=== PATIENT | female | born 1950 | race Caucasian/White ===

== ENCOUNTER 2018-07-19 10:00 | Outpatient (RCR) | payer MEDICARE, OTHER, SELFPAY ==
--- NOTE | 2018-06-20 09:41 | PTTR_ITS ---
DATE: 06/20/18 SUBJECTIVE: Margarita states that she is feeling well. She continues to have hip pain, although feels as though she's getting stronger. Compliant with HEP: x Yes No OBJECTIVE: Therapeutic procedures ([id number]). * x HEP review: * x See flow sheet: * x Provided skilled instruction in proper exercise performance: Progressed therex program to include lunge to high kneel, using UE support to parallel bars and 3 Airex pads to limit excursion. She requires min A for return to standing initially, with transition to supervision only. Attempted transition to floor from high kneel, although patient is unable to safely complete. Deferred on these for today. Progressed bridging to use of green theraband, where she requires verbal and tactile cues for appropriate technique. * x Provided skilled manual cues to facilitate proper muscle recruitment and/ or movement pattern: Direct treatment time: 30 minutes Total treatment time: 35 minutes, with 5 minutes stationary biking
--- NOTE | 2018-06-24 13:54 | PTTR_ITS ---
DATE: 06/24/18 SUBJECTIVE: Pt reports feeling as though she is gaining strength, but that the process is slow. OBJECTIVE: Therapeutic procedures ([id number]). * X See flow sheet: Vitals taken at start of session. Continued pt's strengthening program as indicated on flow sheet. Modified pt's strength and conditioning program due to pt needing to leave early for another appointment. * X Provided skilled instruction in proper exercise performance. * X Provided skilled manual cues to facilitate proper muscle recruitment and/ or movement pattern. Direct treatment time: 20 minutes Total treatment time: 20 minutes
--- NOTE | 2018-06-27 08:51 | PTTR_ITS ---
DATE: 06/27/18 SUBJECTIVE: Pt states that she continues to feel tired after her tx sessions but feels like she is making progress. OBJECTIVE: Therapeutic procedures ([id number]). Pt is instructed in a progressive modified ther ex program as noted on flow sheet. Progressed her lunged to transition from stand to high kneel to floor. Pt requires min (A) for transition from q- ped to floor. * X Provided skilled instruction in proper exercise performance * X Provided skilled manual cues to facilitate proper muscle recruitment and/ or movement pattern: Pt requires continuous tactile cueing at the pelvis to avoid compensatory movement patterns during hip strengthening activities. Direct treatment time: 30 minutes Total treatment time: 40 minutes with additional time spent Nustep biking.
--- NOTE | 2018-07-02 10:42 | PTTR_ITS ---
DATE: 07/02/18 SUBJECTIVE: Margarita states that she has been feeling really good and states that she feels as though the strength is returning in her leg and she is having less pain day to day. OBJECTIVE: Therapeutic procedures ([id number]). Pt was instructed in a progressed ther ex program as noted on flow sheet. She is able to ambulate throughout the clinic without her cane today. Although she was encouraged to continue to use for longer distance or outdoor ambulation. She was able to complete supine activities on the floor today with need for only min (A) and cues to transition from standing to floor. Also added airex pads to closed chain strengthening activities with need for continuous tactile feedback for avoidance of compensatory movement patterns throughout. Direct treatment time: 35 minutes Total treatment time: 45 minutes with additional time spent with Nustep Biking.
--- NOTE | 2018-07-04 14:00 | NT_ITS ---
07/04/18 [facility] today's scheduled appt. SS/dl
--- NOTE | 2018-07-08 13:00 | PN_ITS ---
DATE: July 08, 2018 REFERRING: Madalyn Craven MD REFERRING PROVIDER DIAGNOSIS:: Chronic back and hip pain PHYSICAL THERAPY DIAGNOSIS: same with generalized LE weakness. REPORTING PERIOD (for progress note and discharge note only): 06/07/18 to SUBJECTIVE: Margarita states that her hip is feeling stronger. She continues to have episodes of pain and states with walking she does get some clicking through the lateral hip. She now able to walk within her home without a cane at times, although continues with use of cane for outdoor or longer distance ambulation. She no longer uses the walker at all. She has been doing her HEP and states that she has tried doing more walking around the house as we discuss in previous visits. Standardized Measures: * Lower Extremity Functional Scale Score (LEFS): Shows a 34% deficit. (MOLBPDQ was not repeated today as patient's primary issue is L hip pain). OBJECTIVE: Posture: Patient is demonstrating upright standing posture with UE support to straight cane. She continues to demonstrate posterior pelvic tilt and increased thoracic kyphosis, although she is able to correct this. Gait: Continued antalgia. The patient is ambulating with straight cane in the R UE with decreased stance time on the L as compared to the R with shortened stride length and slow shuffling gait. Special Tests (indicate): 6 min walk test shows vitals BP 120/74, HR 66. The patient ambulates 666 feet (vs just over 400 feet on initial evaluation). Post BP is 138/68, HR 78. Treatment: Therapeutic Procedure [id number]: Consisted of re-assessment followed by instruction in a progressed strengthening program as noted on flow sheet. The patient continues to require both verbal and tactile cueing throughout session, particularly for correction of posterior pelvic tilt. (full program can be found noted on flow sheet) Treatment time: 30 mins ASSESSMENT: Patient has been participating in skilled PT intervention with therapeutic exercise based program where she is demonstrating significant improvements in activity tolerance and functional strength. She is subjectively reporting reduction in pain and re-evaluation today demonstrates a significant improvement in 6 min walk test scores, improving from 400 feet to 666 feet. She requires continued PT intervention to maximize her mobility and also improve activity tolerance. G-Codes (add modifier after appropriate code): Patient' is demonstrating improved functional limitation is in the category of: * x Mobility - walking and moving around : [id number], this is based on LEFS. * Projected goal status is going to be modified to [id number] ST: Assess 6 min walk test (Met) 2: Assess Rondon balance test (Not Met) 3: Reduce pain by 25% in frequency and severity (Met) 4: Able to sit to stand without UE support. (Met) LT: Return to premorbid level of function. (Progressing towards) 2: Return to full, pain-free, functional mobility. (Progressing towards) 3: Independent with self-maintenance program. (Progressing towards) 4: Use of straight cane for all ambulation. (Met) 5: Able to manage full flight of stairs with single rail and supervision only ( Progressing towards) 6: Able to tolerate community distance ambulation. (Met) PLAN: Will continue progressing with strengthening based program 2x a week. Will continue working on functional movement patterns, cardiovascular endurance activities and progressive strengthening. SS/dl
--- NOTE | 2018-07-10 13:00 | PTTR_ITS ---
DATE: 07/10/18 SUBJECTIVE: Margarita states that her hip is continuing to feel good. She feels she is making progress with her strength and mobility. Therapeutic procedures ([id number]). Today's session consisted of instruction in a progressed Therex program as noted on flow sheet. We again worked on transition from standing to lying on the floor, where the patient requires cues for appropriate technique and CG with transition from stand to high kneel. She also requires cues for appropriate rolling techniques with increased time to perform noted. She is able to progress to high knee balance activities with ball toss to self, although requires Min A of the trunk throughout. She requires nearly continuous verbal and tactile cues for appropriate positioning with close chain strengthening, specifically with squats and UE loading activities. Full program with level of assistance required can be found on her flow sheet. Direct treatment time: 40 mins Total treatment time: 45 mins with additional time spent in cardiovascular activity. SS/dl
--- NOTE | 2018-07-15 13:51 | PTTR_ITS ---
DATE: 07/15/18 SUBJECTIVE: Margarita states she is feeling well. She has not been getting a great deal of muscle soreness post P.T. sessions, and feels she is getting stronger. She continues to avoid stairs due to her fear of falling. OBJECTIVE: Therapeutic procedures ([id number]). Today's session consisted of instructions in a progressed ther-ex routine as noted via flow sheets. Vitals were monitored both pre and post treatment. She was instructed in reciprocal management of both 4 and 6 stairs. She frequently defaults back to step to gait pattern on 6 stairs, and requires cues for appropriate technique. During lunging activities she continues to require constant verbal and tactile cues for appropriate completion. She was able to progress her high kneeling activities today with need for cues for TA activation and intrinsic recruitment. After standing activities she required a 2 minute seated rest break due to some mild symptoms of dizziness. Her vitals were found to be normal. She was provided water. Was able to complete NuStep after that, although we held on the remainder of her strengthening program. Direct treatment time: 30 minutes Total treatment time: 45 minutes. SS/gc
--- NOTE | 2018-07-19 11:39 | PTTR_ITS ---
DATE: SUBJECTIVE: Margarita states that she's feeling well. Her family members have noticed that she's getting around better at home. She continues to require assistance with grocery shopping and stair management, but states that her daughter wants to try going out for a walk later today, which she's looking forward to. Compliant with HEP: x Yes No OBJECTIVE: Therapeutic procedures ([id number]). * x See flow sheet: * x Provided skilled instruction in proper exercise performance: Progressed to include further high kneel activities today, which can be found noted in flowsheet. Patient requires SBA for completion. * x Provided skilled manual cues to facilitate proper muscle recruitment and/ or movement pattern: Tactile cues for appropriate completion of hip PREs and lunges. Patient also requires mod A for return from right-sided lunge position. On the left, she's able to independently return to standing with UE support to rail. She was unable to complete full reps of lunges due to significant fatigue ; vitals were found to be WNL. A/P: Patient is following up with her PCP next week for bloodwork. Will continue progressing as she's able to tolerate. Direct treatment time: 30 minutes Total treatment time: 30 minutes
== END 2018-07-19 23:59 | disposition home or self-care (01) ==
LOC: PT 10:00
PROVIDERS: PCP Family Medicine; Referring Provider Family Medicine; Visit Provider Family Medicine
DX: M25.551 Pain in right hip (principal); M25.552 Pain in left hip; G89.29 Other chronic pain; M54.5 Low back pain
CPT/HCPCS: 97110; G8978

== ENCOUNTER 2019-04-10 00:37 | Outpatient (CLI) | payer MEDICARE, OTHER, SELFPAY ==
--- NOTE | 2019-04-10 15:00 | DI.US_ITS ---
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 In this area, there is a normal appearing lymph node measuring 1.2 by 0.4 by 1.0 cm. A normal fatty hilum is maintained. IMPRESSION: 1.2 cm. lymph node corresponds to the palpable abnormality. The lymph node architecture appears normal. Underling malignancy cannot be entirely excluded.
== END 2019-04-10 00:57 ==
PROVIDERS: PCP Family Medicine; Visit Provider Internal Medicine
DX: R59.0 Localized enlarged lymph nodes (principal); Z94.81 Bone marrow transplant status; C91.10 Chronic lymphocytic leukemia of B-cell type not having achieved remission
CPT/HCPCS: 76536

== ENCOUNTER 2019-06-10 00:29 | Outpatient (CLI) | payer MEDICARE, OTHER, SELFPAY ==
--- NOTE | 2019-06-10 08:21 | DI.MAMMO_ITS ---
SYMPTOM/DIAGNOSIS: SCREENING, Z12.31 MAMMOGRAMS: Mammograms were interpreted according to the usual protocol including computer analysis with CAD system, tomosynthesis and C view imaging. Comparison is with the prior examinations. No suspicious masses or microcalcifications are seen. There is no definite evidence of malignancy. IMPRESSION: Negative mammogram. Routine screening is recommended. Category 1, breast density B. MQSA ASSESSMENT OF FINDINGS: Negative. Category 1. Patient will receive a letter notifying them of these results. BI-RADS category B. There are scattered areas of fibroglandular density.
== END 2019-06-10 00:49 ==
PROVIDERS: PCP Family Medicine; Visit Provider Family Medicine
DX: Z12.31 Encounter for screening mammogram for malignant neoplasm of breast (principal)
CPT/HCPCS: 77063; 77067

== ENCOUNTER 2019-07-03 13:05 | Emergency (ER) | payer MEDICARE, OTHER, SELFPAY ==
[2019-07-03 13:06] VITALS: BP 160/64; PULSE 66; RESP 20; TEMP 36.8; O2SAT 98
--- NOTE | 2019-07-03 13:13 | ED.GENADUL_ITS ---
Discharge Plan Disposition Patient Disposition: HOME Condition: Fair Discharge Details Chief Complaint: Orthopedic Clinical Impression: Closed trimalleolar fracture Primary Care Provider: Madalyn Craven ED Provider: Valarie Stauffer Home Meds and New Rx's Prescriptions: New tramadol 50 mg tablet 50 mg PO Q6H PRN (Reason: pain) Qty: 10 RF: 0 Continued multivitamin [Daily Multiple] 1 EACH tablet 1 ea PO DAILY RF: 0 sertraline 100 MG tablet 100 mg PO DAILY RF: 0 atorvastatin 40 MG tablet 40 mg PO HS Qty: 30 RF: 0 prochlorperazine maleate 10 MG tablet 10 mg PO Q4H PRN PRN (Reason: Nausea) Qty: 12 RF: 0 biotin 300 MCG tablet 300 mcg PO DAILY RF: 0 Wf-Uasm-Jmwiour 133 MG tablet 1 tab PO DAILY RF: 0 metoprolol succinate 25 MG tablet extended release 24 hr 75 mg PO DAILY RF: 0 Discharge Instructions Instructions: Leg Fracture (ED) Additional Instructions: Encourage rest, ice, elevation. Tylenol and ibuprofen as needed for discomfort. You may augment this with tramadol as prescribed as needed. You may ice the front of your ankle. Please call orthopedics tomorrow to schedule follow-up appointment, plan for surgery on Sunday. If you develop fever/chills increased pain or other new/worsening symptoms please seek care urgently once again. Referrals: Madalyn Craven [Primary Care Provider] - Edward Roman MD [ [facility] STAFF PHYSICIAN] - Discharge Data Discharge Date/Time-TO BE ENTERED AT DEPARTURE: 07/03/19 15:51 Medical Decision Making Patient presents today with chief complaint of right ankle pain. Patient has ecchymosis, swelling and deformity to the right ankle concerning for fracture. Plan for imaging. Neurovascularly intact. 2+ distal pulses. No pain in the foot or over the proximal fibula. Exam is otherwise benign. She denies trauma elsewhere at the time of the fall. Will give Tylenol and ibuprofen to help with discomfort peer X-rays are concerning for a trimalleolar fracture. Discussed these findings with the patient. She does report that her pain is somewhat improved after the ibuprofen and Tylenol. The consulted with Dr. Roman recommended the patient will forward with surgery, advised that rest, ice, elevation over the weekend with plan for surgery on Sunday. Applied posterior slab splint with plaster. Patient tolerated this well. She would not let me dorsiflex the ankle to a full 90 degrees, but this is close as possible. She will be prescribed tramadol to augment with the Tylenol and ibuprofen. Encourage rest, ice, elevation. She has a walker at home. I feel this will work better for her crutches. She will contact orthopedics tomorrow to discuss follow-up plan. All other questions and concerns were addressed and she is in agreement with this plan. HPI General Mode of arrival: EMS . Date/Time Provider Initiated Documentation: 07/03/19 13:06 . Limitations to Documentation: no limitations . Information obtained by: patient, EMS and RN notes reviewed . HPI Narrative: Patient is a 69-year-old female presents today with chief complaint of right ankle pain. She reports prior to arrival she misstepped coming off of her deck and suffered an injury to the right ankle. Has pain along the lateral malleolus. Denies other injury at the time of the incident. Did not strike her head, no loss of consciousness. Is not been able to ambulate since the incident. Related Data Home Medications Medication Instructions Recorded Confirmed multivitamin [Daily Multiple] 1 ea PO DAILY 08/31/16 07/03/19 sertraline 100 mg PO DAILY tab-cap 08/31/16 07/03/19 atorvastatin 40 mg PO HS #30 tablet 12/26/16 07/03/19 prochlorperazine maleate 10 mg PO Q4H PRN PRN #12 tab 12/26/16 07/03/19 Go-Qrwc-[id number] 1 tab PO DAILY 08/26/17 07/03/19 biotin 300 mcg PO DAILY 08/26/17 07/03/19 metoprolol succinate 75 mg PO DAILY 10/27/17 07/03/19 tramadol 50 mg PO Q6H PRN #10 tab 07/03/19 Previous Rx's Medication Instructions Recorded atorvastatin 40 mg PO HS #30 tablet 12/26/16 prochlorperazine maleate 10 mg PO Q4H PRN PRN #12 tab 12/26/16 tramadol 50 mg PO Q6H PRN #10 tab 07/03/19 Allergies Allergy/AdvReac Type Severity Reaction Status Date / Time No Known Allergies Allergy Unverified 07/03/19 13:07 General Stated Complaint: Orthopedic ULI: 3 Review of Systems Constitutional Reports as per HPI, Denies chills, Denies fever(s), Denies headache(s) and Denies weakness ENT Denies headache(s) Cardiovascular Reports as per HPI Respiratory Reports as per HPI and Denies cough Musculoskeletal Reports as per HPI and Denies tingling Integumentary/Breasts Reports as per HPI, Denies rash and Denies wounds Neurologic Reports as per HPI, Denies headache(s), Denies tingling, Denies paresthesias and Denies weakness [facility] Medical History CLL (chronic lymphocytic leukemia) Surgical History (Updated 09/04/18 @ 14:33 by [employer] HI) Cholecystectomy Colonoscopy - IV Sedation (10/16/16) Family History (Updated 08/31/16 @ 13:31 by JAVED Stacy) Father No problems noted. Other Colon cancer Social History Smoking/Tobacco Use Status: Never Alcohol Intake: never Drug use: Never Do you feel safe at home: Yes Do you feel safe in your relationship?: Yes Exam Const General: cooperative, healthy appearing, comfortable, no acute distress, well developed and well groomed Nutritional Appearance: average body habitus and well nourished Orientation: alert and awake Resp Effort & Inspection: normal respiratory effort, able to speak in complete sentences and no respiratory distress Auscultation: clear to auscultation bilaterally Cardio Rate: regular rate Rhythm: regular rhythm Heart Sounds: S1 normal and S2 normal Skin General skin exam: ecchymosis (Lateral malleolus) Neuro General: alert and awake Cognition: normal cognition Speech: speech normal Gait: gait abnormal (Patient unable to bear weight) Motor: muscle tone normal throughout Sensory Exam: no sensory deficits noted Extrem Right lower extremity: normal capillary refill, knee Details: normal to inspection (No pain with palpation over the proximal fibula), lower leg, ankle Details: tenderness Location: of the lateral malleolus and anteromedially; not of the achilles tendon, swelling Details: laterally, no edema, abnormal ROM Details: pain with active ROM and pain with passive ROM and ecchymosis; inspection normal, ROM abnormal, no unusual warmth, no abrasions, no lacerations, no crepitus, no penetrating wound and achilles tendon exam normal and foot Details: normal capillary refill and normal to inspection; no tenderness (No pain to palpation over the proximal fifth metatarsal); abnormal to inspection (Deformity noted to the lateral malleolus with associated swelling and ecchy), ROM limited (Unable to range ankle), no edema and joint enlargement noted (Swelling to lateral malleolus) Left lower extremity: normal to inspection, normal capillary refill and no joint enlargement; no edema Psych Appearance: grossly normal and well kempt Mental Status: mental status grossly normal Speech and Movement: speech and movement normal Course Vital Signs Temperature 36.8 C 07/03/19 13:06 Pulse 66 07/03/19 13:06 Respiratory Rate 20 07/03/19 13:06 Blood Pressure 160/64 H 07/03/19 13:06 Pulse Oximetry 98 07/03/19 13:06 Temperature 36.8 C 07/03/19 13:06 Temperature Source Temporal Artery Scan 07/03/19 13:06 Pulse 66 07/03/19 13:06 Respiratory Rate 20 07/03/19 13:06 Blood Pressure 160/64 H 07/03/19 13:06 Pulse Oximetry 98 07/03/19 13:06 Oxygen Delivery Method Room Air 07/03/19 13:06 Oxygen Flow Rate 0 07/03/19 13:06 Pain Level 8 07/03/19 13:06
[2019-07-03] MEDS: Ibuprofen 600 MG TAB PO (13:20)
[2019-07-03] MEDS: Acetaminophen 325 MG TAB 650 MG PO (13:20)
--- NOTE | 2019-07-03 13:33 | DI.RAD_ITS ---
SYMPTOMS/DIAGNOSIS: TRAUMA, DEFORMITY LATERAL MALLEOLUS RIGHT ANKLE: Three views were obtained and show a trimalleolar fracture of the ankle with mild displacement of tibial and fibular fracture fragments. There may be slight widening of the ankle mortise medially. No additional fracture seen.
[2019-07-03] MEDS: traMADol 50 MG TAB PO (15:18)
== END 2019-07-03 15:51 | disposition home or self-care (01) ==
PROVIDERS: Emergency Provider Physician Assistant; PCP Family Medicine
DX: S82.851A Displaced trimalleolar fracture of right lower leg, initial encounter for closed fracture (principal); W17.89XA Other fall from one level to another, initial encounter
CPT/HCPCS: 29515; 99283; 73610; 99282

== ENCOUNTER 2019-07-07 07:50 | Day surgery (SDC) | payer MEDICARE, OTHER, SELFPAY ==
[2019-07-07] VITALS (8 sets, daily range): BP systolic 100–126; BP diastolic 40–59; PULSE 67–85; RESP 15–19; TEMP 36.3–36.8; O2SAT 92–99
[2019-07-07] MEDS: fentaNYL 100 MCG/2 ML VIAL 50 MCG IVP ×2 (09:20→09:40)
--- NOTE | 2019-07-07 10:07 | W.PREOPHP ---
History of Present Illness Narrative: Ms. Perales is a 69-year-old female who presents to hospital for ORIF of right ankle for trimalleolar fracture. On 07/03/19 patient misstepped coming off a deck and [facility] Medical History (Updated 07/07/19 @ 09:16 by Aric Perez CRNA) CLL (chronic lymphocytic leukemia) Hypertension (Chronic) Moderate aortic regurgitation (Inactive) Moderate aortic stenosis (Chronic) Surgical History Cholecystectomy Colonoscopy - IV Sedation (10/16/16) History of repair of hip fracture (Acute) Social History Smoking/Tobacco Use Status: Never Alcohol Intake: never Drug use: Never Do you feel safe at home: Yes Do you feel safe in your relationship?: Yes Meds Home Medications Medication Instructions Recorded Confirmed Type multivitamin [Daily Multiple] 1 ea PO DAILY 08/31/16 07/07/19 History sertraline 100 mg PO DAILY tab-cap 08/31/16 07/07/19 History prochlorperazine maleate 10 mg PO Q4H PRN PRN #12 tab 12/26/16 07/07/19 Rx Nf-[id number]-Npbkxbu 1 tab PO DAILY 08/26/17 07/07/19 History metoprolol succinate 75 mg PO DAILY 10/27/17 07/07/19 History tramadol 50 mg PO Q6H PRN #10 tab 07/03/19 07/07/19 Rx acetaminophen [Acetaminophen Extra 1,000 mg PO Q4H PRN 07/04/19 07/07/19 History Strength] cholecalciferol (vitamin D3) 800 unit PO DAILY 07/04/19 07/07/19 History [Vitamin D3] ibuprofen 200 - 400 mg PO Q6H PRN 07/04/19 07/07/19 History Allergies Allergy/AdvReac Type Severity Reaction Status Date / Time No Known Allergies Allergy Unverified 07/03/19 13:07 Results Last Vital Signs Temp 36.8 C 07/07/19 08:18 Pulse 85 07/07/19 08:18 Resp 16 07/07/19 08:18 BP 126/59 L 07/07/19 08:18 Pulse Ox 99 07/07/19 08:18
--- NOTE | 2019-07-07 10:27 | DI.RAD_ITS ---
SYMPTOM/DIAGNOSIS: RT ANKLE FX, ORIF C-ARM RIGHT ANKLE: Fluoroscopy Time: 26 seconds C-arm fluoroscopy was utilized by Dr. Roman during open reduction and internal fixation of a fracture of the distal fibula. Hard copies show plate and screw fixation of the fibular fracture fragments. Fracture of the distal tibia again noted. A fixation screw transfixes the tibiofibular joint.
[2019-07-07] MEDS: Lactated Ringers 1,000 ML 200 ML IV ×2 (10:30→13:57)
[2019-07-07] MEDS: Bupivacaine 0.25% Pres-Free 10 ML VIAL (10:43)
[2019-07-07] MEDS: Bupivacaine 0.25% Pres-Free 30 ML VIAL (10:43)
[2019-07-07] MEDS: ceFAZolin 1 GM/50 ML BAG IVPB (11:01)
--- NOTE | 2019-07-07 12:48 | W.PM.DSUDISC ---
Discharge Plan Disposition Patient Disposition: HOME Condition: Good Discharge Details Reason For Visit: TRIMALLEOLAR FX (R) ANKLE Attending Provider: Edward Roman Primary Care Provider: Madalyn Craven Home Meds and New Rx's Prescriptions: New hydrocodone-acetaminophen 5-325 mg tablet 1 tab PO Q4H PRN (Reason: pain) Qty: 20 RF: 0 Continued multivitamin [Daily Multiple] 1 EACH tablet 1 ea PO DAILY RF: 0 sertraline 100 MG tablet 100 mg PO DAILY RF: 0 cholecalciferol (vitamin D3) [Vitamin D3] 400 unit Capsule 800 unit PO DAILY RF: 0 ibuprofen 200 mg Capsule 200 - 400 mg PO Q6H PRNRF: 0 acetaminophen [Acetaminophen Extra Strength] 500 mg Tablet 1,000 mg PO Q4H PRNRF: 0 prochlorperazine maleate 10 MG tablet 10 mg PO Q4H PRN PRN (Reason: Nausea) Qty: 12 RF: 0 Kc-Mxvo-Jrcstkj 133 MG tablet 1 tab PO DAILY RF: 0 metoprolol succinate 25 MG tablet extended release 24 hr 75 mg PO DAILY RF: 0 Discontinued tramadol 50 mg tablet 50 mg PO Q6H PRN (Reason: pain) Qty: 10 RF: 0 Discharge Instructions Additional Instructions: Elevate R ankle when sitting. Crutches or walker to walk. May touch toes to ground for balance, but don't step on R foot. Keep splint and dressings dry and intact until return. Return to 's office in 2 weeks. Take tylenol or ibuprofen for mild pain. Take hydrocodone as prescribed for breakthru pain, if needed. Referrals: Edward Roman MD [ [facility] STAFF PHYSICIAN] - (f/u in 2 weeks.) Equipment/Supplies: Splint Activity:: Activity as Tolerated Remove Dressings/Wound Care:: Do Not Remove Shower/Bathe:: Cover Diet:: As Tolerated Discharge Orders Discharge Orders: Discharge Order (Routine); Ordered 07/07/19 Ordered By: Edward Romna DS: Diagnosis Discharge Diagnosis (1) Trimalleolar fracture of right ankle: Status: Acute
--- NOTE | 2019-07-07 15:41 | IN_ITS ---
Date of service: 07/07/19 Time of Service: 15:00 PT Notes Inpatient Physical Therapy Evaluation Date: 07/07/19 Referring Doctor: Dr. Roman PT Orders: PT CONSULT: s/p ortho surgery. Safety consult for D/C Precautions: TDWB right LE Patient Profile/Admitting Diagnosis: Consult requested for patient in the PACU. She is day 0 post-op ORIF for repair of right trimalleolar fx. PMHX: CLL, s/p IMN left femur, s/p right MACK, h/o pelvis fx, h/o DVT Social History/Home Situation: Patient lives independently with her in a single level home with 2 platform steps to enter. Equipment Owned/DME: FWW, cane Subjective: Margarita states that she is feeling well. She's nervous about getting up and walking. Objective: General Observation: Resting in bed with RLE in Reilly dressing. Mental Status: A&Ox3 Pain: 2/10 Vital Signs: 101/61, HR 64 ROM: Right Upper Extremity: WFL Left Upper Extremity: WFL Right Lower Extremity: Hip and knee motion grossly WFL. Ankle immobilized in Reilly wrap. Left Lower Extremity: WFL Strength: Right Upper Extremity: Flexion 3/5 or greater. Biceps 4+/5. Triceps 4+/5. Gymnastics Coach Or Instructor is strong and equal. Left Upper Extremity: Flexion 3/5 or greater. Biceps 4+/5. Triceps 4+/5. Gymnastics Coach Or Instructor is strong and equal. Right Lower Extremity: Requires 25% assist for SLR, although demonstrates 3/5 strength with LAQ. She's able to wiggle toes through limited range. Left Lower Extremity: Hip flexion 5/5. Quads 5/5. Ankle DF 5/5. Sensation: sensation diminished to light touch throughout the toes on the right. Bed Mobility/Transfers: supine-sit: supervision sit-stand: supervision stand-sit: supervision Gait: Patient ambulates 10' with FWW and NWB RLE. She requires CG to supervision, with excellent maintenance of NWB status and good safety awareness. Balance: Static Sitting: NL Dynamic Sitting: NL Static Standing: fair Dynamic Standing: fair Informed Consent/Education: Patient instructed in purpose of PT consult and plan of care. Assessment: Patient is a 69 year old female referred to physical therapy services for safety consult prior to discharge after ORIF for repair of right trimalleolar fracture. Patient presents with clinical signs and symptoms consistent with post-operative status. Patient has utilized a FWW extensively in the past, and given her h/o falls, feel she'll require use of FWW vs crutches to minimize fall risk. She was able to demonstrate good safety awareness and effective transfer technique while maintaining NWB status, and is safe for discharge home with assistance from her . She currently demonstrates the following impairment level findings: 1. Gait impairments due to NWB status 2. h/o falls with h/o multiple fractures Impairments are contributing to the following functional limitations: 1. Gait impairments 2. High fall risk Patient is assessed as a Moderate [id number] complexity based on the following: History: 69 year old female, day 0 post ORIF for right trimalleolar fracture. She has a h/o CLL and multiple falls, with right IMN and left MACK in addition to h/o pelvic fx Examination: functional limitations as above Presentation: evolving due to acute post-op status Decision Making: moderate complexity Plan of Care/Treatment Plan: Discharge home DISCHARGE RECOMMENDATIONS: No equipment needs as patient owns FWW TREATMENT CODE/TIME: 3:00-3:20 ([id number])
--- NOTE | 2019-07-08 07:32 | ROE_ITS ---
REPORT OF OPERATIVE PROCEDURE DATE OF PROCEDURE July 07, 2019 PREOPERATIVE DIAGNOSIS Trimalleolar fracture, right ankle. POSTOPERATIVE DIAGNOSIS Trimalleolar fracture, right ankle. PROCEDURES PERFORMED Open reduction internal fixation of trimalleolar fracture right ankle, application of Reilly dressing and short-leg posterior splint. ANESTHESIA General, supplemented by lower extremity blocks, Aric Perez CRNA SURGEON Edward Roman M.D. COST SPECIALIST Vianey Aaron, JAVED INDICATIONS This is a 69-year-old white female who sustained a trimalleolar fracture of her right ankle approxima tely five days ago. She had posterior subluxation of the talus on the lateral view without any signif icant widening of the ankle mortise, and with minimal lateral shift of the talus. Open reduction inte rnal fixation of the fracture was advised as optimum treatment to restore the integrity of the ankle mortise joint. The risks and complications of the procedure were explained to the patient in detail p reoperatively. PROCEDURE DESCRIPTION The patient was taken to the Operating Room on 07/07/2019. She was placed supine on the Operating Tab le. Lower extremity blocks were administered and then a general anesthetic was administered. A prox imal tourniquet was applied to the right upper thigh. The right lower extremity was then prepped fro m toes to tourniquet and draped free in the usual sterile fashion. There were no fracture blisters an d no breaks in the skin visualized. I started with a curved incision on the medial side of the ankle, centered over the medial malleolus. I intended to view the ankle joint through the medial malleolus fracture site. Incision was made po sterior to the saphenous vein. On inspection, the fracture site was not displaced or and so I did not feel that it was nec essary to make an arthrotomy of the ankle or even to try to displace the fracture of the medial malle olus. Attention was then turned to the lateral side. The incision was made beginning at the distal tip of the fibula and extending proximally about 6 inch es. The incision was made in line with the fibula. The incision was carried down to the peroneal fas sharla. The peroneal fascia was longitudinally incised. The fracture site was identified. Fracture hemat kimberley was removed from the fracture site with a curette and irrigated with saline solution. The fractur e was reduced and it was necessary to put K-wires across the fracture site to hold the reduction in p lace. I then placed a 7-hole one third tubular place, I contoured it to fit the fibula. I secured the plate to the fibula with two distal locking 3.5 screws, and the proximal three screws were nonlockin g 3.5 screws. I placed a 3.5 locking screw through the plate across the fracture. Then, I placed a s yndesmotic screw 4.0 cancellous through the plate parallel to the ankle mortise and located about 2 o r 3 cm proximal to the ankle joint. With the fibular anatomically reduced, and the syndesmosis fixed, I checked the reduction with the C-arm image intensifier. The ankle mortise was anatomically reduced , as was the fibular fracture. The medial malleolar fracture remained undisplaced. The posterior mall eolar fracture is now anatomically reduced with reducing the fibula. The posterior malleolar fragment was small and I did not think it needed any fixation. At this point, the wounds were irrigated with Betadine and saline solution. The wound margins were in filtrated with 0.5% Marcaine with epinephrine solution. The subcu and lateral incision was approximat chandan with interrupted #2-0 Vicryl sutures and the skin was approximated with simple interrupted #3-0 N ylon sutures. The medial incision was approximated with interrupted #4-0 Nylon sutures. The wounds we re dressed Xeroform gauze, sterile gauze, 4x4s, covered with ABD pads and wrapped with a Kerlix nicole ge. I then applied a short-leg Reilly compressive dressing to the right lower extremity. The tournique t was released at this point. A short-leg fiberglass splint was applied with a 6-inch Harry bandage hol ding the ankle in neutral dorsiflexion. The patient tolerated the procedure well. Her anesthesia was reversed without complications. She was discharged to the Recovery Room in good co ndition. The patient was later discharged home from the Day Surgery Unit when fully recovered from her General anesthesia. She was given instructions to elevate her right leg when sitting. She is to be nonweightbearing on th e right with crutches and a walker. I will allow her to touch her toes down for balance. She is to ke ep the dressings dry and intact until she follows up in Dr. Roman's office in two weeks. She will ta ke Tylenol or ibuprofen for mild pain. She is given a prescription for breakthrough pain of hydrocodo ne with APAP 5/325 1 tablet every 4 hours if needed.
== END 2019-07-07 15:30 | disposition home or self-care (01) ==
PROVIDERS: PCP Family Medicine; Visit Provider Orthopaedic Surgery
PROC: (CPT 27822; principal; 2019-07-07 09:00)
DX: S82.851A Displaced trimalleolar fracture of right lower leg, initial encounter for closed fracture (principal); X50.0XXA Overexertion from strenuous movement or load, initial encounter; Y92.018 Other place in single-family (private) house as the place of occurrence of the external cause; G89.18 Other acute postprocedural pain
CPT/HCPCS: 27822; C1713; 76000; 97162; 73610; J0690; J1100; J1885; J2250; J2405; J3010

== ENCOUNTER 2019-07-22 12:51 | Outpatient (CLI) | payer MEDICARE, OTHER, SELFPAY ==
--- NOTE | 2019-07-22 09:21 | DI.RAD_ITS ---
SYMPTOM/DIAGNOSIS: F/U ORIF RIGHT ANKLE: Comparison is made with intraoperative images dated 07 July 2019. A screw and plate fixation is again seen along the lateral malleolus with mortise screw. There has been no change in fracture or hardware alignment. The medial malleolar fracture remains nondisplaced. The talar dome appears intact.
== END 2019-07-22 13:11 ==
PROVIDERS: PCP Family Medicine; Referring Provider Family Medicine; Visit Provider Orthopaedic Surgery
DX: S82.851A Displaced trimalleolar fracture of right lower leg, initial encounter for closed fracture (principal); X58.XXXA Exposure to other specified factors, initial encounter; I10 Essential (primary) hypertension
CPT/HCPCS: L4361; 73610

== ENCOUNTER 2019-08-19 09:52 | Outpatient (CLI) | payer MEDICARE, OTHER, SELFPAY ==
--- NOTE | 2019-08-19 09:45 | DI.RAD_ITS ---
EXAM: XR ANKLE RT COMPLETE CLINICAL HISTORY: f/u of right ankle ORIF. TECHNIQUE: 2D digital imaging was performed. COMPARISON: XR ANKLE RT COMPLETE from 07/22/2019 FINDINGS: BONES: There has been no change in alignment of the distal fibular or distal tibial fractures. There is again seen a sideplate and screws transfixing the distal fibular fracture. The orthopedic hardwa re appears stable. No new fracture or dislocation is present. The bones appear osteopenic. This li gracie reflects decreased use. There are degenerative changes present at the talonavicular joint. JOINTS: The ankle mortise is normally aligned. SOFT TISSUE: Vascular calcifications are present in the soft tissues. There does appear to be persis tent mild soft tissue swelling about the ankle. IMPRESSION: Stable distal right tibial and fibular fractures.
== END 2019-08-19 10:12 ==
PROVIDERS: PCP Family Medicine; Referring Provider Family Medicine; Visit Provider Orthopaedic Surgery
DX: S82.851A Displaced trimalleolar fracture of right lower leg, initial encounter for closed fracture (principal); M79.89 Other specified soft tissue disorders; X58.XXXA Exposure to other specified factors, initial encounter; I10 Essential (primary) hypertension
CPT/HCPCS: 73610

== ENCOUNTER 2019-09-16 09:49 | Outpatient (CLI) | payer MEDICARE, OTHER, SELFPAY ==
--- NOTE | 2019-09-16 09:36 | DI.RAD_ITS ---
EXAM: XR ANKLE RT COMPLETE INDICATION: F/U FRACTURE. COMPARISON: XR ANKLE RT COMPLETE from 07/03/2019 XR ANKLE RT COMPLETE from 08/19/2019 TECHNIQUE: 2D digital imaging was performed. FINDINGS: There has been no change in alignment of the fractures involving the posterior or medial malleoli. T here is again seen a side plate with screws transfixing the distal fibular fracture. The fracture co mponents appears stable in alignment and show some interval healing. No new fractures or dislocation s are present. There is persistent soft tissue swelling about the ankle. Atherosclerosis is present . Degenerative changes are seen at the talonavicular joint. IMPRESSION: Stable right ankle fractures.
== END 2019-09-16 10:09 ==
PROVIDERS: PCP Family Medicine; Referring Provider Family Medicine; Visit Provider Orthopaedic Surgery
DX: S82.851D Displaced trimalleolar fracture of right lower leg, subsequent encounter for closed fracture with routine healing (principal); X58.XXXD Exposure to other specified factors, subsequent encounter; I10 Essential (primary) hypertension
CPT/HCPCS: 73610

== ENCOUNTER → 2019-10-15 09:26 | Outpatient (BNVA) | payer MEDICARE, OTHER, SELFPAY | PROVIDERS: PCP Family Medicine; Referring Provider Family Medicine; Visit Provider Orthopaedic Surgery | DX: S82.851D Displaced trimalleolar fracture of right lower leg, subsequent encounter for closed fracture with routine healing; X58.XXXD Exposure to other specified factors, subsequent encounter; I10 Essential (primary) hypertension | CPT/HCPCS: 99213 ==

== ENCOUNTER 2020-04-01 01:01 | Outpatient (CLI) | payer MEDICARE, OTHER, SELFPAY ==
--- NOTE | 2020-04-01 | DI.DEXA_ITS ---
EXAM: XR DEXA BONE DENSITY W/WO ANGEL CLINICAL HISTORY: OTHER DISORDER OF BONE DENSITY, M85.88 TECHNIQUE: DEXA scan was performed utilizing lumbar spine and forearm scanning. COMPARISON: No exams were available for comparison FINDINGS: Lumbar spine scanning shows T-score of -1.1, prior examination of June 2008 showed lumbar T-score o f -1.3. Left forearm scanning shows T-score of -2.3. IMPRESSION: Findings consistent with osteopenia according to the WHO criteria. The lateral vertebral scanogram s hows apparent mild anterior compression fracture of what appears to be L1 vertebral body.
== END 2020-04-01 01:21 ==
PROVIDERS: PCP Family Medicine; Visit Provider Family Medicine
DX: M85.88 Other specified disorders of bone density and structure, other site (principal); M48.56XA Collapsed vertebra, not elsewhere classified, lumbar region, initial encounter for fracture
CPT/HCPCS: 77080

== ENCOUNTER 2020-08-11 08:17 | Outpatient (REF) | payer MEDICARE, OTHER, SELFPAY ==
[2020-08-11 22:25] LABS: Abs Immature Grans 0.01 10^3/uL (0.0-0.06); Absolute Basophil Count 0.04 10^3/uL (0.0-0.2); Absolute Eosinophil Count 0.25 10^3/uL (0.0-0.7); Absolute Lymphocyte Count 1.35 10^3/uL (1.2-3.4); Absolute Monocyte Count 0.84 10^3/uL (0.1-0.8); Absolute Neutrophil Count 4.32 10^3/uL (1.2-6.7); Basophils % 0.6; Eosinophils % 3.7; HCT 46.8 % (36.0-46.0); HGB 15.9 g/dL (11.2-15.7); Immature Grans % 0.1; Lymphocytes % 19.8; MCH 33.1 pg (27.0-33.0); MCV 97.3 fL (80-95); MPV 10.6 fL (8.0-11.0); Monocytes % 12.3; Neutrophils % 63.5; Nucleated RBC 0 %; Platelet Count 222 10^3/uL (130-400); RBC 4.81 10^6/uL (3.93-5.22); RDW 13.2 % (11.7-14.6); RDW-SD 47.5 fL; WBC 6.81 10^3/uL (4.4-10.8)
[2020-08-11 22:43] LABS: ALT 26 U/L (14-59); AST 21 U/L (15-37); Albumin 4.1 g/dL (3.4-5.0); Alkaline Phosphatase 61 U/L (46-116); Anion Gap 11.6 mmol/L (3-11); BUN 25 mg/dL (7-18); Bilirubin, Total 0.6 mg/dL (0.2-1.0); CO2 24.4 mmol/L (21.0-32.0); CREATININE 0.92 mg/dL (0.55-1.02); Calcium 9.1 mg/dL (8.5-10.1); Calculated LDL 169 mg/dL (<100); Chloride 106 mmol/L (98-107); Cholesterol 247 mg/dL (<200); Glucose 112 mg/dL (74-106); HDL Cholesterol 48 mg/dL (40-60); Potassium 4.4 mmol/L (3.5-5.1); Sodium 142 mmol/L (136-145); Total Protein 7.2 g/dL (6.4-8.2); Triglyceride 152 mg/dL (<150)
== END 2020-08-11 08:37 ==
LOC: NCHCN 08:17
PROVIDERS: PCP Family Medicine; Visit Provider Family Medicine
DX: I10 Essential (primary) hypertension (principal); E78.00 Pure hypercholesterolemia, unspecified; R53.83 Other fatigue
CPT/HCPCS: 80053; 80061; 85025

== ENCOUNTER 2020-08-31 00:33 | Outpatient (CLI) | payer MEDICARE, OTHER, SELFPAY ==
--- NOTE | 2020-08-31 | DI.MAMMO_ITS ---
EXAM: MAMMO SCREENING CLINICAL HISTORY: SCREENING, Z12.31 TECHNIQUE: Mammograms were interpreted according to the usual protocol including computer analysis w [employer] CAD system, tomosynthesis and C-view imaging. COMPARISON: 2011 through 2018 FINDINGS: The breasts are composed of scattered fibroglandular densities, Breast Density category B. No suspicious masses or suspicious microcalcifications are seen. Vascular calcifications are inciden tally noted. No skin thickening or abnormal axillary lymph nodes are seen. There has been no significant change from prior exams. IMPRESSION: BI-RADS Category 1, Negative mammogram Yearly screening mammography is recommended. Breast Density - Category B, scattered fibroglandular densities. A negative radiographic report should not delay biopsy if a dominant or clinically suspicious mass is present. Up to ten percent of cancers are not identified on mammography. A negative report may reinforce clinical impression. Adenosis and dense breasts may obscure an underlying neoplasm. False positive reports average 6 to 10%. Patient will receive a letter notifying them of these results.
== END 2020-08-31 00:53 ==
PROVIDERS: PCP Family Medicine; Visit Provider Family Medicine
DX: Z12.31 Encounter for screening mammogram for malignant neoplasm of breast (principal)
CPT/HCPCS: 77063; 77067

== ENCOUNTER 2021-07-29 11:41 | Outpatient (CLI) | payer MEDICARE, OTHER, SELFPAY ==
--- NOTE | 2021-07-29 10:00 | DI.RAD_ITS ---
Exam(s) XR ANKLE RT COMPLETE EXAM: XR ANKLE RT COMPLETE INDICATION: ORIF R ankle. COMPARISON: CR XR ANKLE RT COMPLETE from 09/16/2019 TECHNIQUE: 2D digital imaging was performed. FINDINGS: A lateral fixation plate with mortise screws again noted. There is slight lucency around the mortise screw which could indicate an element of loosening. There is an old healed fracture deformity of th e medial malleolus. The talar dome appears intact. Vascular calcifications are seen. DATA REPOSITORY: RADIATION DOSE DELIVERED:
== END 2021-07-29 11:42 | disposition home or self-care (01) ==
LOC: DIORS 11:41
PROVIDERS: PCP Family Medicine; Referring Provider Family Medicine; Visit Provider Student in an Organized Health Care Education/Training Program
DX: S82.851D Displaced trimalleolar fracture of right lower leg, subsequent encounter for closed fracture with routine healing (principal); T84.84XA Pain due to internal orthopedic prosthetic devices, implants and grafts, initial encounter; X58.XXXD Exposure to other specified factors, subsequent encounter; M20.41 Other hammer toe(s) (acquired), right foot
CPT/HCPCS: 99213; 73610

== ENCOUNTER 2021-08-22 02:52 | Outpatient (CLI) | payer MEDICARE, OTHER, SELFPAY ==
[2021-08-22 12:39] LABS: Source Nasal/Nares
[2021-08-22 18:58] LABS: COVID-19 PCR Negative (Negative)
== END 2021-08-22 02:53 | disposition home or self-care (01) ==
LOC: LBO 02:52
PROVIDERS: PCP Family Medicine; Visit Provider Student in an Organized Health Care Education/Training Program
DX: Z20.822 Contact with and (suspected) exposure to COVID-19 (principal); Z01.818 Encounter for other preprocedural examination
CPT/HCPCS: 87635

== ENCOUNTER 2021-10-04 08:30 | Outpatient (CLI) | payer MEDICARE, OTHER, SELFPAY ==
--- NOTE | 2021-10-04 07:34 | DI.US_ITS ---
APPROVED REPORT EXAM: Comprehensive 2D, Doppler, and color-flow Echocardiogram Patient Location: Out-Patient Admissions Evaluator: Venessa Waddell RDCS (AE) Indications: Pre operative exam, HTN Other Information Study Quality: Adequate Conclusion Normal left ventricular wall thickness and chamber size. Estimated ejection fraction is 60 to 65%. Wall motion is normal Normal right ventricular size and systolic function Both atria are normal in size Aortic valve is sclerotic and trileaflet with mild regurgitation. There is no aortic stenosis Mildly thickened mitral leaflets. Mitral annular calcification. Mild to moderate mitral regurgitati on Normal tricuspid valve with mild regurgitation. Estimated right ventricular systolic pressure is nor mal at 22 mmHg Normal pulmonic valve with mild regurgitation Wall motion Left Ventricle The left ventricle is normal size. The left ventricular systolic function is normal. The left ventric ular ejection fraction is within the normal range. There is normal left ventricular wall thickness. T here is normal LV segmental wall motion. There is no ventricular septal defect visualized. LVEF is 60 -65%. Right Ventricle The right ventricle is normal size. The right ventricular systolic function is normal. The RVSP is 22 .6mmHg. Atria The left atrium size is normal. The right atrium size is normal. The interatrial septum is intact wit h no evidence for an atrial septal defect. Aortic Valve Aortic valve is calcified. The Aortic valve is sclerotic. Aortic valve is trileaflet. There is no aor tic valvular stenosis. Mild aortic regurgitation. Mitral Valve Mitral valve leaflets are mildly thickened. Mild mitral annular calcification. No evidence of mitral valve stenosis. Mild to moderate mitral regurgitation. Tricuspid Valve The tricuspid valve is normal in structure. There is no tricuspid valve stenosis. Mild tricuspid regu rgitation. Pulmonic Valve The pulmonary valve is normal in structure. There is no pulmonic valvular stenosis. Mild pulmonic reg urgitation. Great Vessels The aortic root is normal in size. The ascending aorta is normal in size. Aortic arch is normal in ca liber. IVC is normal in size and collapses >50% with inspiration. Pericardium There is no pericardial effusion. 2D Dimensions IVSD d PLAX 0.99 cm F: 0.6-1.0 LV Vol A2C d MOD 74.5 mL LVPW d PLAX 0.99 cm F: 0.6 - 1.0 LV Vol A4C d MOD 60.2 mL LVID d PLAX 4.47 cm F: 3.8 - 5.2 LV EF A4C MOD 57.0 % LVDs 3.05 cm F: 2.2 - 3.5 LV EF A2C MOD 57.7 % Ao Root d 2.73 cm F: 2.7 - 3.3 LV EF Biplane MOD 55.7 % RA Area A4C 11.47 cm2 SV 37.44 mL RA Vol/ BSA A4C s A-L 16.3 mL/m2 SV Index 24.69 mL/m2 Ao Asc Diam d 3.17 cm F: 2.3 - 3.1 LV EF Teichholz 59.8 % LVEF (Sheriff's) 55.73 % F: 54 - 74 LV Volume 55.75 mL F: 46 - 106 LV Volume Index 36.92 mL/m2 F: 29 - 61 LV Vol Biplane MOD 67.2 mL FS 31.65 % M-Mode TAPSE 1.96 cm (M/F) >1.7 LV Diastology MV E' medial 0.053 (>0.07 m/s) E/A Ratio 0.6 LV E/e MED 10.15 (<14) MV E Vmax 0.54 (0.4-1.3 m/s) MV E' lateral 0.057 (>0.1 m/s) MV A Vmax 0.85 (0.4-1.3 m/s) LV E/e LAT 9.45 (<14) MV E/A Ratio 0.63 MV E/E' medial 10.19 MV E/E' lateral 9.48 Aortic Valve LVOT Area 3.00 cm2 AoV Area Vmax 1.16 cm2 LVOT Vmax 0.67 m/s AoV Area/ BSA (Vmax) 0.76 cm2/m2 LVOT Mean Nathaniel. 0.41 m/s CHRISTOPHER Mean Nathaniel. 0.92 cm2 LVOT Peak Grad 1.8 mmHg CHRISTOPHER Mean Nathaniel. Index 0.60 cm2/m2 LVOT Mean Grad 0.8 mmHg AR DT 2408 msec LVOT VTI 0.128 m AR PHT 698 msec LVOT Diam s 1.95 cm AoV Vmax 1.74 m/s Velocity Ratio 0.38 AoV Mean Nathaniel. 1.35 m/s AoV Peak Grad 12.1 mmHg LVOT SV 38.54 mL AoV Mean Grad 7.7 mmHg AoV VTI 0.372 m AoV Area VTI 1.04 cm2 AoV Area/ BSA (VTI) 0.68 cm/m2 Mitral Valve MV DT 413 (160-240 msec) MR Vmax 5.38 m/s MV PHT 120 msec MR VTI 1.916 m MV Area PHT 1.84 cm2 MR Peak Grad 115.7 mmHg MV VTI 0.280 m MR Mean Grad 82.9 mmHg MV VTI Annulus 0.301 m MV Area VTI 1.48 (4.0-6.0 cm2) Pulmonary Valve PV Vmax 0.54 (0.5-1.5 m/s) RVOT Peak Gr. 0.58 mmHg PV Peak Grad 1.2 mmHg RVOT Mean Gr. 0.30 mmHg PV Mean Grad 0.7 mmHg RVOT VTI 0.074 m PV VTI 0.116 m RVOT Vmax 0.38 m/s Tricuspid Valve TR Peak Grad 19.5 mmHg TR Vmax 2.21 m/s RA Pressure 3.00 mmHg RVSP (TR) 22.6 mmHg
== END 2021-10-04 08:50 ==
PROVIDERS: PCP Family Medicine; Visit Provider Family Medicine
DX: Z01.818 Encounter for other preprocedural examination (principal); I10 Essential (primary) hypertension; I08.8 Other rheumatic multiple valve diseases
CPT/HCPCS: 93306

== ENCOUNTER → 2022-01-05 08:26 | Outpatient (BNVA) | payer MEDICARE, SELFPAY | PROVIDERS: PCP Family Medicine; Referring Provider Family Medicine | DX: M20.41 Other hammer toe(s) (acquired), right foot (principal); S82.851D Displaced trimalleolar fracture of right lower leg, subsequent encounter for closed fracture with routine healing; X58.XXXD Exposure to other specified factors, subsequent encounter ==

== ENCOUNTER 2022-01-09 02:12 | Outpatient (CLI) | payer MEDICARE, SELFPAY ==
[2022-01-09 12:26] LABS: Source Nasal/Nares
[2022-01-09 17:58] LABS: COVID-19 PCR Negative (Negative)
== END 2022-01-09 02:13 | disposition home or self-care (01) ==
PROVIDERS: PCP Family Medicine; Visit Provider Student in an Organized Health Care Education/Training Program
DX: Z20.822 Contact with and (suspected) exposure to COVID-19 (principal); Z01.818 Encounter for other preprocedural examination
CPT/HCPCS: 87635; U0005

== ENCOUNTER 2022-01-10 07:08 | Day surgery (SDC) | payer MEDICARE, SELFPAY ==
[2022-01-10] VITALS (7 sets, daily range): BP systolic 125–140; BP diastolic 54–77; PULSE 57–71; RESP 13–18; TEMP 35.4–37.1; O2SAT 96–98; BMI 21.3
--- NOTE | 2022-01-10 06:45 | DI.RAD_ITS ---
Exam(s) XR ANKLE RT 2V EXAM: XR ANKLE RT 2V CLINICAL HISTORY: HARDWARE OF RIGHT ANKLE TECHNIQUE: 2D and realtime digital imaging was performed. COMPARISON: No exams were available for comparison FINDINGS: C-arm fluoroscopy was utilized by Dr. Bagley. Hard copy show staple fixation of fusion of the PIP joints of the 2nd and 3rd toes. IMPRESSION: RADIATION DOSE DELIVERED: Jamesr=0.05 mGy Total DLP
--- NOTE | 2022-01-10 07:36 | PDOC.DSDIS_ITS ---
Discharge Plan Disposition Patient Disposition: HOME Condition: Good Discharge Details Reason For Visit: R Toe fusion/Hardware removal Attending Provider: Rashaad Bagley Primary Care Provider: Madalyn Craven Home Meds and New Rx's Prescriptions: New hydrocodone-acetaminophen 5-325 mg tablet 1 tab PO Q6H PRN (Reason: pain) Qty: 10 0RF acetaminophen 500 mg tablet 1,000 mg PO TID Qty: 90 0RF ibuprofen 600 mg tablet 600 mg PO TID PRN (Reason: pain) Qty: 90 0RF Continued multivitamin [Daily Multiple] 1 EACH tablet 1 ea PO DAILY 0RF sertraline 100 MG tablet 100 mg PO DAILY 0RF cholecalciferol (vitamin D3) [Vitamin D3] 400 unit Capsule 800 unit PO DAILY 0RF Ri-Joea-Urnvtbd 133 MG tablet 1 tab PO DAILY 0RF metoprolol succinate 25 mg tablet extended release 24 hr 25 mg PO DAILY 0RF Discontinued ibuprofen 200 mg Capsule 200 - 400 mg PO Q6H PRN0RF acetaminophen [Acetaminophen Extra Strength] 500 mg Tablet 1,000 mg PO Q4H PRN0RF Discharge Instructions Additional Instructions: Ankle Hardware Removal/Toe Fusion Discharge Instructions Activity: You may heel weight bear as tolerated. You should keep the leg elevated as much as possible. You may move your hip and knee as tolerated. You should wear the post op shoe when you are up and mobilizing, but may remove it when not and move your ankle as tolerated. Dressings: You should keep the initial dressing on for at least 3 days. After 3 days, you may remove it and get it wet in the shower. You should keep it covered with a light gauze dressing or wrap until follow-up. Medications: - You should take Tylenol and Ibuprofen around the clock for baseline pain. - You have been prescribed a stronger narcotic, Hydrocodone, for breakthrough pain. Follow-up: 2 weeks Stand Alone Forms: Anesthesia Discharge Inst., Alejandra Elliott ([facility]) Referrals: Rashaad Bagley MD [ [facility] STAFF PHYSICIAN] - Equipment/Supplies: Partial Weight Bearing Crutches Activity:: Elevate Remove Dressings/Wound Care:: 72 hours Shower/Bathe:: 72 hours Diet:: As Tolerated Discharge Orders Discharge Orders: Discharge Order (Routine); Ordered 01/10/22 Ordered By: Sidney Biju DS: Diagnosis Discharge Diagnosis (1) Hammer toe of second toe of right foot: Status: Acute (2) Acquired hammer toe deformity of lesser toe of right foot: Status: Acute (3) Trimalleolar fracture of right ankle: Status: Chronic
--- NOTE | 2022-01-10 08:04 | W.ANESPRE ---
General Info Date of Service Date Performed: 01/10/22 Height: 5 ft 2 in Weight: 53 kg Body Mass Index (BMI): 21.3 Surgical Procedure: Operation Date: 01/10/22 08:25 Proposed Procedure Side Surgeon p Foot PIP Fusion 2nd & 3rd toe, Hardware removal Ankle Right Rashaad Bagley MD Pre-Op Diagnosis (1) Acquired hammer toe deformity of lesser toe of right foot (2) Hammer toe of second toe of right foot (3) Trimalleolar fracture of right ankle Meds Allergies and Home Medications Allergies Allergy/AdvReac Type Severity Reaction Status Date / Time No Known Allergies Allergy Verified 01/10/22 07:14 Home Medication Medication Instructions Recorded multivitamin (Daily Multiple) 1 ea PO DAILY 08/31/16 sertraline 100 mg tablet 100 mg PO DAILY tab-cap 08/31/16 magnesium oxide-magnesium amino 1 tab PO DAILY 08/26/17 acid chelate 133 mg tablet (Ww-Dhov-Vhcuugs) cholecalciferol (vitamin D3) 10 800 unit PO DAILY 07/04/19 mcg (400 unit) capsule (Vitamin D3) metoprolol succinate 25 mg 25 mg PO DAILY tab 01/05/22 tablet,extended release 24 hr acetaminophen 500 mg tablet 1,000 mg PO TID #90 tab 01/10/22 hydrocodone 5 mg-acetaminophen 325 1 tab PO Q6H PRN #10 tab 01/10/22 mg tablet ibuprofen 600 mg tablet 600 mg PO TID PRN #90 tab 01/10/22 Current Visit Medications: Current Medications Generic Name Dose Route Start Last Admin Trade Name Freq PRN Reason Stop Dose Admin Acetaminophen 650 mg 01/10/22 07:35 Acetaminophen 325 Mg Tab PO Q4H PRN PRN Hydrocodone Bitart/Acetaminophen 0 tab 01/10/22 07:35 Hydrocodone 5/Acetaminophen 325 Tab PO Q3H PRN PRN Pain Ringer's Solution 1,000 mls @ 80 mls/hr 01/10/22 06:00 IV 02/08/22 23:59 INFUSION STEPHANIE Cefazolin Sodium/Dextrose 2 gm in 50 mls @ 100 mls/hr 01/10/22 06:00 Ancef Duplex IVPB 01/10/22 16:00 PREOP STEPHANIE IV Miscellaneous Supplies 1 each 01/10/22 06:00 Iv Access IV 02/08/22 23:59 DIRECTED STEPHANIE Sodium Chloride 0 ml 01/10/22 06:00 Normal Saline Flush 10 Ml Syr IV 02/08/22 23:59 PRN PRN Sodium Chloride 0 ml 01/10/22 06:00 Normal Saline 10 Ml Vial IJ 02/08/22 23:59 DIRECTED PRN Sterile Water 0 ml 01/10/22 06:00 Water,Injection,Sterile 10 Ml Vial IJ 02/08/22 23:59 DIRECTED PRN PFSH Active Problems Active Problems: Problem Status Onset Code Hepatitis K75.9 Chronic lymphoid leukemia C91.10 Anemia D64.9 Fever and chills R50.9 Systolic murmur Troponin level elevated R79.89 Moderate aortic stenosis I35.0 Trimalleolar fracture of right ankle 07/07/19 S82.851A Hammer toe of second toe of right foot M20.41 Acquired hammer toe deformity of lesser toe of right foot M20.41 Painful orthopaedic hardware T84.84XA Medical History Medical History CLL (chronic lymphocytic leukemia) allogeniec bone marrow transplant biopsy 2015 in remission Hypertension Moderate aortic regurgitation Surgical History Surgical History (Updated 01/10/22 @ 07:37 by JAVED Galaviz) Cholecystectomy Colonoscopy - IV Sedation (10/16/16) History of repair of hip fracture Tobacco Smoking/Tobacco Use Status: Never Alcohol Alcohol Intake: never Substance Use Substance use: Never Substance use type: does not use Vital Signs and Lab Results Vital Signs Most Recent Vital Signs in EMR: Most Recent Vital Signs Temp Pulse Resp BP Pulse Ox 37 C 64 18 128/74 97 01/10/22 07:35 01/10/22 07:35 01/10/22 07:35 01/10/22 07:35 01/10/22 07:35 Lab Results Blood Type / Crossmatch: No Data to Display Complete Blood Count: No Data to Display Complete Metabolic Panel: No Data to Display Liver Function Panel: No Data to Display Coagulation Panel: No Data to Display Cardiac Panel: No Data to Display Arterial Blood Gas: No Data to Display Venous Blood Gas: No Data to Display Pancreas Panel: No Data to Display Thyroid Panel: No Data to Display Infectious Disease: Coronavirus (COVID-19)(PCR) Negative (Negative) 01/09/22 08:58 01/09/22 Coronavirus 2019 Source Nasal/Nares 01/09/22 08:58 01/09/22 Blood Cultures: No Data to Display Toxicology Panel: No Data to Display Imaging and Studies Imaging and Studies Study information below may be from another EMR and interpreted by another provider. Please see original notes in EMR for more complete details. Echocardiogram Summary: Date of Exam: 10/04/21Sex: F Admission Date: 10/04/21 : 1950 Age: 71 APPROVED REPORT EXAM: Comprehensive 2D, Doppler, and color-flow Echocardiogram Patient Location: Out-Patient Recreation Instructor: Venessa Waddell RDCS (AE) Indications: Pre operative exam, HTN Other Information Study Quality: Adequate Conclusion Normal left ventricular wall thickness and chamber size. Estimated ejection fraction is 60 to 65%. Wall motion is normal Normal right ventricular size and systolic function Both atria are normal in size Aortic valve is sclerotic and trileaflet with mild regurgitation. There is no aortic stenosis Mildly thickened mitral leaflets. Mitral annular calcification. Mild to moderate mitral regurgitation Normal tricuspid valve with mild regurgitation. Estimated right ventricular systolic pressure is normal at 22 mmHg Normal pulmonic valve with mild regurgitation Pulmonary Function Summary: DATE OF ADMIT: 05/11/17 : 1950 INTERPRETATION SPIROMETRY: Spirometry shows mild obstructive airways disease with no significant bronchodilator response. LUNG VOLUMES: Lung volumes incomplete testing, cannot comment on underlying restriction without total lung capacity measurement. DIFFUSION CAPACITY: Mildly reduced. AIRWAY RESISTANCE: Not measured. IMPRESSION: Mild obstructive airways disease with no significant bronchodilator response. This is associated with mild diffusion defect. Clinical correlation recommended. Anesthesia Assessment and Plan Anesthesia History Personal History: No History of Anesthesia Complications Family History: No Family History of Anesthesia Complications Exercise Tolerance Exercise Tolerance: Metabolic Equivalents>4 Pertinent Negatives Pertinent Negatives: No Symptoms of GERD Cardiac & Pulmonary Exam Cardiac Exam: Normal S1/S2 Heart Sounds Pulmonary Exam: Clear Bilateral Breath Sounds Implantable Cardiac Device Does patient have a Pacemaker or an ICD?: No Airway Exam Known Difficult Airway: No Mallampati Class: 2 Mouth Opening: Normal (> 3cm) Thyromental Distance: Greater than 3 cm Neck Range of Motion: Full ROM Neck Circumference: Normal Teeth Condition: Normal Dentition ASA Classification ASA Score: ASA 3 Emergency Case?: No NPO Status NPO Status: NPO Clears >2 hours, Solids >8 hours Anesthesia Plan Resuscitation Status: Full Code Anesthesia Technique: General Anesthesia Airway Planned: LMA Monitors Used: Standard Monitors
[2022-01-10] MEDS: Lactated Ringers 1,000 ML 80 ML IV (08:19)
[2022-01-10] MEDS: ceFAZolin 2 GM/50 ML BAG IVPB (08:48)
[2022-01-10] MEDS: Bupivacaine 0.25% Pres-Free 30 ML VIAL (09:05)
--- NOTE | 2022-01-10 11:16 | W.ANESPOSTOP ---
Postoperative Evaluation Date, Time and Location Date Performed: 01/10/22 Time Performed: 11:02 Patient Location: PACU Vital Signs Most Recent Imported Vital Signs: Most Recent Vital Signs Temp Pulse Resp BP Pulse Ox 37.1 C 59 L 15 136/54 L 98 01/10/22 11:02 01/10/22 11:02 01/10/22 11:02 01/10/22 11:02 01/10/22 11:02 Pain Score Most Recent Pain Score: Most Recent Pain Score Pain Level 0 01/10/22 11:02 Assessment Mental Status: Awake (Alert & Oriented to Patient Baseline) Airway and Respiratory Function: Patent airway with normal (patient baseline) respiratory exam Cardiovascular Function: Hemodynamically Stable Hydration Status: Adequately Hydrated Nausea & Vomiting: No Nausea or Vomiting Pain: Pt. Denies Any Pain Peripheral Nerve Block: Patient did not receive a nerve block
[2022-01-10] MEDS: Acetaminophen 325 MG TAB 650 MG PO (11:50)
--- NOTE | 2022-01-10 21:48 | W.PM.OP ---
Date of service: 01/10/22 Time of Service: 09:00 Operative Note Operative Note DATE OF PROCEDURE: 01/10/22 PRE-OP DIAGNOSIS: Painful hardware right ankle, hammertoes?right second and third PROCEDURE: Removal of hardware, plate and screws, from right ankle Hammertoe correction with PIP fusion of the right second and third toes SURGEON: Rashaad Bagley SEWING MACHINE ATTACHMENT TESTER: Sidney Ivy ANESTHESIA TYPE: General LMA/ETT Refer to Anesthesia Record ESTIMATED BLOOD LOSS: 20 TOURNIQUET TIME: 0 COMPLICATIONS: None Patient was transported to: PACU Patient's condition: stable Implants: #2 - Synthes hammertoe CCI - large for the second toe in standard for the third toe Indications: Margarita is a 71-year-old seen for painful hardware about her right ankle. She is status post ORIF and had prominent screw heads as well as the distal edge of the plate. This was interfering with her daily activities and with shoe wear therefore she desired this to be removed. Additionally, she has been having increasing problems with 2 hammertoes, the second and third toe, of the right foot. There fixed hammertoe deformities at the PIP joint causing limited motion as well as pain due to direct pressure from there position. She had tried shoewear modification but continued to have difficulties. Therefore, I offered removal of hardware from the right ankle as well as hammertoe correction with PIP fusion of the second and third toes. I discussed the technical details. I also reviewed the risk of the procedure to include bleeding infection, pain, stiffness, damage to nerves and vessels, damage to muscle and tendons, need for repeat procedures. Despite these risk, she elects to proceed Findings: 2 screws are prominent from the lateral plate. They were removed as well as remainder of the screws and the plate from the fibula. Hammertoe corrections were performed of both the second and third toe with a continuous compression implant applied. Procedure Description: Margarita was greeted the preoperative holding area. Her identity was confirmed the correct side was identified and marked. The consent was read the patient and signed. History and physical was updated. Margarita was taken to the operating room. She is placed in the supine position. All bony prominences were well padded. Prophylactic antibiotics in the form of cefazolin were administered. A timeout for safe surgery was performed. The right leg was then prepped ChloraPrep and draped in a standard fashion. Surgical site about the lateral ankle was injected with 0.25% bupivacaine and digital blocks of the second and third toes were also performed with the same. Starting with the hardware removal, I incised the majority of the previous lateral ankle incision. This was taken down sharply the skin. Blunt dissection was carried out to identify the prominent screws of the plate. Electrocautery was utilized to create flaps from the tissue overlying the plate and screws. The plate and screws were fully exposed and then they removed without difficulty. The distal edge of the implant created a bony ridge of bone which was smooth a rongeur. The wound was thoroughly irrigated. The deep tissues were injected with 0.25% bupivacaine. The deep fascia was closed with a 0 Vicryl. The skin was closed with 2-0 Vicryl followed by 3-0 nylon. Attention was then turned to the hammertoe correction. Starting with the second toe a longitudinal incision was made from just distal to the MTP joint to just proximal to the DIP extension crease is this was taken down full-thickness onto the proximal phalanx and middle phalanx of the second toe. Subperiosteal dissection was carried out to expose the PIP joint which was fixed in a flexed position. Once full access to the joint was obtained, an oscillating saw was used to resect the very end of the proximal phalanx and the base of the middle phalanx. This was cut in such a way that it provides some mild flexion of the PIP joint but without any angulation. Once this was performed the toe was aligned and showed to be appropriately cut. I then placed a K wire for retrograde fashion to align the toe. The guide from the Synthes hammertoe CCI implant system was then placed onto the dorsum of the toe clipping onto the K wire. With this now positioned and pushed down fully against the bone 4 drill holes were made for the implant. The guide was removed and the PIP joint was compressed. A large Synthes hammertoe CCI implant was then inserted. There was some difficulty during the deployment of the staple which had to be manipulated into the drill hole sites. The proximal, medial hole was quite close to the cortex and broke out during this process although it did provide impression underneath the condylar prominence of the proximal phalanx. The toe was tested and was noted be completely stable both with rotation, angulation and manipulation. This was then irrigated. The extensor mechanism and deep fascia was closed with interrupted 2-0 Vicryl. The skin was closed with 3-0 nylon. Attention was then turned to the thirdtoe. In similar fashion a longitudinal incision was made about the third toe. Full-thickness flaps were elevated in subperiosteal dissection was made around the PIP joint to fully expose the head of the proximal phalanx at the base of the middle phalanx. An oscillating saw was utilized to resect the surfaces. The resection was inspected to make sure there is no bowing elation. K wire was placed to align the toe appropriately. The CCI implant guide was then placed and fixated against the bone dorsally. 4 drill holes were made. The standard size Synthes hammertoe CCI implant was then inserted without difficulty with excellent compression across the PIP joint. Still was utilized during the case to confirmatory positioning and final x-rays were obtained which showed the implants in good position with excellent alignment. This does then irrigated and the deep tissues were closed with 2-0 Vicryl. The skin was closed with 3-0 nylon. The wounds were dressed with Xeroform, 4 x 4's and a Kerlix wrap. This was followed by an Harry wrap and she was placed into a postop shoe. At the end the case all counts are correct.
== END 2022-01-10 12:43 | disposition home or self-care (01) ==
PROVIDERS: PCP Family Medicine; Visit Provider Student in an Organized Health Care Education/Training Program
PROC: (CPT 26860; principal; 2022-01-10 08:15)
DX: T84.84XA Pain due to internal orthopedic prosthetic devices, implants and grafts, initial encounter (principal); M20.41 Other hammer toe(s) (acquired), right foot; C91.10 Chronic lymphocytic leukemia of B-cell type not having achieved remission; D64.9 Anemia, unspecified
CPT/HCPCS: 28285; 20680; 73600; J0690; J1100; J1885; J2405; J2704

== ENCOUNTER 2022-01-23 13:08 | Outpatient (CLI) | payer MEDICARE, SELFPAY ==
--- NOTE | 2022-01-23 09:30 | DI.RAD_ITS ---
Exam(s) XR FOOT RT COMPLETE EXAM: XR FOOT RT COMPLETE INDICATION: R toe fusion. COMPARISON: RF XR ANKLE RT 2V from 01/10/2022 TECHNIQUE: 2D digital imaging was performed. FINDINGS: Fusion is again noted at the 2nd and 3rd proximal interphalangeal joints with hardware in place. The re is been no change in alignment. Lucencies related to removed hardware is noted in the distal tibi a and fibula. DATA REPOSITORY: RADIATION DOSE DELIVERED:
== END 2022-01-23 13:09 | disposition home or self-care (01) ==
LOC: DIORS 13:08
PROVIDERS: PCP Family Medicine; Referring Provider Family Medicine; Visit Provider Student in an Organized Health Care Education/Training Program
DX: M20.41 Other hammer toe(s) (acquired), right foot (principal); Z98.890 Other specified postprocedural states; S82.851D Displaced trimalleolar fracture of right lower leg, subsequent encounter for closed fracture with routine healing; X58.XXXD Exposure to other specified factors, subsequent encounter; Z47.89 Encounter for other orthopedic aftercare
CPT/HCPCS: 73630

== ENCOUNTER → 2022-02-23 08:27 | Outpatient (BNVA) | payer MEDICARE, SELFPAY | PROVIDERS: PCP Family Medicine; Referring Provider Family Medicine; Visit Provider Student in an Organized Health Care Education/Training Program | DX: S82.851D Displaced trimalleolar fracture of right lower leg, subsequent encounter for closed fracture with routine healing (principal); X58.XXXD Exposure to other specified factors, subsequent encounter ==

== ENCOUNTER 2022-10-17 13:45 | Outpatient (REF) | payer MEDICARE, SELFPAY ==
[2022-10-17 14:44] LABS: Abs Immature Grans 0.04 10^3/uL (0.0-0.06); Absolute Basophil Count 0.03 10^3/uL (0.0-0.2); Absolute Eosinophil Count 0.33 10^3/uL (0.0-0.7); Absolute Lymphocyte Count 1.09 10^3/uL (1.2-3.4); Absolute Monocyte Count 1.01 10^3/uL (0.1-0.8); Absolute Neutrophil Count 5.75 10^3/uL (1.2-6.7); Basophils % 0.4; HCT 44.5 % (36.0-46.0); HGB 14.8 g/dL (11.2-15.7); Immature Grans % 0.5; Lymphocytes % 13.2; MCHC 33.3 % (32.0-36.0); MCV 93 fL (80-95); Monocytes % 12.2; Neutrophils % 69.7; Platelet Count 269 10^3/uL (130-400); RBC 4.78 10^6/uL (3.93-5.22); RDW 12.5 % (11.7-14.6); RDW-SD 43.3 fL; WBC 8.25 10^3/uL (4.4-10.8)
[2022-10-17 14:57] LABS: ESR 21 mm/hr (0-30)
[2022-10-17 15:10] LABS: ALT 21 U/L (14-59); AST 21 U/L (15-37); Albumin 3.6 g/dL (3.4-5.0); Alkaline Phosphatase 75 U/L (46-116); Anion Gap 8.5 mmol/L (3-11); BUN 23 mg/dL (7-18); Bilirubin, Total 0.7 mg/dL (0.2-1.0); CO2 27.5 mmol/L (21.0-32.0); Calcium 9.2 mg/dL (8.5-10.1); Chloride 97 mmol/L (98-107); Estimated GFR 60.61 (mL/min/1.73m2); Glucose 92 mg/dL (74-106); Potassium 4.2 mmol/L (3.5-5.1); Sodium 133 mmol/L (136-145); Total Protein 7.3 g/dL (6.4-8.2)
== END 2022-10-17 13:46 | disposition home or self-care (01) ==
LOC: NCHCN 13:45
PROVIDERS: PCP Family Medicine; Visit Provider Family Medicine
DX: R53.83 Other fatigue (principal)
CPT/HCPCS: 80053; 85652; 85025

== ENCOUNTER → 2022-10-19 03:08 | Outpatient (CLI) | payer MEDICARE, SELFPAY ==
--- NOTE | 2022-10-19 09:29 | DI.MAMMO_ITS ---
Exam(s) MAMMO SCREENING EXAM: MAMMO SCREENING CLINICAL HISTORY: SCREENING, Z12.31 TECHNIQUE: Mammograms were interpreted according to the usual protocol including computer analysis w [employer] CAD system, tomosynthesis and C-view imaging. COMPARISON: FINDINGS: The breasts are of moderate density with fairly symmetrical distribution of fibroglandular tissue. N o dominant mass or clumped microcalcification is identified in either breast. The current examinatio n is compared with previous examinations including August 2020 and there has been no gross interval change in appearance in comparison with prior studies. IMPRESSION: No specific evidence of malignancy at this time. Routine screening examinations are suggested at yea rly intervals in this age group according to the ACS ACR guidelines. BI-RADS Category 1 - Negative Breast Density - Category B - Scattered areas of fibroglandular density
== END ==
PROVIDERS: PCP Family Medicine; Visit Provider Family Medicine
DX: Z12.31 Encounter for screening mammogram for malignant neoplasm of breast (principal)
CPT/HCPCS: 77063; 77067

== ENCOUNTER 2023-04-18 11:20 | Outpatient (CLI) | payer MEDICARE, SELFPAY ==
--- NOTE | 2023-04-18 11:15 | DI.RAD_ITS ---
Exam(s) XR SHOULDER RT COMPLETE 2+V EXAM: XR SHOULDER RT COMPLETE 2+V CLINICAL HISTORY: RIGHT SHOULDER PAIN. TECHNIQUE: 2D digital imaging was performed. Two views. COMPARISON: No exams were available for comparison FINDINGS: BONES: No acute fracture is present. No bony destructive lesion is seen. JOINTS: No dislocation present. There is a question of 2 small rounded bony densities at the inferio r aspect of the humeral head, near the joint space on the AP view which could represent loose bodies. The glenohumeral joint space is maintained. There is no significant AC joint spurring. SOFT TISSUE: Normal. IMPRESSION: Question of inferior glenohumeral joint space loose bodies. DATA REPOSITORY: RADIATION DOSE DELIVERED:
== END 2023-04-18 11:21 | disposition home or self-care (01) ==
LOC: DIORS 11:20
PROVIDERS: PCP Family Medicine; Referring Provider Family Medicine; Visit Provider Student in an Organized Health Care Education/Training Program
DX: M25.511 Pain in right shoulder (principal); M75.101 Unspecified rotator cuff tear or rupture of right shoulder, not specified as traumatic
CPT/HCPCS: 99213; 73030

== ENCOUNTER 2023-05-07 02:53 | Outpatient (CLI) | payer MEDICARE, SELFPAY ==
--- NOTE | 2023-05-07 08:30 | DI.MRI_ITS ---
Exam(s) MR UPPER JOINT RT WO EXAM: MR UPPER JOINT RT WO CLINICAL HISTORY: R SHOULDER PAIN, RT ROTATOR CUFF TEAR, M75.101. TECHNIQUE: Multiplanar multisequence MRI was performed. COMPARISON: None. FINDINGS: BONES: Defect in the medial, are reticular aspect of the humeral head. This could be related to prio r trauma. JOINTS:The acromioclavicular joint is normal. The glenohumeral joint is normal. TENDONS: Supraspinatus: Marked thinning distally suspicious for severe partial tear. Some edema seen extendin g along the supraspinatus tendon and muscle. Infraspinatus: Unremarkable. Subscapularis: Unremarkable. Teres Minor: Unremarkable. Biceps and Bonita: Unremarkable. MUSCLES: Unremarkable. GLENOID LABRUM: Unremarkable on this noncontrast examination. SOFT TISSUES: Unremarkable. OTHER: Subacromial and subdeltoid bursae show no significant fluid.. IMPRESSION: Severe partial tear of the supraspinatus tendon. Chronic appearing defect of the medial humeral head. DATA REPOSITORY:
== END 2023-05-07 03:13 ==
LOC: DI 02:53
PROVIDERS: PCP Family Medicine; Visit Provider Student in an Organized Health Care Education/Training Program
DX: S46.011A Strain of muscle(s) and tendon(s) of the rotator cuff of right shoulder, initial encounter (principal); M89.8X2 Other specified disorders of bone, upper arm; X58.XXXA Exposure to other specified factors, initial encounter
CPT/HCPCS: 73221

== ENCOUNTER → 2023-05-09 13:21 | Outpatient (BNVA) | payer MEDICARE, SELFPAY | PROVIDERS: PCP Family Medicine; Referring Provider Family Medicine; Visit Provider Student in an Organized Health Care Education/Training Program | DX: M12.811 Other specific arthropathies, not elsewhere classified, right shoulder (principal); M75.101 Unspecified rotator cuff tear or rupture of right shoulder, not specified as traumatic | CPT/HCPCS: 99213 ==

== ENCOUNTER → 2023-07-11 13:22 | Outpatient (BNVA) | payer MEDICARE, SELFPAY | PROVIDERS: PCP Family Medicine; Referring Provider Family Medicine; Visit Provider Student in an Organized Health Care Education/Training Program | DX: M75.101 Unspecified rotator cuff tear or rupture of right shoulder, not specified as traumatic (principal); M12.811 Other specific arthropathies, not elsewhere classified, right shoulder | CPT/HCPCS: 99213 ==

== ENCOUNTER → 2023-11-15 10:57 | Outpatient (CLI) | payer MEDICARE, SELFPAY ==
--- NOTE | 2023-11-15 11:38 | DI.RAD_ITS ---
Exam(s) XR CHEST 2V PA LATERAL EXAM: XR CHEST 2V PA LATERAL CLINICAL HISTORY: PNEUMONIA J18.9 TECHNIQUE: 2D digital imaging was performed. COMPARISON: CR CHEST ONE VIEW IN RAD DEPT from 10/27/2017 FINDINGS: HEART: Normal size. Aorta: Not dilated. PULMONARY VASCULATURE: Normal. LUNGS: Question of streaky densities above the left diaphragm, which may represent atelectasis versus developing pneumonia. PLEURAL SPACE: No pleural effusion or pneumothorax. BONE:Unremarkable for age. Soft tissues: Unremarkable. IMPRESSION: Question of left basilar infiltrate versus atelectasis. DATA REPOSITORY: RADIATION DOSE DELIVERED:
== END ==
PROVIDERS: PCP Family Medicine; Visit Provider Family Medicine
DX: J18.9 Pneumonia, unspecified organism (principal)
CPT/HCPCS: 71046

== ENCOUNTER 2023-11-15 20:11 | Outpatient (REF) | payer MEDICARE, SELFPAY ==
[2023-11-15 17:28] LABS: Abs Immature Grans 0.06 10^3/uL (0.0-0.06); HCT 44.6 % (36.0-46.0); HGB 15.1 g/dL (11.2-15.7); MCH 32.8 pg (27.0-33.0); MCHC 33.9 % (32.0-36.0); MCV 97 fL (80-95); Platelet Count 159 10^3/uL (130-400); RDW 13.7 % (11.7-14.6); RDW-SD 48.5 fL; WBC 11.63 10^3/uL (4.4-10.8)
[2023-11-15 17:50] LABS: Absolute Lymphocyte Count 2.09 10^3/uL (1.2-3.4); Absolute Monocyte Count 0.58 10^3/uL (0.1-0.8); Absolute Neutrophil Count 8.96 10^3/uL (1.2-6.7); Atypical Lymphocytes % 3; Bands % 1; Diff Comment Manual Differential; RBC Morphology Normal
[2023-11-15 17:51] LABS: ALT 23 U/L (14-59); AST 24 U/L (15-37); Alkaline Phosphatase 70 U/L (46-116); Anion Gap 12.7 mmol/L (3-11); BUN 26 mg/dL (7-18); Bilirubin, Total 1.5 mg/dL (0.2-1.0); CO2 26.3 mmol/L (21.0-32.0); CREATININE 1.3 mg/dL (0.55-1.02); Calcium 9.8 mg/dL (8.5-10.1); Chloride 101 mmol/L (98-107); Estimated GFR 43.96 (mL/min/1.73m2); Glucose 155 mg/dL (74-106); Potassium 4.8 mmol/L (3.5-5.1); Sodium 140 mmol/L (136-145); Total Protein 7.3 g/dL (6.4-8.2)
[2023-11-16 20:17] LABS: CRP, High Sensitivity >15.00 mg/L (See Note)
== END 2023-11-15 20:12 | disposition home or self-care (01) ==
LOC: NCHCN 20:11
PROVIDERS: PCP Family Medicine; Visit Provider Family Medicine
DX: J18.9 Pneumonia, unspecified organism (principal)
CPT/HCPCS: 80053; 86141; 87449; 85025

== ENCOUNTER 2023-11-26 16:16 | Outpatient (REF) | payer MEDICARE, SELFPAY ==
[2023-11-26 18:00] LABS: Abs Immature Grans 0.32 10^3/uL (0.0-0.06); ESR 17 mm/hr (0-30); HCT 42.6 % (36.0-46.0); HGB 14.1 g/dL (11.2-15.7); MCH 33.3 pg (27.0-33.0); MCHC 33.1 % (32.0-36.0); MCV 101 fL (80-95); MPV 10.9 fL (8.0-11.0); Platelet Count 212 10^3/uL (130-400); RBC 4.23 10^6/uL (3.93-5.22); RDW-SD 47.4 fL; WBC 5.84 10^3/uL (4.4-10.8)
[2023-11-26 18:17] LABS: Anion Gap 9.8 mmol/L (3-11); BUN 31 mg/dL (7-18); C-Reactive Protein 0.78 mg/dL (0.0-0.3); CO2 26.2 mmol/L (21.0-32.0); CREATININE 1.1 mg/dL (0.55-1.02); Calcium 9.9 mg/dL (8.5-10.1); Chloride 105 mmol/L (98-107); Estimated GFR 53.72 (mL/min/1.73m2); Glucose 149 mg/dL (74-106); Potassium 4.6 mmol/L (3.5-5.1); Sodium 141 mmol/L (136-145)
[2023-11-26 18:25] LABS: Absolute Eosinophil Count 0.35 10^3/uL (0.0-0.7); Absolute Lymphocyte Count 1.93 10^3/uL (1.2-3.4); Absolute Monocyte Count 0.47 10^3/uL (0.1-0.8); Atypical Lymphocytes % 2; Bands % 5; Diff Comment Diff Reviewed; Macrocytosis 1+; Polychromasia Present
== END 2023-11-26 16:17 | disposition home or self-care (01) ==
LOC: NCHCN 16:16
PROVIDERS: PCP Family Medicine; Visit Provider Family Medicine
DX: R53.83 Other fatigue (principal); J18.9 Pneumonia, unspecified organism
CPT/HCPCS: 80048; 85652; 85025; 86140

== ENCOUNTER → 2023-11-30 02:35 | Outpatient (CLI) | payer MEDICARE, SELFPAY ==
--- NOTE | 2023-11-30 | DI.CT_ITS ---
Exam(s) CT CHEST WO EXAM: CT CHEST WO CLINICAL HISTORY: R09.89 Other specified symptoms and signs involving the circulatory and. TECHNIQUE: Imaging protocol: Axial computed tomography images were obtained and coronal and sagittal reformatted images were created and reviewed. COMPARISON: CT ABD PELVIS WITH CONTRAST from 11/19/2016 CR XR CHEST 2V PA LATERAL from 11/15/2023 FINDINGS: The examination is limited due to patient motion artifact. Tracheobronchial tree: Patent where visualized. Pulmonary parenchyma: No consolidation or dominant measurable mass. There are calcified granuloma pre sent. Dependent atelectatic changes are seen in the lung bases. Mediastinum and Leigh: Mildly enlarged lymph nodes are seen in the mediastinum. In the posterior medi astinum posterior to the trachea and to the right of the esophagus, there is an elongated soft tissue density lesion measuring 1.2 cm AP x 2.5 cm transverse by 5.9 cm craniocaudad (series 3 images 144-2 53). There also mildly enlarged lymph nodes in the posterior to the esophagus more inferiorly. The esophagus is unremarkable. Thyroid gland: Unremarkable. Pleura: No effusion or pneumothorax. Heart: The heart is not dilated. Coronary artery calcification and/or stents are present. No pericar dial effusion. Aorta: Thoracic aorta non-dilated. Aortic calcification is present. Upper abdomen: Mildly enlarged lymph nodes are seen in the upper abdomen. The largest measures 1.7 x 0.8 cm. Lymph nodes: There are mildly enlarged supraclavicular lymph nodes, left greater than right. Soft tissues: Unremarkable. Bones:Within normal limits for the patient's age. IMPRESSION: 1. Enlarged thoracic and upper abdominal lymph nodes seen on this noncontrast examination. Different ial considerations include inflammatory or infectious processes and neoplastic processes. A CT scan of the chest abdomen and pelvis with oral and IV contrast is recommended for further evaluation. 2. No pulmonary mass or infiltrate. Unexpected findings RADIATION DOSE DELIVERED: 394.13mGy.cm Total DLP 394.13mGy.cm Total DLP DATA REPOSITORY: All CT scans at this facility are submitted to the National Radiology Data Registry (NRDR) Dose Index Registry (DIR) with the [employer] (ACR). RADIATION OPTIMIZATION: All CT scans at this facility use at least one of these dose optimization te chniques: automated exposure control; mA and/or kV adjustment per patient size (includes targeted exa ms where dose is matched to clinical indication); or iterative reconstruction.
== END ==
PROVIDERS: PCP Family Medicine; Visit Provider Family Medicine
DX: R59.0 Localized enlarged lymph nodes (principal)
CPT/HCPCS: 71250

== ENCOUNTER 2024-01-17 04:52 | Outpatient (RCR) | payer MEDICARE, SELFPAY ==
[2024-01-08] MEDS: Normal Saline 1,000 ML 1000 ML IV (10:18)
[2024-01-08 10:19] LABS: Abs Immature Grans 0.02 10^3/uL (0.0-0.06); HCT 40.1 % (36.0-46.0); HGB 13.9 g/dL (11.2-15.7); MCH 33.7 pg (27.0-33.0); MCHC 34.7 % (32.0-36.0); MCV 97 fL (80-95); Platelet Count 143 10^3/uL (130-400); RBC 4.12 10^6/uL (3.93-5.22); RDW 14.3 % (11.7-14.6); RDW-SD 51.5 fL; WBC 6.43 10^3/uL (4.4-10.8)
[2024-01-08] MEDS: Normal Saline Flush 10 ML SYR IVP (10:19)
[2024-01-08 10:30] LABS: Anion Gap 8.7 mmol/L (3-11); BUN 26 mg/dL (7-18); CO2 24.3 mmol/L (21.0-32.0); CREATININE 1.2 mg/dL (0.55-1.02); Calcium 8.9 mg/dL (8.5-10.1); Chloride 108 mmol/L (98-107); Estimated GFR 48.39 (mL/min/1.73m2); Glucose 126 mg/dL (74-106); LDH 338 U/L (81-234); Potassium 3.9 mmol/L (3.5-5.1); Sodium 141 mmol/L (136-145); Uric Acid 3.5 mg/dL (2.6-6.0)
[2024-01-08 11:02] LABS: Absolute Basophil Count 0.13 10^3/uL (0.0-0.2); Absolute Eosinophil Count 0.32 10^3/uL (0.0-0.7); Absolute Lymphocyte Count 1.09 10^3/uL (1.2-3.4); Absolute Monocyte Count 0.45 10^3/uL (0.1-0.8); Absolute Neutrophil Count 4.44 10^3/uL (1.2-6.7); Atypical Lymphocytes % 2; Bands % 1; Diff Comment Manual Differential; RBC Morphology Normal
[2024-01-11] MEDS: Normal Saline 1,000 ML 999 ML IV (10:10)
[2024-01-11 10:28] LABS: HGB 13.6 g/dL (11.2-15.7); MCH 33.7 pg (27.0-33.0); MCHC 34.9 % (32.0-36.0); MCV 97 fL (80-95); MPV 10.1 fL (8.0-11.0); Platelet Count 137 10^3/uL (130-400); RBC 4.04 10^6/uL (3.93-5.22); RDW 14.2 % (11.7-14.6); RDW-SD 50.1 fL; WBC 5.68 10^3/uL (4.4-10.8)
[2024-01-11 10:47] LABS: Anion Gap 12.4 mmol/L (3-11); BUN 26 mg/dL (7-18); CO2 23.6 mmol/L (21.0-32.0); CREATININE 1.1 mg/dL (0.55-1.02); Calcium 9.1 mg/dL (8.5-10.1); Chloride 106 mmol/L (98-107); Estimated GFR 53.72 (mL/min/1.73m2); Glucose 151 mg/dL (74-106); LDH 300 U/L (81-234); Potassium 3.9 mmol/L (3.5-5.1); Sodium 142 mmol/L (136-145); Uric Acid 3.5 mg/dL (2.6-6.0)
[2024-01-11 10:58] LABS: Absolute Lymphocyte Count 1.36 10^3/uL (1.2-3.4); Absolute Neutrophil Count 3.58 10^3/uL (1.2-6.7); Bands % 0
[2024-01-11 10:59] LABS: Absolute Basophil Count 0.11 10^3/uL (0.0-0.2); Absolute Eosinophil Count 0.28 10^3/uL (0.0-0.7); Absolute Monocyte Count 0.34 10^3/uL (0.1-0.8); Diff Comment Manual Differential; RBC Morphology Normal
[2024-01-11] MEDS: Normal Saline Flush 10 ML SYR IVP (11:14)
[2024-01-14] MEDS: Normal Saline Flush 10 ML SYR IVP (10:09)
[2024-01-14] MEDS: Normal Saline 1,000 ML 1000 ML IV (10:09)
[2024-01-14 10:31] LABS: Abs Immature Grans 0.02 10^3/uL (0.0-0.06); Absolute Basophil Count 0.13 10^3/uL (0.0-0.2); Absolute Eosinophil Count 0.26 10^3/uL (0.0-0.7); Absolute Lymphocyte Count 1.08 10^3/uL (1.2-3.4); Absolute Monocyte Count 0.43 10^3/uL (0.1-0.8); Absolute Neutrophil Count 3.07 10^3/uL (1.2-6.7); Basophils % 2.6; Eosinophils % 5.2; HGB 13.2 g/dL (11.2-15.7); Immature Grans % 0.4; Lymphocytes % 21.6; MCH 33.7 pg (27.0-33.0); MCHC 34.7 % (32.0-36.0); MCV 97 fL (80-95); MPV 9.5 fL (8.0-11.0); Monocytes % 8.6; Neutrophils % 61.6; Platelet Count 156 10^3/uL (130-400); RBC 3.92 10^6/uL (3.93-5.22); RDW 14.1 % (11.7-14.6); WBC 4.99 10^3/uL (4.4-10.8)
[2024-01-14 10:45] LABS: Anion Gap 9.9 mmol/L (3-11); BUN 21 mg/dL (7-18); CO2 25.1 mmol/L (21.0-32.0); CREATININE 1.1 mg/dL (0.55-1.02); Calcium 8.9 mg/dL (8.5-10.1); Chloride 107 mmol/L (98-107); Estimated GFR 53.72 (mL/min/1.73m2); Glucose 145 mg/dL (74-106); LDH 248 U/L (81-234); Potassium 3.7 mmol/L (3.5-5.1); Sodium 142 mmol/L (136-145); Uric Acid 2.8 mg/dL (2.6-6.0)
[2024-01-14 22:13] LABS: Vitamin D 25 Total 54.6 ng/mL (30-100)
[2024-01-17] MEDS: Normal Saline 1,000 ML 999 ML IV (10:06)
[2024-01-17] MEDS: Normal Saline Flush 10 ML SYR IVP (10:07)
[2024-01-17 10:31] LABS: Abs Immature Grans 0.02 10^3/uL (0.0-0.06); Absolute Basophil Count 0.09 10^3/uL (0.0-0.2); Absolute Eosinophil Count 0.26 10^3/uL (0.0-0.7); Absolute Lymphocyte Count 1.04 10^3/uL (1.2-3.4); Absolute Monocyte Count 0.34 10^3/uL (0.1-0.8); Absolute Neutrophil Count 2.89 10^3/uL (1.2-6.7); Basophils % 1.9; Eosinophils % 5.6; HCT 39.6 % (36.0-46.0); HGB 13.6 g/dL (11.2-15.7); Immature Grans % 0.4; Lymphocytes % 22.4; MCH 33.3 pg (27.0-33.0); MCHC 34.3 % (32.0-36.0); MCV 97 fL (80-95); MPV 9.6 fL (8.0-11.0); Monocytes % 7.3; Neutrophils % 62.4; Platelet Count 148 10^3/uL (130-400); RBC 4.09 10^6/uL (3.93-5.22); RDW 14.4 % (11.7-14.6); WBC 4.64 10^3/uL (4.4-10.8)
[2024-01-17 10:54] LABS: Anion Gap 10.7 mmol/L (3-11); BUN 24 mg/dL (7-18); CO2 25.3 mmol/L (21.0-32.0); CREATININE 1.1 mg/dL (0.55-1.02); Calcium 8.8 mg/dL (8.5-10.1); Chloride 107 mmol/L (98-107); Estimated GFR 53.72 (mL/min/1.73m2); Glucose 140 mg/dL (74-106); LDH 226 U/L (81-234); Potassium 3.4 mmol/L (3.5-5.1); Sodium 143 mmol/L (136-145)
== END 2024-01-17 23:59 | disposition home or self-care (01) ==
LOC: INF 04:52
PROVIDERS: PCP Family Medicine; Visit Provider Internal Medicine
DX: C91.10 Chronic lymphocytic leukemia of B-cell type not having achieved remission (principal); M85.80 Other specified disorders of bone density and structure, unspecified site
CPT/HCPCS: 36415; 80048; 82306; 96360; 96365; 83615; 84550; 85025

== ENCOUNTER 2024-01-22 15:53 | Outpatient (CLI) | payer MEDICARE, SELFPAY ==
[2024-01-22 15:05] LABS: Abs Immature Grans 0.01 10^3/uL (0.0-0.06); Absolute Basophil Count 0.06 10^3/uL (0.0-0.2); Absolute Eosinophil Count 0.18 10^3/uL (0.0-0.7); Absolute Lymphocyte Count 1.39 10^3/uL (1.2-3.4); Absolute Monocyte Count 0.35 10^3/uL (0.1-0.8); Absolute Neutrophil Count 2.44 10^3/uL (1.2-6.7); Basophils % 1.4; Eosinophils % 4.1; HGB 13.1 g/dL (11.2-15.7); Immature Grans % 0.2; Lymphocytes % 31.4; MCH 34.2 pg (27.0-33.0); MCHC 34.5 % (32.0-36.0); MCV 99 fL (80-95); MPV 9.5 fL (8.0-11.0); Monocytes % 7.9; Platelet Count 142 10^3/uL (130-400); RBC 3.83 10^6/uL (3.93-5.22); RDW 14.8 % (11.7-14.6); RDW-SD 53.7 fL; WBC 4.43 10^3/uL (4.4-10.8)
[2024-01-22 15:36] LABS: ALT 19 U/L (14-59); AST 20 U/L (15-37); Albumin 3.8 g/dL (3.4-5.0); Alkaline Phosphatase 75 U/L (46-116); BUN 31 mg/dL (7-18); Bilirubin, Total 0.7 mg/dL (0.2-1.0); CREATININE 1.1 mg/dL (0.55-1.02); Calcium 9.6 mg/dL (8.5-10.1); Chloride 103 mmol/L (98-107); Estimated GFR 53.72 (mL/min/1.73m2); Glucose 130 mg/dL (74-106); LDH 203 U/L (81-234); Potassium 3.9 mmol/L (3.5-5.1); Sodium 139 mmol/L (136-145); Total Protein 6.8 g/dL (6.4-8.2); Uric Acid 2.9 mg/dL (2.6-6.0)
== END 2024-01-22 15:54 | disposition home or self-care (01) ==
LOC: LBO 16:05
PROVIDERS: PCP Family Medicine; Visit Provider Internal Medicine
DX: Z94.81 Bone marrow transplant status (principal)
CPT/HCPCS: 36415; 80053; 83615; 84550; 85025

== ENCOUNTER 2024-01-29 04:30 | Outpatient (CLI) | payer MEDICARE, SELFPAY ==
[2024-01-29 13:45] LABS: Abs Immature Grans 0.01 10^3/uL (0.0-0.06); Absolute Basophil Count 0.03 10^3/uL (0.0-0.2); Absolute Eosinophil Count 0.09 10^3/uL (0.0-0.7); Absolute Lymphocyte Count 1.45 10^3/uL (1.2-3.4); Absolute Monocyte Count 0.52 10^3/uL (0.1-0.8); Absolute Neutrophil Count 2.97 10^3/uL (1.2-6.7); Basophils % 0.6; Eosinophils % 1.8; HCT 39.8 % (36.0-46.0); HGB 13.7 g/dL (11.2-15.7); Immature Grans % 0.2; Lymphocytes % 28.6; MCH 33.9 pg (27.0-33.0); MCHC 34.4 % (32.0-36.0); MCV 99 fL (80-95); MPV 9.5 fL (8.0-11.0); Monocytes % 10.3; Neutrophils % 58.5; Platelet Count 161 10^3/uL (130-400); RBC 4.04 10^6/uL (3.93-5.22); RDW 15.1 % (11.7-14.6); RDW-SD 55.3 fL; WBC 5.07 10^3/uL (4.4-10.8)
[2024-01-29 14:22] LABS: Anion Gap 10.7 mmol/L (3-11); BUN 24 mg/dL (7-18); CO2 26.3 mmol/L (21.0-32.0); CREATININE 1.2 mg/dL (0.55-1.02); Calcium 9.3 mg/dL (8.5-10.1); Chloride 105 mmol/L (98-107); Estimated GFR 48.39 (mL/min/1.73m2); Glucose 110 mg/dL (74-106); LDH 214 U/L (81-234); Potassium 4.3 mmol/L (3.5-5.1); Sodium 142 mmol/L (136-145); Uric Acid 3.3 mg/dL (2.6-6.0)
== END 2024-01-29 04:31 | disposition home or self-care (01) ==
PROVIDERS: PCP Family Medicine; Visit Provider Nurse Practitioner Adult Health
DX: C91.10 Chronic lymphocytic leukemia of B-cell type not having achieved remission (principal)
CPT/HCPCS: 36415; 80048; 83615; 84550; 85025

== ENCOUNTER 2024-02-05 04:32 | Outpatient (CLI) | payer MEDICARE, SELFPAY ==
[2024-02-05 12:16] LABS: Abs Immature Grans 0.01 10^3/uL (0.0-0.06); Absolute Basophil Count 0.02 10^3/uL (0.0-0.2); Absolute Eosinophil Count 0.05 10^3/uL (0.0-0.7); Absolute Lymphocyte Count 1.18 10^3/uL (1.2-3.4); Absolute Monocyte Count 0.51 10^3/uL (0.1-0.8); Absolute Neutrophil Count 2.96 10^3/uL (1.2-6.7); Basophils % 0.4; Eosinophils % 1.1; HGB 14.2 g/dL (11.2-15.7); Immature Grans % 0.2; Lymphocytes % 24.9; MCHC 33.8 % (32.0-36.0); MCV 101 fL (80-95); MPV 9.5 fL (8.0-11.0); Monocytes % 10.8; Neutrophils % 62.6; Platelet Count 154 10^3/uL (130-400); RBC 4.18 10^6/uL (3.93-5.22); RDW 15.2 % (11.7-14.6); RDW-SD 56.4 fL; WBC 4.73 10^3/uL (4.4-10.8)
[2024-02-05 12:30] LABS: ALT 16 U/L (14-59); AST 17 U/L (15-37); Albumin 3.8 g/dL (3.4-5.0); Alkaline Phosphatase 81 U/L (46-116); Anion Gap 10.3 mmol/L (3-11); BUN 27 mg/dL (7-18); Bilirubin, Total 0.9 mg/dL (0.2-1.0); CO2 25.7 mmol/L (21.0-32.0); CREATININE 1.2 mg/dL (0.55-1.02); Calcium 9.2 mg/dL (8.5-10.1); Chloride 107 mmol/L (98-107); Estimated GFR 48.39 (mL/min/1.73m2); Glucose 118 mg/dL (74-106); LDH 205 U/L (81-234); Potassium 4.2 mmol/L (3.5-5.1); Sodium 143 mmol/L (136-145)
== END 2024-02-05 04:33 | disposition home or self-care (01) ==
PROVIDERS: PCP Family Medicine; Visit Provider Internal Medicine
DX: C91.10 Chronic lymphocytic leukemia of B-cell type not having achieved remission (principal)
CPT/HCPCS: 36415; 80053; 83615; 85025

== ENCOUNTER 2024-03-28 21:05 | Outpatient (REF) | payer MEDICARE, SELFPAY ==
[2024-03-30 20:14] LABS: Campylobacter PCR Negative (Negative); Salmonella PCR Negative (Negative); Shiga Toxin PCR Negative (Negative); Shigella/Enteroinvasive Ecoli Negative (Negative)
== END 2024-03-28 21:06 | disposition home or self-care (01) ==
LOC: NCHCN 21:05
PROVIDERS: PCP Family Medicine; Visit Provider Family Medicine
DX: R19.7 Diarrhea, unspecified (principal)
CPT/HCPCS: 87493; 87505; 87177

== ENCOUNTER 2024-07-28 18:44 | Outpatient (REF) | payer MEDICARE, SELFPAY ==
[2024-07-28 21:39] LABS: Abs Immature Grans 0.02 10^3/uL (0.0-0.06); Absolute Basophil Count 0.01 10^3/uL (0.0-0.2); Absolute Eosinophil Count 0.27 10^3/uL (0.0-0.7); Absolute Lymphocyte Count 0.76 10^3/uL (1.2-3.4); Absolute Monocyte Count 1.03 10^3/uL (0.1-0.8); Absolute Neutrophil Count 4.46 10^3/uL (1.2-6.7); Basophils % 0.2 %; Eosinophils % 4.1 %; HGB 13.7 g/dL (11.2-15.7); Immature Grans % 0.3 %; Lymphocytes % 11.6 %; MCH 33.1 pg (27.0-33.0); MCHC 33.4 % (32.0-36.0); MCV 99 fL (80-95); MPV 9.5 fL (8.0-11.0); Monocytes % 15.7 %; Neutrophils % 68.1 %; Platelet Count 237 10^3/uL (130-400); RBC 4.14 10^6/uL (3.93-5.22); RDW 14.4 % (11.7-14.6); RDW-SD 52.5 fL; WBC 6.55 10^3/uL (4.4-10.8)
[2024-07-28 22:00] LABS: ALT 19 U/L (14-59); AST 19 U/L (15-37); Albumin 3.7 g/dL (3.4-5.0); Alkaline Phosphatase 76 U/L (46-116); Anion Gap 8.2 mmol/L (3-11); BUN 22 mg/dL (7-18); Bilirubin, Total 0.88 mg/dL (0.2-1.0); CO2 26.8 mmol/L (21.0-32.0); Calcium 9.6 mg/dL (8.5-10.1); Chloride 101 mmol/L (98-107); Estimated GFR 59.86 (mL/min/1.73m2); Glucose 113 mg/dL (74-106); Potassium 4.4 mmol/L (3.5-5.1); Sodium 136 mmol/L (136-145); TSH 4.49 uIU/Ml (0.36-3.74)
== END 2024-07-28 18:45 | disposition home or self-care (01) ==
LOC: NCHCN 18:44
PROVIDERS: PCP Family Medicine; Visit Provider Family Medicine
DX: R53.83 Other fatigue (principal); C91.10 Chronic lymphocytic leukemia of B-cell type not having achieved remission; R79.9 Abnormal finding of blood chemistry, unspecified
CPT/HCPCS: 80053; 84443; 85025

== ENCOUNTER 2024-09-30 13:34 | Outpatient (REF) | payer MEDICARE, SELFPAY ==
[2024-09-30 15:10] LABS: TSH (W/Ref FT4) 1.27 uIU/mL (0.36-3.74)
== END 2024-09-30 13:35 | disposition home or self-care (01) ==
LOC: NCHCN 13:34
PROVIDERS: PCP Family Medicine; Visit Provider Family Medicine
DX: E03.9 Hypothyroidism, unspecified (principal)
CPT/HCPCS: 84443

== ENCOUNTER 2025-06-16 12:44 | Outpatient (REF) | payer MEDICARE, SELFPAY ==
[2025-06-16 15:47] LABS: Abs Immature Grans 0.01 10^3/uL (0.0-0.06); HCT 41.5 % (36.0-46.0); HGB 14.1 g/dL (11.2-15.7); Immature Grans % 0.2 %; MCH 34.4 pg (27.0-33.0); MCHC 34.0 % (32.0-36.0); MCV 101 fL (80-95); MPV 9.3 fL (8.0-11.0); Platelet Count 139 10^3/uL (130-400); RBC 4.10 10^6/uL (3.93-5.22); RDW 14.3 % (11.7-14.6); RDW-SD 53.1 fL; WBC 4.89 10^3/uL (4.4-10.8)
[2025-06-16 16:33] LABS: ALT 18 U/L (14-59); AST 19 U/L (15-37); Albumin 3.9 g/dL (3.4-5.0); Alkaline Phosphatase 65 U/L (46-116); Anion Gap 10.5 mmol/L (3-11); BUN 19 mg/dL (7-18); Bilirubin, Total 1.1 mg/dL (0.2-1.0); CO2 25.5 mmol/L (21.0-32.0); Calcium 9.0 mg/dL (8.5-10.1); Chloride 106 mmol/L (98-107); Estimated GFR 59.49 (mL/min/1.73m2); Glucose 109 mg/dL (74-106); Potassium 3.9 mmol/L (3.5-5.1); Sodium 142 mmol/L (136-145); Total Protein 6.8 g/dL (6.4-8.2); Vitamin D 25 Total 45 ng/mL (30-100)
== END 2025-06-16 12:45 | disposition home or self-care (01) ==
LOC: NCHCN 12:44
PROVIDERS: PCP Family Medicine; Visit Provider Family Medicine
DX: E55.9 Vitamin D deficiency, unspecified (principal); I10 Essential (primary) hypertension
CPT/HCPCS: 80053; 82306; 85025

== ENCOUNTER 2025-06-30 01:02 | Outpatient (CLI) | payer MEDICARE, SELFPAY ==
--- NOTE | 2025-06-30 11:42 | DI.MAMMO_ITS ---
Exam(s) MAMMO SCREENING EXAM: MAMMO SCREENING CLINICAL HISTORY: Screening, Z12.31 TECHNIQUE: Mammograms were interpreted according to the usual protocol including computer analysis with CAD system, tomosynthesis and C-view imaging. COMPARISON: 2015 through 2021 FINDINGS: The breasts are composed of scattered fibroglandular densities, Breast Density category B. No suspicious masses or suspicious microcalcifications are seen. No skin thickening or abnormal axillary lymph nodes are seen. There has been no significant change from prior exams. IMPRESSION: BI-RADS Category 1, Negative mammogram Yearly screening mammography is recommended. Breast Density - Category B - There are scattered areas of fibroglandular density. Breast density Category C or D implies that the patient has dense breast tissue. Dense breast tissue can make it harder to find cancer on a mammogram. Dense breast tissue is also associated with an increased risk of breast cancer. This information about the result of the mammogram report was provided to the patient to raise their awareness. Use this report when you speak with the patient about their risks for breast cancer, which includes their family history. At that time, you may recommend additional screening tests (Ultrasound or MRI) as these tests may add significant information. A negative radiographic report should not delay biopsy if a dominant or clinically suspicious mass is present. Up to ten percent of cancers are not identified on mammography. A negative report may reinforce clinical impression. Adenosis and dense breasts may obscure an underlying neoplasm. False positive reports average 6 to 10%. Patient will receive a letter notifying them of these results.
== END 2025-06-30 01:22 ==
PROVIDERS: PCP Family Medicine; Visit Provider Family Medicine
DX: Z12.31 Encounter for screening mammogram for malignant neoplasm of breast (principal); R92.323 Mammographic fibroglandular density, bilateral breasts
CPT/HCPCS: 77063; 77067

== ENCOUNTER 2025-09-08 18:16 | Emergency (ER) | payer MEDICARE, SELFPAY ==
[2025-09-08] VITALS (47 sets, daily range): BP systolic 103–155; BP diastolic 31–109; PULSE 93–116; RESP 15–29; TEMP 36.9–37.7; O2SAT 78–97
--- NOTE | 2025-09-08 18:15 | RT.EKG_ITS ---
APPROVED REPORT Exam: Resting ECG Reason for Exam: generalized unwellness Patient Location: E HR:104 bpm ECG Measurements Heart Rate 104 AXIS AZ 209 P 25 QRSd 86 QRS -33 QT 341 T 33 QTc 448 Conclusion Sinus tachycardia...rate> 99 Atrial premature complex...SV complex w/ short R-R interval Borderline prolonged AZ interval...AZ >207, V-rate 91-120 Inferior infarct, old...Q >35mS, II III aVF Sinus Rhythm No STEMI
--- NOTE | 2025-09-08 18:45 | DI.RAD_ITS ---
Exam(s) XR CHEST 2V PA LATERAL EXAM: XR CHEST 2V PA LATERAL CLINICAL HISTORY: r/o occult PNA TECHNIQUE: 2D digital imaging was performed of the chest. Two images were obtained. PA and lateral views were obtained. COMPARISON: CR XR CHEST 2V PA LATERAL from 11/15/[address] CHEST WO from 11/30/2023 FINDINGS: MEDIASTINUM: Normal. HEART: Normal. PULMONARY VASCULATURE: Normal. LUNGS: There are opacities seen in the left suprahilar region and the left lung base. PLEURAL SPACE: No pleural effusion or pneumothorax. BONE:Within normal limits for the patient's age. OTHER FINDINGS:Normal. IMPRESSION: 1. Opacities in the left lung. While this may represent pneumonia, neoplasm cannot be excluded. Follow-up chest x-ray to document resolution of the opacities is recommended. If the findings persist, a CT scan of the chest with contrast should be obtained. 2. The preliminary [facility] report was reviewed. DATA REPOSITORY: RADIATION DOSE DELIVERED:
--- NOTE | 2025-09-08 18:48 | W.ED.GENAD ---
Discharge Plan Disposition Patient Disposition: Home Condition: Good Discharge Details Clinical Impression: Community acquired pneumonia Primary Care Provider: Madalyn Craevn ED Provider: Alicia Rutledge Home Meds and New Rx's Prescriptions: New amoxicillin-pot clavulanate 875-125 mg tablet 1 tab PO BID Qty: 8 0RF doxycycline hyclate 100 mg capsule 100 mg PO BID Qty: 8 0RF No Action multivitamin [Daily Multiple] 1 EACH tablet 1 ea PO DAILY sertraline 100 MG tablet 100 mg PO DAILY cholecalciferol (vitamin D3) [Vitamin D3] 400 unit Capsule 800 unit PO DAILY Cn-Nbpb-Gscthis 133 MG tablet 1 tab PO DAILY metoprolol succinate 25 mg tablet extended release 24 hr 25 mg PO DAILY Venclexta 100 mg tablet 200 mg PO DAILY levothyroxine 50 mcg tablet 50 mcg PO DAILY Patient Comments: TAKE ONE TABLET BY MOUTH AT BEDTIME Discharge Instructions Additional Instructions: Please call [facility] first thing in the morning to schedule follow-up appointment within the week. A repeat chest x-ray should be performed to ensure resolution of the infiltrate after pneumonia has cleared. Please take the full course of antibiotics as prescribed. I recommend taking a probiotic such as Activia yogurt to help prevent antibiotic associated diarrhea. Stay very well-hydrated, drinking plenty of fluid throughout the day. Electrolyte rich fluids such as Gatorlyte is encouraged, as your sodium was quite low today. Please be sure to include foods throughout the day that have a high water content, such as soups, fruits, and vegetables. Return to emergency care if develop new chest pains, difficulty breathing, episodes of passing out, confusion, fevers or worsening of symptoms despite treatment, or if you are very worried and need to be rechecked again immediately Referrals: Madalyn Craven [Primary Care Provider, Medicine] HPI General Date/Time Provider Initiated Documentation: 09/08/25 18:27. HPI Narrative: Margarita is a 75-year-old female who presents to the emergency department today for evaluation of generalized malaise. Accompanied by her reports gradual health decline over the past week, significant deterioration on Sunday (3 days ago). She is on venetolax for cancer therapy (which requires her to stay well-hydrated), missed medication dose on Sunday, took it late on an empty stomach without sufficient hydration. She developed diarrhea on Sunday, lasted only that day. She reports feeling worsened send, particularly unwell today. Reports chills, but denies fevers, headaches, dizziness, congestion, sore throat, cough, chest pain, difficulty breathing, nausea/vomiting, abdominal pain, change in urine output, blood in stools, or diarrhea in the last couple of days. 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 Cancer in remission until a year ago, reactivated by infection. On medication regimen requiring high fluid intake, struggles with hydration. No recent hospitalizations or treatment changes. Struggles with hydration, leading to two hospitalizations for dehydration, one at [facility] and another at [facility], where stroke was suspected. Oncologist informed dehydration can elevate heart rate. PMH: CLL (17P deletion), thyroid function, HTN, and depression. Denies history of IA, CHF, diabetes, cardiac disease or lung disease. PAST SURGICAL HISTORY: Bone marrow transplant 7 years ago. Related Data Home Medications ?Medication ?Instructions ?Recorded ?Confirmed multivitamin (Daily Multiple 1 ea PO DAILY 08/31/16 09/08/25 tablet) sertraline 100 mg tablet 100 mg PO DAILY 08/31/16 09/08/25 magnesium oxide-magnesium amino 1 tab PO DAILY 08/26/17 09/08/25 acid chelate 133 mg tablet (Zi-[id number]-Rspknzf) cholecalciferol (vitamin D3) 10 800 unit PO DAILY 07/04/19 09/08/25 mcg (400 unit) capsule (Vitamin D3) metoprolol succinate 25 mg 25 mg PO DAILY HTN, prevention of 01/05/22 09/08/25 tablet,extended release 24 hr IA amoxicillin 875 mg-potassium 1 tab PO BID #8 tabs 09/08/25 clavulanate 125 mg tablet doxycycline hyclate 100 mg capsule 100 mg PO BID #8 caps 09/08/25 levothyroxine 50 mcg tablet 50 mcg PO DAILY 09/08/25 09/08/25 venetoclax 100 mg tablet 200 mg PO DAILY 09/08/25 09/08/25 (Venclexta) Previous Rx's ?Medication ?Instructions ?Recorded amoxicillin 875 mg-potassium 1 tab PO BID #8 tabs 09/08/25 clavulanate 125 mg tablet doxycycline hyclate 100 mg capsule 100 mg PO BID #8 caps 09/08/25 Allergies Allergy/AdvReac Type Severity Reaction Status Date / Time No Known Allergies Allergy Verified 09/08/25 18:23 General Stated Complaint: GenMedical ULI: 3 Exam Const General: cooperative and comfortable Nutritional Appearance: average body habitus Orientation: alert, oriented x3 and other (Slow to answer questions) [facility] Head: normal to inspection Ears: hearing grossly normal bilaterally General nose exam: external nose normal Face and sinus: normal facial exam and dry mucous membranes Resp Effort & Inspection: normal respiratory effort and able to speak in complete sentences Auscultation: clear to auscultation bilaterally Cardio Jugular venous pressure: no JVD Rate: tachycardic Rhythm: regular rhythm Pulses: radial pulses present GI Inspection: normal to inspection and non-distended Palpation: soft, not firm and nontender Skin General skin exam: no rashes or lesions noted Trauma: no lacerations or abrasions Neuro General: patient alert, patient oriented x3, tone normal, no focal motor deficits and CN's II-XI intact bilaterally Cranial Nerves: CN's II-XI intact bilaterally, EOM intact bilaterally, no nystagmus and facial strength normal Motor: muscle tone normal throughout and strength 5/5 throughout Sensory Exam: no sensory deficits noted Course Vital Signs Vital signs: Vital Signs Temperature 37.7 C H 09/08/25 18:19 Pulse 116 H 09/08/25 18:19 Blood Pressure 128/75 09/08/25 18:19 Pulse Oximetry 92 09/08/25 18:19 Temperature 37.7 C H 09/08/25 18:23 Pulse 116 H 09/08/25 18:23 Blood Pressure 128/75 09/08/25 18:23 Pulse Oximetry 92 09/08/25 18:23 Medical Decision Making Initial Assessment: 75-year-old female with CLL, presenting with general malaise, chills, and diarrhea since Sunday. No fever, headache, dizziness, congestion, sore throat, cough, chest pain, difficulty breathing, nausea, or abdominal pain. Differential Diagnosis includes but is not limited to: Dehydration, electrolyte imbalance, cardiac arrhythmia, occult infection such as pneumonia or UTI, viral illness such as COVID-19, tickborne illness ED Course: - Administered IV fluids. - Blood work obtained. - Chest x-ray obtained. - Urinalysis obtained. I independently interpreted the following tests: EKG notable for sinus tachycardia with occasional PACs, normal intervals, no changes consistent with acute ischemia. CMP notable for mild hyponatremia sodium 130, mild hypokalemia, potassium 3.4, and elevated LFTs. CBC notable for mild thrombocytopenia. Magnesium and phosphorus largely unremarkable. UA unremarkable other than elevated specific gravity of 1025., positive for blood (consistent with baseline), bacteria noted, but no WBCs. Chest x-ray notable for opacities in the left suprahilar region and left lung base, concerning for pneumonia however neoplasm cannot be excluded. Overall workup today reassuring. After receiving IV fluid Margarita reported feeling sniffily better, has now perked up and has returned to baseline, easily answering questions and smiling during interactions. She has been able to eat crackers and peanut butter with boni rajendra. Tachycardia has improved, low 100s at rest. She does admit that she missed her noontime dose of metoprolol, has the pillbox with her today and took her medications this evening when prompted. She was able to ambulate with her , denies dizziness or discomfort during ambulation. O2 sat remains in the 91 to 93% range. Antibiotics initiated for treatment of community-acquired pneumonia, Augmentin and doxycycline x 5 days. I do believe patient is stable for discharge home with close follow-up, PSI score places patient in risk class II, outpatient treatment reasonable. Recommend close follow-up with PCP Dr. Craven within the week for reassessment and for repeat chest x-ray to document resolution of opacities. Tick panel pending (suspicious for Anaplasma due to elevated LFTs and thrombocytopenia with lymphopenia, however patient does not report having extensive outdoor activities so empiric treatment not initiated, the doxycycline has been started for CAP) Clinical Impression: - Dehydration - Community-acquired pneumonia Patient consented to the use of [facility] Imaging Data Radiologic Study: Radiologist's impression: Exam(s) XR CHEST 2V PA LATERAL EXAM: XR CHEST 2V PA LATERAL CLINICAL HISTORY: r/o occult PNA TECHNIQUE: 2D digital imaging was performed of the chest. Two images were obtained. PA and lateral views were obtained. COMPARISON: CR XR CHEST 2V PA LATERAL from 11/15/[address] CHEST WO from 11/30/2023 FINDINGS: MEDIASTINUM: Normal. HEART: Normal. PULMONARY VASCULATURE: Normal. LUNGS: There are opacities seen in the left suprahilar region and the left lung base. PLEURAL SPACE: No pleural effusion or pneumothorax. BONE:Within normal limits for the patient's age. OTHER FINDINGS:Normal. IMPRESSION: 1. Opacities in the left lung. While this may represent pneumonia, neoplasm cannot be excluded. Follow-up chest x-ray to document resolution of the opacities is recommended. If the findings persist, a CT scan of the chest with contrast should be obtained. 2. The preliminary [facility] report was reviewed. PFSH All Active Problems (Updated 09/08/25 @ 22:24 by Alicia Ross) Community acquired pneumonia (Acute) Rotator cuff tear arthropathy of right shoulder (Acute) Right rotator cuff tear (Acute) Hepatitis (Acute) Chronic lymphoid leukemia (Acute) Anemia (Acute) Fever and chills (Acute) Systolic murmur (Acute) Troponin level elevated (Acute) Moderate aortic stenosis (Chronic) Valve area 1.2 in 2017 Trimalleolar fracture of right ankle (Chronic 07/07/19) S/P ORIF: 07/07/2019 S/P Hardware removal: 01/10/2022 Hammer toe of second toe of right foot (Acute) S/P Fusion: 01/10/2022 Acquired hammer toe deformity of lesser toe of right foot (Acute) THIRD S/P Fusion: 01/10/2022 Painful orthopaedic hardware (Acute) Medical History (Updated 09/08/25 @ 22:24 by Alicia Ross) Moderate aortic regurgitation Hypertension CLL (chronic lymphocytic leukemia) [facility] bone marrow transplant biopsy 2015 in remission Surgical History (Updated 01/23/22 @ 09:43 by JAVED Galaviz) History of repair of hip fracture Colonoscopy - IV Sedation (10/16/16) Cholecystectomy Family History Father No problems noted. Other Colon cancer Social History Smoking/Tobacco Use Status: Never Smoking risk assessment performed?: Yes Alcohol Intake: never Drug use: Never Substance use type: does not use Current gender identity: female Do you feel safe at home: Yes Do you feel safe in your relationship?: Yes
[2025-09-08] MEDS: Lactated Ringers 1,000 ML 1000 ML IV (19:15)
[2025-09-08 19:23] LABS: Abs Immature Grans 0.04 10^3/uL (0.0-0.06); HCT 36.1 % (36.0-46.0); HGB 12.5 g/dL (11.2-15.7); Immature Grans % 0.5 %; MCH 34.1 pg (27.0-33.0); MCHC 34.6 % (32.0-36.0); MCV 98 fL (80-95); MPV 9.4 fL (8.0-11.0); Platelet Count 114 10^3/uL (130-400); RBC 3.67 10^6/uL (3.93-5.22); RDW 14.2 % (11.7-14.6); RDW-SD 51.5 fL; WBC 7.41 10^3/uL (4.4-10.8)
[2025-09-08 19:29] LABS: Lab Add On Test DONE
[2025-09-08 19:39] LABS: ALT 117 U/L (14-59); AST 139 U/L (15-37); Albumin 3.3 g/dL (3.4-5.0); Alkaline Phosphatase 97 U/L (46-116); Anion Gap 6.7 mmol/L (3-11); BUN 21 mg/dL (7-18); Bilirubin, Total 1.4 mg/dL (0.2-1.0); CO2 23.3 mmol/L (21.0-32.0); Calcium 9.1 mg/dL (8.5-10.1); Chloride 100 mmol/L (98-107); Estimated GFR 53.06 (mL/min/1.73m2); Glucose 165 mg/dL (74-106); Magnesium 1.9 mg/dL (1.8-2.4); Potassium 3.4 mmol/L (3.5-5.1); Sodium 130 mmol/L (136-145); Total Protein 7.3 g/dL (6.4-8.2)
[2025-09-08 19:59] LABS: COVID-19 PCR Negative (Negative); RSV PCR Negative (Negative)
[2025-09-08 20:25] LABS: Glucose Negative (Negative)
[2025-09-08 20:32] LABS: C & S Indicated? No; WBC 0-2 HPF (0-5)
--- NOTE | 2025-09-08 21:13 | DI.[facility]_ITS ---
PROCEDURE INFORMATION: Exam: XR Chest Exam date and time: 09/08/2025 7:58 PM Age: 75 years old Clinical indication: Other: Not feeling well; R/O occult pna TECHNIQUE: Imaging protocol: Radiologic exam of the chest. Views: 2 views. COMPARISON: CT CHEST WO 11/30/2023 10:57 AM FINDINGS: Lungs: Patchy airspace opacities are present within the right mid lung and at the left lung base. Trace consolidative radiopacities are also present within the superior left hilum. Pleural spaces: No pleural effusion. No pneumothorax. Heart/Mediastinum: The heart is normal size. Bones/joints: Unremarkable. IMPRESSION: Bilateral pulmonary opacities suspicious for multifocal pneumonia. If further characterization is warranted, CT of the chest could be used. Underlying neoplasm can not be excluded. Short interval follow-up is recommended to exclude underlying pulmonary pathology. Dictated and Authenticated by: Cindy Nolasco MD. Orderin Nadir Vargas MD
[2025-09-08] MEDS: Doxycycline Hyclate 100 MG CAP PO (21:34)
[2025-09-08] MEDS: Lactated Ringers 500 ML IV (21:34)
[2025-09-08] MEDS: Amoxicillin 875/Clav. 125 TAB PO (21:34)
[2025-09-08] MEDS: Doxycycline Hyclate 100 MG, 2 CAPS/BTL PO (23:08)
[2025-09-08] MEDS: Amox. 875/Clav. 125, 2 TABS/BTL 1 TAB PO (23:08)
[2025-09-10 10:21] LABS: Lyme Ab w Rflx to Lyme Confirm Negative (Negative)
[2025-09-12 18:19] LABS: B. miyamotoi PCR Negative (Negative); Babesia divergens/MO-1 Negative (Negative); Ehrlichia muris eauclairensis Negative (Negative)
== END 2025-09-08 23:07 | disposition home or self-care (01) ==
PROVIDERS: Emergency Provider Nurse Practitioner Family; PCP Family Medicine
DX: J18.9 Pneumonia, unspecified organism (principal)
CPT/HCPCS: 80053; 87637; 87798; 93005; 96360; 96361; 99284; 71046; 81003; 81015; 83735; 84100; 85025; 86618; 93010

== ENCOUNTER 2025-09-09 10:14 | Inpatient (IN) | payer MEDICARE, SELFPAY ==
[2025-09-09] VITALS (62 sets, daily range): BP systolic 90–131; BP diastolic 39–69; PULSE 67–104; RESP 13–30; TEMP 36.2–39.1; O2SAT 89–99
--- NOTE | 2025-09-09 10:45 | DI.CT_ITS ---
Exam(s) CT CHEST/ABD/PEL W EXAM: CT CHEST/ABD/PEL W CLINICAL HISTORY: hx cll, temp 103, elevated lfts TECHNIQUE: Imaging Protocol: Axial computed tomography images with coronal and sagittal reformatted images were created and reviewed. Lung Computer Aided Detection (CAD) was utilized. CONTRAST MATERIAL: Intravenous: Omnipaque 350 contrast volume:75 mL Oral: No COMPARISON: CT ABD PELVIS WITH CONTRAST from 11/19/[address] CHEST WO from 11/30/2023 CR,XR XR CHEST 2V PA LATERAL from 09/08/2025 FINDINGS: CHEST: Tracheobronchial tree: Patent where visualized. No evidence of bronchiectasis. Pulmonary parenchyma: There are infiltrates seen in the left upper and left lower lobes. Dependent atelectatic changes are seen in the right lung. There is a calcified granuloma in the right upper lobe. There are no suspicious pulmonary nodules. Visualized thyroid gland: Unremarkable. Mediastinum and Leigh: There are mildly enlarged lymph nodes seen in the mediastinum which may be reactive. The esophagus is unremarkable. Pleura: There is a tiny left pleural effusion. There is no pneumothorax. Heart: The heart is not dilated. Atherosclerotic calcification is seen. There is calcification of the mitral valve. No pericardial effusion. Pulmonary arteries: There is no pulmonary embolism present to the level of the segmental arteries. Aorta: Thoracic aorta non-dilated. Atherosclerotic calcification is seen there is no evidence of dissection. Lymph nodes: There is no significant axillary adenopathy. Soft tissues: Unremarkable. Bones:Within normal limits for the patient's age. ABDOMEN: Liver: Normal density. No measurable mass. Portal, Superior Mesenteric, and Splenic Veins: Unremarkable. Gallbladder and Biliary Tract: Status post cholecystectomy. No significant biliary ductal dilatation. Pancreas: Normal density, no abnormal calcifications or inflammatory process. Spleen: There is a small subcapsular fluid collection at the lateral aspect of the spleen. Adrenals: No masses seen. Kidneys: Normal size, contour and axis. No radiodense stones or obstructive uropathy. No masses seen. Abdominal Aorta: Abdominal portion non-dilated. Atherosclerotic calcification is present. Bowel: There is diverticulosis of the colon without evidence of acute diverticulitis. There is no evidence of bowel wall thickening or obstruction. Appendix is unremarkable. Peritoneal Cavity: No ascites, collection or mesenteric inflammatory response. No free air. Lymph Nodes: Within normal limits. Bones: Within normal limits for the patient's age. There is a right total hip arthroplasty. There is an intramedullary isidro and screws in the left femur. There is stable mild compression of L1. There is mild compression of the L4 superior endplate which appears old. No acute fracture is identified. Soft Tissues: There is a small fat containing umbilical hernia. PELVIS: Bladder: Symmetric distention, no gross wall thickening. Reproductive Organs: Unremarkable as visualized. Lymph Nodes: Within normal limits. Bones: Within normal limits. IMPRESSION: 1. No acute abdominal or pelvic process. 2. There is colonic diverticulosis without evidence of acute diverticulitis. 3. Small nonspecific hypodense sub capsular splenic collection. This may represent a resolving hematoma or seroma. Abscess is considered less likely. 4. Left upper lobe and left lower lobe infiltrate suspicious for pneumonia. RADIATION DOSE DELIVERED: 510.61mGy.cm Total DLP DATA REPOSITORY: All CT scans at this facility are submitted to the National Radiology Data Registry (NRDR) Dose Index Registry (DIR) with the [employer] ([employer]). RADIATION OPTIMIZATION: All CT scans at this facility use at least one of these dose optimization techniques: automated exposure control; mA and/or kV adjustment per patient size (includes targeted exams where dose is matched to clinical indication); or iterative reconstruction.
--- NOTE | 2025-09-09 11:00 | RT.EKG_ITS ---
APPROVED REPORT Exam: Resting ECG Reason for Exam: weakness Patient Location: E HR:83 bpm ECG Measurements Heart Rate 83 AXIS AZ 179 P 30 QRSd 94 QRS -30 QT 402 T 5 QTc 471 Conclusion Sinus rhythm...normal P axis, V-rate 60- 99 Atrial premature complex...SV complex w/ short R-R interval Left axis deviation...QRS axis (-30,-90) Physician: No STEMI Low voltage, precordial leads...precordial leads <1.0mV
[2025-09-09 11:09] LABS: Abs Immature Grans 0.04 10^3/uL (0.0-0.06); HCT 33.7 % (36.0-46.0); HGB 11.7 g/dL (11.2-15.7); Immature Grans % 0.5 %; MCH 34.3 pg (27.0-33.0); MCHC 34.7 % (32.0-36.0); MCV 99 fL (80-95); MPV 9.3 fL (8.0-11.0); Platelet Count 112 10^3/uL (130-400); RBC 3.41 10^6/uL (3.93-5.22); RDW 14.0 % (11.7-14.6); RDW-SD 51.0 fL; WBC 7.34 10^3/uL (4.4-10.8)
[2025-09-09 11:17] LABS: ALT 79 U/L (14-59); AST 67 U/L (15-37); Albumin 2.8 g/dL (3.4-5.0); Alkaline Phosphatase 89 U/L (46-116); Anion Gap 11.4 mmol/L (3-11); BUN 18 mg/dL (7-18); Bilirubin, Total 2.0 mg/dL (0.2-1.0); CO2 23.6 mmol/L (21.0-32.0); Calcium 8.6 mg/dL (8.5-10.1); Chloride 101 mmol/L (98-107); Glucose 121 mg/dL (74-106); Lipase 47 U/L (<78); Magnesium 1.7 mg/dL (1.8-2.4); Potassium 3.8 mmol/L (3.5-5.1); Sodium 136 mmol/L (136-145); Total Protein 6.6 g/dL (6.4-8.2)
[2025-09-09] MEDS: CEFEPIME 2 GM in Normal Saline 100 ML IVPB ×2 (11:24→16:17)
[2025-09-09] MEDS: Normal Saline 1,000 ML 1000 ML IV ×2 (11:25→12:51)
[2025-09-09] MEDS: Normal Saline Flush 10 ML SYR IVP (11:47)
[2025-09-09] MEDS: Omnipaque 350 MG/ML 100 ML BTL IJ (11:48)
[2025-09-09] MEDS: Normal Saline - Diluent 50 ML VIAL IJ (11:48)
[2025-09-09 11:52] LABS: Troponin I 34 ng/L (<or=51)
--- NOTE | 2025-09-09 12:00 | DI.CT_ITS ---
Exam(s) CT HEAD WO EXAM: CT HEAD WO CLINICAL HISTORY: confusion. TECHNIQUE: Imaging Protocol: Axial computed tomography images with coronal and sagittal reformatted images were created and reviewed COMPARISON: CT HEAD WITHOUT CONTRAST from 08/26/2017 FINDINGS: Ventricles and Extra axial spaces: Normal in size and morphology for the patient's age. Hemorrhage: None. Cerebral parenchyma: There are areas of decreased attenuation in the white matter consistent with chronic microvascular ischemic disease. There is a lacune in the right periventricular white matter. There is no evidence of an acute territorial infarct or mass effect. Midline shift: None. Brainstem/Cerebellum: Normal. Calvarium: Normal. Visualized Paranasal sinuses/Mastoids: Clear. Soft Tissues: Unremarkable. IMPRESSION: No acute intracranial process. RADIATION DOSE DELIVERED: 981.21mGy.cm Total DLP DATA REPOSITORY: All CT scans at this facility are submitted to the National Radiology Data Registry (NRDR) Dose Index Registry (DIR) with the [employer] ([employer]). RADIATION OPTIMIZATION: All CT scans at this facility use at least one of these dose optimization techniques: automated exposure control; mA and/or kV adjustment per patient size (includes targeted exams where dose is matched to clinical indication); or iterative reconstruction.
[2025-09-09 12:56] LABS: COVID-19 PCR Negative (Negative); RSV PCR Negative (Negative)
--- NOTE | 2025-09-09 13:42 | W.PM.HP.N ---
Date of service: 09/09/25 Time of Service: 13:43 Assessment and Plan Assessment and plan (1) Severe sepsis: Status: Acute Assessment and plan: Positive for fever at 103 and 38.9, tachycardia heart rate 91-95 and tachypnea respiratory rate 20-25 Source is respiratory as per CT imaging findings of pulmonary infiltrates pointing pneumonia Severity -Presenting with acute confusion - most likely h infectious encephalopathy -Moreover despite SBP not being below 90 MAP have been consistently below 65 and patient has been receiving IV crystalloids up to 2 L in the ED (2) Acute hypoxic respiratory failure: Status: Acute Assessment and plan: Patient w/o chronic O2 requirement at home and presenting with saturation at 88. Maintains sat at 95% on 2l/min of oxygen via nasal canula. No past medical history of COPD we will titrate to saturation goal of 92% and above Pulmonary emboli ruled out as per imaging minimal left pleural effusion Infiltrates as per imaging confirming location of pneumonia to left upper and left lower lobes Wean Oxygen for saturation 92% (3) Community acquired pneumonia: Status: Acute Assessment and plan: Continue IV doxycycline and cefepime initiated in the ED Blood cultures pending MRSA PCR (4) CLL (chronic lymphocytic leukemia): Assessment and plan: Home Venclexta - will hold (5) Vomiting: Status: Acute Assessment and plan: Increased fatigue and reduced oral intake over the past few days in addition to vomiting this morning will order as needed antiemetics and IV hydration based on history and physical exam Compazine 5 mg IV every 4 as needed Lactated Ringer's at 100 cc/h (6) Depression: Status: Chronic Assessment and plan: On home dose sertraline (7) Hypomagnesemia: Status: Acute Assessment and plan: Supplemented labs in a.m. (8) Hypertension: Assessment and plan: Will hold metoprolol to tartrate for now (9) Hypothyroidism: Status: Chronic Assessment and plan: On home dose of levothyroxine TSH T4 pending (10) On deep vein thrombosis (DVT) prophylaxis: Status: Acute Assessment and plan: On Lovenox Cussed with Dr. Holland History of Present Illness History of Present Illness Chief Complaint: Generalized malaise Narrative: This 24 years old female patient with a past medical history of CLL, thyroid dysfunction, hypertension, depression, presented to the ED after being discharged from an [facility] the day prior with a diagnosis of pneumonia and oral antibiotics. Patient reported confusion, weakness, temperature of 103 as per EMS and 38.9 in the ED; no hypotension but blood pressure of 96/41 with MAP below 65, tachycardia with heart rate 91-95. Head CT was negative imaging showed upper and lower left-sided infiltrates to the lungs and trauma seen in the abdominal and pelvic imaging. Blood work was negative for leukocytosis, bacteremia, or hyperlactinemia, with thrombocytopenia at 112, magnesium at 1.5 with IV supplementation provided. In the ED the patient was treated with 2 L of IV crystalloid, cefepime and IV doxycycline the patient was admitted to the hospitalist team for severe sepsis in the setting of pneumonia with failed outpatient therapy, infectious encephalopathy, and acute hypoxic respiratory failure. Upper respiratory panel was negative, blood cultures are pending and MRSA swab will be completed Patient reports fatigue, chills, fever, headache, cough, vomiting. Patient denies sick contact, dizziness, change in vision, congestion, chest pain, nausea, abdominal pain, dysuria. Denies heart failure history, TN or hypertension Status: Full CODE STATUS confirmed Review of Systems All systems reviewed & are unremarkable except as noted in HPI and below PFSH All Active Problems (Updated 09/09/25 @ 15:06 by Priscilla Ayers APRN) Hypomagnesemia (Acute) Hypothyroidism (Chronic) Depression (Chronic) Vomiting (Acute) On deep vein thrombosis (DVT) prophylaxis (Acute) Severe sepsis (Acute) Acute hypoxic respiratory failure (Acute) Community acquired pneumonia (Acute) Rotator cuff tear arthropathy of right shoulder (Acute) Right rotator cuff tear (Acute) Hepatitis (Acute) Chronic lymphoid leukemia (Acute) Anemia (Acute) Fever and chills (Acute) Systolic murmur (Acute) Troponin level elevated (Acute) Moderate aortic stenosis (Chronic) Valve area 1.2 in 2017 Trimalleolar fracture of right ankle (Chronic 07/07/19) S/P ORIF: 07/07/2019 S/P Hardware removal: 01/10/2022 Hammer toe of second toe of right foot (Acute) S/P Fusion: 01/10/2022 Acquired hammer toe deformity of lesser toe of right foot (Acute) THIRD S/P Fusion: 01/10/2022 Painful orthopaedic hardware (Acute) Medical History (Updated 09/09/25 @ 15:06 by Priscilla Ayers APRN) Moderate aortic regurgitation Hypertension CLL (chronic lymphocytic leukemia) allogenie bone marrow transplant biopsy 2015 in remission Surgical History (Updated 01/23/22 @ 09:43 by JAVED Galaviz) History of repair of hip fracture Colonoscopy - IV Sedation (10/16/16) Cholecystectomy Family History Father No problems noted. Other Colon cancer Social History Smoking/Tobacco Use Status: Never Smoking risk assessment performed?: Yes Alcohol Intake: never Drug use: Never Substance use type: does not use Current gender identity: female Do you feel safe at home: Yes Do you feel safe in your relationship?: Yes Meds Allergies and Home Medications Allergies Allergy/AdvReac Type Severity Reaction Status Date / Time No Known Allergies Allergy Verified 09/09/25 10:24 Home Medications Medication Instructions Recorded Confirmed Type multivitamin (Daily Multiple 1 ea PO DAILY 08/31/16 09/09/25 History tablet) sertraline 100 mg tablet 100 mg PO DAILY 08/31/16 09/09/25 History magnesium oxide-magnesium amino 1 tab PO DAILY 08/26/17 09/09/25 History acid chelate 133 mg tablet ([id number]) cholecalciferol (vitamin D3) 10 800 unit PO DAILY 07/04/19 09/09/25 History mcg (400 unit) capsule (Vitamin D3) metoprolol succinate 25 mg 25 mg PO DAILY HTN, prevention of 01/05/22 09/09/25 History tablet,extended release 24 hr TN amoxicillin 875 mg-potassium 1 tab PO BID #8 tabs 09/08/25 09/09/25 Rx clavulanate 125 mg tablet doxycycline hyclate 100 mg capsule 100 mg PO BID #8 caps 09/08/25 09/09/25 Rx levothyroxine 50 mcg tablet 50 mcg PO DAILY 09/08/25 09/09/25 History venetoclax 100 mg tablet 200 mg PO DAILY 09/08/25 09/09/25 History (Venclexta) Exam Narrative Exam Narrative: 72-year-old female patient looking older than stated age, in no acute distress, alert and oriented to self person space and somewhat in situation. Head is normocephalic atraumatic without lymphadenopathy no meningeal signs, eyes are nonicteric noninjected, no JVD, lips are dry, speaks in short sentences no increased work of breathing lungs are mostly clear to auscultation minimal fine with Velcro type fine breath sounds to left side, aortic murmur S1-S2 regular sinus rhythm on laboratory monitor, abdomen is nondistended soft nontender bowel sounds are present, moves all 4 extremities Results Labs 09/09/25 10:24 09/09/25 10:24 Labs: Laboratory Results - last 24 hr 09/09/25 09/09/25 09/09/25 10:24 11:24 11:40 WBC 7.34 RBC 3.41 L Hgb 11.7 Hct 33.7 L MCV 99 H MCH 34.3 H MCHC 34.7 RDW 14.0 Plt Count 112 L MPV 9.3 Immature Gran % 0.5 Neutrophils % 78.0 Lymphocytes % 7.4 Monocytes % 13.8 Eosinophils % 0.0 Basophils % 0.3 Nucleated RBC % 0.0 Absolute Neutrophils 5.73 Absolute Lymphocytes 0.54 L Absolute Monocytes 1.01 H Absolute Eosinophils 0.00 Absolute Basophils 0.02 VBG Lactate 0.7 Sodium 136 Potassium 3.8 Chloride 101 Carbon Dioxide 23.6 Anion Gap 11.4 H BUN 18 Creatinine 1.0 Est GFR (CKD-EPI 2020) 59.49 Glucose 121 H Calcium 8.6 Magnesium 1.7 L Total Bilirubin 2.0 H AST 67 H ALT 79 H Alkaline Phosphatase 89 Troponin I 34 Total Protein 6.6 Albumin 2.8 L Lipase 47 COVID-19 Source SARS-CoV-2 (PCR) Influenza Type A (PCR) Influenza Type B (PCR) RSV (PCR) 09/09/25 12:15 WBC RBC Hgb Hct MCV MCH MCHC RDW Plt Count MPV Immature Gran % Neutrophils % Lymphocytes % Monocytes % Eosinophils % Basophils % Nucleated RBC % Absolute Neutrophils Absolute Lymphocytes Absolute Monocytes Absolute Eosinophils Absolute Basophils VBG Lactate Sodium Potassium Chloride Carbon Dioxide Anion Gap BUN Creatinine Est GFR (CKD-EPI 2020) Glucose Calcium Magnesium Total Bilirubin AST ALT Alkaline Phosphatase Troponin I Total Protein Albumin Lipase COVID-19 Source Nasopharynx SARS-CoV-2 (PCR) Negative Influenza Type A (PCR) Negative Influenza Type B (PCR) Negative RSV (PCR) Negative Last Vital Signs Temp 36.9 C 09/09/25 12:46 Pulse 78 09/09/25 12:46 Resp 18 09/09/25 12:46 BP 96/41 L 09/09/25 12:46 Pulse Ox 99 09/09/25 12:47 Time Spent Time spent with Patient: >75 minutes Time was spent: preparing to see the patient(eg.review tests), obtaining and/or reviewing separately otained hiistory, ordering medications,tests, procedures, referring, communicating with other health health care assistant, indepentently interpreting results, counseling the patient, care coordination and other
[2025-09-09] MEDS: DOXYCYCLINE 100 MG in Normal Saline 100 ML IVPB ×2 (13:52→22:56)
[2025-09-09 14:16] LABS: Troponin I 35 ng/L (<or=51)
[2025-09-09 14:31] LABS: Glucose Negative (Negative)
--- NOTE | 2025-09-09 15:09 | W.PC.ACHO ---
Registration Status: REG ER Primary Language: Preferred Language: Italian ED Information & Data Chief Complaint RespSymp 09/09/25 10:23 Chief Complaint RespSymp 09/09/25 10:19 Triage Note Increased weakness, new 09/09/25 10:19 incontinence today after being treated for pneumonia yesterday (IV antibiotics). PT has a delay when answering questions but states that she feels ill and has no specific complaint. Medical / Surgical History (Last Reviewed 01/10/22 @ 07:14 by Paula Mahmood) Moderate aortic regurgitation Hypertension CLL (chronic lymphocytic leukemia) (Last Updated 01/23/22 @ 09:43 by JAVED Galaviz) History of repair of hip fracture Colonoscopy - IV Sedation (10/16/16) Cholecystectomy Most Recent Vital Signs Temperature 36.9 C 09/09/25 12:46 Pulse 71 09/09/25 14:01 Pulse 71 09/09/25 14:01 Respiratory Rate 19 09/09/25 14:01 Respiratory Effort Normal 09/09/25 10:39 Respiratory Depth Normal 09/09/25 10:39 Blood Pressure 102/46 L 09/09/25 14:00 Blood Pressure Mean 65 09/09/25 14:00 Blood Pressure Position Sitting 09/09/25 10:23 Pulse Oximetry 97 09/09/25 14:01 Oxygen Delivery Method Nasal Cannula 09/09/25 12:47 Oxygen Flow Rate 2 09/09/25 12:47 Comment 3lnc 09/09/25 11:17 Allergies No Known Allergies Allergy (Verified 09/09/25 10:24) Active Medications Generic Name Dose Route Start Last Admin Trade Name Freq PRN Reason Stop Dose Admin Iohexol 100 ml 09/09/25 12:00 09/09/25 11:48 Omnipaque 350 Mg/Ml 100 Ml Btl IJ 10/09/25 23:59 75 ml DIRECTED STEPHANIE Administration Sodium Chloride 0 ml 09/09/25 11:47 09/09/25 11:47 Normal Saline Flush 10 Ml Syr IVP 10 ml PRN PRN Administration Sodium Chloride 50 ml 09/09/25 12:00 09/09/25 11:48 Normal Saline - Diluent 50 Ml Vial IJ 50 ml DIRECTED STEPHANIE Administration IV IV Catheter Type [Left Saline Lock Antecubital] IV Catheter Type [Right Saline Lock Antecubital] IV Catheter Gauge [Left 20 Antecubital] IV Catheter Gauge [Right 18 Antecubital] Diagnostics 09/09/25 09/09/25 09/09/25 Range/Units 13:57 13:53 12:15 WBC (4.4-10.8) 10^3/uL RBC (3.93-5.22) 10^6/uL Hgb (11.2-15.7) g/dL Hct (36.0-46.0) % MCV (80-95) fL MCH (27.0-33.0) pg MCHC (32.0-36.0) % RDW (11.7-14.6) % Plt Count (130-400) 10^3/uL MPV (8.0-11.0) fL Immature Gran % % Neutrophils % % Lymphocytes % % Monocytes % % Eosinophils % % Basophils % % Nucleated RBC % (0.0-0.3) % Absolute Neutrophils (1.2-6.7) 10^3/uL Absolute Lymphocytes (1.2-3.4) 10^3/uL Absolute Monocytes (0.1-0.8) 10^3/uL Absolute Eosinophils (0.0-0.7) 10^3/uL Absolute Basophils (0.0-0.2) 10^3/uL VBG Lactate (<or=2.0) mmol/L Sodium (136-145) mmol/L Potassium (3.5-5.1) mmol/L Chloride (98-107) mmol/L Carbon Dioxide (21.0-32.0) mmol/L Anion Gap (3-11) mmol/L BUN (7-18) mg/dL Creatinine (0.55-1.02) mg/dL Est GFR (CKD-EPI 2020) (mL/min/1.73m2) Glucose (74-106) mg/dL Calcium (8.5-10.1) mg/dL Magnesium (1.8-2.4) mg/dL Total Bilirubin (0.2-1.0) mg/dL AST (15-37) U/L ALT (14-59) U/L Alkaline Phosphatase (46-116) U/L Troponin I 35 (<or=51) ng/L Total Protein (6.4-8.2) g/dL Albumin (3.4-5.0) g/dL Lipase (<78) U/L Urine Color Yellow (Yellow) Urine Clarity Sl Cloudy (Clear) Urine pH 5.5 (5-8) Ur Specific Pollock <= 1.005 (1.005-1.025) Urine Protein Negative (Neg-Trace) mg/dL Urine Ketones Negative (Negative) mg/dL Urine Blood Negative (Negative) Urine Nitrite Negative (Negative) Urine Bilirubin Negative (Negative) Urine Urobilinogen 0.2 (Up to 0.2) mg/dL Ur Leukocyte Esterase Negative (Negative) Urine Glucose Negative (Negative) mg/dL COVID-19 Source Nasopharynx SARS-CoV-2 (PCR) Negative (Negative) Influenza Type A (PCR) Negative (Negative) Influenza Type B (PCR) Negative (Negative) RSV (PCR) Negative (Negative) 09/09/25 09/09/25 09/09/25 Range/Units 11:40 11:24 10:24 WBC 7.34 (4.4-10.8) 10^3/uL RBC 3.41 L (3.93-5.22) 10^6/uL Hgb 11.7 (11.2-15.7) g/dL Hct 33.7 L (36.0-46.0) % MCV 99 H (80-95) fL MCH 34.3 H (27.0-33.0) pg MCHC 34.7 (32.0-36.0) % RDW 14.0 (11.7-14.6) % Plt Count 112 L (130-400) 10^3/uL MPV 9.3 (8.0-11.0) fL Immature Gran % 0.5 % Neutrophils % 78.0 % Lymphocytes % 7.4 % Monocytes % 13.8 % Eosinophils % 0.0 % Basophils % 0.3 % Nucleated RBC % 0.0 (0.0-0.3) % Absolute Neutrophils 5.73 (1.2-6.7) 10^3/uL Absolute Lymphocytes 0.54 L (1.2-3.4) 10^3/uL Absolute Monocytes 1.01 H (0.1-0.8) 10^3/uL Absolute Eosinophils 0.00 (0.0-0.7) 10^3/uL Absolute Basophils 0.02 (0.0-0.2) 10^3/uL VBG Lactate 0.7 (<or=2.0) mmol/L Sodium 136 (136-145) mmol/L Potassium 3.8 (3.5-5.1) mmol/L Chloride 101 (98-107) mmol/L Carbon Dioxide 23.6 (21.0-32.0) mmol/L Anion Gap 11.4 H (3-11) mmol/L BUN 18 (7-18) mg/dL Creatinine 1.0 (0.55-1.02) mg/dL Est GFR (CKD-EPI 2020) 59.49 (mL/min/1.73m2) Glucose 121 H (74-106) mg/dL Calcium 8.6 (8.5-10.1) mg/dL Magnesium 1.7 L (1.8-2.4) mg/dL Total Bilirubin 2.0 H (0.2-1.0) mg/dL AST 67 H (15-37) U/L ALT 79 H (14-59) U/L Alkaline Phosphatase 89 (46-116) U/L Troponin I 34 (<or=51) ng/L Total Protein 6.6 (6.4-8.2) g/dL Albumin 2.8 L (3.4-5.0) g/dL Lipase 47 (<78) U/L Urine Color (Yellow) Urine Clarity (Clear) Urine pH (5-8) Ur Specific Pollock (1.005-1.025) Urine Protein (Neg-Trace) mg/dL Urine Ketones (Negative) mg/dL Urine Blood (Negative) Urine Nitrite (Negative) Urine Bilirubin (Negative) Urine Urobilinogen (Up to 0.2) mg/dL Ur Leukocyte Esterase (Negative) Urine Glucose (Negative) mg/dL COVID-19 Source SARS-CoV-2 (PCR) (Negative) Influenza Type A (PCR) (Negative) Influenza Type B (PCR) (Negative) RSV (PCR) (Negative) 09/09/25 11:40 Blood Culture - Pending Blood 09/09/25 10:24 Blood Culture - Pending Blood [id number] Documentation Fingerstick Glucose Start: 09/09/25 10:56 Freq: Status: Active Protocol: Activity Type Activity Date Activity User E-sign Co-sign Detail Recorded Client Recorded Date Recorded By Document 09/09/25 10:55 BKG DAEMON(3) [id number] 09/09/25 10:56 BKG DAEMON(4) Intake and Output - 24 Hour Total 09/09/25 10:04 thru 09/09/25 14:02 Intake Total 2099 Balance 2099 Weight 57 kg Intake: IV 2100 Falls Risk Assessment History of Falls Previous History 09/09/25 10:23 Contributing Factors Confusion,Incontinence 09/09/25 10:23 Ambulatory Aids Uses ambulatory device 09/09/25 10:23 Tubes/Lines None 09/09/25 10:23 Gait Evaluation W/no contributing factors 09/09/25 10:23 Cognition Cognitive impairment 09/09/25 10:23 Fall Total Score 61 09/09/25 10:23 Level of Risk High Risk 09/09/25 10:23 v v v v v v v v v Sending and/or Receiving Nurses: Please use comment section below to note any information pertinent to the patient hand-off not included above. Information / Comments: AOx3, came in complaining on general weakness, AMS, was found to have a fever of 103, Tylenol given with good effect. 2L of NS, 100mg of doxy and 2g of cefepime given in ER. initially pt requered 2L of O2 but was weanned off to RA. BP is in low 100. Pt was incontinent with urine. is at bedside. Report received from: SOFY Astorga
--- NOTE | 2025-09-09 15:28 | W.ED.GENAD ---
Discharge Plan Disposition Patient Disposition: Admit to [facility] Condition: Serious Discharge Details Clinical Impression: Severe sepsis, Pneumonia Admit Date/Time: 09/09/25 13:54 Admit Provider: Jose Holland Attending Provider: Jose Holland Primary Care Provider: Madalyn Craven ED Provider: Keeley Gonzalez Discharge Data Discharge Date/Time-TO BE ENTERED AT DEPARTURE: 09/09/25 15:18 HPI General Date/Time Provider Initiated Documentation: 09/09/25 10:22. HPI Narrative: This 75-year-old female presents with weakness and fever that started this morning with some confusion. She has a history of CLL and was diagnosed with pneumonia yesterday in the hospital. She was discharged home in stable condition but felt worse today and has been called ambulance secondary to weakness and confusion. She was found have a temperature of 103 by EMS. Patient denies any pain complaints or difficulty breathing she denies any falls or injuries or urinary complaints. She denies any abdominal pain nausea or vomiting. She did take her antibiotics last night but did not take them this morning. Related Data Home Medications Medication Instructions Recorded Confirmed multivitamin (Daily Multiple 1 ea PO DAILY 08/31/16 09/09/25 tablet) sertraline 100 mg tablet 100 mg PO DAILY 08/31/16 09/09/25 magnesium oxide-magnesium amino 1 tab PO DAILY 08/26/17 09/09/25 acid chelate 133 mg tablet ([id number]) cholecalciferol (vitamin D3) 10 800 unit PO DAILY 07/04/19 09/09/25 mcg (400 unit) capsule (Vitamin D3) metoprolol succinate 25 mg 25 mg PO DAILY HTN, prevention of 01/05/22 09/09/25 tablet,extended release 24 hr LA amoxicillin 875 mg-potassium 1 tab PO BID #8 tabs 09/08/25 09/09/25 clavulanate 125 mg tablet doxycycline hyclate 100 mg capsule 100 mg PO BID #8 caps 09/08/25 09/09/25 levothyroxine 50 mcg tablet 50 mcg PO DAILY 09/08/25 09/09/25 venetoclax 100 mg tablet 200 mg PO DAILY 09/08/25 09/09/25 (Venclexta) Previous Rx's Medication Instructions Recorded amoxicillin 875 mg-potassium 1 tab PO BID #8 tabs 09/08/25 clavulanate 125 mg tablet doxycycline hyclate 100 mg capsule 100 mg PO BID #8 caps 09/08/25 Allergies Allergy/AdvReac Type Severity Reaction Status Date / Time No Known Allergies Allergy Verified 09/09/25 10:24 General Stated Complaint: RespSymp ULI: 2 Exam Narrative Exam Narrative: Pale, alert, oriented, crackles at base of lung no tachycardia, tachypnea, no abdominal tenderness, no meningismus, no murmur no peripheral edema, no rashes or lesions Course Vital Signs Vital signs: Vital Signs Pulse 95 H 09/09/25 10:18 Pulse Oximetry 92 09/09/25 10:18 Temperature 36.9 C 09/09/25 12:46 Pulse 73 09/09/25 15:01 Pulse 73 09/09/25 15:01 Respiratory Rate 18 09/09/25 15:01 Respiratory Effort Normal 09/09/25 10:39 Respiratory Depth Normal 09/09/25 10:39 Blood Pressure 94/55 L 09/09/25 15:00 Blood Pressure Mean 67 09/09/25 15:00 Blood Pressure Position Sitting 09/09/25 10:23 Pulse Oximetry 92 09/09/25 15:04 Oxygen Delivery Method Room Air 09/09/25 15:04 Oxygen Flow Rate 0 09/09/25 15:04 Comment ra 09/09/25 14:40 Lab/Test Results Lab/Test Results: 09/09/25 11:40 Blood Blood Culture - Pending 09/09/25 10:24 Blood Blood Culture - Pending Laboratory Tests Range/Units 09/09/25 09/09/25 09/09/25 10:24 11:24 11:40 WBC (4.4-10.8) 10^3/uL 7.34 RBC (3.93-5.22) 10^6/uL 3.41 L Hgb (11.2-15.7) g/dL 11.7 Hct (36.0-46.0) % 33.7 L MCV (80-95) fL 99 H MCH (27.0-33.0) pg 34.3 H MCHC (32.0-36.0) % 34.7 RDW (11.7-14.6) % 14.0 Plt Count (130-400) 10^3/uL 112 L MPV (8.0-11.0) fL 9.3 Immature Gran % % 0.5 Neutrophils % % 78.0 Lymphocytes % % 7.4 Monocytes % % 13.8 Eosinophils % % 0.0 Basophils % % 0.3 Nucleated RBC % (0.0-0.3) % 0.0 Absolute Neutrophils (1.2-6.7) 10^3/uL 5.73 Absolute Lymphocytes (1.2-3.4) 10^3/uL 0.54 L Absolute Monocytes (0.1-0.8) 10^3/uL 1.01 H Absolute Eosinophils (0.0-0.7) 10^3/uL 0.00 Absolute Basophils (0.0-0.2) 10^3/uL 0.02 VBG Lactate (<or=2.0) mmol/L 0.7 Sodium (136-145) mmol/L 136 Potassium (3.5-5.1) mmol/L 3.8 Chloride (98-107) mmol/L 101 Carbon Dioxide (21.0-32.0) mmol/L 23.6 Anion Gap (3-11) mmol/L 11.4 H BUN (7-18) mg/dL 18 Creatinine (0.55-1.02) mg/dL 1.0 Est GFR (CKD-EPI 2020) (mL/min/1.73m2) 59.49 Glucose (74-106) mg/dL 121 H Calcium (8.5-10.1) mg/dL 8.6 Magnesium (1.8-2.4) mg/dL 1.7 L Total Bilirubin (0.2-1.0) mg/dL 2.0 H AST (15-37) U/L 67 H ALT (14-59) U/L 79 H Alkaline Phosphatase (46-116) U/L 89 Troponin I (<or=51) ng/L 34 Total Protein (6.4-8.2) g/dL 6.6 Albumin (3.4-5.0) g/dL 2.8 L Lipase (<78) U/L 47 Urine Color (Yellow) Urine Clarity (Clear) Urine pH (5-8) Ur Specific [place] (1.005-1.025) Urine Protein (Neg-Trace) mg/dL Urine Ketones (Negative) mg/dL Urine Blood (Negative) Urine Nitrite (Negative) Urine Bilirubin (Negative) Urine Urobilinogen (Up to 0.2) mg/dL Ur Leukocyte Esterase (Negative) Urine Glucose (Negative) mg/dL COVID-19 Source SARS-CoV-2 (PCR) (Negative) Influenza Type A (PCR) (Negative) Influenza Type B (PCR) (Negative) RSV (PCR) (Negative) Range/Units 09/09/25 09/09/25 09/09/25 12:15 13:53 13:57 WBC (4.4-10.8) 10^3/uL RBC (3.93-5.22) 10^6/uL Hgb (11.2-15.7) g/dL Hct (36.0-46.0) % MCV (80-95) fL MCH (27.0-33.0) pg MCHC (32.0-36.0) % RDW (11.7-14.6) % Plt Count (130-400) 10^3/uL MPV (8.0-11.0) fL Immature Gran % % Neutrophils % % Lymphocytes % % Monocytes % % Eosinophils % % Basophils % % Nucleated RBC % (0.0-0.3) % Absolute Neutrophils (1.2-6.7) 10^3/uL Absolute Lymphocytes (1.2-3.4) 10^3/uL Absolute Monocytes (0.1-0.8) 10^3/uL Absolute Eosinophils (0.0-0.7) 10^3/uL Absolute Basophils (0.0-0.2) 10^3/uL VBG Lactate (<or=2.0) mmol/L Sodium (136-145) mmol/L Potassium (3.5-5.1) mmol/L Chloride (98-107) mmol/L Carbon Dioxide (21.0-32.0) mmol/L Anion Gap (3-11) mmol/L BUN (7-18) mg/dL Creatinine (0.55-1.02) mg/dL Est GFR (CKD-EPI 2020) (mL/min/1.73m2) Glucose (74-106) mg/dL Calcium (8.5-10.1) mg/dL Magnesium (1.8-2.4) mg/dL Total Bilirubin (0.2-1.0) mg/dL AST (15-37) U/L ALT (14-59) U/L Alkaline Phosphatase (46-116) U/L Troponin I (<or=51) ng/L 35 Total Protein (6.4-8.2) g/dL Albumin (3.4-5.0) g/dL Lipase (<78) U/L Urine Color (Yellow) Yellow Urine Clarity (Clear) Sl Cloudy Urine pH (5-8) 5.5 Ur Specific [place] (1.005-1.025) <= 1.005 Urine Protein (Neg-Trace) mg/dL Negative Urine Ketones (Negative) mg/dL Negative Urine Blood (Negative) Negative Urine Nitrite (Negative) Negative Urine Bilirubin (Negative) Negative Urine Urobilinogen (Up to 0.2) mg/dL 0.2 Ur Leukocyte Esterase (Negative) Negative Urine Glucose (Negative) mg/dL Negative COVID-19 Source Nasopharynx SARS-CoV-2 (PCR) (Negative) Negative Influenza Type A (PCR) (Negative) Negative Influenza Type B (PCR) (Negative) Negative RSV (PCR) (Negative) Negative Medical Decision Making Results: No leukocytosis mild anemia noted urinalysis does not show evidence of acute abnormality, CT chest abdomen pelvis and head were ordered for further evaluation, there is a small area of possible hematoma or seroma overlying spleen, this appears to be improving per radiology. No other acute abnormalities CT head did not show acute abnormality per radiology interpretation my review Critical care time: Patient required oxygen upon arrival 2 L for acute hypoxic respiratory failure, this was for approximately 2 hours, after fever was controlled she was no longer hypoxic so this was removed, she did meet severe sepsis criteria with hypotensive and although interesting she has a negative lactate and no leukocytosis secondary to fever and source with tachycardia greater than 90. Patient requires telemetry monitoring admission to the hospital for IV antibiotics and continued monitoring, diagnostic interpretation and review Patient was started on cefepime immediately upon arrival secondary to fever of 103 and confusion. I did perform CT head and parks scan patient as she is not a reliable historian as she was confused initially upon arrival. She is clearing with antipyretics. She was given 2 L of NS, her blood pressure has been soft but her MAP has been greater than 60. I will hold on pressors at this time. She is mentating well, she reportedly had an episode of hypoxia and she was placed on 1 L of oxygen which she is tolerating well at 93% on room air, she has crackles at the base of her left lung only. She is in no respiratory distress. She wishes to be a full CODE STATUS. She presents with her . We will hold her chemotherapy at this time. She was given doxycycline to cover atypicals. No leukocytosis likely secondary to chemotherapy history. Case discussed with hospitalist agreeable to admission. Quality:SDOH Health Related Social Needs: Health related social needs education Health related social needs details n/a PFSH All Active Problems (Updated 09/10/25 @ 10:40 by JAVED Thomas) Pneumonia (Acute) Hypomagnesemia (Acute) Hypothyroidism (Chronic) Depression (Chronic) Vomiting (Acute) On deep vein thrombosis (DVT) prophylaxis (Acute) Severe sepsis (Acute) Acute hypoxic respiratory failure (Acute) Community acquired pneumonia (Acute) Rotator cuff tear arthropathy of right shoulder (Acute) Right rotator cuff tear (Acute) Hepatitis (Acute) Chronic lymphoid leukemia (Acute) Anemia (Acute) Fever and chills (Acute) Systolic murmur (Acute) Troponin level elevated (Acute) Moderate aortic stenosis (Chronic) Valve area 1.2 in 2017 Trimalleolar fracture of right ankle (Chronic 07/07/19) S/P ORIF: 07/07/2019 S/P Hardware removal: 01/10/2022 Hammer toe of second toe of right foot (Acute) S/P Fusion: 01/10/2022 Acquired hammer toe deformity of lesser toe of right foot (Acute) THIRD S/P Fusion: 01/10/2022 Painful orthopaedic hardware (Acute) Medical History (Updated 09/10/25 @ 10:40 by JAVED Thomas) Moderate aortic regurgitation Hypertension CLL (chronic lymphocytic leukemia) allogeniec bone marrow transplant biopsy 2015 in remission Surgical History (Updated 01/23/22 @ 09:43 by JAVED Galaviz) History of repair of hip fracture Colonoscopy - IV Sedation (10/16/16) Cholecystectomy Family History Father No problems noted. Other Colon cancer Social History Smoking/Tobacco Use Status: Never Smoking risk assessment performed?: Yes Alcohol Intake: never Drug use: Never Substance use type: does not use Housing: house Current gender identity: female Do you feel safe at home: Yes Do you feel safe in your relationship?: Yes
--- NOTE | 2025-09-09 15:53 | SCONE_ITS ---
Date of service: 09/09/25 Time of Service: 15:53 Assessment and Plan Assessment and plan (1) Spleen anomaly: Status: Acute Assessment and plan: reviewed CT images, examined patient. Findings not consistent with splenic laceration or hematoma or injury otherwise. Possible this is a seroma or subcapsular cyst. Counseled patient on warning signs/symptoms if this small collection rupturing, which could occur with blunt impacts. These include LUQ or other acute abd pain, flank pain, dizziness, syncope. No need to repeat imaging. Will sign off, please call if questions or concerns arise. (2) CLL (chronic lymphocytic leukemia): Assessment and plan: on oral chemo agent venetoclax. (3) Community acquired pneumonia: Status: Acute Assessment and plan: with hypoxia. IV abx. Management as directed by hospitalist. (4) Acute hypoxic respiratory failure: Status: Acute Assessment and plan: anticipate improvement with treatment of pneumonia. History of Present Illness History of Present Illness Chief Complaint: spleen CT Narrative: 75yo F being treated for leukemia who is admitted with pneumonia. Her admission CT scan notes a small subcapsular fluid collection on the spleen. I am consulted regarding this. No free fluid in the abdomen, no abdominal or flank pain. No recent or remote injuries the patient can recall. Prior CT abd/pelvis is from 2018 and the spleen had a small amount of haziness around the same area the fluid collection is now noted. [facility] All Active Problems (Updated 09/10/25 @ 15:32 by Alexandria Gould MD) Spleen anomaly (Acute) Pneumonia (Acute) Hypomagnesemia (Acute) Hypothyroidism (Chronic) Depression (Chronic) Vomiting (Acute) On deep vein thrombosis (DVT) prophylaxis (Acute) Severe sepsis (Acute) Acute hypoxic respiratory failure (Acute) Community acquired pneumonia (Acute) Rotator cuff tear arthropathy of right shoulder (Acute) Right rotator cuff tear (Acute) Hepatitis (Acute) Chronic lymphoid leukemia (Acute) Anemia (Acute) Fever and chills (Acute) Systolic murmur (Acute) Troponin level elevated (Acute) Moderate aortic stenosis (Chronic) Valve area 1.2 in 2017 Trimalleolar fracture of right ankle (Chronic 07/07/19) S/P ORIF: 07/07/2019 S/P Hardware removal: 01/10/2022 Hammer toe of second toe of right foot (Acute) S/P Fusion: 01/10/2022 Acquired hammer toe deformity of lesser toe of right foot (Acute) THIRD S/P Fusion: 01/10/2022 Painful orthopaedic hardware (Acute) Medical History Moderate aortic regurgitation Hypertension CLL (chronic lymphocytic leukemia) allogenie bone marrow transplant biopsy 2015 in remission Surgical History History of repair of hip fracture Colonoscopy - IV Sedation (10/16/16) Cholecystectomy Family History Father No problems noted. Other Colon cancer Social History Smoking/Tobacco Use Status: Never Smoking risk assessment performed?: Yes Alcohol Intake: never Drug use: Never Substance use type: does not use Housing: house Current gender identity: female Do you feel safe at home: Yes Do you feel safe in your relationship?: Yes Exam Narrative Exam Narrative: awake, NAD eomi, MMM midline trachea, neck is symmetric PULM: normal resp effort, equal chest rise with respiration CARDIAC: regular rate, normal perfusion abdomen is nondistended. nontender. no L flank tenderness. Spleen is not palpable extremities are without deformity, normal movement of all four extremities speech is clear and coherent mood and affect are congruent, no focal neurological deficits skin without rash Results Last Vital Signs Temp 98.5 F 09/09/25 12:46 Pulse 73 09/09/25 15:01 Resp 18 09/09/25 15:01 BP 94/55 L 09/09/25 15:00 Pulse Ox 92 09/09/25 15:04 Labs 09/10/25 05:42 09/10/25 05:42 Labs: Laboratory Results - last 24 hr 09/09/25 09/09/25 09/09/25 10:24 11:24 11:40 WBC 7.34 RBC 3.41 L Hgb 11.7 Hct 33.7 L MCV 99 H MCH 34.3 H MCHC 34.7 RDW 14.0 Plt Count 112 L MPV 9.3 Immature Gran % 0.5 Neutrophils % 78.0 Lymphocytes % 7.4 Monocytes % 13.8 Eosinophils % 0.0 Basophils % 0.3 Nucleated RBC % 0.0 Absolute Neutrophils 5.73 Absolute Lymphocytes 0.54 L Absolute Monocytes 1.01 H Absolute Eosinophils 0.00 Absolute Basophils 0.02 VBG Lactate 0.7 Sodium 136 Potassium 3.8 Chloride 101 Carbon Dioxide 23.6 Anion Gap 11.4 H BUN 18 Creatinine 1.0 Est GFR (CKD-EPI 2020) 59.49 Glucose 121 H Calcium 8.6 Magnesium 1.7 L Total Bilirubin 2.0 H AST 67 H ALT 79 H Alkaline Phosphatase 89 Troponin I 34 Total Protein 6.6 Albumin 2.8 L Lipase 47 Urine Color Urine Clarity Urine pH Ur Specific [place] Urine Protein Urine Ketones Urine Blood Urine Nitrite Urine Bilirubin Urine Urobilinogen Ur Leukocyte Esterase Urine Glucose COVID-19 Source SARS-CoV-2 (PCR) Influenza Type A (PCR) Influenza Type B (PCR) RSV (PCR) 09/09/25 09/09/25 09/09/25 12:15 13:53 13:57 WBC RBC Hgb Hct MCV MCH MCHC RDW Plt Count MPV Immature Gran % Neutrophils % Lymphocytes % Monocytes % Eosinophils % Basophils % Nucleated RBC % Absolute Neutrophils Absolute Lymphocytes Absolute Monocytes Absolute Eosinophils Absolute Basophils VBG Lactate Sodium Potassium Chloride Carbon Dioxide Anion Gap BUN Creatinine Est GFR (CKD-EPI 2020) Glucose Calcium Magnesium Total Bilirubin AST ALT Alkaline Phosphatase Troponin I 35 Total Protein Albumin Lipase Urine Color Yellow Urine Clarity Sl Cloudy Urine pH 5.5 Ur Specific [place] <= 1.005 Urine Protein Negative Urine Ketones Negative Urine Blood Negative Urine Nitrite Negative Urine Bilirubin Negative Urine Urobilinogen 0.2 Ur Leukocyte Esterase Negative Urine Glucose Negative COVID-19 Source Nasopharynx SARS-CoV-2 (PCR) Negative Influenza Type A (PCR) Negative Influenza Type B (PCR) Negative RSV (PCR) Negative
[2025-09-09] MEDS: Lactated Ringers 1,000 ML 100 ML IV (16:16)
[2025-09-09] MEDS: MAGNESIUM SULFATE 2 GM/50 ML BAG IV_INF (16:25)
[2025-09-09 17:54] LABS: MRSA PCR Negative (Negative)
[2025-09-09] MEDS: Acetaminophen 325 MG TAB 650 MG PO (22:55)
[2025-09-10] VITALS (12 sets, daily range): BP systolic 116–138; BP diastolic 61–73; PULSE 80–116; RESP 16–18; TEMP 36.2–38; O2SAT 88–95
[2025-09-10] MEDS: CEFEPIME 2 GM in Normal Saline 100 ML IVPB ×2 (03:56→15:46)
[2025-09-10] MEDS: Lactated Ringers 1,000 ML 100 ML IV (03:56)
[2025-09-10] MEDS: Normal Saline Flush 10 ML SYR IVP ×2 (03:57→21:23)
[2025-09-10 06:29] LABS: Abs Immature Grans 0.02 10^3/uL (0.0-0.06); HCT 29.6 % (36.0-46.0); HGB 9.9 g/dL (11.2-15.7); Immature Grans % 0.4 %; MCH 34.0 pg (27.0-33.0); MCHC 33.4 % (32.0-36.0); MCV 102 fL (80-95); MPV 9.7 fL (8.0-11.0); Platelet Count 115 10^3/uL (130-400); RBC 2.91 10^6/uL (3.93-5.22); RDW 14.2 % (11.7-14.6); RDW-SD 53.4 fL; WBC 4.82 10^3/uL (4.4-10.8)
[2025-09-10 06:35] LABS: Anion Gap 9.8 mmol/L (3-11); BUN 18 mg/dL (7-18); CO2 21.2 mmol/L (21.0-32.0); Calcium 8.3 mg/dL (8.5-10.1); Chloride 108 mmol/L (98-107); Glucose 136 mg/dL (74-106); Potassium 3.2 mmol/L (3.5-5.1); Sodium 139 mmol/L (136-145)
[2025-09-10] MEDS: Levothyroxine 50 MCG TAB PO (06:54)
--- NOTE | 2025-09-10 09:01 | PDOC.CMIN ---
Date of service: 09/10/25 Time of Service: 09:01 Care Management Initial Assmt Initial Assessment Reason for Hospitalization: sepsis Functional Status/Living Situation Patient Presentation: Margarita was sitting up in bed visiting with her [place] when CM met with her. She was polite and agreeable to conversation. Margarita was admitted with pneumonia. She was febrile and tachypneic initially and required supplemental oxygen initially. Today she is afebrile and saturating well on room air. She stated that she is feeling better. Margarita lives in a single family home in [place] with her . 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 She does not receive any community services and is independent with ADLs. Margarita uses a cane for ambulatory assistance. Town of Residence: [place] Resides with: Spouse ( [place]) Significant Other/Family: Out of area (four daughters all live out of state as well as 7 grandchildren) Employment Status: Retired Instrumental Activities of Daily Living (ADLs): Independent Medications Medication Management: No Issues/Barriers identified Physical Functioning/Mobility Assistive Device: cane Advance Directives Advance Directives: Do you have an Advance Directive: Y 08/11/20, 08:19 AD On File at [facility]: N 13, 08:55 Date Asked 09/09/25 09/09/25, 10:22 AD Date Reviewed COLST On File at [facility] COLST Date Scanned Code Status Resuscitation Status Full Code Portal Pt does not currently have a portal and education provided: Yes Insurance Coverage/Financial Issues Insurance: Medicare [employer] supplement Care Team Visit Care Team Role Provider Type Priscilla Ayers APRN MD [facility] STAFF PHYSICIAN Madalyn Craven Primary Care Provider NON-[facility] STAFF PHYSICIAN Alexandria Gould MD Other Providers [facility] STAFF PHYSICIAN JAVED Thomas Emergency Provider PHYSICIANS [employer]ICATED TRUCK DRIVER Jose Holland MD Admit Provider [facility] STAFF PHYSICIAN Attending Provider Discharge Potential Discharge Needs: PCP F/U Appt Anticipated Barriers to Discharge: None Identified Patient/Family Education Needs: Review discharge instructions, discuss Ask Me Three Transportation: Private vehicle Plan: Anticipate Margarita will be discharged home with no new services when medically cleared. She will follow up with her PCP and plan of care and transport wit family. CM will follow and continue to support discharge planning efforts. Social Determinants of Health Screening Social Determinants of health last assessed in clinic: 09/10/25 Will the Patient Participate in the Screening?: Yes Do you worry about having a steady place to live?: no Problems where you live: no known problems In the past 12 months, have you had to go without electric, gas, oil or water in your home?: no 1. Within the past 12 months, we worried whether our food would run out before we got money to buy more.: Never true 2. Within the past 12 months, the food we bought just didn't last and we didn't have money to get more.: Never true Has lack of transportation kept you from medical appointments or from doing things needed for daily living?: no Has anyone in your life made you feel unsafe or unsupported?: no How hard is it for you to pay for the very basics like food, housing, medical care, and heating? Would you say it is:: Not hard at all Do you want help finding or keeping work or a job?: I do not need or want help If for any reason you need help with day-to-day activities such as bathing, preparing meals, shopping, managing finances, etc., do you get the help you need?: I don’t need any help How often do you feel lonely or isolated from those around you?: Never Do you speak a language other than [place]an at home?: Yes Does the patient want assistance with any of the above?: Yes Health Related Social Needs Health related social needs: education (Z55.6) Health related social needs details: n/a PFSH All Active Problems (Updated 09/10/25 @ 15:32 by Alexandria Gould MD) Spleen anomaly (Acute) Pneumonia (Acute) Hypomagnesemia (Acute) Hypothyroidism (Chronic) Depression (Chronic) Vomiting (Acute) On deep vein thrombosis (DVT) prophylaxis (Acute) Severe sepsis (Acute) Acute hypoxic respiratory failure (Acute) Community acquired pneumonia (Acute) Rotator cuff tear arthropathy of right shoulder (Acute) Right rotator cuff tear (Acute) Hepatitis (Acute) Chronic lymphoid leukemia (Acute) Anemia (Acute) Fever and chills (Acute) Systolic murmur (Acute) Troponin level elevated (Acute) Moderate aortic stenosis (Chronic) Valve area 1.2 in 2017 Miraolar fracture of right ankle (Chronic 07/07/19) S/P ORIF: 07/07/2019 S/P Hardware removal: 01/10/2022 Hammer toe of second toe of right foot (Acute) S/P Fusion: 01/10/2022 Acquired hammer toe deformity of lesser toe of right foot (Acute) THIRD S/P Fusion: 01/10/2022 Painful orthopaedic hardware (Acute) Medical History Moderate aortic regurgitation Hypertension CLL (chronic lymphocytic leukemia) allogeniec bone marrow transplant biopsy 2014 in remission Surgical History History of repair of hip fracture Colonoscopy - IV Sedation (10/16/16) Cholecystectomy Family History Father No problems noted. Other Colon cancer Social History Smoking/Tobacco Use Status: Never Smoking risk assessment performed?: Yes Alcohol Intake: never Drug use: Never Substance use type: does not use Housing: house Current gender identity: female Do you feel safe at home: Yes Do you feel safe in your relationship?: Yes
[2025-09-10] MEDS: Cholecalciferol (Vitamin D3) 400 UNIT TAB 800 UNIT PO (10:13)
[2025-09-10] MEDS: Enoxaparin 30 MG/0.3 ML SYR SC (10:14)
[2025-09-10] MEDS: Multivitamin TAB 1 TAB PO (10:14)
[2025-09-10] MEDS: DOXYCYCLINE 100 MG in Normal Saline 100 ML IVPB ×2 (10:14→21:22)
[2025-09-10] MEDS: Sertraline 100 MG TAB PO (10:14)
[2025-09-10] MEDS: Magnesium Oxide 400 MG TAB PO (10:14)
--- NOTE | 2025-09-10 11:11 | W.PM.PROGNOT ---
Date of Service Date of service: 09/10/25 Time of Service: 11:12 Assessment and Plan Assessment and plan (1) Severe sepsis: Status: Acute Assessment and plan: Still positive for fever overnight at 39: Episodic tachycardia now mostly resolving, resolving tachypnea respiratory rate 20-25 Source is respiratory as per CT imaging findings of pulmonary infiltrates pointing pneumonia Severity -Presenting with acute confusion - most likely h infectious encephalopathy now improved confusion -Moreover despite SBP not being below 90 MAP have been consistently below 65 and patient has been receiving IV crystalloids up to 2 L in the ED; now normotensive Severe sepsis is resolving will continue to monitor (2) Acute hypoxic respiratory failure: Status: Acute Assessment and plan: Resolved might have been driven by the increased need for oxygen in the febrile state with infection No history of chronic O2 requirement at home and presenting with saturation at 88. Maintains sat at 95% on 2l/min of oxygen via nasal canula. Now on room air with sats above 92% No past medical history of COPD we will titrate to saturation goal of 92% and above Pulmonary emboli ruled out as per imaging minimal left pleural effusion–will need outpatient monitoring Findings on imaging: Infiltrates as per imaging confirming location of pneumonia to left upper and left lower lobes Maintain saturation 92% and above (3) Community acquired pneumonia: Status: Acute Assessment and plan: Ongoing IV doxycycline and cefepime initiated in the ED Blood cultures negative at 24 hours MRSA PCR negative (4) CLL (chronic lymphocytic leukemia): Assessment and plan: Home Venclexta -ongoing hold (5) Vomiting: Status: Acute Assessment and plan: Resolved Increased fatigue and reduced oral intake over the past few days in addition Encourage oral intake Compazine 5 mg IV every 4 as needed Lactated Ringer's continued (6) Depression: Status: Chronic Assessment and plan: Continue sertraline (7) Hypomagnesemia: Status: Acute Assessment and plan: Supplemented Magnesium in a.m. (8) Hypertension: Assessment and plan: Will hold metoprolol to tartrate for now (9) Hypothyroidism: Status: Chronic Assessment and plan: Continue home dose of levothyroxine TSH T4 pending (10) On deep vein thrombosis (DVT) prophylaxis: Status: Acute Assessment and plan: Continue Lovenox Cussed with Dr. Holland Subjective Subjective Patient reports: feels better, tolerating liquids well, tolerating a regular diet, voiding w/o difficulty, bowel movement and fever; denies diarrhea, nausea, vomiting or shortness of breath Exam Narrative Exam Narrative: Alert and oriented to self person space and somewhat in time and situation, eyes are nonicteric noninjected, no JVD, lips are moist , breathing lungs are mostly clear to auscultation minimal fine with Velcro type fine breath sounds to left side, unlabored breathing, S1-S2 regular sinus rhythm on teletypesetter monitor with minimal bursts of ectopy with self resolution, abdomen is nondistended soft nontender bowel sounds are present, moves all 4 extremities Objective Last Vital Signs Temp 36.2 C L 09/10/25 08:32 Pulse 80 09/10/25 08:32 Resp 16 09/10/25 08:32 BP 116/64 09/10/25 08:32 Pulse Ox 95 09/10/25 08:32 Laboratory Results - last 24 hr 09/09/25 09/09/25 09/09/25 10:24 11:24 11:40 WBC 7.34 RBC 3.41 L Hgb 11.7 Hct 33.7 L MCV 99 H MCH 34.3 H MCHC 34.7 RDW 14.0 Plt Count 112 L MPV 9.3 Immature Gran % 0.5 Neutrophils % 78.0 Lymphocytes % 7.4 Monocytes % 13.8 Eosinophils % 0.0 Basophils % 0.3 Nucleated RBC % 0.0 Absolute Neutrophils 5.73 Absolute Lymphocytes 0.54 L Absolute Monocytes 1.01 H Absolute Eosinophils 0.00 Absolute Basophils 0.02 VBG Lactate 0.7 Sodium 136 Potassium 3.8 Chloride 101 Carbon Dioxide 23.6 Anion Gap 11.4 H BUN 18 Creatinine 1.0 Est GFR (CKD-EPI 2020) 59.49 Glucose 121 H Calcium 8.6 Magnesium 1.7 L Total Bilirubin 2.0 H AST 67 H ALT 79 H Alkaline Phosphatase 89 Troponin I 34 Total Protein 6.6 Albumin 2.8 L Lipase 47 Urine Color Urine Clarity Urine pH Ur Specific [place] Urine Protein Urine Ketones Urine Blood Urine Nitrite Urine Bilirubin Urine Urobilinogen Ur Leukocyte Esterase Urine Glucose COVID-19 Source SARS-CoV-2 (PCR) Influenza Type A (PCR) Influenza Type B (PCR) RSV (PCR) MRSA (TEM-PCR) 09/09/25 09/09/25 09/09/25 12:15 13:53 13:57 WBC RBC Hgb Hct MCV MCH MCHC RDW Plt Count MPV Immature Gran % Neutrophils % Lymphocytes % Monocytes % Eosinophils % Basophils % Nucleated RBC % Absolute Neutrophils Absolute Lymphocytes Absolute Monocytes Absolute Eosinophils Absolute Basophils VBG Lactate Sodium Potassium Chloride Carbon Dioxide Anion Gap BUN Creatinine Est GFR (CKD-EPI 2020) Glucose Calcium Magnesium Total Bilirubin AST ALT Alkaline Phosphatase Troponin I 35 Total Protein Albumin Lipase Urine Color Yellow Urine Clarity Sl Cloudy Urine pH 5.5 Ur Specific [place] <= 1.005 Urine Protein Negative Urine Ketones Negative Urine Blood Negative Urine Nitrite Negative Urine Bilirubin Negative Urine Urobilinogen 0.2 Ur Leukocyte Esterase Negative Urine Glucose Negative COVID-19 Source Nasopharynx SARS-CoV-2 (PCR) Negative Influenza Type A (PCR) Negative Influenza Type B (PCR) Negative RSV (PCR) Negative MRSA (TEM-PCR) 09/09/25 09/10/25 16:35 05:42 WBC 4.82 RBC 2.91 L Hgb 9.9 L Hct 29.6 L MCV 102 H MCH 34.0 H MCHC 33.4 RDW 14.2 Plt Count 115 L MPV 9.7 Immature Gran % 0.4 Neutrophils % 81.6 Lymphocytes % 6.4 Monocytes % 11.4 Eosinophils % 0.0 Basophils % 0.2 Nucleated RBC % 0.0 Absolute Neutrophils 3.93 Absolute Lymphocytes 0.31 L Absolute Monocytes 0.55 Absolute Eosinophils 0.00 Absolute Basophils 0.01 VBG Lactate Sodium 139 Potassium 3.2 L Chloride 108 H Carbon Dioxide 21.2 Anion Gap 9.8 BUN 18 Creatinine 0.9 Est GFR (CKD-EPI 2020) 67.50 Glucose 136 H Calcium 8.3 L Magnesium Total Bilirubin AST ALT Alkaline Phosphatase Troponin I Total Protein Albumin Lipase Urine Color Urine Clarity Urine pH Ur Specific [place] Urine Protein Urine Ketones Urine Blood Urine Nitrite Urine Bilirubin Urine Urobilinogen Ur Leukocyte Esterase Urine Glucose COVID-19 Source SARS-CoV-2 (PCR) Influenza Type A (PCR) Influenza Type B (PCR) RSV (PCR) MRSA (TEM-PCR) Negative Time Spent with Patient Time Spent with Patient: >50 minutes Time was spent: preparing to see the patient(eg.review tests), obtaining and/or reviewing separately otained hiistory, ordering medications,tests, procedures, referring, communicating with other health acute care surgeon, indepentently interpreting results, counseling the patient, care coordination and other
[2025-09-10] MEDS: Metoprolol 12.5 MG TAB 25 MG PO (15:57)
--- NOTE | 2025-09-10 16:13 | PHA.REVIEW2 ---
Pharmacy Admission Review Admission Clinical Review Admission Pharmacy Review: Spleen anomaly (Acute) Hypomagnesemia (Acute) Vomiting (Acute) On deep vein thrombosis (DVT) prophylaxis (Acute) Severe sepsis (Acute) Acute hypoxic respiratory failure (Acute) Community acquired pneumonia (Acute) No Known Allergies Allergy (Verified 09/09/25 10:24) Resuscitation Status Full Code Height 5 ft 2 in Weight 54.6 kg Pharmacy Admission Review Renal Dosing Renal Dosing: BUN 18 mg/dL (7-18) 09/10/25 05:42 Creatinine 0.9 mg/dL (0.55-1.02) 09/10/25 05:42 Medications needing adjustments: Reviewed (CrCl 43.18 mL/min) List of meds needing interventions: Current medications are okay Anticoagulation Anticoagulation: Hgb 9.9 g/dL (11.2-15.7) L 09/10/25 05:42 Hct 29.6 % (36.0-46.0) L 09/10/25 05:42 Plt Count 115 10^3/uL (130-400) L 09/10/25 05:42 Creatinine 0.9 mg/dL (0.55-1.02) 09/10/25 05:42 DVT Prophylaxis: Intervened (changed dose from 30mg to 40mg) Medications: Enoxaparin (40mg daily) Relevant Labs Relevant Labs: Sodium 139 mmol/L (136-145) 09/10/25 05:42 Potassium 3.2 mmol/L (3.5-5.1) L 09/10/25 05:42 Chloride 108 mmol/L (98-107) H 09/10/25 05:42 Magnesium 1.7 mg/dL (1.8-2.4) L 09/09/25 10:24 Electrolytes, C-Reactive P, ESR: Reviewed Cardiac Review Cardiac Review: Troponin I 35 ng/L (<or=51) 09/09/25 13:53 BP, HR, EF%: Reviewed (BP WNL, HR 98, oxygen flow rate = 2) List meds needing interventions: Has order for metoprolol 25mg daily QTc Review QTc: Reviewed (471 from 09/09/25) IV to PO Switch IV Medications: Reviewed (cefepime, doxycycline and prochlorperazine) Home Meds Home Med List reviewed: Intervened Relevent Home Meds Not ordered & why?: Venetoclax Asked provider if this is on hold, waiting to hear back Current Meds Current Medication Order Review: Intervened Comments: Added IV access order Pharmacy Antibiotic Review Relevant Labs: WBC 4.82 10^3/uL (4.4-10.8) 09/10/25 05:42 Temperature 36.9 C Temperature 36.2 C Microbiology 09/09/25 11:40 Blood Culture - Preliminary Blood NO GROWTH 24 HOURS 09/09/25 10:24 Blood Culture - Preliminary Blood NO GROWTH 24 HOURS Pharmacy Antibiotic Activity: C/S review and Reviewed, no change Comments: Patient is on doxycycline and cefepime, day 2, for pneumonia
[2025-09-11] VITALS (40 sets, daily range): BP systolic 129–158; BP diastolic 72–97; PULSE 85–192; RESP 16–28; TEMP 36.2–37; O2SAT 90–94
--- NOTE | 2025-09-11 | DI.CT_ITS ---
Exam(s) CT HEAD CERVICAL SPINE WO EXAM: CT HEAD CERVICAL SPINE WO CLINICAL HISTORY: fell on face on medsurg. TECHNIQUE: Imaging Protocol: Axial computed tomography images with coronal and sagittal reformatted images were created and reviewed COMPARISON: CR,XR XR CHEST 2V PA LATERAL from 09/08/[address] HEAD WO from 09/09/2025 FINDINGS: Head CT Ventricles and Extra axial spaces: Normal in size and morphology for the patient's age. Hemorrhage: Small focus of hemorrhage seen in the posterior aspect of the right sylvian fissure. Cerebral parenchyma: No evidence of mass or acute infarct. Mild atrophy. Areas of decreased attenuation again noted in the white matter. Old lacunar infarct adjacent to the right lateral ventricle. Midline shift: None. Brainstem/Cerebellum: Normal. Calvarium: No skull fracture. Visualized Paranasal sinuses/Mastoids: There are nondisplaced fractures of the anterior and lateral cabrera of the right maxillary sinus. Nondisplaced fracture of the right zygoma. Nondisplaced fracture of the lateral wall of the right orbit. Minimally depressed fracture at the floor of the right orbit. Layering fluid in both maxillary sinuses, right greater than left. The globes and extraocular muscles appear intact. Soft tissues: Unremarkable soft tissue swelling around the right orbit with small amount of soft tissue air. Cervical Spine CT BONES: Vertebral body heights are maintained. Alignment is normal. There is no evidence of acute fracture. Degenerative disc changes and facet degenerative changes are seen. Degenerative changes of the temporomandibular joints. SOFT TISSUES: No paraspinal hematoma. The airway appears intact. No pneumothorax is seen at the lung apices. There are bilateral upper lobe infiltrates. IMPRESSION: Head CT: Small amount of subarachnoid hemorrhage noted in the right sylvian fissure. No evidence of acute infarct. Facial bones: Minimally depressed fracture of the right orbital floor. Nondisplaced fracture of the lateral wall of the right orbit. Nondisplaced fracture of the right zygoma. Minimally displaced fractures of the anterior and lateral cabrera of the right maxillary sinus. C-spine CT: Degenerative changes, no acute abnormality. Findings called to the hospitalist. RADIATION DOSE DELIVERED: 1,235.04mGy.cm Total DLP DATA REPOSITORY: All CT scans at this facility are submitted to the National Radiology Data Registry (NRDR) Dose Index Registry (DIR) with the [employer] (ACR). RADIATION OPTIMIZATION: All CT scans at this facility use at least one of these dose optimization techniques: automated exposure control; mA and/or kV adjustment per patient size (includes targeted exams where dose is matched to clinical indication); or iterative reconstruction.
[2025-09-11] MEDS: CEFEPIME 2 GM in Normal Saline 100 ML IVPB ×2 (03:36→16:22)
[2025-09-11] MEDS: Levothyroxine 50 MCG TAB PO (06:01)
[2025-09-11 06:35] LABS: Abs Immature Grans 0.03 10^3/uL (0.0-0.06); HCT 30.2 % (36.0-46.0); HGB 10.4 g/dL (11.2-15.7); Immature Grans % 0.5 %; MCH 34.0 pg (27.0-33.0); MCHC 34.4 % (32.0-36.0); MCV 99 fL (80-95); MPV 9.6 fL (8.0-11.0); Platelet Count 115 10^3/uL (130-400); RBC 3.06 10^6/uL (3.93-5.22); RDW 14.2 % (11.7-14.6); RDW-SD 51.4 fL; WBC 5.50 10^3/uL (4.4-10.8)
[2025-09-11 06:49] LABS: Anion Gap 11.5 mmol/L (3-11); BUN 17 mg/dL (7-18); CO2 20.5 mmol/L (21.0-32.0); Calcium 8.7 mg/dL (8.5-10.1); Chloride 105 mmol/L (98-107); Glucose 119 mg/dL (74-106); Sodium 137 mmol/L (136-145)
[2025-09-11 06:51] LABS: Potassium 2.9 mmol/L (3.5-5.1)
[2025-09-11 07:00] LABS: Magnesium 1.8 mg/dL (1.8-2.4); TSH (W/Ref FT4) 4.04 uIU/mL (0.36-3.74)
--- NOTE | 2025-09-11 07:35 | PT.INIE ---
PT Notes Visit Reasons: Pneumonia Physical Therapy Inpatient Initial Evaluation Date: 09/11/2025 Referring Doctor: Priscilla Ayers NP PT Orders: PT CONSULT: Eval/Treat Precautions: Fall. Standard. Activity as tolerated. Patient Profile/Admitting Diagnosis: Margarita is a 75-year-old female with past medical history significant for chronic lymphocytic leukemia and depression who presented to the ED on 09/09/2024 with complaints of generalized weakness, fever, headache, cough, and vomiting. Patient was admitted for management of sepsis, acute-toxic respiratory failure, CAP, hypomagnesemia, hypertension, and hypothyroidism. PMHX: All Active Problems (Updated 09/09/25 @ 15:06 by Priscilla Ayers APRN) Hypomagnesemia (Acute) Hypothyroidism (Chronic) Depression (Chronic) Vomiting (Acute) On deep vein thrombosis (DVT) prophylaxis (Acute) Severe sepsis (Acute) Acute hypoxic respiratory failure (Acute) Community acquired pneumonia (Acute) Rotator cuff tear arthropathy of right shoulder (Acute) Right rotator cuff tear (Acute) Hepatitis (Acute) Chronic lymphoid leukemia (Acute) Anemia (Acute) Fever and chills (Acute) Systolic murmur (Acute) Troponin level elevated (Acute) Moderate aortic stenosis (Chronic) Valve area 1.2 in 2017 Trimalleolar fracture of right ankle (Chronic 07/07/19) S/P ORIF: 07/07/2019 S/P Hardware removal: 01/10/2022 Hammer toe of second toe of right foot (Acute) S/P Fusion: 01/10/2022 Acquired hammer toe deformity of lesser toe of right foot (Acute) THIRD S/P Fusion: 01/10/2022 Painful orthopaedic hardware (Acute) Medical History (Updated 09/09/25 @ 15:06 by Priscilla Ayers APRN) Moderate aortic regurgitation Hypertension CLL (chronic lymphocytic leukemia) allogeniec bone marrow transplant biopsy 2015 in remission Surgical History (Updated 01/23/22 @ 09:43 by JAVED Galaviz) History of repair of hip fracture Colonoscopy - IV Sedation (10/16/16) Cholecystectomy Social History/Home Situation: Lives with in a private home with 2 steps to enter with rails on B sides. Independent with all mobility ADL performance with occasional SPC use of outdoors. Equipment Owned/DME: SPC Subjective: Agreeable to PT consult. Denied headache, chest pain, and lightheadedness throughout session. Indicated some ache in the R ankle where she had surgery 2-3 years ago. Okay with using walker with recommendation of PT when some instability was felt whne she was asked to stand up. Objective: General Observation: Patient resting in bed. Oxygen supplement on at 1 L/minute but not in patient's nose. Telemetry monitoring in place. DPT Javascript Application Developer Tyson was present throughout evaluation. Mental Status: Alert and oriented as to person and place. Somewhat slow to respond but answers were appropriate and patient was able to follow all instructions during the evaluation. Pain: Minimal pain in R ankle at site fo ORIF 2-3 years ago. Vital Signs: 120/71 mmHg, SaO2 91% on RA, HR 75 bpm before ambulation activity SaO2 after walking, while seated on toilet seat 94% on RA ROM: Right Upper Extremity: Shoulder Flexion WFL. Shoulder abduction WFL. Elbow flexion WFL. Wrist flexion WFL. Functional opening and closing of hand WFL. Left Upper Extremity: Shoulder Flexion WFL. Shoulder abduction WFL. Elbow flexion WFL. Wrist flexion WFL. Functional opening and closing of hand WFL. Right Lower Extremity: Hip flexion WFL. Hip abduction WFL. Knee flexion WFL. Ankle dorsiflexion WFL. Ankle plantarflexion WFL. Left Lower Extremity: Hip flexion WFL. Hip abduction WFL. Knee flexion WFL. Ankle dorsiflexion WFL. Ankle plantarflexion WFL. Strength: Right Upper Extremity: Shoulder flexors 4-/5. Shoulder abductors 4-/5. Elbow flexors 4-/5. Elbow extensors 4-/5. Community Chest Officer strong. Left Upper Extremity: Shoulder flexors 4-/5. Shoulder abductors 4-/5. Elbow flexors 4-/5. Elbow extensors 4-/5. Community Chest Officer strong. Right Lower Extremity: Hip flexors 4/5. Hip abductors 4/5. Knee flexors 4/5. Knee extensors 4/5. Ankle dorsiflexors 4-/5. Ankle plantarflexors 4-/5. Left Lower Extremity: Hip flexors 4/5. Hip abductors 4/5. Knee flexors 4/5. Knee extensors 4/5. Ankle dorsiflexors 5/5. Ankle plantarflexors 5/5. Bed Mobility/Transfers: Minimal cueing provided for use of B hands as needed for support, movement sequence, AD management, and posture to reduce fall risk and minimize pain report Supine to sit stand by assist with HOB at about 30 degrees and stand by assist of DPT internal grinding machine operator Sit to stand hand held assist by PT and stand by assist of DPT internal grinding machine operator Stand to sit contact guard assist and stand by assist of DPT internal grinding machine operator with FWW Bed to toilet seat minimal assist and stand by assist of DPT internal grinding machine operator Toilet seate to bedside recliner minimal assist and stand by assist of DPT internal grinding machine operator Gait: Facilitated safe and correct performance of short distance in-room ambulation of about 20-25 feet from bedside to toilet. Patient requested to stay on toliet. after voiding urine as she felt that she needed to have a bowel movement. NO SOB. No LOB. Patient was instructed to pull the blue button as soon as she got done and to not go without somebody. DPT Javascript Application Developer Tyson was instructed to stay outside bathroom door as PT sought out Nurse Mathur to tell her that patient needed to stay on bathroom to defecate,. Nurse Mathur was also advised that patient is an assist of 1 for transfers and ambulation. LYNNE Carrera was also apprised of patient's status and location in her room. PT returned back to the patient to reiterate use of call button as needed as soon as she gets done. FWW was left beside patient's bathroom door before PT and DPT internal grinding machine operator left. Stairs: Not tested for this session Balance: Static Sitting: Normal Dynamic Sitting: Normal. Static Standing: Fair Dynamic Standing: Fair. Special Tests: Mobility Limitations Standardized Measure [facility] AM-PAC 6 clicks Basic Mobility Inpatient Short Form: Raw Score: 18 CMS Score: 47% deficit Informed Consent/Education: Patient was instructed in purpose of PT consult and plan of care. Agreeable to proceed with established PT POC to achieve personal goals. Assessment: Patient requires the use of a FWW and the assistance of 1 person for all mobility ADL performance for safety. Patient presents with clinical signs and symptoms consistent with current/admitting diagnoses that have resulted to mobility limitations, gait instability, generalized weakness, and overall ADL decline as demonstrated by the following impairment level findings: 1. Generalized weakness 2. Impaired standing balance 3. Impaired activity tolerance Impairments are contributing to the following functional limitations: 1. Decline in bed mobility skills 2. Decline in transfer skills 3. Difficulty with ambulation without assistive device and physical assistance 4. Increased completion time for mobility ADL performance 5. Increased risk for falls Patient is assessed as a 76749 moderate complexity based on the following: History: 75-year-old female with past medical history as indicated above Examination: Demonstrable impairment in strength, balance, and mobility level with underlying impairments and functional limitations as exhibited above as well as deficit score of 47% utilizing the [facility] Mobility Inpatient Short Form Presentation: Evolving Decision Makin moderate complexity Goals: Goals X1 week 1. Supine-Sit independent 2. Sit-Supine independent 3. Sit-Stand independent 4. Stand-Sit independent with FWW 5. Bed-Chair independent with FWW 6. Chair-Bed independent with FWWFWW 7. Independent gait on level surface with use of FWW for at least 300 feet without report of pain nor dyspnea 8. Independent stair negotiation while holding onto B rails for at least 3 steps without report of pain nor dyspnea 9. Independent with home exercise program 10. Good static and dynamic standing balance/tolerance Plan of Care/Treatment Plan: 1-2x/day, 7 days/week x 1 week. Plan of care has been reviewed with the HOME ECONOMICS EXPERT providing the service under Physical Therapy direction. Initiate Physical Therapy intervention for pain management as needed, strengthening, bed mobility, transfers, gait, stairs, balance training, and use of assistive device. DISCHARGE RECOMMENDATIONS: PT vs short-term SNF based on progress towards goals TREATMENT CODE/TIME: 91076 x 20 minutes for 1 unit, 59741 x 10 minutes for 1 unit (7:35-8:05). Thank you for the opportunity to participate in the care of this patient. Loan Farnsworth PT, DPT, CLT [facility] [place], [place]
[2025-09-11] MEDS: POTASSIUM CHLORIDE 20 MEQ/100 ML BAG 50 MEQ IV_INF ×2 (09:16→12:28)
[2025-09-11] MEDS: MORPHine 2 MG/ML SYR 1 MG IVP ×3 (10:21→18:34)
[2025-09-11] MEDS: Normal Saline Flush 10 ML SYR IVP ×3 (10:22→17:54)
[2025-09-11] MEDS: DOXYCYCLINE 100 MG in Normal Saline 100 ML IVPB ×2 (10:49→21:51)
--- NOTE | 2025-09-11 14:30 | DI.CT_ITS ---
Exam(s) CT HEAD FACIAL WO EXAM: CT HEAD FACIAL WO CLINICAL HISTORY: 6 hr [place] [facility] [place] TECHNIQUE: Imaging Protocol: Axial computed tomography images with coronal and sagittal reformatted images were created and reviewed COMPARISON: CT CT HEAD CERVICAL SPINE WO from 09/11/2025 FINDINGS: CT Head: Ventricles and Extra axial spaces: Normal in size and morphology for the patient's age. Hemorrhage: Stable focus of hemorrhage in the posterior right sylvian fissure. No new areas of hemorrhage. Cerebral parenchyma: Stable atrophy and microvascular changes. No acute infarct. Midline shift: None. Brainstem/Cerebellum: Normal. Calvarium: Normal. Visualized Paranasal sinuses/Mastoids: Clear. Soft Tissues: Unremarkable. CT Face: Facial Bones: Stable appearance of fractures of the anterior and lateral cabrera of the maxillary sinus. Stable mildly depressed fracture at the inferior orbital wall. Stable nondisplaced fracture of the mid right zygoma. Sinuses and Mastoids: Fluid/hemorrhage noted within the maxillary sinuses, right greater than left. Globes, extraocular muscles, optic nerves and retrobulbar fat: Normal. Upper aerodigestive tract: Normal. Mandible and bilateral temporomandibular joints: Normal advanced degenerative changes. Soft tissues: Soft tissue swelling at the superior and lateral right orbit. Small amount of air. IMPRESSION: 1. Stable small focus of hemorrhage at the posterior right sylvian fissure. No new areas of hemorrhage. No visible acute infarct. 2. Stable fractures of the right orbital floor, anterior and lateral cabrera of the right maxillary sinus and right zygoma. RADIATION DOSE DELIVERED: 1,184.92mGy.cm Total DLP DATA REPOSITORY: All CT scans at this facility are submitted to the National Radiology Data Registry (NRDR) Dose Index Registry (DIR) with the [employer] (ACR). RADIATION OPTIMIZATION: All CT scans at this facility use at least one of these dose optimization techniques: automated exposure control; mA and/or kV adjustment per patient size (includes targeted exams where dose is matched to clinical indication); or iterative reconstruction.
--- NOTE | 2025-09-11 15:55 | NUR.NOTE ---
Nursing Note: Patient's Daughters' Phone Numbers Arlen Hobson: [phone] Samra Chelan: [phone] Ramona Alfaro: [phone] Kellee Connor [place]: [phone]
[2025-09-11] MEDS: Normal Saline 500 ML IV (16:23)
--- NOTE | 2025-09-11 16:33 | W.PM.PROGNOT ---
Date of Service Date of service: 09/11/25 Time of Service: 08:00 Assessment and Plan Assessment and plan (1) Ground-level fall: Status: Acute Assessment and plan: Patient fell while walking after urinating in the toilet, unwitnessed She was awake and moving her eyes but not verbal Blood from both nostrils and from right lateral eyebrow laceration with approx. 10 ml blood on the floor C collar placed CT cspine negative for fracture CT head showing small subarachnoid hemorrhage in right sylvian fissure, right orbital floor minimally displaced fracture, right orbit lateral wall nondisplaced fracture, right zygoma nondisplaced fracture, right maxillary sinus minimally displaced fracture Discussed with [facility] trauma who declined to activate Minimal pain after the fall, PRN morphine Transferred to ICU for q1h neuro monitoring (2) Cerebral hemorrhage following injury: Status: Acute Assessment and plan: Discussed with [facility] neurosurgery, no intervention planned Repeat CT head after 6 hours showing stable focal hemorrhage Continue neuro checks q1h until 1800, then q4h Mental status dramatically improved throughout the day Voluntary motion intact x4 (3) Facial fracture due to fall: Status: Acute Assessment and plan: Discussed with [facility] ENT CT facial bones showing stable fractures Monitor for cephalohematoma, dental misalignment, vision disturbance (4) Severe sepsis: Status: Resolved Assessment and plan: Septic with hypotension on admission, now resolved. Encephalopathy improved, now at baseline. Continuing treatment for CAP (5) Acute hypoxic respiratory failure: Status: Resolved Assessment and plan: Now on room air, initially needing 2L. Not on home O2 No PE on CTA (6) Community acquired pneumonia: Status: Acute Assessment and plan: Ongoing IV doxycycline and cefepime initiated in the ED Blood cultures negative at 24 hours MRSA PCR negative (7) CLL (chronic lymphocytic leukemia): Assessment and plan: Home Venclexta -ongoing hold (8) Depression: Status: Chronic Assessment and plan: Continue sertraline (9) Hypomagnesemia: Status: Acute Assessment and plan: Repleting and rechecking (10) Hypertension: Assessment and plan: Holding beta jenaro while pressures are soft (11) Hypothyroidism: Status: Chronic Assessment and plan: TSH/free T4 showing therapeutic dosing of home levothyroxine, continue (12) On deep vein thrombosis (DVT) prophylaxis: Status: Acute Assessment and plan: Holding enoxaparin due to bleeding from fall Likely ok to resume in the morning Sep 12 Subjective Subjective Interval history since last seen: Mrs. Perales fell this morning and injured the right side of her face. After the fall she was awake but not responsive. Over the course of the day, she recovered her cognitive baseline, and asked once for pain medication. at bedside in the afternoon, lengthy discussion about the fall and the followup. He expressed appreciation for the care she has received today after falling. In the afternoon, Mrs. Perales denied chest pain, SOB, abdominal pain, N/V. Exam Narrative Exam Narrative: General: This is a pleasant, elderly woman in no distress HEENT: Normocephalic. Right lateral eyebrown abrasion. Developing periorbital ecchymoses. Dried blood in nares. CV: RRR Resp: CTAB Abd: soft, NTND MSK: voluntary motion x4 Neuro: awake, alert, no focal deficits. Alert to self and location, not date. Objective Last Vital Signs Temp 36.2 C L 09/11/25 13:01 Pulse 95 H 09/11/25 13:31 Resp 26 H 09/11/25 13:31 BP 155/74 H 09/11/25 13:31 Pulse Ox 91 L 09/11/25 13:31 Laboratory Results - last 24 hr 09/11/25 06:14 WBC 5.50 RBC 3.06 L Hgb 10.4 L Hct 30.2 L MCV 99 H MCH 34.0 H MCHC 34.4 RDW 14.2 Plt Count 115 L MPV 9.6 Immature Gran % 0.5 Neutrophils % 71.7 Lymphocytes % 12.5 Monocytes % 14.7 Eosinophils % 0.2 Basophils % 0.4 Nucleated RBC % 0.0 Absolute Neutrophils 3.94 Absolute Lymphocytes 0.69 L Absolute Monocytes 0.81 H Absolute Eosinophils 0.01 Absolute Basophils 0.02 Sodium 137 Potassium 2.9 L* Chloride 105 Carbon Dioxide 20.5 L Anion Gap 11.5 H BUN 17 Creatinine 1.0 Est GFR (CKD-EPI 2020) 59.49 Glucose 119 H Calcium 8.7 Magnesium 1.8 TSH 4.04 H Free T4 1.33 Time Spent with Patient Time Spent with Patient: 35-49 minutes Time was spent: preparing to see the patient(eg.review tests), obtaining and/or reviewing separately otained hiistory, ordering medications,tests, procedures, referring, communicating with other health rn home care, indepentently interpreting results, counseling the patient and care coordination
--- NOTE | 2025-09-11 16:37 | PDOC.CMPRO ---
Date of service: 09/11/25 Time of Service: 16:40 Care Management Progress Note Progress Note Text Progress Note Text: Margarita was lying flat in the bed when CM met with her today. Her Elgin was present. Elgin was busy on his phone, and did not really even look up. Margarita was pleasant, but quiet. She had quite a fall this morning that resulted in some fractured facial bones and a small subarachnoid hemorrhage. She was transferred to ICU for closer monitoring and frequent neuro checks. Margarita did not really remember her fall. She thinks that she probably lost her balance, but was unable to state what had happened. She denied having any headache or nausea. CM mentioned to Margarita that PT is recommending PT. She thinks that will be a good idea for her. Discharge Potential Discharge Needs: PCP F/U Appt Anticipated Barriers to Discharge: None Identified Patient/Family Education Needs: Review discharge instructions, discuss Ask Me Three Transportation: Private vehicle Plan: Anticipate Margarita will be discharged home with new PT through [facility] once medically cleared. She will follow up with her PCP and plan of care and transport wit family. CM will follow and continue to support discharge planning efforts. Social Determinants of Health Screening Social Determinants of health last assessed in clinic: 09/11/25 Will the Patient Participate in the Screening?: Yes Do you worry about having a steady place to live?: no Problems where you live: no known problems In the past 12 months, have you had to go without electric, gas, oil or water in your home?: no 1. Within the past 12 months, we worried whether our food would run out before we got money to buy more.: Don't know/refused 2. Within the past 12 months, the food we bought just didn't last and we didn't have money to get more.: Don't know/refused Has lack of transportation kept you from medical appointments or from doing things needed for daily living?: no Has anyone in your life made you feel unsafe or unsupported?: no How hard is it for you to pay for the very basics like food, housing, medical care, and heating? Would you say it is:: Not hard at all Do you want help finding or keeping work or a job?: I do not need or want help If for any reason you need help with day-to-day activities such as bathing, preparing meals, shopping, managing finances, etc., do you get the help you need?: I don’t need any help How often do you feel lonely or isolated from those around you?: Never Do you speak a language other than [place] at home?: Yes Does the patient want assistance with any of the above?: Yes Health Related Social Needs Health related social needs: education (Z55.6) Health related social needs details: n/a
--- NOTE | 2025-09-11 16:57 | NUR.NOTE ---
Went and spoke to Margarita to see how she was doing and ask if I could answer any questions, which she declined. I asked her if she would like me to contact anyone in her family. Her primary nurse pointed out that Margarita's oldest daughter (Arlen Rabago) worked in healthcare. Margarita gave me verbal permission to call this daughter. I did attempt to call Arlen at [phone] but she did not answer. A voicemail was left with my name, number, and reason for calling.Nursing Note:
[2025-09-11] MEDS: Sodium Chloride-Nasal SPRAY-ADULT 44 ML BTL NS (19:31)
--- NOTE | 2025-09-11 20:36 | DI.CT_ITS ---
Exam(s) CT HEAD FACIAL WO EXAM: CT HEAD FACIAL WO CLINICAL HISTORY: New patient presentation of unequal pupils. TECHNIQUE: Imaging Protocol: Axial computed tomography images with coronal and sagittal reformatted images were created and reviewed COMPARISON: CT CT HEAD WO from 09/09/[address] HEAD FACIAL WO from 09/11/[address] HEAD CERVICAL SPINE WO from 09/11/2025 FINDINGS: CT Head: Ventricles and Extra axial spaces: Normal in size and morphology for the patient's age. Hemorrhage: The small area of subarachnoid hemorrhage in the right sylvian fissure is unchanged. There are no new areas of hemorrhage present. Cerebral parenchyma: There are areas of decreased attenuation in the white matter consistent with chronic microvascular ischemic disease. Midline shift: None. Brainstem/Cerebellum: Normal. Calvarium: Normal. Visualized Paranasal sinuses/Mastoids: There is a fluid level seen in the right maxillary sinus. The remaining visualized paranasal sinuses and mastoid air cells are clear. Soft Tissues: Unremarkable. CT Face: Facial Bones: There is a stable fractures of the lateral wall of the right orbit, lateral wall of the right maxillary sinus, anterior wall of the right maxillary sinus and right orbital floor. There is no orbital muscle entrapment in the orbital floor fracture.. There is a stable fracture of the right zygomatic arch. Sinuses and Mastoids: There are fluid level seen in both maxillary sinuses, right greater than left. The remaining visualized paranasal sinuses are mostly clear. Globes, extraocular muscles, optic nerves and retrobulbar fat: Normal. Upper aerodigestive tract: Normal. Mandible and bilateral temporomandibular joints: Normal. Soft tissues: Normal. IMPRESSION: 1. There has been no change in subarachnoid hemorrhage in the right sylvian fissure. 2. There are no new areas of hemorrhage present. 3. There is no evidence of an acute territorial infarct. 4. Stable fractures involving the right zygomatic arch, lateral wall of the right orbit and the right orbital floor and the anterior and lateral cabrera of the right maxilla. 5. The preliminary [facility] report was reviewed. RADIATION DOSE DELIVERED: 1,251.64mGy.cm Total DLP DATA REPOSITORY: All CT scans at this facility are submitted to the National Radiology Data Registry (NRDR) Dose Index Registry (DIR) with the [employer] (ACR). RADIATION OPTIMIZATION: All CT scans at this facility use at least one of these dose optimization techniques: automated exposure control; mA and/or kV adjustment per patient size (includes targeted exams where dose is matched to clinical indication); or iterative reconstruction.
--- NOTE | 2025-09-11 21:12 | DI.[facility]_ITS ---
PROCEDURE INFORMATION: Exam: CT Head Without Contrast Exam date and time: 09/11/2025 8:20 PM Age: 75 years old Clinical indication: New patient presentation of unequal pupils TECHNIQUE: Imaging protocol: Computed tomography of the head without contrast. Radiation optimization: All CT scans at this facility use at least one of these dose optimization techniques: automated exposure control; mA and/or kV adjustment per patient size (includes targeted exams where dose is matched to clinical indication); or iterative reconstruction. COMPARISON: CT HEAD FACIAL WO 09/11/2025 2:01 PM FINDINGS: Brain: Stable small focus of hemorrhage at the right posterior sylvian fissure. Cerebral ventricles: No ventriculomegaly. Paranasal sinuses: Partial opacification of the bilateral maxillary sinuses, [id number]-left Mastoid air cells: Visualized mastoid air cells are well aerated. Bones: Stable right orbital floor fracture, anterior and lateral cabrera of the right maxillary sinus and right zygoma. Soft tissues: Unremarkable. IMPRESSION: 1. Stable small focus of hemorrhage at the right posterior sylvian fissure. 2. Stable right orbital floor fracture, anterior and lateral cabrera of the right maxillary sinus and right zygoma. PROCEDURE INFORMATION: Exam: CT Maxillofacial Without Contrast Exam date and time: 09/11/2025 8:20 PM Age: 75 years old Clinical indication: New patient presentation of unequal pupils TECHNIQUE: Imaging protocol: Computed tomography of the face without contrast. Radiation optimization: All CT scans at this facility use at least one of these dose optimization techniques: automated exposure control; mA and/or kV adjustment per patient size (includes targeted exams where dose is matched to clinical indication); or iterative reconstruction. COMPARISON: CT HEAD FACIAL WO 09/11/2025 2:01 PM FINDINGS: Paranasal sinuses: Partial opacification of the right maxillary sinus. Orbital cavities: Orbits are normal. Globes are unremarkable. Bones: Stable right orbital floor fracture, anterior and lateral cabrera of the right maxillary sinus and right zygoma. Soft tissues: Unremarkable. IMPRESSION: Stable right orbital floor fracture, anterior and lateral cabrera of the right maxillary sinus and right zygoma. Dictated and Authenticated by: Sarai Bell MD. Orderin Alpesh Mcdaniel MD
[2025-09-12] VITALS (21 sets, daily range): BP systolic 114–154; BP diastolic 64–94; PULSE 78–100; RESP 17–26; TEMP 36.3–37.6; O2SAT 96–97
--- NOTE | 2025-09-12 01:58 | W.EVENT ---
Date of service: 09/12/25 Time of Service: 19:50 Event Note: NS report pt with Anis[employer]. On my exam pt with left pupil at 9mm and right 8mm. Reactive to light bilat. Pt with non-focal neuro exam. Repeat CT as below IMPRESSION: 1. Stable small focus of hemorrhage at the right posterior sylvian fissure. 2. Stable right orbital floor fracture, anterior and lateral cabrera of the right maxillary sinus and right zygoma. Continue monitoring Time Spent with Patient Time spent in critical care(minutes): 10 Time Spent Included: Chart review and Time at immediate bedside
[2025-09-12] MEDS: CEFEPIME 2 GM in Normal Saline 100 ML IVPB ×2 (03:04→16:49)
[2025-09-12] MEDS: Levothyroxine 50 MCG TAB PO (05:33)
[2025-09-12 06:39] LABS: Abs Immature Grans 0.05 10^3/uL (0.0-0.06); HCT 33.4 % (36.0-46.0); HGB 11.5 g/dL (11.2-15.7); Immature Grans % 0.8 %; MCH 33.6 pg (27.0-33.0); MCHC 34.4 % (32.0-36.0); MCV 98 fL (80-95); MPV 9.8 fL (8.0-11.0); Platelet Count 129 10^3/uL (130-400); RBC 3.42 10^6/uL (3.93-5.22); RDW 13.9 % (11.7-14.6); RDW-SD 50.3 fL; WBC 6.12 10^3/uL (4.4-10.8)
[2025-09-12 06:56] LABS: Anion Gap 11.9 mmol/L (3-11); BUN 17 mg/dL (7-18); CO2 22.1 mmol/L (21.0-32.0); Calcium 8.7 mg/dL (8.5-10.1); Chloride 102 mmol/L (98-107); Glucose 123 mg/dL (74-106); Potassium 3.2 mmol/L (3.5-5.1); Sodium 136 mmol/L (136-145)
[2025-09-12] MEDS: Multivitamin TAB 1 TAB PO (08:11)
[2025-09-12] MEDS: Sertraline 100 MG TAB PO (08:11)
[2025-09-12] MEDS: MORPHine 2 MG/ML SYR 1 MG IVP (08:11)
[2025-09-12] MEDS: Sodium Chloride-Nasal SPRAY-ADULT 44 ML BTL NS (08:11)
[2025-09-12] MEDS: Metoprolol 12.5 MG TAB 25 MG PO (08:11)
[2025-09-12] MEDS: Magnesium Oxide 400 MG TAB PO (08:11)
[2025-09-12] MEDS: Cholecalciferol (Vitamin D3) 400 UNIT TAB 800 UNIT PO (08:11)
[2025-09-12] MEDS: Normal Saline Flush 10 ML SYR IVP ×3 (08:12→21:50)
[2025-09-12] MEDS: Prochlorperazine 10 MG/2 ML VIAL 5 MG IVP ×2 (09:09→16:49)
[2025-09-12] MEDS: DOXYCYCLINE 100 MG in Normal Saline 100 ML IVPB ×2 (10:39→22:00)
[2025-09-12] MEDS: POTASSIUM CHLORIDE/0.9% NACL 1,000 ML 100 MEQ IV (11:09)
--- NOTE | 2025-09-12 14:51 | PT.INIE ---
PT Notes Visit Reasons: Pneumonia Physical Therapy Inpatient Initial Evaluation Date: 09/12/2025 Referring Doctor: Dr Schuyler Velasco PT Orders: PT CONSULT: Fall safety Assessment Precautions: Fall. Standard. Activity as tolerated. Patient Profile/Admitting Diagnosis: Margarita is a 75-year-old female with past medical history significant for chronic lymphocytic leukemia and depression who presented to the ED on 09/09/2024 with complaints of generalized weakness, fever, headache, cough, and vomiting. Patient was admitted for management of sepsis, acute-toxic respiratory failure, CAP, hypomagnesemia, hypertension, and hypothyroidism. On 09/11/25 pt sustained an unwitnessed fall resulting in Right orbital floor minimally displaced fracture, right orbital lateral wall nondisplaced fracture, Right Zygoma fracture non displaced, Right maxillary sinus minimally displaced fracture and small SAH at R sylvian fissure. Neuro consult recommended monitoring in ICU and repeat CT scan which was completed with no extension of SAH. PT Consult placed on this date. PMHX: All Active Problems (Updated 09/09/25 @ 15:06 by Priscilla Ayers APRN) Hypomagnesemia (Acute) Hypothyroidism (Chronic) Depression (Chronic) Vomiting (Acute) On deep vein thrombosis (DVT) prophylaxis (Acute) Severe sepsis (Acute) Acute hypoxic respiratory failure (Acute) Community acquired pneumonia (Acute) Rotator cuff tear arthropathy of right shoulder (Acute) Right rotator cuff tear (Acute) Hepatitis (Acute) Chronic lymphoid leukemia (Acute) Anemia (Acute) Fever and chills (Acute) Systolic murmur (Acute) Troponin level elevated (Acute) Moderate aortic stenosis (Chronic) Valve area 1.2 in 2017 Trimalleolar fracture of right ankle (Chronic 07/07/19) S/P ORIF: 07/07/2019 S/P Hardware removal: 01/10/2022 Hammer toe of second toe of right foot (Acute) S/P Fusion: 01/10/2022 Acquired hammer toe deformity of lesser toe of right foot (Acute) THIRD S/P Fusion: 01/10/2022 Painful orthopaedic hardware (Acute) Medical History (Updated 09/09/25 @ 15:06 by Priscilla Ayers APRN) Moderate aortic regurgitation Hypertension CLL (chronic lymphocytic leukemia) allogeniec bone marrow transplant biopsy 2015 in remission Surgical History (Updated 01/23/22 @ 09:43 by JAVED Galaviz) History of repair of hip fracture Colonoscopy - IV Sedation (10/16/16) Cholecystectomy Social History/Home Situation: Lives with in a private home with 2 steps to enter with grab bars on B sides. Independent with all mobility ADL performance with occasional SPC use of outdoors. Equipment Owned/DME: [facility] Subjective: Pt reports she is feeling okay. She states she has some pain in her mouth when she chews Objective: General Observation: Patient resting in bed at bedside. Pupils not equal R>L but reactive Telemetry monitoring in place. IV infusing L Antecubital Mental Status: Alert and oriented to person , place and situation, Not date, Somewhat slow to respond but answers were appropriate and patient was able to follow all instructions during the evaluation. Pain: right side of face 01/26; stiffness in left side of neck Vital Signs: 124/70 mmHg, SaO2 94% on RA, HR 81 bpm supine ROM: BUE: WFL BLE WFL Strength:No Resistance applied d/t recent SAH BUE: functional against gravity B Lower Extremity:functional heelslides, marching hip abd/ add, knee extension PF/DF Bed Mobility/Transfers: Minimal cueing provided for use of B hands as needed for support, movement sequence, AD management, and posture to reduce fall risk and minimize pain report Supine to sit min A with HOB at about 30 degrees sit to supine Min A Sit to stand min A Stand to sit contact guard assist bed -chair not assessed as pt feeling lightheaded Gait: unable to assess this session Stairs: unable to assess this session Balance: Static Sitting: Normal Dynamic Sitting: Fair Static Standing: Fair- Dynamic Standing: not assessed Special Tests: Mobility Limitations Standardized Measure [facility] AM-PAC 6 clicks Basic Mobility Inpatient Short Form: Raw Score:13 CMS Score: 64.91% deficit Informed Consent/Education: Patient was instructed in purpose of PT consult and plan of care. Agreeable to proceed with established PT POC to achieve personal goals. Assessment: Patient is a 75-year-old female status post fall with resulting fractures as stated above. Patient presents with clinical signs and symptoms consistent with current/admitting diagnoses that have resulted to mobility limitations, gait instability, generalized weakness, and overall ADL decline as demonstrated by the following impairment level findings: 1. Generalized weakness 2. Impaired standing balance 3. Impaired functional activity tolerance 4. Pain right sided face 5. Impaired judgement /safety awareness Impairments are contributing to the following functional limitations: 1. Decline in bed mobility skills 2. Decline in transfer skills 3. Difficulty with ambulation without assistive device and physical assistance 4. Increased completion time for mobility ADL performance 5. Increased risk for falls 6. Difficulty performing stairs Patient is assessed as a 16156 moderate complexity based on the following: History: 75-year-old female with past medical history as indicated above Examination: Demonstrable impairment in strength, balance, and mobility level with underlying impairments and functional limitations as exhibited above as well as deficit score of 64.91 % utilizing the [facility] Mobility Inpatient Short Form Presentation: Evolving Decision Makin moderate complexity Goals: Goals X1 week 1. Supine-Sit independent 2. Sit-Supine independent 3. Sit-Stand SBA 4. Stand-Sit SBA with FWW/LRD 5. Bed-Chair SBA with FWW/LRD 6. Chair-Bed SBA with FWW/LRD 7. SBA gait on level surface with use of FWW/LRD for at least 300 feet without report of pain or dyspnea 8. Supervision greater than 3 steps with 2 rails without report of pain or dyspnea 9. Independent with home exercise program 10. Good static and dynamic standing balance/tolerance Plan of Care/Treatment Plan: 1-2x/day, 7 days/week x 1 week. Plan of care has been reviewed with the MATHEMATICS EDUCATION PROFESSOR providing the service under Physical Therapy direction. Initiate Physical Therapy intervention for pain management as needed, strengthening, bed mobility, transfers, gait, stairs, balance training, and use of assistive device. DISCHARGE RECOMMENDATIONS: PT vs short-term SNF based on progress towards goals TREATMENT CODE/TIME: 68825/8390–1441. Thank you for the opportunity to participate in the care of this patient. Prema Pelaez, PT [facility]
--- NOTE | 2025-09-12 16:01 | PGE_ITS ---
Date of Service Date of service: 09/12/25 Time of Service: 09:00 Assessment and Plan Assessment and plan (1) Ground-level fall: Status: Acute Assessment and plan: Patient fell while walking after urinating in the toilet, unwitnessed She was awake and moving her eyes but not verbal Blood from both nostrils and from right lateral eyebrow laceration with approx. 10 ml blood on the floor C collar placed CT cspine negative for fracture CT head showing small subarachnoid hemorrhage in right sylvian fissure, right orbital floor minimally displaced fracture, right orbit lateral wall nondisplaced fracture, right zygoma nondisplaced fracture, right maxillary sinus minimally displaced fracture Discussed with [facility] trauma who declined to activate Minimal pain after the fall, PRN morphine Transferred to ICU for q1h neuro monitoring Sep 12: Downgraded from ICU to the floor. Continuing neuro checks q4h. Continue PT, consider placement for her to gain strength. (2) Cerebral hemorrhage following injury: Status: Acute Assessment and plan: Discussed with [facility] neurosurgery, no intervention planned Repeat CT head after 6 hours showing stable focal hemorrhage Continue neuro checks q1h until 1800, then q4h Mental status dramatically improved throughout the day Voluntary motion intact x4 Sep 12: no changes in medical management (3) Facial fracture due to fall: Status: Acute Assessment and plan: Discussed with [facility] ENT CT facial bones showing stable fractures Monitor for cephalohematoma, dental misalignment, vision disturbance Sep 12: no facial swelling, bite is intact. No vision changes. (4) Severe sepsis: Status: Resolved Assessment and plan: Septic with hypotension on admission, now resolved. Encephalopathy improved, now at baseline. Continuing treatment for CAP (5) Acute hypoxic respiratory failure: Status: Resolved Assessment and plan: Now on room air, initially needing 2L. Not on home O2 No PE on CTA (6) Community acquired pneumonia: Status: Acute Assessment and plan: Ongoing IV doxycycline and cefepime initiated in the ED Blood cultures negative at 24 hours MRSA PCR negative (7) CLL (chronic lymphocytic leukemia): Assessment and plan: Consider restarting home chemotherapy is bringing in the meds (8) Depression: Status: Chronic Assessment and plan: Continue sertraline (9) Hypomagnesemia: Status: Acute Assessment and plan: Repleting and rechecking (10) Hypertension: Assessment and plan: Holding beta jenaro while pressures are soft (11) Hypothyroidism: Status: Chronic Assessment and plan: TSH/free T4 showing therapeutic dosing of home levothyroxine, continue (12) On deep vein thrombosis (DVT) prophylaxis: Status: Acute Assessment and plan: Holding enoxaparin due to bleeding from fall Likely ok to resume in the morning Sep 12 Subjective Subjective Interval history since last seen: Mrs. Perales had an episode of emesis this morning after drinking a protein shake. She has some pain in her left shoulder and hip with exertion. She reports that she feels about the same, very tired. at bedside. Overnight, again her pupil sizes appeared discordant and she had another CT head which was unchanged from prior. Exam Narrative Exam Narrative: General: This is a pleasant, elderly woman in no distress HEENT: Normocephalic. Right lateral eyebrown abrasion. Developing periorbital ecchymoses on the right. Nose and face are tender without swelling. CV: RRR Resp: CTAB Abd: soft, NTND MSK: voluntary motion x4 Neuro: awake, alert, no focal deficits. Alert to self and location, not date. Objective Last Vital Signs Temp 36.3 C L 09/12/25 15:17 Pulse 81 09/12/25 13:28 Resp 22 09/12/25 13:28 BP 124/70 09/12/25 13:28 Pulse Ox 97 09/12/25 10:01 Laboratory Results - last 24 hr 09/12/25 05:35 WBC 6.12 RBC 3.42 L Hgb 11.5 Hct 33.4 L MCV 98 H MCH 33.6 H MCHC 34.4 RDW 13.9 Plt Count 129 L MPV 9.8 Immature Gran % 0.8 Neutrophils % 80.0 Lymphocytes % 7.5 Monocytes % 11.3 Eosinophils % 0.2 Basophils % 0.2 Nucleated RBC % 0.0 Absolute Neutrophils 4.90 Absolute Lymphocytes 0.46 L Absolute Monocytes 0.69 Absolute Eosinophils 0.01 Absolute Basophils 0.01 Sodium 136 Potassium 3.2 L Chloride 102 Carbon Dioxide 22.1 Anion Gap 11.9 H BUN 17 Creatinine 0.8 Est GFR (CKD-EPI 2020) 77.75 Glucose 123 H Calcium 8.7 Time Spent with Patient Time Spent with Patient: 25-34 minutes Time was spent: preparing to see the patient(eg.review tests), obtaining and/or reviewing separately otained hiistory, ordering medications,tests, procedures, referring, communicating with other health child care provider, indepentently interpreting results, counseling the patient and care coordination
[2025-09-12] MEDS: Mirtazapine 15 MG TAB PO (19:17)
[2025-09-12] MEDS: Acetaminophen 325 MG TAB 650 MG PO (23:55)
[2025-09-13] VITALS (26 sets, daily range): BP systolic 100–129; BP diastolic 55–78; PULSE 82–105; RESP 18–28; TEMP 36.5–37.4; O2SAT 89–95
[2025-09-13] MEDS: CEFEPIME 2 GM in Normal Saline 100 ML IVPB ×2 (03:47→16:07)
[2025-09-13] MEDS: Normal Saline Flush 10 ML SYR IVP ×4 (03:51→21:36)
[2025-09-13] MEDS: Levothyroxine 50 MCG TAB PO (06:20)
[2025-09-13] MEDS: Multivitamin TAB 1 TAB PO (08:27)
[2025-09-13] MEDS: Metoprolol 12.5 MG TAB 25 MG PO (08:27)
[2025-09-13] MEDS: Magnesium Oxide 400 MG TAB PO (08:27)
[2025-09-13] MEDS: Cholecalciferol (Vitamin D3) 400 UNIT TAB 800 UNIT PO (08:27)
[2025-09-13] MEDS: Sertraline 100 MG TAB PO (08:27)
--- NOTE | 2025-09-13 10:36 | PTTR_ITS ---
PT Notes Visit Reasons: Pneumonia Inpatient Physical Therapy Treatment Note [facility] Date: 09/13/2025 PRECAUTIONS: Fall risk, standard, telemetry in place SUBJECTIVE: Pt reports she sleep pretty well last night and was able to eat toast this morning. OBJECTIVE: Patient presented in Semi-Dobbs position agreeable to participate. SOFY Espinoza present and removed Chapman catheter prior to getting out of bed. Pt with slow response. lacks initiation of movement. Flat affect, Pupils remain not equal R>L patient approached for second session of PT after lunch. Nurse had just assisted patient with ambulation approximately 100 feet with FWW and then assisted her to bed. Patient declined to participate in the second session. PAIN: denied VITALS: Pre-Treatment: 100/56 HR 82 semi dobbs position Post-Treatment: 109/68 HR 89 sitting in chair Therapeutic Activities ([id number][]): Direct one-on-one instruction in dynamic activities to improve functional performance. Provided skilled cues and instruction on performance and technique throughout. BED MOBILITY/TRANSFERS Rolling L/R: to left min A to initiate Supine-sit: mod A of 1 ( pt lacks initiation ) Sit-stand:CGA cues to push up Stand-sit: CGA cues to reach back Bed-Chair: CGA with FWW Chair-bed: CGA with FWW Facilitated safe and correct performance of level surface ambulation covering a distance of 30 ft x 1 and 40 feet x 1 feet using use front wheeled walker with contact-guard assist and wheelchair follow for safety. Did not report of any increased pain. Denied headache, chest pain, and lightheadedness throughout activity. Minimal verbal cueing provided for AD management, directional changes, and posture. ASSESSMENT: Tolerated session well able to progress with standing tasks including ambulation with FWW. Patient with very small steps narrow base of support and slow rocío. At end of session sister and nephew present and observed her ambulating. Sister reported patient was getting weaker at home and looking frail prior to hospitalization. Per nurse patient ambulated 100 feet with FWW contact-guard assist without rest prior to getting into bed before second PT session after lunch. PLAN: 1-2x/day, 7 days/week x 1 week. Plan of care has been reviewed with the CEMENT TRUCK DRIVER providing the service under Physical Therapy direction. Initiate Physical Therapy intervention for strengthening, bed mobility, transfers, gait, stairs, balance training, use of assistive device. TREATMENT CODE/TIME: First session: 77992/[id number] DISCHARGE RECOMMENDATION: Short-term SNF versus home with HHPT
[2025-09-13] MEDS: DOXYCYCLINE 100 MG in Normal Saline 100 ML IVPB ×2 (10:59→21:36)
[2025-09-13 11:25] LABS: Abs Immature Grans 0.05 10^3/uL (0.0-0.06); HCT 36.8 % (36.0-46.0); HGB 12.3 g/dL (11.2-15.7); Immature Grans % 0.8 %; MCH 34.4 pg (27.0-33.0); MCHC 33.4 % (32.0-36.0); MCV 103 fL (80-95); MPV 9.9 fL (8.0-11.0); Platelet Count 123 10^3/uL (130-400); RBC 3.58 10^6/uL (3.93-5.22); RDW 14.4 % (11.7-14.6); RDW-SD 54.4 fL; WBC 6.29 10^3/uL (4.4-10.8)
[2025-09-13] MEDS: Enoxaparin 40 MG/0.4 ML SYR SC (12:19)
[2025-09-13 13:30] LABS: Iron 33 ug/dL (50-170); Total Iron Binding Capacity 185 ug/dL (250-450); Transferrin Sat 18 % (15-50)
--- NOTE | 2025-09-13 13:50 | PGE_ITS ---
Date of Service Date of service: 09/13/25 Time of Service: 08:00 Assessment and Plan Assessment and plan (1) Ground-level fall: Status: Acute Assessment and plan: Patient fell while walking after urinating in the toilet, unwitnessed She was awake and moving her eyes but not verbal Blood from both nostrils and from right lateral eyebrow laceration with approx. 10 ml blood on the floor C collar placed CT cspine negative for fracture CT head showing small subarachnoid hemorrhage in right sylvian fissure, right orbital floor minimally displaced fracture, right orbit lateral wall nondisplaced fracture, right zygoma nondisplaced fracture, right maxillary sinus minimally displaced fracture Discussed with [facility] trauma who declined to activate Minimal pain after the fall, PRN morphine Transferred to ICU for q1h neuro monitoring Sep 12: Downgraded from ICU to the floor. Continuing neuro checks q4h. Continue PT, consider placement for her to gain strength. Sep 13: Much improved, considering placement options. Patient and prefer home health, will consider nursing facility to build strength temporarily. (2) Cerebral hemorrhage following injury: Status: Acute Assessment and plan: Discussed with [facility] neurosurgery, no intervention planned Repeat CT head after 6 hours showing stable focal hemorrhage Continue neuro checks q1h until 1800, then q4h Mental status dramatically improved throughout the day Voluntary motion intact x4 Sep 12: no changes in medical management Sep 13: no changes in neuro exam, cognition improved (3) Facial fracture due to fall: Status: Acute Assessment and plan: Discussed with [facility] ENT CT facial bones showing stable fractures Monitor for cephalohematoma, dental misalignment, vision disturbance Sep 12: no facial swelling, bite is intact. No vision changes. Sep 13: no changes in medical management (4) Severe sepsis: Status: Resolved Assessment and plan: Septic with hypotension on admission, now resolved. Encephalopathy improved, now at baseline. Continuing treatment for CAP. Stopping antibiotics Sep 14. (5) Acute hypoxic respiratory failure: Status: Resolved Assessment and plan: Now on room air, initially needing 2L. Not on home O2 No PE on CTA (6) Community acquired pneumonia: Status: Acute Assessment and plan: Ongoing IV doxycycline and cefepime initiated in the ED Blood cultures negative at 24 hours MRSA PCR negative (7) CLL (chronic lymphocytic leukemia): Assessment and plan: Will defer chemotherapy restart to outpatient oncology (8) Depression: Status: Chronic Assessment and plan: Continue sertraline (9) Hypomagnesemia: Status: Acute Assessment and plan: Repleting and rechecking (10) Hypertension: Assessment and plan: Holding beta jenaro while pressures are soft (11) Hypothyroidism: Status: Chronic Assessment and plan: TSH/free T4 showing therapeutic dosing of home levothyroxine, continue (12) On deep vein thrombosis (DVT) prophylaxis: Status: Acute Assessment and plan: Restarted enoxaparin Sep 13 Subjective Subjective Interval history since last seen: Mrs. Perales is up in a chair, bright and energetic today, participation in conversation. at bedside. Exam Narrative Exam Narrative: General: This is a pleasant, elderly woman in no distress HEENT: Normocephalic. Right lateral eyebrow abrasion. Developing periorbital ecchymoses on the right. Nose and face are tender without swelling. CV: RRR Resp: CTAB Abd: soft, NTND MSK: voluntary motion x4 Neuro: awake, alert, no focal deficits. Objective Last Vital Signs Temp 37.0 C 09/13/25 12:24 Pulse 88 09/13/25 12:01 Resp 27 H 09/13/25 12:01 BP 106/55 L 09/13/25 12:01 Pulse Ox 94 09/13/25 08:01 Laboratory Results - last 24 hr 09/13/25 09/13/25 11:15 12:58 WBC 6.29 RBC 3.58 L Hgb 12.3 Hct 36.8 MCV 103 H D MCH 34.4 H MCHC 33.4 RDW 14.4 Plt Count 123 L MPV 9.9 Immature Gran % 0.8 Neutrophils % 77.6 Lymphocytes % 12.4 Monocytes % 8.6 Eosinophils % 0.3 Basophils % 0.3 Nucleated RBC % 0.0 Absolute Neutrophils 4.88 Absolute Lymphocytes 0.78 L Absolute Monocytes 0.54 Absolute Eosinophils 0.02 Absolute Basophils 0.02 Iron 33 L TIBC 185 L Transferrin % Sat 18 Time Spent with Patient Time Spent with Patient: 25-34 minutes Time was spent: preparing to see the patient(eg.review tests), obtaining and/or reviewing separately otained hiistory, ordering medications,tests, procedures, referring, communicating with other health health care aide, indepentently interpreting results, counseling the patient and care coordination
[2025-09-13 14:00] LABS: ALT 101 U/L (14-59); AST 82 U/L (15-37); Albumin 2.6 g/dL (3.4-5.0); Alkaline Phosphatase 145 U/L (46-116); Anion Gap 11.3 mmol/L (3-11); BUN 20 mg/dL (7-18); Bilirubin, Total 0.8 mg/dL (0.2-1.0); CO2 23.7 mmol/L (21.0-32.0); Calcium 8.7 mg/dL (8.5-10.1); Chloride 104 mmol/L (98-107); Glucose 171 mg/dL (74-106); Magnesium 1.7 mg/dL (1.8-2.4); Potassium 3.6 mmol/L (3.5-5.1); Sodium 139 mmol/L (136-145); Total Protein 6.6 g/dL (6.4-8.2)
[2025-09-13 14:02] LABS: Ferritin 1535 ng/mL (8-252)
--- NOTE | 2025-09-13 14:15 | RT.EKG_ITS ---
APPROVED REPORT Exam: Resting ECG Reason for Exam: arrhythmia Patient Location: I HR:97 bpm ECG Measurements Heart Rate 97 AXIS NM 153 P 2 QRSd 90 QRS -37 QT 404 T -39 QTc 513 Conclusion Sinus rhythm...normal P axis, V-rate 50- 99 LVH with secondary repolarization abnormality...multi-LVH criteria, abnrm ST-T Probable anterior infarct, age indeterminate...Q >35mS, T neg, V2-V5 Prolonged QT interval...QTc >500mS
[2025-09-13] MEDS: Mirtazapine 15 MG TAB PO (21:04)
[2025-09-14] VITALS (11 sets, daily range): BP systolic 126–138; BP diastolic 65–90; PULSE 82–90; RESP 16–22; TEMP 36.4–37; O2SAT 92–98
[2025-09-14] MEDS: CEFEPIME 2 GM in Normal Saline 100 ML IVPB ×2 (04:10→16:47)
[2025-09-14 06:10] LABS: Abs Immature Grans 0.07 10^3/uL (0.0-0.06); HCT 28.8 % (36.0-46.0); HGB 9.6 g/dL (11.2-15.7); Immature Grans % 1.5 %; MCH 33.8 pg (27.0-33.0); MCHC 33.3 % (32.0-36.0); MCV 101 fL (80-95); MPV 10.1 fL (8.0-11.0); Platelet Count 100 10^3/uL (130-400); RBC 2.84 10^6/uL (3.93-5.22); RDW 14.6 % (11.7-14.6); RDW-SD 53.6 fL; WBC 4.72 10^3/uL (4.4-10.8)
[2025-09-14] MEDS: Normal Saline Flush 10 ML SYR IVP ×3 (06:11→19:49)
[2025-09-14] MEDS: Levothyroxine 50 MCG TAB PO (06:11)
[2025-09-14 06:28] LABS: ALT 74 U/L (14-59); AST 42 U/L (15-37); Albumin 2.0 g/dL (3.4-5.0); Alkaline Phosphatase 103 U/L (46-116); Anion Gap 10.3 mmol/L (3-11); BUN 20 mg/dL (7-18); Bilirubin, Total 0.5 mg/dL (0.2-1.0); CO2 19.7 mmol/L (21.0-32.0); Calcium 7.4 mg/dL (8.5-10.1); Chloride 111 mmol/L (98-107); Glucose 104 mg/dL (74-106); Potassium 3.0 mmol/L (3.5-5.1); Sodium 141 mmol/L (136-145); Total Protein 5.3 g/dL (6.4-8.2)
--- NOTE | 2025-09-14 08:21 | PDOC.CMPRO ---
Date of service: 09/14/25 Time of Service: 08:21 Care Management Progress Note Progress Note Text Progress Note Text: Margarita was awake and lying in bed when CM met with her. She reports feeling much better, though still c/o dizziness during position changes. The majority of this interaction focused on discharge planning considerations as PT recommends SNF for STR vs Home with New [facility] PT once medically ready. Margarita is agreeable to discharge home with new [facility] services once medically ready and verbalized that she is not interested in STR at this time. CM reminded patient that she would have a qualifying stay for the next 30 days, if she changes her mind. CM reviewed addition community supports that may be available to her after discharge such as COA and the MOW program, pt declines at this time. CM notified [facility] of potential readiness for discharge in the near future. CM will continue to follow. Discharge Potential Discharge Needs: PCP F/U Appt Anticipated Barriers to Discharge: None Identified Patient/Family Education Needs: Review discharge instructions, discuss Ask Me Three Transportation: Private vehicle Plan: Discharge home with New [facility] RN/PT/OT/FILLER MACHINE OPERATOR services via private vehicle with [place]. Patient will follow up with community providers and continue per her discharge plan of care. Patient declines STR at this time (but will have a qualifying stay within 30 days of discharge.) CM will follow. Social Determinants of Health Screening Social Determinants of health last assessed in clinic: 09/14/25 Will the Patient Participate in the Screening?: Yes Do you worry about having a steady place to live?: no Problems where you live: no known problems In the past 12 months, have you had to go without electric, gas, oil or water in your home?: no 1. Within the past 12 months, we worried whether our food would run out before we got money to buy more.: Never true 2. Within the past 12 months, the food we bought just didn't last and we didn't have money to get more.: Never true Has lack of transportation kept you from medical appointments or from doing things needed for daily living?: no Has anyone in your life made you feel unsafe or unsupported?: no How hard is it for you to pay for the very basics like food, housing, medical care, and heating? Would you say it is:: Not hard at all Do you want help finding or keeping work or a job?: I do not need or want help If for any reason you need help with day-to-day activities such as bathing, preparing meals, shopping, managing finances, etc., do you get the help you need?: I don’t need any help How often do you feel lonely or isolated from those around you?: Never Do you speak a language other than Nepali at home?: Yes Does the patient want assistance with any of the above?: Yes Health Related Social Needs Health related social needs: education (Z55.6) Health related social needs details: n/a
[2025-09-14] MEDS: Metoprolol 12.5 MG TAB 25 MG PO (08:45)
[2025-09-14] MEDS: Sertraline 100 MG TAB PO (08:45)
[2025-09-14] MEDS: Enoxaparin 40 MG/0.4 ML SYR SC (08:45)
[2025-09-14] MEDS: Cholecalciferol (Vitamin D3) 400 UNIT TAB 800 UNIT PO (08:45)
[2025-09-14] MEDS: Magnesium Oxide 400 MG TAB PO (08:45)
[2025-09-14] MEDS: Multivitamin TAB 1 TAB PO (08:45)
[2025-09-14] MEDS: Sodium Chloride-Nasal SPRAY-ADULT 44 ML BTL NS (08:46)
[2025-09-14] MEDS: DOXYCYCLINE 100 MG in Normal Saline 100 ML IVPB (09:43)
--- NOTE | 2025-09-14 10:53 | PTTR_ITS ---
PT Notes Visit Reasons: Pneumonia Date: 09/14/2025 PRECAUTIONS: Fall risk, standard, telemetry in place SUBJECTIVE: Pt recliner when approached for therapy this afternoon. agreed to participating with therapy session. Pt in bed when approached for therapy this afternoon, pt visiting with , agreed to participating with therapy int ervention. OBJECTIVE: IV drip on left antecubital PAIN: (AM)7/10 for left shoulder pain at rest, reports pain subsided to 5/10 after gait training, (PM) none reported VITALS: Monitored Via Telemetry in ICU Therapeutic Activities 62460: Direct one-on-one instruction in dynamic activities to improve functional performance. Provided skilled cues and instruction on performance and technique throughout. BED MOBILITY/TRANSFERS (AM) Rolling L/R: supervision Supine-sit: supervision Sit-stand: SBA Stand-sit: SBA Bed-Chair: CGA Chair-bed: CGA (PM) Rolling L/R: supervision Supine-sit: supervision Sit-stand: SBA Stand-sit: SBA Bed-Chair: SBA Chair-bed: SBA Facilitated safe and correct performance of level surface ambulation covering a distance of 100 ft x 1(AM), 100 ft x1 (PM) using front wheeled walker with Stand by assist. pt reported decreased shoulder pain during and after gait training. Denied headache, chest pain, and lightheadedness throughout activity. Minimal verbal cueing provided for AD management, directional changes, and posture. ASSESSMENT: pt tolerated activity well, pt requested to transfer from recliner to bed after session, pt shoulder pain reported to nursing for monitoring and possible pain meds for pt comfort. Pt present during afternoon session and was able to observe how pt moved and transferred in slade her room and walking in [place]. caregiver questions was answered and was satisfied with answers PLAN: Continue with balance training, global strengthening and general conditioning for improved safety, mobility and activity tolerance until pt is ready for DC. TREATMENT CODE/TIME: First session: [id number], [id number] 25mins (10:25-10:50am), [id number], [id number] 25mins (2:05-2:30pm) DISCHARGE RECOMMENDATION: Short-term SNF versus home with HHPT
[2025-09-14] MEDS: Acetaminophen 325 MG TAB 650 MG PO (10:55)
--- NOTE | 2025-09-14 13:54 | W.PM.PROGNOT ---
Date of Service Date of service: 09/14/25 Time of Service: 08:00 Assessment and Plan Assessment and plan (1) Ground-level fall: Status: Acute Assessment and plan: Patient fell while walking after urinating in the toilet, unwitnessed She was awake and moving her eyes but not verbal Blood from both nostrils and from right lateral eyebrow laceration with approx. 10 ml blood on the floor C collar placed CT cspine negative for fracture CT head showing small subarachnoid hemorrhage in right sylvian fissure, right orbital floor minimally displaced fracture, right orbit lateral wall nondisplaced fracture, right zygoma nondisplaced fracture, right maxillary sinus minimally displaced fracture Discussed with [facility] trauma who declined to activate Minimal pain after the fall, PRN morphine Transferred to ICU for q1h neuro monitoring Sep 12: Downgraded from ICU to the floor. Continuing neuro checks q4h. Continue PT, consider placement for her to gain strength. Sep 13: Much improved, considering placement options. Patient and prefer home health, will consider nursing facility to build strength temporarily. Sep 14: PT recommending SNF vs HH. Patient's daughters hope that she will be willing to accept rehab stay as patient's cannot provide 24 hour assistance. (2) Cerebral hemorrhage following injury: Status: Acute Assessment and plan: Discussed with [facility] neurosurgery, no intervention planned Repeat CT head after 6 hours showing stable focal hemorrhage Continue neuro checks q1h until 1800, then q4h Mental status dramatically improved throughout the day Voluntary motion intact x4 Oct 25: no changes in medical management Sep 13: no changes in neuro exam, cognition improved Sep 14: no changes in neuro exam (3) Facial fracture due to fall: Status: Acute Assessment and plan: Discussed with [facility] ENT CT facial bones showing stable fractures Monitor for cephalohematoma, dental misalignment, vision disturbance Sep 12: no facial swelling, bite is intact. No vision changes. Sep 13-: no changes in medical management (4) Severe sepsis: Status: Resolved Assessment and plan: Septic with hypotension on admission, now resolved. Encephalopathy improved, now at baseline. Continuing treatment for CAP. Stopping antibiotics Sep 14. (5) Acute hypoxic respiratory failure: Status: Resolved Assessment and plan: Now on room air, initially needing 2L. Not on home O2 No PE on CTA (6) Community acquired pneumonia: Status: Acute Assessment and plan: IV doxycycline and cefepime initiated in the ED, completed 5 day course Sep 14 Blood cultures negative at 24 hours MRSA PCR negative (7) CLL (chronic lymphocytic leukemia): Assessment and plan: Will defer chemotherapy restart to outpatient oncology (8) Depression: Status: Chronic Assessment and plan: Continue sertraline (9) Hypomagnesemia: Status: Acute Assessment and plan: Repleting and rechecking (10) Hypertension: Assessment and plan: Holding beta jenaro while pressures are soft (11) Hypothyroidism: Status: Chronic Assessment and plan: TSH/free T4 showing therapeutic dosing of home levothyroxine, continue (12) On deep vein thrombosis (DVT) prophylaxis: Status: Acute Assessment and plan: Restarted enoxaparin Sep 13 Subjective Subjective Interval history since last seen: Mrs. Perales continues to improve and reports feeling well rested today. No overnight events, no new complaints. Exam Narrative Exam Narrative: General: This is a pleasant, elderly woman in no distress HEENT: Normocephalic. Right lateral eyebrow abrasion. Developing periorbital ecchymoses on the right. Nose and face are tender without swelling. CV: RRR Resp: CTAB Abd: soft, NTND MSK: voluntary motion x4 Neuro: awake, alert, no focal deficits. Objective Last Vital Signs Temp 36.4 C L 09/14/25 13:11 Pulse 82 09/14/25 13:11 Resp 16 09/14/25 13:11 BP 126/77 09/14/25 13:11 Pulse Ox 93 09/14/25 13:11 Laboratory Results - last 24 hr 09/13/25 09/14/25 12:58 05:30 WBC 4.72 RBC 2.84 L Hgb 9.6 L D Hct 28.8 L MCV 101 H MCH 33.8 H MCHC 33.3 RDW 14.6 Plt Count 100 L MPV 10.1 Immature Gran % 1.5 Neutrophils % 71.8 Lymphocytes % 15.9 Monocytes % 10.4 Eosinophils % 0.2 Basophils % 0.2 Nucleated RBC % 0.0 Absolute Neutrophils 3.39 Absolute Lymphocytes 0.75 L Absolute Monocytes 0.49 Absolute Eosinophils 0.01 Absolute Basophils 0.01 Sodium 139 141 Potassium 3.6 3.0 L Chloride 104 111 H Carbon Dioxide 23.7 19.7 L Anion Gap 11.3 H 10.3 BUN 20 H 20 H Creatinine 1.1 H 0.8 Est GFR (CKD-EPI 2020) 53.06 77.75 Glucose 171 H 104 Calcium 8.7 7.4 L Magnesium 1.7 L Ferritin 1535 H Total Bilirubin 0.8 0.5 AST 82 H 42 H ALT 101 H 74 H Alkaline Phosphatase 145 H 103 Total Protein 6.6 5.3 L Albumin 2.6 L 2.0 L Time Spent with Patient Time Spent with Patient: 25-34 minutes Time was spent: preparing to see the patient(eg.review tests), obtaining and/or reviewing separately otained hiistory, ordering medications,tests, procedures, referring, communicating with other health associate director career services, indepentently interpreting results, counseling the patient and care coordination
[2025-09-14] MEDS: Mirtazapine 15 MG TAB PO (19:49)
[2025-09-15] MEDS: Levothyroxine 50 MCG TAB PO (05:54)
[2025-09-15 06:45] LABS: Abs Immature Grans 0.09 10^3/uL (0.0-0.06); HCT 35.7 % (36.0-46.0); HGB 12.1 g/dL (11.2-15.7); Immature Grans % 1.6 %; MCH 34.4 pg (27.0-33.0); MCHC 33.9 % (32.0-36.0); MCV 101 fL (80-95); MPV 10.5 fL (8.0-11.0); Platelet Count 131 10^3/uL (130-400); RBC 3.52 10^6/uL (3.93-5.22); RDW 14.6 % (11.7-14.6); RDW-SD 53.9 fL; WBC 5.58 10^3/uL (4.4-10.8)
[2025-09-15 07:05] LABS: ALT 79 U/L (14-59); AST 40 U/L (15-37); Albumin 2.6 g/dL (3.4-5.0); Alkaline Phosphatase 128 U/L (46-116); Anion Gap 10.7 mmol/L (3-11); BUN 27 mg/dL (7-18); Bilirubin, Total 0.5 mg/dL (0.2-1.0); CO2 22.3 mmol/L (21.0-32.0); Calcium 9.3 mg/dL (8.5-10.1); Chloride 105 mmol/L (98-107); Glucose 129 mg/dL (74-106); Potassium 3.9 mmol/L (3.5-5.1); Sodium 138 mmol/L (136-145); Total Protein 6.6 g/dL (6.4-8.2)
--- NOTE | 2025-09-15 08:12 | PDOC.CMDIS ---
Date of service: 09/15/25 Time of Service: 08:12 LACE Index Scoring Tool Questions: Length of Stay (in days): 4 - 6 Care Management Discharge SDOH Health Related Social Needs: Health related social needs education Health related social needs details n/a Health related social needs details: n/a
[2025-09-15] MEDS: Cholecalciferol (Vitamin D3) 400 UNIT TAB 800 UNIT PO (09:13)
[2025-09-15] MEDS: Magnesium Oxide 400 MG TAB PO (09:14)
[2025-09-15] MEDS: Sertraline 100 MG TAB PO (09:14)
[2025-09-15] MEDS: Multivitamin TAB 1 TAB PO (09:14)
[2025-09-15 09:15] VITALS: BP 106/65; PULSE 99; O2SAT 94
[2025-09-15] MEDS: Metoprolol 12.5 MG TAB 25 MG PO (09:15)
[2025-09-15 09:16] VITALS: BP 106/65; PULSE 102; RESP 16; TEMP 36.6; O2SAT 97
[2025-09-15] MEDS: Enoxaparin 40 MG/0.4 ML SYR SC (09:16)
[2025-09-15] MEDS: Normal Saline Flush 10 ML SYR IVP (09:16)
[2025-09-15 09:17] VITALS: BP 107/66; PULSE 105; O2SAT 94
--- NOTE | 2025-09-15 11:53 | CMPROGNOTE_ITS ---
Date of service: 09/15/25 Time of Service: 11:53 Care Management Progress Note Progress Note Text Progress Note Text: Margarita was sitting in a chair with her present when CM met with her. She is agreeable to PT's recommendation which is SNF for STR prior to returning home. A bed offer has been received by the [facility], however family would like to hear back from [facility] and [facility] before accepting the offer. CM spoke with their daughter, Arlen, whom is a director of therapy (at an out of state rehab) and she wants to personally contact the facilities to ensure that they are all aware that the costs of Margarita's cancer medications are covered by a [facility] and will not be an expense for the facility. CM is awaiting a return call from Arlen. Discharge Anticipated Barriers to Discharge: None Identified Patient/Family Education Needs: Review discharge instructions, discuss Ask Me Three Transportation: Other (Family vs. RCT, dependent on disco and mobility at the time of discharge.) Plan: SNF for STR. Bed offer is received by the [facility] for tomorrow, awaiting response from [facility] and [facility]. CM will follow. Social Determinants of Health Screening Social Determinants of health last assessed in clinic: 09/15/25 Will the Patient Participate in the Screening?: Yes Do you worry about having a steady place to live?: no Problems where you live: no known problems In the past 12 months, have you had to go without electric, gas, oil or water in your home?: no 1. Within the past 12 months, we worried whether our food would run out before we got money to buy more.: Never true 2. Within the past 12 months, the food we bought just didn't last and we didn't have money to get more.: Never true Has lack of transportation kept you from medical appointments or from doing things needed for daily living?: no Has anyone in your life made you feel unsafe or unsupported?: no How hard is it for you to pay for the very basics like food, housing, medical care, and heating? Would you say it is:: Not hard at all Do you want help finding or keeping work or a job?: I do not need or want help If for any reason you need help with day-to-day activities such as bathing, preparing meals, shopping, managing finances, etc., do you get the help you need?: I don’t need any help How often do you feel lonely or isolated from those around you?: Never Do you speak a language other than Lao at home?: Yes Does the patient want assistance with any of the above?: Yes Health Related Social Needs Health related social needs: education (Z55.6) Health related social needs details: n/a
[2025-09-15] MEDS: Polyethylene Glycol 3350 17 GM PACKET PO (12:33)
--- NOTE | 2025-09-15 15:27 | PT.INTREAT ---
PT Notes Visit Reasons: Pneumonia Inpatient Physical Therapy Treatment Note [facility] Date: 09/15/25 SUBJECTIVE: Margarita states that she is willing to walk this am. PM session: Maybe later, I just got into bed and really need to sleep. OBJECTIVE: [] VITALS: monitored by nsg. Therapeutic Activities ([id number]): Direct one-on-one instruction in dynamic activities to improve functional performance. BED MOBILITY/TRANSFERS seated in chair Sit-stand: CGA Stand-sit: CGA Provided skilled cues and instruction on performance and technique throughout. GAIT Assistive Device: FWW Weight bearing: FWB Assist: SBA/CGA Distance: approx 200' Deviation: slow rocío, shortened stride length ASSESSMENT: tolerated session well. Was happy to walk this am. No noted LOB PLAN: continue to progress strength and functional mobility TREATMENT CODE/TIME: 20 min. [id number] DISCHARGE RECOMMENDATION: SNF
--- NOTE | 2025-09-15 16:40 | PT.INTREAT ---
PT Notes Visit Reasons: Pneumonia Inpatient Physical Therapy Treatment Note [facility] Date: 09/15/2025 Precautions: Fall. Standard. Activity as tolerated. SUBJECTIVE: Had a good rest earlier this afternoon. Nurse Kellee woke patient up who was agreeable to working with PT. Did not report chest pain, headache, nor lightheadedness. Patient agreed to being walked from ICU 220 to MS 210. OBJECTIVE: Diminishing ecchymoses in R buccal and R infraorbital area. Telemetry taken as patient was getting ready to be transferred to med surg unit. VITALS: Closely monitored by nursing BED MOBILITY/TRANSFERS Minimal cueing provided for use of B hands as needed for support, movement sequence, AD management, and posture to reduce fall risk and minimize pain report. Supine to sit contact guard assist with HOB at 20 degrees Sit to stand contact guard assist with FWW Stand to sit onto wheelchair contact guard assist with FWW Sit to stand from toilet seat stand by assist pulling from wall rail GAIT: Facilitated safe and correct performance of level surface ambulation covering a distance of 250 feet from ICU 220 to MS 210 using use front wheeled walker with contact-guard assist and wheelchair follow of Nurse Quinn. Michelle slower. Step height and length decreased. Denied headache, chest pain, and lightheadedness throughout activity. Minimal verbal cueing provided for AD management, directional changes, and posture. ASSESSMENT: Margarita continues to require assistance of 1 with contact guard assist for safety and stability using the FWW. She continues to require work with balance, activity tolerance, strength, and functional mobility progression and therefore will need services to address mobility decline/weakness. PLAN: Continue with PT plan of care to achive initially established goals. DISCHARGE RECOMMENDATION: SNF TREATMENT CODE/TIME: 61336 x 44 minutes for 3 units (16:40-17:24).
--- NOTE | 2025-09-15 17:04 | PGE_ITS ---
Date of Service Date of service: 09/15/25 Time of Service: 08:00 Assessment and Plan Assessment and plan (1) Ground-level fall: Status: Acute Assessment and plan: Patient fell while walking after urinating in the toilet, unwitnessed She was awake and moving her eyes but not verbal Blood from both nostrils and from right lateral eyebrow laceration with approx. 10 ml blood on the floor C collar placed CT cspine negative for fracture CT head showing small subarachnoid hemorrhage in right sylvian fissure, right orbital floor minimally displaced fracture, right orbit lateral wall nondisplaced fracture, right zygoma nondisplaced fracture, right maxillary sinus minimally displaced fracture Discussed with [facility] trauma who declined to activate Minimal pain after the fall, PRN morphine Transferred to ICU for q1h neuro monitoring Sep 12: Downgraded from ICU to the floor. Continuing neuro checks q4h. Continue PT, consider placement for her to gain strength. Sep 13: Much improved, considering placement options. Patient and prefer home health, will consider nursing facility to build strength temporarily. Sep 14: PT recommending SNF vs HH. Patient's daughters hope that she will be willing to accept rehab stay as patient's cannot provide 24 hour assistance. Sep 15: Accepted for out of town rehab Sunday (2) Cerebral hemorrhage following injury: Status: Acute Assessment and plan: Discussed with [facility] neurosurgery, no intervention planned Repeat CT head after 6 hours showing stable focal hemorrhage Continue neuro checks q1h until 1800, then q4h Mental status dramatically improved throughout the day Voluntary motion intact x4 Sep 12: no changes in medical management Sep 13: no changes in neuro exam, cognition improved Sep 14: no changes in neuro exam (3) Facial fracture due to fall: Status: Acute Assessment and plan: Discussed with [facility] ENT CT facial bones showing stable fractures Monitor for cephalohematoma, dental misalignment, vision disturbance Sep 12: no facial swelling, bite is intact. No vision changes. Sep 13-: no changes in medical management (4) Severe sepsis: Status: Resolved Assessment and plan: Septic with hypotension on admission, now resolved. Encephalopathy improved, now at baseline. Continuing treatment for CAP. Stopping antibiotics Sep 14. (5) Acute hypoxic respiratory failure: Status: Resolved Assessment and plan: Now on room air, initially needing 2L. Not on home O2 No PE on CTA (6) Community acquired pneumonia: Status: Acute Assessment and plan: IV doxycycline and cefepime initiated in the ED, completed 5 day course Sep 14 Blood cultures negative at 24 hours MRSA PCR negative (7) CLL (chronic lymphocytic leukemia): Assessment and plan: Will defer chemotherapy restart to outpatient oncology (8) Depression: Status: Chronic Assessment and plan: Continue sertraline (9) Hypomagnesemia: Status: Acute Assessment and plan: Repleting and rechecking (10) Hypertension: Assessment and plan: Holding beta jenaro while pressures are soft (11) Hypothyroidism: Status: Chronic Assessment and plan: TSH/free T4 showing therapeutic dosing of home levothyroxine, continue (12) On deep vein thrombosis (DVT) prophylaxis: Status: Acute Assessment and plan: Restarted enoxaparin Sep 13 Subjective Subjective Interval history since last seen: Mrs. Perales is up in her chair, reporting that she feels pretty well. at bedside. Per family discussion, and patient's consent, she will go to rehab out of town, likely Sunday. Exam Narrative Exam Narrative: General: This is a pleasant, elderly woman in no distress HEENT: Normocephalic. Right lateral eyebrow abrasion. Developing periorbital ecchymoses on the right. Nose and face are tender without swelling. CV: RRR Resp: CTAB Abd: soft, NTND MSK: voluntary motion x4 Neuro: awake, alert, no focal deficits. Objective Last Vital Signs Temp 36.6 C 09/15/25 09:16 Pulse 105 H 09/15/25 09:17 Resp 16 09/15/25 09:16 BP 107/66 09/15/25 09:17 Pulse Ox 94 09/15/25 09:17 Laboratory Results - last 24 hr 09/15/25 05:40 WBC 5.58 RBC 3.52 L Hgb 12.1 D Hct 35.7 L MCV 101 H MCH 34.4 H MCHC 33.9 RDW 14.6 Plt Count 131 MPV 10.5 Immature Gran % 1.6 Neutrophils % 72.5 Lymphocytes % 14.2 Monocytes % 11.1 Eosinophils % 0.2 Basophils % 0.4 Nucleated RBC % 0.0 Absolute Neutrophils 4.05 Absolute Lymphocytes 0.79 L Absolute Monocytes 0.62 Absolute Eosinophils 0.01 Absolute Basophils 0.02 Sodium 138 Potassium 3.9 Chloride 105 Carbon Dioxide 22.3 Anion Gap 10.7 BUN 27 H Creatinine 0.9 Est GFR (CKD-EPI 2020) 67.50 Glucose 129 H Calcium 9.3 Total Bilirubin 0.5 AST 40 H ALT 79 H Alkaline Phosphatase 128 H Total Protein 6.6 Albumin 2.6 L Time Spent with Patient Time Spent with Patient: 35-49 minutes Time was spent: preparing to see the patient(eg.review tests), obtaining and/or reviewing separately otained hiistory, ordering medications,tests, procedures, referring, communicating with other health floor care technician, indepentently interpreting results, counseling the patient and care coordination
[2025-09-15 17:12] VITALS: BP 121/70; PULSE 87; RESP 17; TEMP 36.8; O2SAT 94
--- NOTE | 2025-09-15 17:32 | W.PC.ACHO ---
Registration Status: ADM IN Primary Language: Preferred Language: Urdu ED Information & Data Chief Complaint RespSymp 09/09/25 15:30 Triage Note Increased weakness, new 09/09/25 10:19 incontinence today after being treated for pneumonia yesterday (IV antibiotics). PT has a delay when answering questions but states that she feels ill and has no specific complaint. Medical / Surgical History (Last Reviewed 09/10/25 @ 15:30 by Alexandria Gould MD) Moderate aortic regurgitation Hypertension CLL (chronic lymphocytic leukemia) (Last Reviewed 09/10/25 @ 15:30 by Alexandria Gould MD) History of repair of hip fracture Colonoscopy - IV Sedation (10/16/16) Cholecystectomy Most Recent Vital Signs Temperature 36.6 C 09/15/25 09:16 Temperature Source Temporal Artery Scan 09/15/25 09:16 Pulse 105 H 09/15/25 09:17 Pulse Rhythm Regular 09/09/25 16:49 Pulse 97 H 09/13/25 17:00 Respiratory Rate 16 09/15/25 09:16 Respiratory Effort Normal, Non-Labored 09/09/25 16:49 Respiratory Depth Normal 09/09/25 16:49 Respiratory Pattern Normal 09/09/25 16:49 Blood Pressure 107/66 09/15/25 09:17 Blood Pressure Mean 79 09/15/25 09:17 Blood Pressure Position Sitting 09/09/25 10:23 Pulse Oximetry 94 09/15/25 09:17 Oxygen Delivery Method Room Air 09/15/25 09:16 Oxygen Flow Rate 0 09/15/25 09:16 Pain Level 6 09/14/25 10:55 Comment ra 09/09/25 14:40 Allergies No Known Allergies Allergy (Verified 09/09/25 10:24) Active Medications Generic Name Dose Route Start Last Admin Trade Name Freq PRN Reason Stop Dose Admin Acetaminophen 650 mg 09/09/25 22:46 09/14/25 10:55 Acetaminophen 325 Mg Tab PO 650 mg Q6H PRN PRN Administration Cholecalciferol 800 unit 09/10/25 08:30 09/15/25 09:13 Cholecalciferol (Vitamin D3) 400 Unit Tab PO 800 unit DAILY STEPHANIE Administration Enoxaparin Sodium 40 mg 09/13/25 12:00 09/15/25 09:16 Enoxaparin 40 Mg/0.4 Ml Syr SC 40 mg DAILY STEPHANIE Administration Sodium Chloride 500 mls @ 0 mls/hr 09/11/25 14:49 09/14/25 09:49 Saline 500ml Bag IV Infused PRN PRN Infusion As Directed Levothyroxine Sodium 50 mcg 09/10/25 06:00 09/15/25 05:54 Levothyroxine 50 Mcg Tab PO 50 mcg DAILY@0600 STEPHANIE Administration Magnesium Oxide 400 mg 09/10/25 08:30 09/15/25 09:14 Magnesium Oxide 400 Mg Tab PO 400 mg DAILY STEPHANIE Administration Metoprolol Tartrate 25 mg 09/14/25 08:30 09/15/25 09:15 Metoprolol 12.5 Mg Tab PO 25 mg DAILY STEPHANIE Administration Mirtazapine 15 mg 09/12/25 20:00 09/14/25 19:49 Mirtazapine 15 Mg Tab PO 15 mg HS STEPHANIE Administration Multivitamins 1 tab 09/10/25 08:30 09/15/25 09:14 Multivitamin Tab PO 1 tab DAILY STEPHANIE Administration Polyethylene Glycol 17 gm 09/09/25 15:40 09/15/25 12:33 Polyethylene Glycol 3350 17 Gm Packet PO 17 gm DAILY PRN PRN Administration Constipation Sertraline HCl 100 mg 09/10/25 08:30 09/15/25 09:14 Sertraline 100 Mg Tab PO 100 mg DAILY STEPHANIE Administration Sodium Chloride 0 ml 09/09/25 11:47 09/15/25 09:16 Normal Saline Flush 10 Ml Syr IVP 20 ml PRN PRN Administration Sodium Chloride 44 ml 09/11/25 20:00 09/15/25 09:18 Sodium Chloride-Nasal [place]-Adult 44 Ml Btl NS Not Given BID STEPHANIE IV IV Catheter Type [Left Upper Saline Lock arm] IV Catheter Type [Right Wrist] Saline Lock IV Catheter Type [Left Forearm Saline Lock ] IV Catheter Type [Left Saline Lock Antecubital] IV Catheter Type [Right Saline Lock Antecubital] IV Catheter Gauge [Left Upper 18 arm] IV Catheter Gauge [Right Wrist 20 ] IV Catheter Gauge [Left 20 Forearm] IV Catheter Gauge [Left 20 Antecubital] IV Catheter Gauge [Right 18 Antecubital] Diagnostics 09/15/25 Range/Units 05:40 WBC 5.58 (4.4-10.8) 10^3/uL RBC 3.52 L (3.93-5.22) 10^6/uL Hgb 12.1 D (11.2-15.7) g/dL Hct 35.7 L (36.0-46.0) % MCV 101 H (80-95) fL MCH 34.4 H (27.0-33.0) pg MCHC 33.9 (32.0-36.0) % RDW 14.6 (11.7-14.6) % Plt Count 131 (130-400) 10^3/uL MPV 10.5 (8.0-11.0) fL Immature Gran % 1.6 % Neutrophils % 72.5 % Lymphocytes % 14.2 % Monocytes % 11.1 % Eosinophils % 0.2 % Basophils % 0.4 % Nucleated RBC % 0.0 (0.0-0.3) % Absolute Neutrophils 4.05 (1.2-6.7) 10^3/uL Absolute Lymphocytes 0.79 L (1.2-3.4) 10^3/uL Absolute Monocytes 0.62 (0.1-0.8) 10^3/uL Absolute Eosinophils 0.01 (0.0-0.7) 10^3/uL Absolute Basophils 0.02 (0.0-0.2) 10^3/uL Sodium 138 (136-145) mmol/L Potassium 3.9 (3.5-5.1) mmol/L Chloride 105 (98-107) mmol/L Carbon Dioxide 22.3 (21.0-32.0) mmol/L Anion Gap 10.7 (3-11) mmol/L BUN 27 H (7-18) mg/dL Creatinine 0.9 (0.55-1.02) mg/dL Est GFR (CKD-EPI 2020) 67.50 (mL/min/1.73m2) Glucose 129 H (74-106) mg/dL Calcium 9.3 (8.5-10.1) mg/dL Total Bilirubin 0.5 (0.2-1.0) mg/dL AST 40 H (15-37) U/L ALT 79 H (14-59) U/L Alkaline Phosphatase 128 H (46-116) U/L Total Protein 6.6 (6.4-8.2) g/dL Albumin 2.6 L (3.4-5.0) g/dL 09/09/25 11:40 Blood Culture - Final Blood NO GROWTH 120 HOURS [id number] Documentation Fingerstick Glucose Start: 09/09/25 10:56 Freq: Status: Inactive Protocol: Activity Type Activity Date Activity User E-sign Co-sign Detail Recorded Client Recorded Date Recorded By Document 09/09/25 10:55 BKG DAEMON(5) NVT-BG05 09/09/25 10:56 BKG DAEMON(6) Fingerstick Glucose Start: 09/11/25 08:27 Freq: Status: Complete Protocol: Activity Type Activity Date Activity User E-sign Co-sign Detail Recorded Client Recorded Date Recorded By Document 09/11/25 08:25 BKG DAEMON(7) NVT-BG05 09/11/25 08:27 BKG DAEMON(8) Intake and Output - 24 Hour Total 09/09/25 10:04 thru 09/15/25 13:15 Intake Total 64500.016 Output Total 1975 Balance 9032.016 Weight 54.1 kg Intake: IV 6610.016 Oral 4397 Output: Urine 1775 Emesis 200 Other: Urine Color Yellow Urine Appearance Clear Urine Odor Strong Comment Incontinent in brief Stool Size Smear Stool Characteristics Mucoid Brown Emesis Description Projectile Undigested Food Mucous Urinary Catheter Urinary Catheter Date of 09/12/25 Insertion [Urethral (Chapman)] Time of insertion [Urethral ( 16:00 Chapman)] Falls Risk Assessment History of Falls No History 09/09/25 16:49 Contributing Factors No Factors 09/09/25 16:49 Ambulatory Aids Independent 09/09/25 16:49 Tubes/Lines W/no contributing factors 09/09/25 16:49 Gait Evaluation W/no contributing factors 09/09/25 16:49 Cognition No cognitive impairment 09/09/25 16:49 Fall Total Score 20 09/09/25 16:49 Level of Risk Standard/Low Risk 09/09/25 16:49 Problems (Last Reviewed 09/10/25 @ 15:30 by Alexandria Gould MD) Facial fracture due to fall (Acute) Cerebral hemorrhage following injury (Acute) Ground-level fall (Acute) Spleen anomaly (Acute) Hypomagnesemia (Acute) Hypothyroidism (Chronic) Depression (Chronic) On deep vein thrombosis (DVT) prophylaxis (Acute) Community acquired pneumonia (Acute) Notes 09/11/25 16:57 Nursing Notes by Venita Harden Went and spoke to Margarita to see how she was doing and ask if I could answer any questions, which she declined. I asked her if she would like me to contact anyone in her family. Her primary nurse pointed out that Margarita's oldest daughter (Arlen Rabago) worked in healthcare. Margarita gave me verbal permission to call this daughter. I did attempt to call Arlen at [phone] but she did not answer. A voicemail was left with my name, number, and reason for calling.Nursing Note: Initialized on 09/11/25 16:57 - END OF NOTE 09/11/25 15:55 Nursing Notes by Kellee Gomes Nursing Note: Patient's Daughters' Phone Numbers Arlen Hobson: [phone] Samra [place]: [phone] Ramona Alfaro: [phone] Kellee Connor [place]: [phone] Initialized on 09/11/25 15:55 - END OF NOTE v v v v v v v v v Sending and/or Receiving Nurses: Please use comment section below to note any information pertinent to the patient hand-off not included above. Information / Comments: Report received at 1701. 18 L AC. PT walked the patient from ICU to new room on m/s. Report received from: Minerva Cui, TRAVEL SPECIALIST
[2025-09-15 19:15] VITALS: BP 113/67; PULSE 98; RESP 20; TEMP 36.8; O2SAT 92
[2025-09-15] MEDS: Sodium Chloride-Nasal SPRAY-ADULT 44 ML BTL NS (19:55)
[2025-09-15] MEDS: Mirtazapine 15 MG TAB PO (19:56)
[2025-09-16] MEDS: Levothyroxine 50 MCG TAB PO (05:56)
[2025-09-16 07:06] LABS: Abs Immature Grans 0.11 10^3/uL (0.0-0.06); HCT 32.7 % (36.0-46.0); HGB 10.8 g/dL (11.2-15.7); Immature Grans % 2.1 %; MCH 33.5 pg (27.0-33.0); MCHC 33.0 % (32.0-36.0); MCV 102 fL (80-95); MPV 10.5 fL (8.0-11.0); Platelet Count 121 10^3/uL (130-400); RBC 3.22 10^6/uL (3.93-5.22); RDW 14.7 % (11.7-14.6); RDW-SD 54.4 fL; WBC 5.25 10^3/uL (4.4-10.8)
[2025-09-16 07:27] VITALS: BP 115/61; PULSE 84; RESP 16; TEMP 37; O2SAT 94
[2025-09-16 07:30] LABS: ALT 77 U/L (14-59); AST 47 U/L (15-37); Albumin 2.6 g/dL (3.4-5.0); Alkaline Phosphatase 123 U/L (46-116); Anion Gap 11.4 mmol/L (3-11); BUN 27 mg/dL (7-18); Bilirubin, Total 0.4 mg/dL (0.2-1.0); CO2 23.6 mmol/L (21.0-32.0); Calcium 9.2 mg/dL (8.5-10.1); Chloride 105 mmol/L (98-107); Glucose 116 mg/dL (74-106); Potassium 3.9 mmol/L (3.5-5.1); Sodium 140 mmol/L (136-145); Total Protein 6.4 g/dL (6.4-8.2)
[2025-09-16 08:49] VITALS: BP 118/70; PULSE 96; O2SAT 93
[2025-09-16] MEDS: Cholecalciferol (Vitamin D3) 400 UNIT TAB 800 UNIT PO (08:52)
[2025-09-16] MEDS: Metoprolol 12.5 MG TAB 25 MG PO (08:52)
[2025-09-16] MEDS: Enoxaparin 40 MG/0.4 ML SYR SC (08:52)
[2025-09-16] MEDS: Magnesium Oxide 400 MG TAB PO (08:52)
[2025-09-16] MEDS: Sertraline 100 MG TAB PO (08:52)
[2025-09-16] MEDS: Multivitamin TAB 1 TAB PO (08:52)
[2025-09-16] MEDS: Normal Saline Flush 10 ML SYR IVP (08:53)
--- NOTE | 2025-09-16 10:12 | PDOC.CMDIS ---
Date of service: 09/16/25 Time of Service: 10:12 LACE Index Scoring Tool Questions: Length of Stay (in days): 7 - 13 Was the patient admitted via the E.D.?: Yes E.D. Visits: 2 Answers: Total Score: 10 Risk of Readmission: High Risk Care Management Discharge Plan Reason for Hospitalization: Pneumonia Discharge Plan: Margarita is transferring to the [facility] for STR, via RCT w/c van. Patient will follow up with community providers and continue per her discharge plan of care. [place] is planning to bring her Venclexta tablets from home and her insurance card. Patient/Family Education Needs: Review discharge instructions and plan to follow up after discharge. Discuss ask me three. Services Needed at Discharge: Half-Way Facility (The [facility], coordinated by ASHLEY) and Transportation ([facility] w/c [place], coordinated by CM) SDOH Health Related Social Needs: Health related social needs education Health related social needs details n/a Health related social needs details: n/a
--- NOTE | 2025-09-16 11:11 | PT.INTREAT ---
Date of service: 09/16/25 PT Notes Visit Reasons: Pneumonia Inpatient Physical Therapy Treatment Note [facility] Date: 09/16/2025 SUBJECTIVE: Pt reports she is feeling better today. She reports tightness in her right leg OBJECTIVE: Pt presented seated in chair, yellowing ecchymotic area to right cheek VITALS: monitored by nsg. Therapeutic Activities ([id number]): Direct one-on-one instruction in dynamic activities to improve functional performance. BED MOBILITY/TRANSFERS seated in chair Sit-stand: CGA x 5 trials Stand-sit: SBA Provided skilled cues and instruction on performance and technique throughout. -Facilitated safe and correct performance of level surface ambulation covering a distance of 230 feet using use front wheeled walker, non skid socks with contact-guard assist. Reported right leg heavier and harder to bring forward as compared to left. Denied headache, chest pain, and lightheadedness throughout activity. Minimal verbal cueing provided for AD management, directional changes, and posture. - -Facilitated safe and correct performance of level surface ambulation covering a distance of 50 feet using use front wheeled walker with sneakers on with contact-guard assist slower rocío increased time for advancing RLE, Reported heaviness advancing RLE. Did not report of any increased pain. Denied headache, chest pain, and lightheadedness throughout activity. Minimal verbal cueing provided for AD management, directional changes, and posture. - Facilitated safe and correct performance of level surface ambulation covering a distance of 50 feet using use cane with sneakers with min A for trunk stability very slow rocío, reduced step length B, Reported heaviness in right leg with advancing, Denied headache, chest pain, and lightheadedness throughout activity. Minimal verbal cueing provided for AD management, directional changes, and posture. [id number]- seated therex BLE marching, LAQ, PF with red theraband, DF with red theraband, Hip abduction with red theraband SL and DL x 10 reps ASSESSMENT: tolerated session well. Pt reported walking with the cane was more challenging and that she felt less stable. Pt would benefit from progression to dynamic stand exercises next session. PLAN: continue to progress strength and functional mobility TREATMENT CODE/TIME:[id number], [id number] DISCHARGE RECOMMENDATION: SNF
--- NOTE | 2025-09-16 11:23 | DSE_ITS ---
Date of service: 09/16/25 Time of Service: 11:24 DS: Diagnosis Discharge Diagnosis (1) Ground-level fall: Status: Resolved Asessment and Plan: Patient fell while walking after urinating in the toilet, unwitnessed She was awake and moving her eyes but not verbal Blood from both nostrils and from right lateral eyebrow laceration with approx. 10 ml blood on the floor C collar placed CT cspine negative for fracture CT head showing small subarachnoid hemorrhage in right sylvian fissure, right orbital floor minimally displaced fracture, right orbit lateral wall nondisplaced fracture, right zygoma nondisplaced fracture, right maxillary sinus minimally displaced fracture Discussed with [facility] trauma who declined to activate Minimal pain after the fall, PRN morphine Transferred to ICU for q1h neuro monitoring Sep 12: Downgraded from ICU to the floor. Continuing neuro checks q4h. Continue PT, consider placement for her to gain strength. Sep 13: Much improved, considering placement options. Patient and prefer home health, will consider nursing facility to build strength temporarily. Sep 14: PT recommending SNF vs HH. Patient's daughters hope that she will be willing to accept rehab stay as patient's cannot provide 24 hour assistance. Sep 15: Accepted for out of town rehab Sunday (2) Cerebral hemorrhage following injury: Status: Acute Asessment and Plan: Discussed with [facility] neurosurgery, no intervention planned Repeat CT head after 6 hours showing stable focal hemorrhage Continue neuro checks q1h until 1800, then q4h Mental status dramatically improved throughout the day Voluntary motion intact x4 Cognition improved daily No further followup at this time (3) Facial fracture due to fall: Status: Acute Asessment and Plan: Discussed with [facility] ENT CT facial bones showing stable fractures Monitor for cephalohematoma, dental misalignment, vision disturbance Facial swelling resolved. Bite is intact No vision changes No followup needed unless she has new problems with vision or bite (4) Severe sepsis: Status: Resolved Asessment and Plan: Septic with hypotension on admission, now resolved. Encephalopathy improved, now at baseline. Stopped antibiotics Sep 14. (5) Acute hypoxic respiratory failure: Status: Resolved Asessment and Plan: Now on room air, initially needing 2L. Not on home O2 No PE on CTA (6) Community acquired pneumonia: Status: Acute Asessment and Plan: IV doxycycline and cefepime initiated in the ED, completed 5 day course Sep 14 Blood cultures negative at 24 hours MRSA PCR negative (7) CLL (chronic lymphocytic leukemia): Asessment and Plan: Will defer chemotherapy restart to outpatient oncology (8) Depression: Status: Chronic Asessment and Plan: Continue sertraline (9) Hypomagnesemia: Status: Resolved Asessment and Plan: Due to pneumonia, repleted (10) Hypertension: Asessment and Plan: Restarted home metoprolol (11) Hypothyroidism: Status: Chronic Asessment and Plan: TSH/free T4 showing therapeutic dosing of home levothyroxine, continue (12) On deep vein thrombosis (DVT) prophylaxis: Status: Inactive Asessment and Plan: Enoxaparin while hospitalized Discharge Plan Disposition Patient Disposition: [facility] Facility(SNF) Condition: Improving Discharge Details Reason For Visit: Pneumonia Admit Date/Time: 09/09/25 13:54 Admit Provider: Jose Holland Attending Provider: Jose Holland Primary Care Provider: Madalyn Craven Hospital Course Hospital Course: Margarita Perales is a 75 year old woman presenting September 08 with ina howard, found to have pneumonia. She is on venetoclax chemotherapy for CLL, which requires high fluid intake. In the hospital she was treated with an antibiotic regimen for community acquired pneumonia, cefepime and doxycyline, given Sep 09 - , with good improvement overall. She has been on room air since September 09. On the morning of September 11, Mrs. Perales fell while ambulating from b athroom to bed. Imaging and diagnostic workup showed that she had a small, stable subarachnoid hemorrhage in the right lucho fissure, and multiple right- sided facial fractures. [facility] trauma evaluated the case and did not find cause to activate service. [facility] neurosurgery evaluation recommended close monitoring and repeat CT head at 6 hours and 12 hours. [facility] ENT evaluation recommended no intervention unless patient had vision or dental bite defects. She was transferred to the ICU for close cardiac and neurological monitoring. Repeat imaging was negative for any worsening or new defects. Serial neural exams did show mild 1mm discordance in pupil size, which was constant and did not correspond with imaging findings. Mrs. Perales has done well with physical therapy. She has excellent family support. She is safe to go to [facility] for [facility] at ths time. Home Meds and New Rx's Prescriptions: New mirtazapine 15 mg Tablet 15 mg PO HS Qty: 30 0RF Continued multivitamin [Daily Multiple] 1 EACH tablet 1 ea PO DAILY cholecalciferol (vitamin D3) [Vitamin D3] 400 unit Capsule 800 unit PO DAILY sertraline 100 MG tablet 100 mg PO DAILY Qty: 30 0RF levothyroxine 50 mcg tablet 50 mcg PO DAILY Qty: 30 0RF metoprolol tartrate 25 mg tablet 25 mg PO DAILY Qty: 30 0RF Um-Yudr-Ylupcmi 133 MG tablet 1 tab PO DAILY Qty: 30 0RF Venclexta 100 mg tablet 200 mg PO DAILY Discontinued amoxicillin-pot clavulanate 875-125 mg tablet 1 tab PO BID Qty: 8 0RF doxycycline hyclate 100 mg capsule 100 mg PO BID Qty: 8 0RF Discharge Instructions Instructions: Facial Fracture (DC) Activity:: Activity as Tolerated Equipment/Supplies:: Walker Diet:: Normal Diet DS: Summary Time Spent with Patient providing and/or coordinating discharge services: Greater than 30 minutes Status at Discharge Functional status at discharge: uses cane/walker Overall status at discharge: patient is progressing back to baseline Mental Status: mental status grossly normal Speech and Movement: speech and movement normal Mood: congruent mood Affect: normal affect Quality:SDOH Health Related Social Needs: Health related social needs education Health related social needs details n/a Health related social needs details: n/a Exam Narrative Exam Narrative: General: This is a pleasant, elderly woman in no distress HEENT: Normocephalic. Right lateral eyebrow abrasion healing well. Healing periorbital ecchymoses on the right. Nose and face are tender without swelling. CV: RRR Resp: CTAB Abd: soft, NTND MSK: voluntary motion x4 Neuro: awake, alert, no focal deficits. Psych Mental Status: mental status grossly normal Speech and Movement: speech and movement normal Mood: congruent mood Affect: normal affect DS: Data Vitals/I&O Vitals and I&O: Vital Signs Temperature 37 C 09/16/25 07:27 Temperature Source Temporal Artery Scan 09/16/25 07:27 Pulse 96 H 09/16/25 08:49 Pulse Rhythm Regular 09/09/25 16:49 Pulse 97 H 09/13/25 17:00 Respiratory Rate 16 09/16/25 07:27 Respiratory Effort Normal, Non-Labored 09/09/25 16:49 Respiratory Depth Normal 09/09/25 16:49 Respiratory Pattern Normal 09/09/25 16:49 Blood Pressure 118/70 09/16/25 08:49 Blood Pressure Mean 86 09/16/25 08:49 Blood Pressure Position Sitting 09/09/25 10:23 Pulse Oximetry 93 09/16/25 08:49 Oxygen Delivery Method Room Air 09/16/25 08:49 Oxygen Flow Rate 0 09/16/25 08:49 Pain Level 0 09/16/25 08:49 Comment ra 09/09/25 14:40 Intake & Output 09/15/25 09/15/25 09/16/25 11:59 23:59 11:59 Intake Total 360 / 560 200 / 560 100 / 100 Balance 360 / 560 200 / 560 100 / 100 Weight 54.1 kg Intake: IV 100 / 100 Oral 360 / 560 200 / 560 Other: Urine Color Yellow Urine Appearance Clear Urine Odor Normal Normal Comment Pt voided in toilet, brief was heavily saturated w/ urine. pt is incontinent of urine. Stool Size Small Stool Characteristics Soft Formed Data Completed and Pending Pending Labs at Discharge: 09/09/25 09/09/25 09/09/25 10:24 11:24 11:40 WBC 7.34 RBC 3.41 L Hgb 11.7 Hct 33.7 L MCV 99 H MCH 34.3 H MCHC 34.7 RDW 14.0 Plt Count 112 L MPV 9.3 Immature Gran % 0.5 Neutrophils % 78.0 Lymphocytes % 7.4 Monocytes % 13.8 Eosinophils % 0.0 Basophils % 0.3 Nucleated RBC % 0.0 Absolute Neutrophils 5.73 Absolute Lymphocytes 0.54 L Absolute Monocytes 1.01 H Absolute Eosinophils 0.00 Absolute Basophils 0.02 VBG Lactate 0.7 Sodium 136 Potassium 3.8 Chloride 101 Carbon Dioxide 23.6 Anion Gap 11.4 H BUN 18 Creatinine 1.0 Est GFR (CKD-EPI 2020) 59.49 Glucose 121 H Calcium 8.6 Magnesium 1.7 L Iron TIBC Transferrin % Sat Ferritin Total Bilirubin 2.0 H AST 67 H ALT 79 H Alkaline Phosphatase 89 Troponin I 34 Total Protein 6.6 Albumin 2.8 L Lipase 47 TSH Free T4 Urine Color Urine Clarity Urine pH Ur Specific Granby Urine Protein Urine Ketones Urine Blood Urine Nitrite Urine Bilirubin Urine Urobilinogen Ur Leukocyte Esterase Urine Glucose COVID-19 Source SARS-CoV-2 (PCR) Influenza Type A (PCR) Influenza Type B (PCR) RSV (PCR) MRSA (TEM-PCR) 09/09/25 09/09/25 09/09/25 12:15 13:53 13:57 WBC RBC Hgb Hct MCV MCH MCHC RDW Plt Count MPV Immature Gran % Neutrophils % Lymphocytes % Monocytes % Eosinophils % Basophils % Nucleated RBC % Absolute Neutrophils Absolute Lymphocytes Absolute Monocytes Absolute Eosinophils Absolute Basophils VBG Lactate Sodium Potassium Chloride Carbon Dioxide Anion Gap BUN Creatinine Est GFR (CKD-EPI 2020) Glucose Calcium Magnesium Iron TIBC Transferrin % Sat Ferritin Total Bilirubin AST ALT Alkaline Phosphatase Troponin I 35 Total Protein Albumin Lipase TSH Free T4 Urine Color Yellow Urine Clarity Sl Cloudy Urine pH 5.5 Ur Specific [place] <= 1.005 Urine Protein Negative Urine Ketones Negative Urine Blood Negative Urine Nitrite Negative Urine Bilirubin Negative Urine Urobilinogen 0.2 Ur Leukocyte Esterase Negative Urine Glucose Negative COVID-19 Source Nasopharynx SARS-CoV-2 (PCR) Negative Influenza Type A (PCR) Negative Influenza Type B (PCR) Negative RSV (PCR) Negative MRSA (TEM-PCR) 09/09/25 09/10/25 09/11/25 16:35 05:42 06:14 WBC 4.82 5.50 RBC 2.91 L 3.06 L Hgb 9.9 L 10.4 L Hct 29.6 L 30.2 L MCV 102 H 99 H MCH 34.0 H 34.0 H MCHC 33.4 34.4 RDW 14.2 14.2 Plt Count 115 L 115 L MPV 9.7 9.6 Immature Gran % 0.4 0.5 Neutrophils % 81.6 71.7 Lymphocytes % 6.4 12.5 Monocytes % 11.4 14.7 Eosinophils % 0.0 0.2 Basophils % 0.2 0.4 Nucleated RBC % 0.0 0.0 Absolute Neutrophils 3.93 3.94 Absolute Lymphocytes 0.31 L 0.69 L Absolute Monocytes 0.55 0.81 H Absolute Eosinophils 0.00 0.01 Absolute Basophils 0.01 0.02 VBG Lactate Sodium 139 137 Potassium 3.2 L 2.9 L* Chloride 108 H 105 Carbon Dioxide 21.2 20.5 L Anion Gap 9.8 11.5 H BUN 18 17 Creatinine 0.9 1.0 Est GFR (CKD-EPI 2020) 67.50 59.49 Glucose 136 H 119 H Calcium 8.3 L 8.7 Magnesium 1.8 Iron TIBC Transferrin % Sat Ferritin Total Bilirubin AST ALT Alkaline Phosphatase Troponin I Total Protein Albumin Lipase TSH 4.04 H Free T4 1.33 Urine Color Urine Clarity Urine pH Ur Specific Granby Urine Protein Urine Ketones Urine Blood Urine Nitrite Urine Bilirubin Urine Urobilinogen Ur Leukocyte Esterase Urine Glucose COVID-19 Source SARS-CoV-2 (PCR) Influenza Type A (PCR) Influenza Type B (PCR) RSV (PCR) MRSA (TEM-PCR) Negative 09/12/25 09/13/25 09/13/25 05:35 11:15 12:58 WBC 6.12 6.29 RBC 3.42 L 3.58 L Hgb 11.5 12.3 Hct 33.4 L 36.8 MCV 98 H 103 H D MCH 33.6 H 34.4 H MCHC 34.4 33.4 RDW 13.9 14.4 Plt Count 129 L 123 L MPV 9.8 9.9 Immature Gran % 0.8 0.8 Neutrophils % 80.0 77.6 Lymphocytes % 7.5 12.4 Monocytes % 11.3 8.6 Eosinophils % 0.2 0.3 Basophils % 0.2 0.3 Nucleated RBC % 0.0 0.0 Absolute Neutrophils 4.90 4.88 Absolute Lymphocytes 0.46 L 0.78 L Absolute Monocytes 0.69 0.54 Absolute Eosinophils 0.01 0.02 Absolute Basophils 0.01 0.02 VBG Lactate Sodium 136 139 Potassium 3.2 L 3.6 Chloride 102 104 Carbon Dioxide 22.1 23.7 Anion Gap 11.9 H 11.3 H BUN 17 20 H Creatinine 0.8 1.1 H Est GFR (CKD-EPI 2020) 77.75 53.06 Glucose 123 H 171 H Calcium 8.7 8.7 Magnesium 1.7 L Iron 33 L TIBC 185 L Transferrin % Sat 18 Ferritin 1535 H Total Bilirubin 0.8 AST 82 H ALT 101 H Alkaline Phosphatase 145 H Troponin I Total Protein 6.6 Albumin 2.6 L Lipase TSH Free T4 Urine Color Urine Clarity Urine pH Ur Specific Gran[place] Urine Protein Urine Ketones Urine Blood Urine Nitrite Urine Bilirubin Urine Urobilinogen Ur Leukocyte Esterase Urine Glucose COVID-19 Source SARS-CoV-2 (PCR) Influenza Type A (PCR) Influenza Type B (PCR) RSV (PCR) MRSA (TEM-PCR) 09/14/25 09/15/25 09/16/25 05:30 05:40 06:33 WBC 4.72 5.58 5.25 RBC 2.84 L 3.52 L 3.22 L Hgb 9.6 L D 12.1 D 10.8 L Hct 28.8 L 35.7 L 32.7 L MCV 101 H 101 H 102 H MCH 33.8 H 34.4 H 33.5 H MCHC 33.3 33.9 33.0 RDW 14.6 14.6 14.7 H Plt Count 100 L 131 121 L MPV 10.1 10.5 10.5 Immature Gran % 1.5 1.6 2.1 Neutrophils % 71.8 72.5 71.6 Lymphocytes % 15.9 14.2 15.8 Monocytes % 10.4 11.1 9.7 Eosinophils % 0.2 0.2 0.4 Basophils % 0.2 0.4 0.4 Nucleated RBC % 0.0 0.0 0.0 Absolute Neutrophils 3.39 4.05 3.76 Absolute Lymphocytes 0.75 L 0.79 L 0.83 L Absolute Monocytes 0.49 0.62 0.51 Absolute Eosinophils 0.01 0.01 0.02 Absolute Basophils 0.01 0.02 0.02 VBG Lactate Sodium 141 138 140 Potassium 3.0 L 3.9 3.9 Chloride 111 H 105 105 Carbon Dioxide 19.7 L 22.3 23.6 Anion Gap 10.3 10.7 11.4 H BUN 20 H 27 H 27 H Creatinine 0.8 0.9 0.9 Est GFR (CKD-EPI 2020) 77.75 67.50 67.50 Glucose 104 129 H 116 H Calcium 7.4 L 9.3 9.2 Magnesium Iron TIBC Transferrin % Sat Ferritin Total Bilirubin 0.5 0.5 0.4 AST 42 H 40 H 47 H ALT 74 H 79 H 77 H Alkaline Phosphatase 103 128 H 123 H Troponin I Total Protein 5.3 L 6.6 6.4 Albumin 2.0 L 2.6 L 2.6 L Lipase TSH Free T4 Urine Color Urine Clarity Urine pH Ur Specific Granby Urine Protein Urine Ketones Urine Blood Urine Nitrite Urine Bilirubin Urine Urobilinogen Ur Leukocyte Esterase Urine Glucose COVID-19 Source SARS-CoV-2 (PCR) Influenza Type A (PCR) Influenza Type B (PCR) RSV (PCR) MRSA (TEM-PCR) PFSH All Active Problems (Updated 09/16/25 @ 11:31 by Schuyler Velasco MD) Facial fracture due to fall (Acute) Cerebral hemorrhage following injury (Acute) Spleen anomaly (Acute) Pneumonia (Acute) Hypothyroidism (Chronic) Depression (Chronic) Community acquired pneumonia (Acute) Rotator cuff tear arthropathy of right shoulder (Acute) Right rotator cuff tear (Acute) Hepatitis (Acute) Chronic lymphoid leukemia (Acute) Anemia (Acute) Fever and chills (Acute) Systolic murmur (Acute) Troponin level elevated (Acute) Moderate aortic stenosis (Chronic) Valve area 1.2 in 2017 Trimalleolar fracture of right ankle (Chronic 07/07/19) S/P ORIF: 07/07/2019 S/P Hardware removal: 01/10/2022 Hammer toe of second toe of right foot (Acute) S/P Fusion: 01/10/2022 Acquired hammer toe deformity of lesser toe of right foot (Acute) THIRD S/P Fusion: 01/10/2022 Painful orthopaedic hardware (Acute) Medical History Moderate aortic regurgitation Hypertension CLL (chronic lymphocytic leukemia) allogeniec bone marrow transplant biopsy 2014 in remission Surgical History History of repair of hip fracture Colonoscopy - IV Sedation (10/16/16) Cholecystectomy Family History Father No problems noted. Other Colon cancer Social History Smoking/Tobacco Use Status: Never Smoking risk assessment performed?: Yes Alcohol Intake: never Drug use: Never Substance use type: does not use Housing: house Current gender identity: female Do you feel safe at home: Yes Do you feel safe in your relationship?: Yes Time Spent with Patient Time Spent with Patient: <45 minutes Time was spent: preparing to see the patient(eg.review tests), obtaining and/or reviewing separately otained hiistory, ordering medications,tests, procedures, referring, communicating with other health medicare compliance auditor, indepentently interpreting results, counseling the patient and care coordination
== END 2025-09-16 12:20 | disposition skilled nursing facility (03) | DRG 871 ==
LOC: ER 14:16 → MS 16:26 → ICU 09-11 12:32 → MS 09-15 17:25
PROVIDERS: Nurse Practitioner Acute Care; Admitting Provider Family Medicine; Emergency Provider Physician Assistant; PCP Family Medicine; Responsible Provider Family Medicine; Visit Provider Family Medicine
DX: A41.9 Sepsis, unspecified organism (principal); R65.20 Severe sepsis without septic shock; J96.01 Acute respiratory failure with hypoxia; J18.9 Pneumonia, unspecified organism; F32.A Depression, unspecified; E83.42 Hypomagnesemia; I10 Essential (primary) hypertension; E03.9 Hypothyroidism, unspecified; Z79.899 Other long term (current) drug therapy; W18.30XA Fall on same level, unspecified, initial encounter; S02.31XA Fracture of orbital floor, right side, initial encounter for closed fracture; S02.841A Fracture of lateral orbital wall, right side, initial encounter for closed fracture; S02.40EA Zygomatic fracture, right side, initial encounter for closed fracture; S02.40CA Maxillary fracture, right side, initial encounter for closed fracture; S06.6X0A Traumatic subarachnoid hemorrhage without loss of consciousness, initial encounter; G93.49 Other encephalopathy; C91.11 Chronic lymphocytic leukemia of B-cell type in remission; Z94.81 Bone marrow transplant status; D64.9 Anemia, unspecified; I35.0 Nonrheumatic aortic (valve) stenosis; S01.111A Laceration without foreign body of right eyelid and periocular area, initial encounter; H57.02 Anisocoria; R93.5 Abnormal findings on diagnostic imaging of other abdominal regions, including retroperitoneum
CPT/HCPCS: 00123; 36415; 36416; 74177; 80048; 80053; 82962; 83690; 87040; 87637; 87641; 93005; 96365; 96366; 96367; 97110; 97162; 97530; 99222; 99285; J1650; 70450; 70486; 71260; 72125; 81003; 82728; 83540; 83550; 83605; 83735; 84439; 84443; 84484; 85025; 93010; 99231; 99232; 99233; 99238; J0692; J0780; J2270; J3475; J3480; J3490

== ENCOUNTER 2025-09-21 19:25 | Outpatient (REF) | payer MEDICARE, SELFPAY ==
[2025-09-21 18:44] LABS: Abs Immature Grans 0.06 10^3/uL (0.0-0.06); HCT 40.9 % (36.0-46.0); HGB 13.4 g/dL (11.2-15.7); Immature Grans % 1.3 %; MCH 33.4 pg (27.0-33.0); MCHC 32.8 % (32.0-36.0); MCV 102 fL (80-95); MPV 10.5 fL (8.0-11.0); Platelet Count 143 10^3/uL (130-400); RBC 4.01 10^6/uL (3.93-5.22); RDW 14.6 % (11.7-14.6); RDW-SD 54.4 fL; WBC 4.64 10^3/uL (4.4-10.8)
[2025-09-21 19:21] LABS: ALT 50 U/L (14-59); AST 33 U/L (15-37); Albumin 3.5 g/dL (3.4-5.0); Alkaline Phosphatase 118 U/L (46-116); Anion Gap 9.3 mmol/L (3-11); BUN 24 mg/dL (7-18); Bilirubin, Total 0.6 mg/dL (0.2-1.0); CO2 29.7 mmol/L (21.0-32.0); Calcium 9.7 mg/dL (8.5-10.1); Chloride 103 mmol/L (98-107); Folate 7.1 ng/mL (8.6-20.0); Glucose 99 mg/dL (74-106); Potassium 4.1 mmol/L (3.5-5.1); Sodium 142 mmol/L (136-145); Total Protein 6.8 g/dL (6.4-8.2); Vitamin B12 909 pg/mL (193-986)
== END 2025-09-21 19:26 | disposition home or self-care (01) ==
LOC: LBN 19:25
PROVIDERS: PCP Family Medicine; Visit Provider Nurse Practitioner Gerontology
DX: E87.8 Other disorders of electrolyte and fluid balance, not elsewhere classified (principal); D63.1 Anemia in chronic kidney disease; D52.0 Dietary folate deficiency anemia; D51.0 Vitamin B12 deficiency anemia due to intrinsic factor deficiency
CPT/HCPCS: 80053; 82607; 82746; 85025

== ENCOUNTER 2025-10-23 04:55 | Inpatient (IN) | payer MEDICARE, SELFPAY ==
[2025-10-23] VITALS (45 sets, daily range): BP systolic 92–156; BP diastolic 43–79; PULSE 71–104; RESP 13–22; TEMP 36.2–36.8; O2SAT 92–100
--- NOTE | 2025-10-23 06:00 | RT.EKG_ITS ---
APPROVED REPORT Exam: Resting ECG Reason for Exam: lightheaded Patient Location: E HR:88 bpm ECG Measurements Heart Rate 88 AXIS WI 185 P 27 QRSd 87 QRS -32 QT 382 T 72 QTc 463 Conclusion Pacemaker spikes or artifacts...timing non-diagnostic Sinus rhythm...normal P axis, V-rate 60- 99 Ventricular premature complex...V complex w/ short R-R interval Inferior infarct, old...Q >35mS, II III aVF No Occlusion CA
[2025-10-23] MEDS: ACETAMINOPHEN 1,000 MG/100 ML BAG 400 MG IVPB (06:33)
[2025-10-23 06:38] LABS: Abs Immature Grans 0.06 10^3/uL (0.0-0.06); BE (Venous) -1 mmol/L (-2-3); HCO3 (Venous) 24 mmol/L (23-28); HCT 38.6 % (36.0-46.0); HGB 13.2 g/dL (11.2-15.7); Immature Grans % 0.7 %; MCH 34.2 pg (27.0-33.0); MCHC 34.2 % (32.0-36.0); MCV 100 fL (80-95); MPV 9.7 fL (8.0-11.0); O2 Sat (Venous) 34 %; Platelet Count 104 10^3/uL (130-400); RBC 3.86 10^6/uL (3.93-5.22); RDW 16.3 % (11.7-14.6); RDW-SD 59.5 fL; TCO2 (Venous) 22 mmol/L (24-29); WBC 8.56 10^3/uL (4.4-10.8); pCO2 (Venous) 39 mmHg (41-51); pO2 (Venous) 21 mmHg
--- NOTE | 2025-10-23 06:45 | DI.CT_ITS ---
Exam(s) CT HEAD CERVICAL SPINE WO EXAM: CT HEAD CERVICAL SPINE WO CLINICAL HISTORY: fall, midline tenderness. TECHNIQUE: Imaging Protocol: Axial computed tomography images with coronal and sagittal reformatted images were created and reviewed COMPARISON: CT CT HEAD FACIAL WO from 09/11/2025 FINDINGS: BRAIN: There are no skull fractures nor fluid in the visualized paranasal sinuses. There is no evidence of intracranial hemorrhage. The previously present small area of hemorrhage in the region of right sylvian fissure is no longer seen. There is presently no evidence of intra nor extra-axial hemorrhage in the brain. The amount of periventricular hypodensity consistent with chronic small vessel disease is similar to previous and there is again noted a small nonhemorrhagic nonacute lacunar infarct in the right periventricular white matter ventricles exhibit normal size., Mass effect, or shift of midline structures. There are no extra-axial fluid collections. The ventricles are not enlarged or shifted and there is no blood within the ventricular system nor within the basal cisterns. CERVICAL SPINE: There is no evidence of fracture nor listhesis. No significant prevertebral soft tissue swelling. There is mild reversal normal curvature. There is chronic disc space narrowing at C4-5, C5-6, and C6-7 levels. Mild indentation of the superior endplate of T1 is noted which does not exhibit no obvious acute appearance. There is no osseous canal compromise at this level. There is mild multilevel facet arthropathy. This is most prominent on the right side at the C 4-5 level There is no significant facet joint malalignment. No significant osseous lesions evident. IMPRESSION: No acute intracranial findings on this noninfused CT scan of the brain.The previously present small area of hemorrhage in the right side of the brain seen on prior CT scan of 09/11/2025 has resolved. There is no evidence of intracranial hemorrhage at this time. No evidence of cervical spine fracture, malalignment, nor acute compromise of the cervical spinal canal. Report called by myself to ER physician 10/23/2025 at 8:35 a.m. RADIATION DOSE DELIVERED: 1,258.79mGy.cm Total DLP DATA REPOSITORY: All CT scans at this facility are submitted to the National Radiology Data Registry (NRDR) Dose Index Registry (DIR) with the [employer] ([employer]). RADIATION OPTIMIZATION: All CT scans at this facility use at least one of these dose optimization techniques: automated exposure control; mA and/or kV adjustment per patient size (includes targeted exams where dose is matched to clinical indication); or iterative reconstruction.
--- NOTE | 2025-10-23 06:45 | DI.CT_ITS ---
Exam(s) CT THORACIC LUMBAR SPINE REC EXAM: CT THORACIC LUMBAR SPINE REC CLINICAL HISTORY: fall ,mid thoraic tenderness TECHNIQUE: COMPARISON: CT CT CHEST/ABD/PEL W from 09/09/[address] CHEST/ABD/PEL W from 10/23/2025 FINDINGS: THORACIC SPINAL COLUMN: Indentation of the superior endplate of T1 is unchanged from 09/09/2025 no acute fractures of thoracic vertebrae evident. No canal compromise. LUMBOSACRAL SPINAL COLUMN: Indentation of superior endplate of L1 is unchanged from 09/09/2025. Disc space narrowing L5-S1 chronic type is also unchanged. There are no acute fractures evident in the lumbosacral spinal column. No listhesis. No pars defects. Chronic disc space narrowing L5-S1 level noted. No obvious sacral fracture. IMPRESSION: No acute fractures in the thoracic and lumbosacral spinal columns. Please note that this patient has acute fractures of the left pelvic pubic rami, as seen on today's pelvic CT scan. See that separate report.
[2025-10-23 07:04] LABS: Troponin I 10 ng/L (<35)
[2025-10-23 07:05] LABS: Magnesium 1.6 mg/dL (1.6-2.6)
[2025-10-23 07:06] LABS: ALT 22 U/L (10-49); AST 38 U/L (<34); Albumin 4.2 g/dL (3.2-5.0); Alkaline Phosphatase 74 U/L (46-116); Anion Gap 10.4 mmol/L (3-11); BUN 26 mg/dL (9-23); Bilirubin, Total 0.90 mg/dL (0.2-1.2); CO2 22.6 mmol/L (20.0-31.0); Calcium 9.2 mg/dL (8.3-10.6); Chloride 110 mmol/L (98-107); Glucose 129 mg/dL (74-106); Potassium 4.2 mmol/L (3.5-5.1); Sodium 143 mmol/L (136-145); Total Protein 6.8 g/dL (5.7-8.2)
--- NOTE | 2025-10-23 07:38 | W.ED.GENAD ---
Discharge Plan Discharge Details Chief Complaint: Fall/Non TraumaCriteria Clinical Impression: Fall, Hip pain Primary Care Provider: Madalyn Craven ED Provider: Josie Bernard Home Meds and New Rx's Prescriptions: No Action multivitamin [Daily Multiple] 1 EACH tablet 1 ea PO DAILY cholecalciferol (vitamin D3) [Vitamin D3] 400 unit Capsule 800 unit PO DAILY mirtazapine 15 mg Tablet 15 mg PO HS Qty: 30 0RF sertraline 100 MG tablet 100 mg PO DAILY Qty: 30 0RF levothyroxine 50 mcg tablet 50 mcg PO DAILY Qty: 30 0RF metoprolol tartrate 25 mg tablet 25 mg PO DAILY Qty: 30 0RF Venclexta 100 mg tablet 200 mg PO DAILY HPI General Mode of arrival: EMS. Date/Time Provider Initiated Documentation: 10/23/25 05:07. Limitations to Documentation: no limitations. Information obtained by: patient. HPI Narrative: 75yo F with hx frequent falls presenting via EMS for fall. Reports she got up to the bathroom and felt lightheaded, then lost her balance and felt onto her left side. Struck the left side of her head and her left hip. Did not lose conciosuness. Not on any blood thinners. Has a mild headache as well as left hip pain. No numbness, tingling, weakness to any part of her body including her left leg. No chest pain or shortness of breath at any point. Mild headache, no N/V. No vertigo. No vision changes. Otherwise in her usual state of health with no fevers, chills, rash, abdominal pain, dysuria, hematuria, cough, or other concerns. Related Data Home Medications ?Medication ?Instructions ?Recorded ?Confirmed multivitamin (Daily Multiple 1 ea PO DAILY 08/31/16 10/23/25 tablet) cholecalciferol (vitamin D3) 10 800 unit PO DAILY 07/04/19 10/23/25 mcg (400 unit) capsule (Vitamin D3) venetoclax 100 mg tablet 200 mg PO DAILY 09/08/25 10/23/25 (Venclexta) levothyroxine 50 mcg tablet 50 mcg PO DAILY #30 tabs 09/16/25 10/23/25 metoprolol tartrate 25 mg tablet 25 mg PO DAILY #30 tabs 09/16/25 10/23/25 mirtazapine 15 mg tablet 15 mg PO HS #30 tabs 09/16/25 10/23/25 sertraline 100 mg tablet 100 mg PO DAILY #30 tab-caps 09/16/25 10/23/25 Previous Rx's ?Medication ?Instructions ?Recorded levothyroxine 50 mcg tablet 50 mcg PO DAILY #30 tabs 09/16/25 metoprolol tartrate 25 mg tablet 25 mg PO DAILY #30 tabs 09/16/25 mirtazapine 15 mg tablet 15 mg PO HS #30 tabs 09/16/25 sertraline 100 mg tablet 100 mg PO DAILY #30 tab-caps 09/16/25 Allergies Allergy/AdvReac Type Severity Reaction Status Date / Time No Known Allergies Allergy Verified 10/23/25 05:14 General Stated Complaint: Fall/Non TraumaCriteria ULI: 3 Review of Systems Narrative: see HPI Exam Narrative Exam Narrative: GENERAL: Alert, no acute distress. SKIN: Warm and well perfused. HEAD: Atraumatic, normocephalic without edema, discoloration or evidence of trauma. Facial bones without deformities or tenderness. EYES: PERRL. No scleral icterus or conjunctival injection. Extraocular muscles intact without nystagmus or diplopia. No proptosis or enophthalmos. EARS: Normal appearing pinnae. No hemotympanum. NOSE: No discharge, tenderness, laxity. No nasal septal hematoma. MOUTH: No malocclusion or trismus. Moist mucus membranes without blood. NECK: Trachea midline. No discolorations or edema. Placed in cervical collar. CV: Regular rate and rhythm, Normal s1 and s2. No murmurs, rubs, or gallops. PV: Radial pulses 2+ bilaterally and symmetric. Dorsalis pedis pulses 2+ bilaterally and symmetric. 2+ capillary refill. No extremity edema. CHEST: No abrasions or ecchymosis. Chest symmetric with respirations. No chest wall tenderness. Lungs are clear to auscultation bilaterally. ABDOMEN: No ecchymosis or abrasions. Soft, nondistended, nontender. BACK: No abrasions, skin openings, or ecchymosis. Low c-spine and high thoracic midline tenderness, no step offs. PELVIC: Pelvis stable, tender to lateral compression : Normal external genitalia w MSK: No gross deformities or discolorations or lesions. Aside from left hip, tolerates full range of motion of extremities without tenderness. NEURO: GCS 15.? PERRL.? EOMI.? Fluent speech, no dysarthria. Motor- 5/5 strength symmetric bilateral upper extremities including shoulder abductors/adductors, elbow flexors/extensors, wrist flexors/extensors, finger abductors/adductors. 5/5 strength RLE hipflexors/extensors, knee flexors/extensors, ankle dorsiflexors and planter flexors. 5/5 strength LLE ankle dorsi/plantaflexors. Knee and hip not tested on left Sensation- ?Intact to light touch and symmetric multiple dermatomes including upper and lower extremities Coordination- No dysmetria on finger to nose Reflexes- 2/4 achilles & patellar, no clonus Gait/station: ?Not tested. CRANIAL NERVES: II: Pupils equal and reactive, III, IV, : EOM intact, no gaze preference or deviation, no nystagmus. V: normal sensation in V1, V2, and V3 segments bilaterally VII: no asymmetry, no nasolabial fold flattening VIII: normal hearing to speech IX, X: normal palatal elevation, no uvular deviation XI: Not tested XII: midline tongue protrusion Course Vital Signs Vital signs: Vital Signs Temperature 36.8 C 10/23/25 04:56 Pulse 81 10/23/25 04:56 Respiratory Rate 18 10/23/25 04:56 Blood Pressure 156/69 H 10/23/25 04:56 Pulse Oximetry 96 10/23/25 04:56 Temperature 36.8 C 10/23/25 04:56 Temperature Source Oral 10/23/25 04:56 Pulse 73 10/23/25 05:55 Pulse Rhythm Regular 10/23/25 05:55 Pulse Strength Normal 10/23/25 05:55 Respiratory Rate 18 10/23/25 05:55 Respiratory Effort Normal 10/23/25 05:55 Respiratory Depth Normal 10/23/25 05:55 Respiratory Pattern Normal 10/23/25 05:55 Blood Pressure 124/55 L 10/23/25 05:55 Blood Pressure Mean 78 10/23/25 05:55 Blood Pressure Position Supine 10/23/25 05:55 Pulse Oximetry 99 10/23/25 05:55 Oxygen Delivery Method Room Air 10/23/25 05:55 Oxygen Flow Rate 0 10/23/25 05:55 Pain Level 7 10/23/25 05:07 Lab/Test Results Lab/Test Results: Laboratory Tests Range/Units 10/23/25 06:30 WBC (4.4-10.8) 10^3/uL 8.56 RBC (3.93-5.22) 10^6/uL 3.86 L Hgb (11.2-15.7) g/dL 13.2 Hct (36.0-46.0) % 38.6 MCV (80-95) fL 100 H MCH (27.0-33.0) pg 34.2 H MCHC (32.0-36.0) % 34.2 RDW (11.7-14.6) % 16.3 H Plt Count (130-400) 10^3/uL 104 L MPV (8.0-11.0) fL 9.7 Immature Gran % % 0.7 Neutrophils % % 76.6 Lymphocytes % % 10.0 Monocytes % % 11.3 Eosinophils % % 1.2 Basophils % % 0.2 Nucleated RBC % (0.0-0.3) % 0.0 Absolute Neutrophils (1.2-6.7) 10^3/uL 6.55 Absolute Lymphocytes (1.2-3.4) 10^3/uL 0.86 L Absolute Monocytes (0.1-0.8) 10^3/uL 0.97 H Absolute Eosinophils (0.0-0.7) 10^3/uL 0.10 Absolute Basophils (0.0-0.2) 10^3/uL 0.02 VBG pH (7.31-7.41) 7.39 VBG pCO2 (41-51) mmHg 39 L VBG pO2 mmHg 21 VBG HCO3 (23-28) mmol/L 24 VBG Total CO2 (24-29) mmol/L 22 L VBG O2 Saturation % 34 VBG Base Excess (-2-3) mmol/L -1 VBG Lactate (<or=2.0) mmol/L 1.9 Sodium (136-145) mmol/L 143 Potassium (3.5-5.1) mmol/L 4.2 Chloride (98-107) mmol/L 110 H Carbon Dioxide (20.0-31.0) mmol/L 22.6 Anion Gap (3-11) mmol/L 10.4 BUN (9-23) mg/dL 26 H Creatinine (0.55-1.02) mg/dL 0.87 Est GFR (CKD-EPI 2020) (mL/min/1.73m2) 63.72 Glucose (74-106) mg/dL 129 H Calcium (8.3-10.6) mg/dL 9.2 Magnesium (1.6-2.6) mg/dL 1.6 Total Bilirubin (0.2-1.2) mg/dL 0.90 AST (<34) U/L 38 H ALT (10-49) U/L 22 Alkaline Phosphatase (46-116) U/L 74 Troponin I (<35) ng/L 10 NT-Pro-B Natriuret Pep (<300) pg/mL 1424 H Total Protein (5.7-8.2) g/dL 6.8 Albumin (3.2-5.0) g/dL 4.2 Medical Decision Making 75yo F with hx frequent falls presenting via EMS for fall. Reports she got up to the bathroom and felt lightheaded, then lost her balance and felt onto her left side. Struck the left side of her head and her left hip; no LOC, not AC. Vital signs reassuring on arrival. Reports headache and left hip pain. Normal neurologic exam (gait and LLE strength not tested), neurovascular intact LLE with no deformity though hip is TTP and lateral compression of pelvis. Does have midline low cervical and high thoracic spinal tenderness. EKG SR, 80's no ST segment or T wave abnormalities to suggest occlusive VT. Will workup for trauma with CT parks scan (given headstrike, cervical/thoracic tenderness, and pain with lateral compression of pelvis) as well as presyncope. Will be signed out to oncoming physician, plan to followup labs and imaging. Dispostion pending clinical course. Quality:SDOH Health Related Social Needs: Health related social needs education Health related social needs details n/a PFSH All Active Problems (Updated 10/23/25 @ 08:01 by Josie Bernard MD) Hip pain (Acute) Fall (Acute) Facial fracture due to fall (Acute) Cerebral hemorrhage following injury (Acute) Pneumonia (Acute) Hypothyroidism (Chronic) Depression (Chronic) Rotator cuff tear arthropathy of right shoulder (Acute) Right rotator cuff tear (Acute) Hepatitis (Acute) Chronic lymphoid leukemia (Acute) Anemia (Acute) Fever and chills (Acute) Systolic murmur (Acute) Troponin level elevated (Acute) Moderate aortic stenosis (Chronic) Valve area 1.2 in 2017 Trimalleolar fracture of right ankle (Chronic 07/07/19) S/P ORIF: 07/07/2019 S/P Hardware removal: 01/10/2022 Hammer toe of second toe of right foot (Acute) S/P Fusion: 01/10/2022 Acquired hammer toe deformity of lesser toe of right foot (Acute) THIRD S/P Fusion: 01/10/2022 Painful orthopaedic hardware (Acute) Medical History Moderate aortic regurgitation Hypertension CLL (chronic lymphocytic leukemia) allogeniec bone marrow transplant biopsy 2015 in remission Surgical History History of repair of hip fracture Colonoscopy - IV Sedation (10/16/16) Cholecystectomy Family History Father No problems noted. Other Colon cancer Social History Smoking/Tobacco Use Status: Never Smoking risk assessment performed?: Yes Alcohol Intake: never Drug use: Never Substance use type: does not use Housing: house Current gender identity: female Do you feel safe at home: Yes Do you feel safe in your relationship?: Yes
[2025-10-23] MEDS: Omnipaque 350 MG/ML 500 ML BTL-Imaging package IJ (07:54)
[2025-10-23] MEDS: Normal Saline - Diluent 50 ML VIAL IJ (07:57)
[2025-10-23] MEDS: Normal Saline Flush 10 ML SYR IVP (07:57)
[2025-10-23 08:11] LABS: Troponin I 8 ng/L (<35)
--- NOTE | 2025-10-23 08:27 | DI.CT_ITS ---
Exam(s) CT CHEST/ABD/PEL W EXAM: CT CHEST/ABD/PEL W CLINICAL HISTORY: fall, mid thoraic tenderness. left hip tenderness. TECHNIQUE: Imaging Protocol: Axial computed tomography images with coronal and sagittal reformatted images were created and reviewed CONTRAST MATERIAL: Intravenous: Omnipaque 350 Contrast volume:100 ml Oral: None COMPARISON: CT CT CHEST/ABD/PEL W from 09/09/2025 FINDINGS: CHEST: LUNGS: There are few benign calcified granulomas both lung mendez. There is no evidence of infiltrate or lung contusion or pleural effusion or pneumothorax. The significant infiltrate which was previously present in the left upper and left lower lobes on the recent 09/09/2025 CT scan have resolved. There are no ominous pulmonary nodules evident.. MEDIASTINUM: No evidence of sternal fracture nor mediastinal hematoma. Visualized thyroid unremarkable.No hilar nor mediastinal adenopathy. No axillary adenopathy. CARDIAC: Heart size is normal. There is no pericardial effusion.Thoracic aorta is intact although there is some atherosclerotic plaque evident on the posterior wall of the proximal descending thoracic aorta again noted. Also lower down in the thoracic aorta, also unchanged. No evidence of dissection OSSEOUS: Indentation of the superior endplate of T1 is unchanged 09/09/2025.No acute fractures evident. ABDOMEN: There is no ascites. No evidence of bowel wall nor mesenteric hematoma. LIVER: Intact. No lacerations. No lesions. GALLBLADDER/BILIARY: Gallbladder is again noted to be surgically absent. CBD is not dilated. PANCREAS: No evidence of pancreatic mass nor dilatation of the pancreatic duct. SPLEEN: The size of the previously described subcapsular fluid collection is unchanged. There is no evidence of acute splenic laceration nor new perisplenic fluid. Spleen size is upper normal. Splenic and portal veins are patent. ADRENALS: There are no significant adrenal masses. KIDNEYS: Intact. No renal lacerations nor evidence of subcapsular hematomas in the kidneys. There is a small benign cyst in the posterior cortex of the left kidney noted which is not require further workup. There are no solid lesions in the kidneys. No calculi. No hydronephrosis.. ABDOMINAL AORTA: The descending thoracic aorta as well as the abdominal aorta are again noted to be atherosclerotic but not enlarged. There is also atherosclerotic involvement of the minimally prominent left common iliac artery. No tight stenosis in this vessel. LYMPH NODES: There is some para-aortic adenopathy on the left side and extending be on the aortic bifurcation, similar to previous. ABDOMINAL WALL: No evidence of significant anterior abdominal wall nor inguinal hernia. GI: There is no evidence of bowel obstruction.No ileus pattern. PELVIS: LYMPH NODES: There is lymphadenopathy around the aortic bifurcation again noted as well as around the left common iliac artery. GI: No evidence of appendicitis.There is sigmoid diverticulosis but no evidence of acute diverticulitis. URINARY BLADDER: Partially obscured by beam hardening artifact from bilateral hip hardware but no evidence of bladder distension. REPRODUCTIVE: Uterus normal size. No obvious adnexal masses nor free fluid in the pelvis. OSSEOUS: Right hip prosthesis noted. Left hip ORIF hardware. There are acute nondisplaced fractures of left-sided pubic rami. No other pelvic fractures evident. No new vertebral fractures. No incidental osseous lesions. IMPRESSION: 1. There are acute nondisplaced fractures of left pubic rami in the pelvis, nondisplaced. No other acute fractures evident. Indentation of superior endplate of T1 is unchanged. 2. Right hip prosthesis. Left hip ORIF hardware again noted. 3. There has been significant improvement in the previously present left lung infiltrate which was evident on the 09/09/2025 CT scan. There presently no infiltrates and no pleural effusions. 4. Stable appearance of small subcapsular hematoma in the spleen, unchanged from 09/09/2025. spleen size is upper normal. 5. There is para-aortic adenopathy again noted and extending into the pelvis. This appears unchanged from 09/09/2025. Correlation with any history of lymphoma recommended. Report called by myself to ER physician 08/23/2025 at 9:04 a.m. RADIATION DOSE DELIVERED: Total DLP DATA REPOSITORY: All CT scans at this facility are submitted to the National Radiology Data Registry (NRDR) Dose Index Registry (DIR) with the [employer] (A[employer]). RADIATION OPTIMIZATION: All CT scans at this facility use at least one of these dose optimization techniques: automated exposure control; mA and/or kV adjustment per patient size (includes targeted exams where dose is matched to clinical indication); or iterative reconstruction.
--- NOTE | 2025-10-23 08:54 | ED.PROG_ITS ---
Date of service: 10/23/25 Time of Service: 08:55 Medical Decision Making I received signout on this 75-year-old female who had had a syncopal episode while getting up to use the bathroom in the middle of the night. She fell. She has thrombocytopenia slightly worse compared to prior. No anemia. No leukocytosis. Normal reassuring lactate. Venous gas lacks acidemia and hypercarbia. Comprehensive metabolic panel with normal renal function. No HEIDI. No acute electrolyte abnormalities no LFT abnormalities. Patient had 2 troponins drawn with a reassuring delta. She did have mildly elevated proBNP. She underwent chest abdomen pelvis CT along with CT head and cervical spine which were read as no acute intracranial findings. She had previously fallen and had small intracranial hemorrhage for which she was hospitalized earlier this year. 9:40 AM Patient had an acute nondisplaced pubic rami fracture for which I contacted orthopedics. Dr. Bagley advised weightbearing as tolerated with a walker and PT. Will reach out to the hospitalist. I also updated patient on adenopathy from the chest into the pelvis. 10:40 AM I was in touch with Dr. Rodriguez who graciously agreed to accept patient for hospitalization. Quality:SDOH Health Related Social Needs: Health related social needs education Health related social needs details n/a Discharge Plan Disposition Patient Disposition: Admit to [facility] Discharge Details Clinical Impression: Fall, Hip pain, Fracture of left inferior pubic ramus, Mediastinal adenopathy Primary Care Provider: Madalyn Craven ED Provider: Alvaro Fine Home Meds and New Rx's Prescriptions: No Action multivitamin [Daily Multiple] 1 EACH tablet 1 ea PO DAILY cholecalciferol (vitamin D3) [Vitamin D3] 400 unit Capsule 800 unit PO DAILY mirtazapine 15 mg Tablet 15 mg PO HS Qty: 30 0RF sertraline 100 MG tablet 100 mg PO DAILY Qty: 30 0RF levothyroxine 50 mcg tablet 50 mcg PO DAILY Qty: 30 0RF metoprolol tartrate 25 mg tablet 25 mg PO DAILY Qty: 30 0RF Venclexta 100 mg tablet 200 mg PO DAILY
--- NOTE | 2025-10-23 09:55 | W.PM.HP.N ---
Date of service: 10/23/25 Time of Service: 09:56 Assessment and Plan Assessment and plan (1) Fracture of left inferior pubic ramus: Status: Acute Assessment and plan: -acute nondisplaced fractures of the L pubic rami -plan for pt to work with PT on early mobilization with walker -pain control with tylenol, will add low dose opioids as needed for severe pain -bowel regimen for regular soft bowel movements (2) Mediastinal adenopathy: Status: Acute Assessment and plan: -para-aortic adenopathy noted incidentally on CT scan; stable since previous CT on 09/09/25, likely a/w CLL (3) Fall: Status: Acute Assessment and plan: -history of frequent falls, last night's fall attributed to lightheadedness with standing -CT head and c-spine negative. No other acute findings on CT chest/abd/pelvis or T-spine/L-spine -She is having more frequent pre-syncopal events by history. Her EKG is abnormal with sign of old infarct, not c/w acute ischemia. She should have an echo. (4) Chronic lymphoid leukemia: Status: Acute Assessment and plan: -diagnosed 10 years ago, bone marrow transplant 7 years ago. Reactivated one year ago after remission, currently treated with Venetoclax (b-cell lymphoma-2 inhibitor, restores apooptosis). (5) Depression: Status: Chronic Assessment and plan: -continue home medications (sertraline) (6) Hypothyroidism: Status: Chronic Assessment and plan: -continue home medications (levothyroxine 50 mcg daily), recent TSH in August technically high but good for age. (7) Hypertension: Assessment and plan: -with recent falls, cut home medication metoprolol in half to 12.5mg. Also if used daily it should be succinate form, otherwise BPs will fluctuate and this may be contributing to presyncope Patient seen and examined by me, discussed and assessment plan formulated with Alicia Ross as above. -Alvaro Rodriguez MD Discharge Planning Discharge Planning: Plan for DC home in 2-3 days once pain control with PO medications and PT clearance for return home/SNF as needed History of Present Illness Narrative: Margarita is a 75 year old female with history of frequent falls, CLL (17p deletion, diagnosed 10 years ago, bone marrow transplant 7 years ago), thyroid dysfunction, HTN, and depression who presented to ED last night after falling from ground level at approx 7 pm. She reports she felt lightheaded when getting up last night to go to the bathroom, lost her balance and fell onto her L side, striking the L side of her head on the metal bedframe and L hip on the floor. No LOC, seizure activity, or loss of bowel control (did lose control of bladder during fall). She does report she has had increasing episodes of dizziness with ambulation lately, thinks she may be having trouble staying hydrated enough. These episodes are not accompanied by CP, SOB, or any other symptoms. Brought in by EMS to ED, c/o L hip pain, diagnosed with L nondisplaced pubic rami fx. Workup otherwise unremarkable CT head/c-spine, t-spine/l-spine, and CT chest/abd/pel with no new acute findings; CBC (thrombocytopenia per baseline), CMP, VBG, serial troponins all unremarkable. BNP slightly elevated (1424), no pulmonary vascular congestion on CT chest. EKG NSR with rate 88, no changes c/w acute ischemia. Pain was controlled with APAP in ED; she is currently comfortable at rest. Denies recent illness, fever/chills, neck pain, back pain, chest pain, shortness of breath, upper extremity injury, saddle anesthesia/parasthesias, LE numbness. Has been incontinent of urine because she has trouble holding bladder while waiting for nurse. Review of Systems All systems reviewed & are unremarkable except as noted in HPI and below PFSH All Active Problems Fracture of left superior pubic ramus (Acute) Mediastinal adenopathy (Acute) Fracture of left inferior pubic ramus (Acute) Hip pain (Acute) Fall (Acute) Facial fracture due to fall (Acute) Cerebral hemorrhage following injury (Acute) Pneumonia (Acute) Hypothyroidism (Chronic) Depression (Chronic) Rotator cuff tear arthropathy of right shoulder (Acute) Right rotator cuff tear (Acute) Painful orthopaedic hardware (Acute) Acquired hammer toe deformity of lesser toe of right foot (Acute) THIRD S/P Fusion: 01/10/2022 Hammer toe of second toe of right foot (Acute) S/P Fusion: 01/10/2022 Trimalleolar fracture of right ankle (Chronic 07/07/19) S/P ORIF: 07/07/2019 S/P Hardware removal: 01/10/2022 Moderate aortic stenosis (Chronic) Valve area 1.2 in 2017 Troponin level elevated (Acute) Systolic murmur (Acute) Fever and chills (Acute) Anemia (Acute) Chronic lymphoid leukemia (Acute) Hepatitis (Acute) Medical History Spleen anomaly On deep vein thrombosis (DVT) prophylaxis Moderate aortic regurgitation Hypertension CLL (chronic lymphocytic leukemia) allogeniec bone marrow transplant biopsy 2015 in remission Surgical History History of repair of hip fracture Colonoscopy - IV Sedation (10/16/16) Cholecystectomy Family History Father No problems noted. Other Colon cancer Social History (Updated 10/23/25 @ 13:47 by Alvaro Rodriguez) Smoking/Tobacco Use Status: Never Smoking risk assessment performed?: Yes Alcohol Intake: never Drug use: Never Substance use type: does not use Housing: house Current gender identity: female Do you feel safe at home: Yes Do you feel safe in your relationship?: Yes Additional Social history: Lives with in town in [facility] Allergies and Home Medications Allergies Allergy/AdvReac Type Severity Reaction Status Date / Time No Known Allergies Allergy Verified 10/23/25 05:14 Home Medications ?Medication ?Instructions ?Recorded ?Confirmed ?Type multivitamin (Daily Multiple 1 ea PO DAILY 08/31/16 10/23/25 History tablet) cholecalciferol (vitamin D3) 10 800 unit PO DAILY 07/04/19 10/23/25 History mcg (400 unit) capsule (Vitamin D3) venetoclax 100 mg tablet 200 mg PO DAILY 09/08/25 10/23/25 History (Venclexta) levothyroxine 50 mcg tablet 50 mcg PO DAILY #30 tabs 09/16/25 10/23/25 Rx metoprolol tartrate 25 mg tablet 25 mg PO DAILY #30 tabs 09/16/25 10/23/25 Rx mirtazapine 15 mg tablet 15 mg PO HS #30 tabs 09/16/25 10/23/25 Rx sertraline 100 mg tablet 100 mg PO DAILY #30 tab-caps 09/16/25 10/23/25 Rx Exam Const General: cooperative, healthy appearing, comfortable, no acute distress, well developed and well groomed Nutritional Appearance: average body habitus and well nourished Orientation: alert and oriented x3 [facility] Head: normal to inspection, no palpable skull fracture, normocephalic, atraumatic, no Carranza's sign and no raccoon eyes Ears: hearing grossly normal bilaterally and external ears normal General nose exam: external nose normal Face and sinus: normal facial exam Mouth: oral mucosae normal Neck Neck: normal visual inspection and full ROM Chest Chest: normal inspection of the chest, normal palpation of entire chest wall and no crepitus Resp Effort & Inspection: normal respiratory effort and able to speak in complete sentences Auscultation: clear to auscultation bilaterally Cardio Rate: regular rate Rhythm: regular rhythm GI Inspection: normal to inspection and non-distended Palpation: soft, no guarding and no masses Skin General skin exam: no rashes or lesions noted Trauma: no lacerations or abrasions Neuro General: patient alert, patient oriented x3, tone normal and CN's II-XI intact bilaterally Cranial Nerves: CN's II-XI intact bilaterally, PERRL, EOM intact bilaterally, no nystagmus and facial strength normal Cognition: normal cognition Speech: speech normal Motor: muscle tone normal throughout Sensory Exam: no sensory deficits noted Extrem Right upper extremity: normal to inspection Left upper extremity: normal to inspection Right lower extremity: normal to inspection Left lower extremity: hip/thigh Details: tenderness Location: of the hip and abnormal ROM (limited due to pain); no swelling, no lacerations and no deformity Results Imaging Additional studies: Exam(s) a CT:CT thoracic & lumbar spine rec IMPRESSION: No acute fractures in the thoracic and lumbosacral spinal columns. Please note that this patient has acute fractures of the left pelvic pubic rami, as seen on today's pelvic CT scan. See that separate report. Exam(s) a CT:CT head & cervical spine wo IMPRESSION: No acute intracranial findings on this noninfused CT scan of the brain.The previously present small area of hemorrhage in the right side of the brain seen on prior CT scan of 09/11/2025 has resolved. There is no evidence of intracranial hemorrhage at this time. No evidence of cervical spine fracture, malalignment, nor acute compromise of the cervical spinal canal. Imaging Studies: Exam(s) a CT:CT chest/abd/pel w IMPRESSION: 1. There are acute nondisplaced fractures of left pubic rami in the pelvis, nondisplaced. No other acute fractures evident. Indentation of superior endplate of T1 is unchanged. 2. Right hip prosthesis. Left hip ORIF hardware again noted. 3. There has been significant improvement in the previously present left lung infiltrate which was evident on the 09/09/2025 CT scan. There presently no infiltrates and no pleural effusions. 4. Stable appearance of small subcapsular hematoma in the spleen, unchanged from 09/09/2025. spleen size is upper normal. 5. There is para-aortic adenopathy again noted and extending into the pelvis. This appears unchanged from 09/09/2025. Correlation with any history of lymphoma recommended. Labs 10/23/25 06:30 10/23/25 06:30 Labs: Laboratory Results - last 24 hr 10/23/25 10/23/25 06:30 07:40 WBC 8.56 RBC 3.86 L Hgb 13.2 Hct 38.6 MCV 100 H MCH 34.2 H MCHC 34.2 RDW 16.3 H Plt Count 104 L MPV 9.7 Immature Gran % 0.7 Neutrophils % 76.6 Lymphocytes % 10.0 Monocytes % 11.3 Eosinophils % 1.2 Basophils % 0.2 Nucleated RBC % 0.0 Absolute Neutrophils 6.55 Absolute Lymphocytes 0.86 L Absolute Monocytes 0.97 H Absolute Eosinophils 0.10 Absolute Basophils 0.02 VBG pH 7.39 VBG pCO2 39 L VBG pO2 21 VBG HCO3 24 VBG Total CO2 22 L VBG O2 Saturation 34 VBG Base Excess -1 VBG Lactate 1.9 Sodium 143 Potassium 4.2 Chloride 110 H Carbon Dioxide 22.6 Anion Gap 10.4 BUN 26 H Creatinine 0.87 Est GFR (CKD-EPI 2020) 63.72 Glucose 129 H Calcium 9.2 Magnesium 1.6 Total Bilirubin 0.90 AST 38 H ALT 22 Alkaline Phosphatase 74 Troponin I 10 8 NT-Pro-B Natriuret Pep 1424 H Total Protein 6.8 Albumin 4.2 Last Vital Signs Temp 98.3 F 10/23/25 04:56 Pulse 73 10/23/25 05:55 Resp 18 10/23/25 05:55 BP 124/55 L 10/23/25 05:55 Pulse Ox 99 10/23/25 05:55 VTE Prohylaxis Risk Level: Moderate/High Risk Contraindications: None Prophylaxis: Pharmacologic Time Spent Time spent with Patient: 55-74 minutes Time was spent: preparing to see the patient(eg.review tests), obtaining and/or reviewing separately otained hiistory, ordering medications,tests, procedures, referring, communicating with other health career professional, indepentently interpreting results, counseling the patient and care coordination
--- NOTE | 2025-10-23 11:26 | OCONE_ITS ---
Date of service: 10/23/25 Time of Service: 13:55 History of Present Illness Narrative: Margarita is a 75-year-old female who unfortunately fell while getting up out of the chair earlier today. She landed onto the left side primarily. CT scan of the chest abdomen pelvis revealed nondisplaced fractures involving the left pubic ramus. She has a history of left femur fracture fixed with an intramedullary device as well as a right hip replacement. She denies any issues in either hip or leg prior to this fall. Consults Consult date: 10/23/25 Requesting physician: Alvaro Rodriguez Consult Reason Left pubic ramus fracture Assessment and Plan Assessment and plan (1) Fracture of left superior pubic ramus: Status: Acute Assessment and plan: Margarita is a 75-year-old female who is status post a fall resulting in a nondisplaced fracture of the left superior pubic ramus. I do not see a clear fracture of the inferior ramus although there likely is 1 at the root region. Either way, this is likely to heal just fine with nonoperative treatment. There is no surgical indication for this. She may be weightbearing as tolerated with an assistive device. There will be some pain with activation of the pelvic musculature, take when rising from the bed or rising from a chair. However, PT may work on mobilization without hesitation or without restriction. She was very resistant to motion about the right leg although I do not see anything on CT scan and passive motion when she was relaxed did not cause any pain. I expectations this is simply just a muscle trauma but if she has pain with weightbearing on the right side I would like to get dedicated x-rays of the right hip. Review of Systems All systems reviewed & are unremarkable except as noted in HPI and below PFSH All Active Problems Fracture of left superior pubic ramus (Acute) Mediastinal adenopathy (Acute) Fracture of left inferior pubic ramus (Acute) Hip pain (Acute) Fall (Acute) Facial fracture due to fall (Acute) Cerebral hemorrhage following injury (Acute) Pneumonia (Acute) Hypothyroidism (Chronic) Depression (Chronic) Rotator cuff tear arthropathy of right shoulder (Acute) Right rotator cuff tear (Acute) Hepatitis (Acute) Chronic lymphoid leukemia (Acute) Anemia (Acute) Fever and chills (Acute) Systolic murmur (Acute) Troponin level elevated (Acute) Moderate aortic stenosis (Chronic) Valve area 1.2 in 2017 Trimalleolar fracture of right ankle (Chronic 07/07/19) S/P ORIF: 07/07/2019 S/P Hardware removal: 01/10/2022 Hammer toe of second toe of right foot (Acute) S/P Fusion: 01/10/2022 Acquired hammer toe deformity of lesser toe of right foot (Acute) THIRD S/P Fusion: 01/10/2022 Painful orthopaedic hardware (Acute) Medical History Spleen anomaly On deep vein thrombosis (DVT) prophylaxis Moderate aortic regurgitation Hypertension CLL (chronic lymphocytic leukemia) allogeniec bone marrow transplant biopsy 2015 in remission Surgical History History of repair of hip fracture Colonoscopy - IV Sedation (10/16/16) Cholecystectomy Family History Father No problems noted. Other Colon cancer Social History Smoking/Tobacco Use Status: Never Smoking risk assessment performed?: Yes Alcohol Intake: never Drug use: Never Substance use type: does not use Housing: house Current gender identity: female Do you feel safe at home: Yes Do you feel safe in your relationship?: Yes Additional Social history: Lives with in [facility] in [place] Exam Narrative Exam Narrative: Resting supine position in bed. No acute distress. EXTR evaluation of the right lower extremity shows no gross deformity. She tolerates internal/external rotation in a supine position. She is very resistant to any passive range of motion of the right leg. She is actively resisting these motions. However, she does relax enough to tolerate 90 degrees of flexion. She does report some medial thigh pain with internal rotation. Mild pain with external rotation. She is unable to straight leg raise and says cannot do it before she attempts. She does demonstrate active knee extension against resistance and gravity although weak, 4 out of 5. Evaluation of the left leg shows no gross deformity. No pain with internal/external Tatian of the left hip. No significant pain with hip flexion. Some mild pain with loading of the hip and with attempted active range of motion of the left hip in the proximal thigh and groin. Results Last Vital Signs Temp 36.8 C 10/23/25 04:56 Pulse 88 10/23/25 10:01 Resp 14 10/23/25 07:40 BP 109/43 L 10/23/25 10:01 Pulse Ox 95 10/23/25 10:01 Labs 10/23/25 06:30 10/23/25 06:30 Labs: Laboratory Results - last 24 hr 10/23/25 10/23/25 06:30 07:40 WBC 8.56 RBC 3.86 L Hgb 13.2 Hct 38.6 MCV 100 H MCH 34.2 H MCHC 34.2 RDW 16.3 H Plt Count 104 L MPV 9.7 Immature Gran % 0.7 Neutrophils % 76.6 Lymphocytes % 10.0 Monocytes % 11.3 Eosinophils % 1.2 Basophils % 0.2 Nucleated RBC % 0.0 Absolute Neutrophils 6.55 Absolute Lymphocytes 0.86 L Absolute Monocytes 0.97 H Absolute Eosinophils 0.10 Absolute Basophils 0.02 VBG pH 7.39 VBG pCO2 39 L VBG pO2 21 VBG HCO3 24 VBG Total CO2 22 L VBG O2 Saturation 34 VBG Base Excess -1 VBG Lactate 1.9 Sodium 143 Potassium 4.2 Chloride 110 H Carbon Dioxide 22.6 Anion Gap 10.4 BUN 26 H Creatinine 0.87 Est GFR (CKD-EPI 2020) 63.72 Glucose 129 H Calcium 9.2 Magnesium 1.6 Total Bilirubin 0.90 AST 38 H ALT 22 Alkaline Phosphatase 74 Troponin I 10 8 NT-Pro-B Natriuret Pep 1424 H Total Protein 6.8 Albumin 4.2 Imaging Imaging Studies: CT scan of the chest abdomen pelvis was reviewed. This shows a nondisplaced fracture of the superior ramus. I do not see a clear fracture of the inferior ramus although there is a mild irregularity seen at the root of the inferior ramus but without any acetabular involvement. No apparent fracture in and around the right hip replacement nor the left intramedullary device.
[2025-10-23 11:30] LABS: Troponin I 8 ng/L (<35)
--- NOTE | 2025-10-23 11:42 | W.PC.ACHO ---
Registration Status: REG ER Primary Language: Preferred Language: Mohawk ED Information & Data Chief Complaint Fall/Non TraumaCriteria 10/23/25 07:39 Triage Note Pt. brought in by EMS for a 10/23/25 04:56 fall at home. Pt. fell in her bedroom, lost her balance. Pt. hit the left side of her head on the bedframe, no LOC. Pt. also having L hip pain post fall. No blood thinners. Medical / Surgical History (Last Reviewed 10/23/25 @ 11:28 by Rashaad Bagley MD) Spleen anomaly On deep vein thrombosis (DVT) prophylaxis Moderate aortic regurgitation Hypertension CLL (chronic lymphocytic leukemia) (Last Reviewed 10/23/25 @ 11:28 by Rashaad Bagley MD) History of repair of hip fracture Colonoscopy - IV Sedation (10/16/16) Cholecystectomy Most Recent Vital Signs Temperature 36.8 C 10/23/25 04:56 Temperature Source Oral 10/23/25 04:56 Pulse 88 10/23/25 10:01 Pulse Rhythm Regular 10/23/25 05:55 Pulse Strength Normal 10/23/25 05:55 Pulse 93 H 10/23/25 07:40 Respiratory Rate 14 10/23/25 07:40 Respiratory Effort Normal 10/23/25 05:55 Respiratory Depth Normal 10/23/25 05:55 Respiratory Pattern Normal 10/23/25 05:55 Blood Pressure 109/43 L 10/23/25 10:01 Blood Pressure Mean 61 10/23/25 10:01 Blood Pressure Position Supine 10/23/25 05:55 Pulse Oximetry 95 10/23/25 10:01 Oxygen Delivery Method Room Air 10/23/25 05:55 Oxygen Flow Rate 0 10/23/25 05:55 Pain Level 7 10/23/25 05:07 Allergies No Known Allergies Allergy (Verified 10/23/25 05:14) Precautions Isolation Standard precaution 10/23/25 05:07 Active Medications Generic Name Dose Route Start Last Admin Trade Name Freq PRN Reason Stop Dose Admin Iohexol 500 ml 10/23/25 08:00 10/23/25 07:54 Omnipaque 350 Mg/Ml 500 Ml Btl-Imaging Package IJ 11/22/25 23:59 100 ml DIRECTED STEPHANIE Administration Sodium Chloride 0 ml 10/23/25 07:52 10/23/25 07:57 Normal Saline Flush 10 Ml Syr IVP 10 ml PRN PRN Administration Sodium Chloride 50 ml 10/23/25 08:00 10/23/25 07:57 Normal Saline - Diluent 50 Ml Vial IJ 50 ml DIRECTED STEPHANIE Administration IV IV Catheter Type [Right Saline Lock Antecubital] IV Catheter Gauge [Right 20 Antecubital] Diet Orders Category Date Time Status Regular/Normal [DIET] Nutrition 10/23/25 Lunch Active Diagnostics 10/23/25 10/23/25 10/23/25 Range/Units 11:00 07:40 06:30 WBC 8.56 (4.4-10.8) 10^3/uL RBC 3.86 L (3.93-5.22) 10^6/uL Hgb 13.2 (11.2-15.7) g/dL Hct 38.6 (36.0-46.0) % MCV 100 H (80-95) fL MCH 34.2 H (27.0-33.0) pg MCHC 34.2 (32.0-36.0) % RDW 16.3 H (11.7-14.6) % Plt Count 104 L (130-400) 10^3/uL MPV 9.7 (8.0-11.0) fL Immature Gran % 0.7 % Neutrophils % 76.6 % Lymphocytes % 10.0 % Monocytes % 11.3 % Eosinophils % 1.2 % Basophils % 0.2 % Nucleated RBC % 0.0 (0.0-0.3) % Absolute Neutrophils 6.55 (1.2-6.7) 10^3/uL Absolute Lymphocytes 0.86 L (1.2-3.4) 10^3/uL Absolute Monocytes 0.97 H (0.1-0.8) 10^3/uL Absolute Eosinophils 0.10 (0.0-0.7) 10^3/uL Absolute Basophils 0.02 (0.0-0.2) 10^3/uL VBG pH 7.39 (7.31-7.41) VBG pCO2 39 L (41-51) mmHg VBG pO2 21 mmHg VBG HCO3 24 (23-28) mmol/L VBG Total CO2 22 L (24-29) mmol/L VBG O2 Saturation 34 % VBG Base Excess -1 (-2-3) mmol/L VBG Lactate 1.9 (<or=2.0) mmol/L Sodium 143 (136-145) mmol/L Potassium 4.2 (3.5-5.1) mmol/L Chloride 110 H (98-107) mmol/L Carbon Dioxide 22.6 (20.0-31.0) mmol/L Anion Gap 10.4 (3-11) mmol/L BUN 26 H (9-23) mg/dL Creatinine 0.87 (0.55-1.02) mg/dL Est GFR (CKD-EPI 2020) 63.72 (mL/min/1.73m2) Glucose 129 H (74-106) mg/dL Calcium 9.2 (8.3-10.6) mg/dL Magnesium 1.6 (1.6-2.6) mg/dL Total Bilirubin 0.90 (0.2-1.2) mg/dL AST 38 H (<34) U/L ALT 22 (10-49) U/L Alkaline Phosphatase 74 (46-116) U/L Troponin I 8 8 10 (<35) ng/L NT-Pro-B Natriuret Pep 1424 H (<300) pg/mL Total Protein 6.8 (5.7-8.2) g/dL Albumin 4.2 (3.2-5.0) g/dL Intake and Output - 24 Hour Total 10/23/25 04:43 thru 10/23/25 07:40 Intake Total 100 Balance 100 Weight 53.524 kg Intake: IV 100 Falls Risk Assessment History of Falls Admit Due to Fall 10/23/25 05:07 Contributing Factors Impairments 10/23/25 05:07 Ambulatory Aids Independent 10/23/25 05:07 Tubes/Lines None 10/23/25 05:07 Gait Evaluation No gait disturbance 10/23/25 05:07 Cognition No cognitive impairment 10/23/25 05:07 Fall Total Score 28 10/23/25 05:07 Level of Risk Moderate Risk 10/23/25 05:07 Problems (Last Reviewed 10/23/25 @ 11:28 by Rashaad Bagley MD) Fracture of left superior pubic ramus (Acute) Mediastinal adenopathy (Acute) Fracture of left inferior pubic ramus (Acute) Fall (Acute) Hypothyroidism (Chronic) Depression (Chronic) Chronic lymphoid leukemia (Acute) Attestation Statement: By documenting the first initial, last name, and credentials of the reporting nurse below, both parties acknowledge that all relevant information regarding the patient handoff has been communicated, and that all questions have been addressed to ensure continuity and safety of care. Additional Patient Information/Comments: Pt had a fall at home and sustained a L hip Fx non displaced. Pt is unable to bear weight on L side without significant pain. Pain is minimal if she is not moving. She will be assisted to medsur floor by ed nurse and settled into room. Report Received From: Estevan HENRY RN
[2025-10-23] MEDS: Acetaminophen 325 MG TAB 650 MG PO ×2 (12:25→20:00)
--- NOTE | 2025-10-23 14:15 | DI.US_ITS ---
APPROVED REPORT EXAM: Comprehensive 2D, Doppler, and color-flow Echocardiogram Patient Location: In-Patient Room/Bed: [address] Machine Operator: Venessa Waddell RDCS (AE) Indications: Recurrent presyncopal events, abnormal ekg Other Information Study Quality: Fair. Technically limited study due to body habitus, exam done supine bedside, fracture. Conclusion Mild concentric left ventricular hypertrophy. Ejection fraction is 50 to 55%. There are no segmental wall motion abnormalities Normal right ventricular size and function Both atria are normal in size Aortic valve is sclerotic. There is mild aortic stenosis with a mean gradient of 12 mmHg. There is mild aortic regurgitation Mitral annular calcification. Trace mitral regurgitation Mild tricuspid regurgitation. Estimated right ventricular systolic pressure is 34 mmHg Wall motion Left Ventricle The left ventricle is normal size. The overall left ventricular systolic function appears normal. Mild concentric left ventricular hypertrophy. There is normal LV segmental wall motion. There is no ventricular septal defect visualized. LVEF is 51%. Right Ventricle The right ventricle is normal size. The right ventricular systolic function is normal. Atria The left atrium size is normal. The right atrium size is normal. The interatrial septum is intact with no evidence for an atrial septal defect. Aortic Valve The Aortic valve is sclerotic. Number of aortic valve leaflets could not be assessed. Mild aortic stenosis. Mean gradient is 12 mmHg Mild aortic regurgitation. Mitral Valve Mild to moderate mitral annular calcification. No evidence of mitral valve stenosis. Trace mitral regurgitation. Tricuspid Valve The tricuspid valve is normal in structure. There is no tricuspid valve stenosis. Mild tricuspid regurgitation. The RVSP is 34.4mmHg. Pulmonic Valve The pulmonary valve is normal in structure. There is no pulmonic valvular stenosis. Mild pulmonic regurgitation. Great Vessels The aortic root is normal in size. The ascending aorta is normal Aortic arch is normal in caliber. IVC is normal in size and collapses >50% with inspiration. Pericardium There is no pericardial effusion. 2D Dimensions IVSD d PLAX 1.21 cm F: 0.6-1.0 Ao Root d 3.06 cm F: 2.7 - 3.3 LVPW d PLAX 1.20 cm F: 0.6 - 1.0 Ao Asc Diam d 3.30 cm F: 2.3 - 3.1 LVID d PLAX 4.30 cm F: 3.8 - 5.2 LVDs 3.18 cm F: 2.2 - 3.5 LV EF Teichholz 51.2 % FS 25.89 % LV EDV (Teich) 82.8 mL LV ESV (Teich) 40.4 mL Auto EF LV EDV A4C 106.9 mL LV EDV A2C 103.0 mL LV EDV BP 106.3 mL LV ESV A4C 51.3 mL LV ESV A2C 51.4 mL LV ESV BP 52.0 mL LVEF(%) A4C 52.0 % LVEF(%) A2C 50.1 % LVEF(%) BP 51.0 % LV SV A4C 55.6 ml LV SV A2C 51.6 ml LV SV BP 54.2 ml LV CO A4C 5.3 L/min LV CO A2C 4.8 L/min LV CO BP 5.0 L/min HR A4C 94.99 BPM HR A2C 93.03 BPM LV EDV Index (BP) LV Diastology MV E' lateral 0.088 (>0.1 m/s) MV E Vmax 0.90 (0.4-1.3 m/s) MV E/E' LAT 10.27 (<14) MV A Vmax 1.25 (0.4-1.3 m/s) E/A Ratio 0.7 Aortic Valve AoV Vmax 2.07 m/s LVOT Diam s 1.85 cm AoV Peak Grad 37.7 mmHg AV Regurg Peak Gr. 17.11 mmHg AoV VTI 0.460 m AoV Mean Nathaniel. 1.73 m/s AoV Mean Grad 12.6 mmHg AR Decel [place] 1.5m/sec2 AR DT 2600 msec AR PHT 754 msec AR Vmax 3.82 m/s Mitral Valve MV DT 108 (160-240 msec) MV Vmax TIPS 1.23 m/s MV Mean Grad 2.7 (<2mmHg) MV VTI 0.248 m Pulmonary Valve PV Vmax 0.62 (0.5-1.5 m/s) RVOT Vmax 0.50 m/s PV Peak Grad 1.5 mmHg RVOT Peak Gr. 1.0 mmHg PV Mean Nathaniel 0.46 m/s RVOT VTI 0.090 m PV Mean Grad 0.9 mmHg RVOT Mean Gr. 0.6 mmHg Tricuspid Valve RA Pressure 3.00 mmHg TR Vmax 2.80 m/s TR Peak Grad 31.3 mmHg RVSP (TR) 34.4 mmHg
--- NOTE | 2025-10-23 15:56 | INITIAL_ITS ---
Date of service: 10/23/25 Time of Service: 15:56 Care Management Initial Assmt Initial Assessment Reason for Hospitalization: Pubic fracture Functional Status/Living Situation Patient Presentation: Margarita was resting in bed and accompanied by her , Elgin, when CM met with her. She presented to the ED via EMS after experiencing a fall in which she reported striking the left side of her head and left hip (see ED documentation). Orthopedics evaluated her and noted that her injury is likely to heal with nonoperative treatment. PT has been consulted, and recommendations are pending. Margarita was pleasant and engaged during the conversation. She reports living with Elgin in a single-family home in [place], which has two steps to enter and is equipped with grab bars. She recently returned home a couple of weeks ago following a stay at [facility] in [place] for short-term rehabilitation. At discharge, she was functioning independently without the use of an assistive device. She reports that Home Health PT and OT have been visiting and believes she has approximately two visits remaining. CM discussed possible PT recommendations, and Margarita expressed a preference to avoid returning to a rehabilitation facility if possible. She reports her current pain level as 6/10 and anticipates it may increase with movement. Margarita has four daughters who live out of state, though she remains in contact with them. CM will continue to follow. Town of Residence: [place] Resides with: Spouse (Elgin) Significant Other/Family: Out of area (our daughters all live out of state ([facility] and [place]) as well as, 7 grandchildren.) Natural Supports: family Employment Status: Retired (Assessment Counselor) Instrumental Activities of Daily Living (ADLs): Independent Medications Medication Management: No Issues/Barriers identified Physical Functioning/Mobility Assistive Device: none at this time Advance Directives Advance Directives: Do you have an Advance Directive: Y , 08:19 AD On File at [facility]: N 13, 08:55 Date Asked 10/23/25 Today, 12:12 AD Date Reviewed COLST On File at [facility] COLST Date Scanned Code Status Resuscitation Status Full Code Portal Pt does not currently have a portal and education provided: Yes Insurance Coverage/Financial Issues Insurance: Medicare Part A & B - [id number] AETNA Senior Supplemental Ins - [id number] Care Team Visit Care Team Role Provider Type Madalyn Herber Primary Care Provider NON-[facility] STAFF PHYSICIAN Saeid Siddiqui MD Other Providers [facility] STAFF PHYSICIAN Nisreen Jarquin MD Other Providers [facility] STAFF PHYSICIAN JAVED Ortho Other Providers RN FOR MSM OR JAVED Pantoja Other Providers PHYSICIANS CHIEF CARDIOPULMONARY TECHNOLOGIST Rashaad Bagley MD Other Providers [facility] STAFF PHYSICIAN JAVED Galaviz Other Providers PHYSICIANS CHIEF CARDIOPULMONARY TECHNOLOGIST Vianey Yeboah Other Providers PHYSICIANS ASSISTANT Diogenes Frias MD Other Providers [facility] STAFF PHYSICIAN Darlene Ravi Other Providers OTHER JAVED Jordan Other Providers PHYSICIANS CHIEF CARDIOPULMONARY TECHNOLOGIST Alvaro Fine MD Emergency Provider [facility] STAFF PHYSICIAN Alvaro Rodriguez Admit Provider [facility] STAFF PHYSICIAN Attending Provider Discharge Potential Discharge Needs: PCP F/U Appt Anticipated Barriers to Discharge: None Identified Patient/Family Education Needs: Review discharge instructions, discuss Ask Me Three Transportation: Private vehicle Plan: Anticipate Margarita will be discharged home when medically cleared. PT consult is pending. It is recommended she follow up with her community provider and continue per her discharge plan of care. Her transportation will be dependant on her mobility at time of discharge. CM will follow and continue to support discharge planning efforts. Social Determinants of Health Screening Will the Patient Participate in the Screening?: Declined to provide PFSH All Active Problems Fracture of left superior pubic ramus (Acute) Mediastinal adenopathy (Acute) Fracture of left inferior pubic ramus (Acute) Hip pain (Acute) Fall (Acute) Facial fracture due to fall (Acute) Cerebral hemorrhage following injury (Acute) Pneumonia (Acute) Hypothyroidism (Chronic) Depression (Chronic) Rotator cuff tear arthropathy of right shoulder (Acute) Right rotator cuff tear (Acute) Hepatitis (Acute) Chronic lymphoid leukemia (Acute) Anemia (Acute) Fever and chills (Acute) Systolic murmur (Acute) Troponin level elevated (Acute) Moderate aortic stenosis (Chronic) Valve area 1.2 in 2017 Trimalleolar fracture of right ankle (Chronic 07/07/19) S/P ORIF: 07/07/2019 S/P Hardware removal: 01/10/2022 Hammer toe of second toe of right foot (Acute) S/P Fusion: 01/10/2022 Acquired hammer toe deformity of lesser toe of right foot (Acute) THIRD S/P Fusion: 01/10/2022 Painful orthopaedic hardware (Acute) Medical History Spleen anomaly On deep vein thrombosis (DVT) prophylaxis Moderate aortic regurgitation Hypertension CLL (chronic lymphocytic leukemia) allogeniec bone marrow transplant biopsy 2015 in remission Surgical History History of repair of hip fracture Colonoscopy - IV Sedation (10/16/16) Cholecystectomy Family History Father No problems noted. Other Colon cancer Social History Smoking/Tobacco Use Status: Never Smoking risk assessment performed?: Yes Alcohol Intake: never Drug use: Never Substance use type: does not use Housing: house Current gender identity: female Do you feel safe at home: Yes Do you feel safe in your relationship?: Yes Additional Social history: Lives with in town in [facility] Within the Past 30 Days Yes or No: No
[2025-10-23] MEDS: VENETOCLAX 50 MG 1 EACH PO (16:05)
[2025-10-23] MEDS: Mirtazapine 15 MG TAB PO (20:00)
[2025-10-23] MEDS: oxyCODONE 5 MG TAB PO (23:14)
[2025-10-24 07:59] VITALS: BP 112/66; PULSE 94; RESP 16; TEMP 37; O2SAT 100
[2025-10-24] MEDS: Cholecalciferol (Vitamin D3) 400 UNIT TAB 800 UNIT PO (08:02)
[2025-10-24] MEDS: Acetaminophen 325 MG TAB 650 MG PO (08:02)
[2025-10-24] MEDS: Enoxaparin 40 MG/0.4 ML SYR SC (08:02)
[2025-10-24] MEDS: Sertraline 100 MG TAB PO (08:02)
[2025-10-24] MEDS: Multivitamin TAB 1 TAB PO (08:02)
[2025-10-24] MEDS: Normal Saline Flush 10 ML SYR IVP ×2 (08:02→20:09)
[2025-10-24] MEDS: Metoprolol CR 25 MG TABCR 12.5 MG PO (08:03)
[2025-10-24] MEDS: oxyCODONE 5 MG TAB PO (08:11)
--- NOTE | 2025-10-24 10:24 | W.PM.PROGNOT ---
Date of Service Date of service: 10/24/25 Time of Service: :25 Assessment and Plan Assessment and plan (1) Fracture of left inferior pubic ramus: Status: Acute Assessment and plan: -acute nondisplaced fractures of the L pubic rami -appreciated orthopedic input -plan for pt to work with PT on early mobilization with walker -pain control with tylenol, will low dose opioids as needed for severe pain. If dizzy with opioids could also use ibuprofen -bowel regimen for regular soft bowel movements (2) Fall: Status: Acute Assessment and plan: -history of frequent falls, last night's fall attributed to lightheadedness with standing -CT head and c-spine negative. No other acute findings on CT chest/abd/pelvis or T-spine/L-spine -See below re presyncope (3) Chronic lymphoid leukemia: Status: Acute Assessment and plan: -diagnosed 10 years ago, bone marrow transplant 7 years ago. Reactivated one year ago after remission, currently treated with Venetoclax (b-cell lymphoma-2 inhibitor, restores apooptosis). (4) Depression: Status: Chronic Assessment and plan: -continue home medications (sertraline) (5) Hypothyroidism: Status: Chronic Assessment and plan: -continue home medications (levothyroxine 50 mcg daily), recent TSH in August technically high but good for age. (6) Hypertension: Assessment and plan: stopped metoprolol 10/24 with orothostasis (7) Postural dizziness with presyncope: Status: Acute Assessment and plan: EKG with some signs of possible old ischemia, BNaP elevated, but echocardiogram reassuring and no events on tele during dizziness. Will give gentle IV fluids Opioids prior to PT could be affecting BP Stop metoprolol. Follow orthostatics when she is able. Discharge Planning Discharge Planning: home when able to mobilize safely vs rehab if still here 10/26 Subjective Subjective Patient reports: tolerating a regular diet and voiding w/o difficulty; denies diarrhea, nausea, vomiting, shortness of breath or fever Interval history since last seen: Events: Echocardiogram done Lightheaded with standing with PT, no events on tele Before PT, she was feeling better, less pain when not moving. No chest pain, lightheadedness, or SOB at rest. Exam Narrative Exam Narrative: GEN: alert and oriented, NAD Lungs: CTAB, nl effort CV: RRR, no m/g/r. coratid pulses 2+ donnell. pedal pulses intact donnell ABD: soft, ND/NT Ext: Less pain with moving left leg, no edema or redness Objective Last Vital Signs Temp 37.0 C 10/24/25 07:59 Pulse 94 H 10/24/25 07:59 Resp 16 10/24/25 07:59 BP 112/66 10/24/25 07:59 Pulse Ox 100 10/24/25 07:59 Laboratory Results - last 24 hr 10/23/25 11:00 Troponin I 8 Objective Narrative Objective Narrative: Echo: Mild concentric left ventricular hypertrophy. Ejection fraction is 50 to 55%. There are no segmental wall motion abnormalities Normal right ventricular size and function Both atria are normal in size Aortic valve is sclerotic. There is mild aortic stenosis with a mean gradient of 12 mmHg. There is mild aortic regurgitation Mitral annular calcification. Trace mitral regurgitation Mild tricuspid regurgitation. Estimated right ventricular systolic pressure is 34 mmHg VTE Prohylaxis Risk Level: Moderate/High Risk Contraindications: None Prophylaxis: Pharmacologic Time Spent with Patient Time Spent with Patient: 25-34 minutes Time was spent: preparing to see the patient(eg.review tests), obtaining and/or reviewing separately otained hiistory, ordering medications,tests, procedures, referring, communicating with other health early breastfeeding care specialist, indepentently interpreting results, counseling the patient and care coordination
--- NOTE | 2025-10-24 11:22 | PT.INIE ---
PT Notes Visit Reasons: Pubic Fracture Inpatient Physical Therapy Evaluation Date: 10/24/25 Referring Doctor: Dr. Rodriguez PT Orders: PT CONSULT: Eval for AD Precautions: fall, pelvic ramus fx, WBAT Patient Profile/Admitting Diagnosis: pelvic fracture Social History/Home Situation: Pt lives with her in [place]. She normally ambulates with a cane but does have a walker that she uses in her home. She fell trying to get up to use the bathroom in the middle of the night. She notes that the reason she fell was because she got dizzy. Subjective: Pt states that she is not in any pain when she rests in the bed but is in a lot of pain when she moves. Objective: General Observation: Happy to work with PT, tele in place Mental Status: A+Ox4 Pain: see above Vital Signs: monitored closely by nursing, BP following session 107/62 Strength: Unable to perform SLR on RLE due to pain but is able to on LLE Able to perform active ankle mobility Bed Mobility/Transfers: supine to sitting at EOB w/max assist - started to become very dizzy and requested return to supine sitting to supine w/max assist - dizziness subsided Gait: n/a Balance: Static Sitting: good even with dizziness Special Tests: Mobility Limitations Standardized Measure [facility] AM-PAC 6 clicks Basic Mobility Inpatient Short Form: Raw Score: 8 CMS Score: 86.62% Informed Consent/Education: Patient instructed in purpose of PT consult and plan of care. Assessment: Patient is currently very limited with her mobility as she was only able to get to sitting w/max assist before needing to return to supine due to symptoms of dizziness. She was only able to remain in sitting for about 30 seconds due to her symptoms. BP was assessed when she returned to supine and read 107/62. Nursing made aware. She is WBAT and should be able to progress once her dizziness is controlled. She will require short term rehab prior to returning home which she agrees with. She will continue to benefit from PT services while in the hospital to progress her as tolerated. Patient is assessed as a [x] Moderate 14140 complexity based on the following: History: Moderate Examination: Moderate Presentation: Moderate Decision Making: Moderate Goals: Goals X1 week 1. Supine-Sit w/min assist 2. Sit-Supine w/min assist 3. Sit-Stand w/min assist 4. Stand-Sit w/min assist 5. Bed-Chair w/min assist 6. Chair-Bed w/min assist 7. Gait - 25 ft w/RW and CGA Plan of Care/Treatment Plan: 1-2x/day, 7 days/week x 1 week. Plan of care has been reviewed with the SANDING MACHINE OPERATOR OR TENDER providing the service under Physical Therapy direction. Initiate Physical Therapy intervention for strengthening, bed mobility, transfers, gait, stairs, balance training, use of assistive device. DISCHARGE RECOMMENDATIONS: SNF [x] SNF for continued rehabilitation [] TREATMENT CODE/TIME: Eliza graves (90484) x1 - 30 min
[2025-10-24] MEDS: oxyCODONE 5 MG TAB 2.5 MG PO (14:15)
[2025-10-24] MEDS: VENETOCLAX 50 MG 1 EACH PO (17:10)
--- NOTE | 2025-10-24 17:45 | DI.RAD_ITS ---
Exam(s) XR FEMUR RT EXAM: XR FEMUR RT CLINICAL HISTORY: pain after fall. TECHNIQUE: 2D digital imaging was performed. COMPARISON: CR XR PELVIS AP from 10/24/2025 FINDINGS: Two views-AP and lateral right femur The components of the right hip prosthesis appear intact without obvious fracture or loosening. There is also no evidence of fracture or distally in the right femur and there is no knee joint effusion evident. Bone density in the femur is normal and there are no lytic nor blastic osseous lesions in the femur. However, there is a fracture of the right superior pubic ramus adjacent to the symphysis pubis, this in addition to the fractures of the superior and inferior pubic rami on the left side. IMPRESSION: Pubic rami fractures bilaterally. Right hip prosthesis appears intact and there is no fractures seen in the right femur. DATA REPOSITORY: RADIATION DOSE DELIVERED:
--- NOTE | 2025-10-24 17:45 | DI.RAD_ITS ---
Exam(s) XR PELVIS AP EXAM: XR PELVIS AP CLINICAL HISTORY: pain after fall. TECHNIQUE: 2D digital imaging was performed. COMPARISON: CT CT CHEST/ABD/PEL W from 10/23/2025 FINDINGS: Single AP view pelvis-hips: Bilateral hip hardware is again noted including right hip prosthesis and left hip ORIF hardware from prior intertrochanteric fracture. There are no fractures in the proximal femoral diaphyses. However, there is again noted the recently described left pubic ramus fractures involving both superior and inferior pubic rami left side and there is also an acute or subacute appearing fracture of the superior pubic ramus on the right side adjacent to the symphysis pubis. There is no obvious fracture of the inferior pubic ramus on the right side. IMPRESSION: Fractures of the superior and inferior pubic rami on the left side and fracture of the medial aspect of the superior pubic ramus on the right side. DATA REPOSITORY: RADIATION DOSE DELIVERED:
[2025-10-24 19:23] VITALS: BP 119/73; PULSE 105; RESP 16; TEMP 37.4; O2SAT 93
[2025-10-24] MEDS: Mirtazapine 15 MG TAB PO (20:07)
[2025-10-24] MEDS: Cyclobenzaprine 10 MG TAB 5 MG PO (20:08)
[2025-10-25] MEDS: Levothyroxine 50 MCG TAB PO (05:56)
[2025-10-25 05:57] VITALS: BP 133/76; PULSE 107; RESP 16; TEMP 36.6; O2SAT 92
--- NOTE | 2025-10-25 08:34 | W.PM.PROGNOT ---
Date of Service Date of service: 10/25/25 Time of Service: 08:37 Assessment and Plan Assessment and plan (1) Fracture of left inferior pubic ramus: Status: Acute Assessment and plan: -acute nondisplaced fractures of the L pubic rami -appreciated orthopedic input -plan for pt to work with PT on early mobilization with walker -pain control with tylenol, -low dose opioids as needed for severe pain -bowel regimen for regular soft bowel movements (2) Fall: Status: Acute Assessment and plan: -history of frequent falls -CT head and c-spine negative. -No other acute findings on CT chest/abd/pelvis or T-spine/L-spine (3) Chronic lymphoid leukemia: Status: Acute Assessment and plan: -diagnosed 10 years ago, bone marrow transplant 7 years ago. -Reactivated one year ago after remission, currently treated with Venetoclax (b-cell lymphoma-2 inhibitor, restores apooptosis). (4) Depression: Status: Chronic Assessment and plan: -continue home medications (sertraline) (5) Hypothyroidism: Status: Chronic Assessment and plan: -continue home medications (levothyroxine 50 mcg daily), recent TSH in August technically high but good for age. (6) Hypertension: Assessment and plan: -stopped metoprolol 10/24 with orothostasis (7) Postural dizziness with presyncope: Status: Acute Assessment and plan: -EKG with some signs of possible old ischemia, BNaP elevated -echocardiogram reassuring and no events on tele during dizziness. -Will give gentle IV fluids -Opioids prior to PT could be affecting BP -Stop metoprolol. -Follow orthostatics when she is able. Discharge Planning Discharge Planning: DC once able to ambulate safely or to rehab Subjective Subjective Interval history since last seen: Patient states that she is feeling better and is looking forward to continue to work with physical therapy. Exam Narrative Exam Narrative: well appearing older female laying in bed in no acute distress, AOx4, heart RRR, lungs CTAB, abdomen soft, non-tender, non-distended Objective Last Vital Signs Temp 97.9 F 10/25/25 05:57 Pulse 107 H 10/25/25 05:57 Resp 16 10/25/25 05:57 BP 133/76 10/25/25 05:57 Pulse Ox 92 10/25/25 05:57 VTE Prohylaxis Risk Level: Moderate/High Risk Contraindications: None Prophylaxis: Pharmacologic Time Spent with Patient Time Spent with Patient: >50 minutes Time was spent: preparing to see the patient(eg.review tests), obtaining and/or reviewing separately otained hiistory, ordering medications,tests, procedures, referring, communicating with other health care program director, indepentently interpreting results, counseling the patient and care coordination
[2025-10-25] MEDS: Ondansetron 4 MG/2 ML VIAL IVP ×2 (09:01→17:28)
[2025-10-25] MEDS: oxyCODONE 5 MG TAB 2.5 MG PO ×2 (09:02→12:20)
[2025-10-25] MEDS: Normal Saline Flush 10 ML SYR IVP ×2 (09:02→20:05)
[2025-10-25] MEDS: Enoxaparin 40 MG/0.4 ML SYR SC (09:05)
--- NOTE | 2025-10-25 11:56 | PT.INTREAT ---
PT Notes Visit Reasons: Pubic Fracture Inpatient Physical Therapy Treatment Note [facility] Date: 10/25/25 PRECAUTIONS: WBAT SUBJECTIVE: Pt is happy to work with PT today. She mentions she has not felt dizzy since getting up with me yesterday. OBJECTIVE: ? PAIN: no pain if not moving VITALS: BP - 126/73 in long sitting prior to treatment. Therapeutic Activities ([id number]): Direct one-on-one instruction in dynamic activities to improve functional performance. ? BED MOBILITY/TRANSFERS? Rolling L/R: max assist Supine-sit: max assist? Sit-supine: max assist x2? Sit-stand: mod assist ? Stand-sit: mod assist ? Bed-Chair: n/a? Chair-bed: n/a ASSESSMENT:? Pt showed good functional progression today as she was able to stand. Bed mobility remains very painful for her due to the asymetrical movements. She was unable to attempt marching in place due to pain, therefore ambulation was not attempted today. Short term rehab remains the best discharge plan for her. She will continue to be seen by PT while in the hospital to progress her as tolerated. PLAN: Continue progressing with functional movements TREATMENT CODE/TIME: Ther Act (41509) x2 - 30 min DISCHARGE RECOMMENDATION: Short term rehab
--- NOTE | 2025-10-25 12:14 | CMPROGNOTE_ITS ---
Date of service: 10/25/25 Time of Service: 12:14 Care Management Progress Note Progress Note Text Progress Note Text: Margarita was sitting up in bed and eating lunch when CM met with her. The patient has been participating in physical therapy and making progress; however, STR is recommended. With the patient?s permission, a referral was submitted to [facility]. CM will continue to follow. Discharge Potential Discharge Needs: PCP F/U Appt Anticipated Barriers to Discharge: Bed availability Patient/Family Education Needs: Review discharge instructions, discuss Ask Me Three Plan: Anticipate Margarita will be discharged to [facility] when medically cleared. PT recommendations for STR. It is recommended she follow up with her community provider and continue per her discharge plan of care. Her transportation will be dependant on her mobility at time of discharge. CM will follow and continue to support discharge planning efforts. Social Determinants of Health Screening Social Determinants of health last assessed in clinic: 10/23/25 Will the Patient Participate in the Screening?: Declined to provide Do you worry about having a steady place to live?: no Problems where you live: no known problems In the past 12 months, have you had to go without electric, gas, oil or water in your home?: no Has lack of transportation kept you from medical appointments or from doing things needed for daily living?: no Has anyone in your life made you feel unsafe or unsupported?: no How hard is it for you to pay for the very basics like food, housing, medical care, and heating? Would you say it is:: Not hard at all Do you want help finding or keeping work or a job?: I do not need or want help If for any reason you need help with day-to-day activities such as bathing, preparing meals, shopping, managing finances, etc., do you get the help you need?: I don?t need any help How often do you feel lonely or isolated from those around you?: Never Do you speak a language other than Uzbek at home?: No Does the patient want assistance with any of the above?: No
[2025-10-25] MEDS: Acetaminophen 325 MG TAB 650 MG PO (12:20)
[2025-10-25 16:54] VITALS: BP 115/72; PULSE 100; RESP 16; TEMP 36.5; O2SAT 93
[2025-10-25] MEDS: VENETOCLAX 50 MG 1 EACH PO (16:55)
[2025-10-25] MEDS: Mirtazapine 15 MG TAB PO (20:05)
[2025-10-25 20:15] VITALS: BP 122/64; PULSE 105; RESP 16; TEMP 36.7; O2SAT 91
[2025-10-26] MEDS: Levothyroxine 50 MCG TAB PO (05:38)
[2025-10-26 07:44] VITALS: BP 115/72; PULSE 102; RESP 17; TEMP 37.3; O2SAT 92
[2025-10-26] MEDS: Cholecalciferol (Vitamin D3) 400 UNIT TAB 800 UNIT PO (09:04)
[2025-10-26] MEDS: Enoxaparin 40 MG/0.4 ML SYR SC (09:05)
[2025-10-26] MEDS: Sertraline 100 MG TAB PO (09:05)
[2025-10-26] MEDS: Multivitamin TAB 1 TAB PO (09:05)
[2025-10-26] MEDS: oxyCODONE 5 MG TAB 2.5 MG PO (09:06)
[2025-10-26] MEDS: Normal Saline Flush 10 ML SYR IVP (09:07)
--- NOTE | 2025-10-26 09:37 | PGE_ITS ---
Date of Service Date of service: 10/26/25 Time of Service: 09:37 Assessment and Plan Assessment and plan (1) Fracture of left inferior pubic ramus: Status: Acute Assessment and plan: -acute nondisplaced fractures of the L pubic rami -appreciated orthopedic input -plan for pt to work with PT on early mobilization with walker -pain control with tylenol, -low dose opioids as needed for severe pain -bowel regimen for regular soft bowel movements (2) Fall: Status: Acute Assessment and plan: -history of frequent falls -CT head and c-spine negative. -No other acute findings on CT chest/abd/pelvis or T-spine/L-spine (3) Chronic lymphoid leukemia: Status: Acute Assessment and plan: -diagnosed 10 years ago, bone marrow transplant 7 years ago. -Reactivated one year ago after remission, currently treated with Venetoclax (b- cell lymphoma-2 inhibitor, restores apooptosis). (4) Depression: Status: Chronic Assessment and plan: -continue home medications (sertraline) (5) Hypothyroidism: Status: Chronic Assessment and plan: -continue home medications (levothyroxine 50 mcg daily), recent TSH in August technically high but good for age. (6) Hypertension: Assessment and plan: -stopped metoprolol 10/24 with orothostasis (7) Postural dizziness with presyncope: Status: Acute Assessment and plan: -EKG with some signs of possible old ischemia, BNaP elevated -echocardiogram reassuring and no events on tele during dizziness. -Will give gentle IV fluids -Opioids prior to PT could be affecting BP -Stop metoprolol. -Follow orthostatics when she is able. Discharge Planning Discharge Planning: Base on progress with PT, either to rehab or home with home health Subjective Subjective Interval history since last seen: Patient states that she is doing well today and is looking forward to working with physical therapy. Exam Narrative Exam Narrative: well appearing older female laying in bed in no acute distress, AOx4, heart RRR, lungs CTAB, abdomen soft, non-tender, non-distended Objective Last Vital Signs Temp 99.1 F 10/26/25 07:44 Pulse 102 H 10/26/25 07:44 Resp 17 10/26/25 07:44 BP 115/72 10/26/25 07:44 Pulse Ox 92 10/26/25 07:44 VTE Prohylaxis Risk Level: Moderate/High Risk Contraindications: None Prophylaxis: Pharmacologic Time Spent with Patient Time Spent with Patient: >50 minutes Time was spent: preparing to see the patient(eg.review tests), obtaining and/or reviewing separately otained hiistory, ordering medications,tests, procedures, referring, communicating with other health home child care provider, indepentently interpreting results, counseling the patient and care coordination
[2025-10-26] MEDS: Ondansetron 4 MG/2 ML VIAL IVP (09:41)
--- NOTE | 2025-10-26 10:22 | PTTR_ITS ---
PT Notes Visit Reasons: Pubic Fracture Date: 10/26/2025 PRECAUTIONS: Standard, WBAT, Fall, Pubic FX SUBJECTIVE: Pt feeling well and willing to participate, During ambulation they reported needing to sit, and felt sick. Once seated Pt retched. OBJECTIVE:? PAIN: 0/10 laying in bed, 5/10 during ambulation in right groin area, once seated in the recliner after about 4 minutes, no pain. VITALS: ? Monitored by Nursing Therapeutic Activities ([id number][]): Direct one-on-one instruction in dynamic activities to improve functional performance. ? BED MOBILITY/TRANSFERS? Supine-sit: Max A of 2? Sit-stand: Min A of 1?FWW ? from elevated bed ? Stand-sit: Min A of 1 FWW ? Bed-Chair: Mod A of 2 ?FWW ?to advance move BLE. Pt unable to advance without assistance ? Provided skilled cues, instruction, and tactile facilitation on performance and technique throughout. ? ASSESSMENT:? Pt was provided pain medication prior to PT session to help with the pain and allow the pt to perform more task. Pt needed Max A of 2 with supine to EOB. Pt was able to stand w/FWW Pt have increased pain with ambulation and isn?t fully able to perform a step turn without assistance. During ambulation Pt needed moderate verbal cueing for weight shifting. Pt needed tactile facilitation to step/slide their foot forward. With Pt Fx, every time they contract the muscles attached to the fx, this causes them pain. This pain has decreased pt ability to ambulate , perform transitions for sit to from stand or perform a step turn. So much so, that once the pt sat in the recliner they retched into a bag (about 200ml). Next session PT will have the pt try to perform a step turn again to limit any decline in mobility function, and to increase pt activity tolerance. ?PLAN: 1-2x/day, 7 days/week x 1 week. Plan of care has been reviewed with the MACHINE FILLER providing the service under Physical Therapy direction. Initiate Physical Therapy intervention for pain management as needed, strengthening, bed mobility, transfers, gait, balance training, and use of assistive device TREATMENT CODE/TIME: 35051/9:22-9:37 DISCHARGE RECOMMENDATION: SNF vs HHPT Written by: ROGELIO Edward Supervised by: Prema Pelaez, PT
--- NOTE | 2025-10-26 13:20 | PT.INTREAT ---
PT Notes Visit Reasons: Pubic Fracture Inpatient Physical Therapy Treatment Note [facility] Date: 10/26/2025 pm session PRECAUTIONS: Standard, WBAT, Fall, Pubic FX SUBJECTIVE: Pt feeling well and looking to get back into bed OBJECTIVE:? ? ? General observation: Pt incontinent and performed a BM. ROTOFORMER BACKTENDER helped with toiletry hygiene. ? PAIN: 0/10 laying in recliner, 5/10 during ambulation in right groin area, once in the bed after about 4 minutes, no pain. VITALS: ? Monitored by Nursing Therapeutic Activities ([id number][]): Direct one-on-one instruction in dynamic activities to improve functional performance. ? BED MOBILITY/TRANSFERS? Rolling to left with B knee flexion, pillow between legs and use of rail min A of 2 . In sidelying pt requires support at her trunk to sustain position for toileting hygiene. ? Supine-sit: Max A of 2? Sit-stand (from recliner): Min A of 1?FWW ? Stand-sit: Min A of 1 FWW ? Bed-Chair: Mod A of 2 FWW ? - performed supine Quad sets and ankle pumps x 10 reps with tactile assist for full range. ? Provided skilled cues, instruction, and tactile facilitation on performance and technique throughout. ? ASSESSMENT:? Pt was able to perform step turn FWW from recliner to the bed. Pt was able to slide her hips forward into the recliner to make it easier on herself to stand. Pt needed verbal and tactile cueing for hand placement. Although the recliner is less elevated compared to the bed Pt was able to sit to stand from the recliner with minimal help. Pt pain causes her to still need verbal cueing and minimal facilitation to move BLE. However, compared to this morning pt was able to move more on her own, and needed less help with facilitation, and was able to completely lift her foot off the ground. Pt would benefit from skilled physical therapy to continue increasing her mobility functions and increase her activity tolerance. Next session PT will have the pt ambulate a couple of steps before performing step turn. As to continue progressively challenging the pt. ?PLAN: 1-2x/day, 7 days/week x 1 week. Plan of care has been reviewed with the HORTICULTURAL MANAGER providing the service under Physical Therapy direction. Initiate Physical Therapy intervention for pain management as needed, strengthening, bed mobility, transfers, gait, balance training, and use of assistive device ?TREATMENT CODE/TIME: 16118/12:47pm-1:17pm DISCHARGE RECOMMENDATION: SNF vs HHPT: Written by: Demario Dial DPTS Supervised by: Prema Pelaez, PT
--- NOTE | 2025-10-26 13:48 | CMPROGNOTE_ITS ---
Date of service: 10/26/25 Time of Service: 13:48 Care Management Progress Note Progress Note Text Progress Note Text: Margarita was lying in bed and awake when CM met with her. She was accompanied by her , Elgin. Both were pleasant and agreeable to conversation. Elgin expressed some concerns regarding long-term planning and home safety for Margarita. With the patient?s permission, CM submitted a referral to the [facility] to assist with long-term Medicaid planning and support. The [facility] has offered Margarita a bed for tomorrow, which she has accepted; the care team has been informed. Health Care Agent forms completed. CM will continue to follow. Discharge Potential Discharge Needs: PCP F/U Appt Anticipated Barriers to Discharge: Bed availability Patient/Family Education Needs: Review discharge instructions, discuss Ask Me Three Transportation: [facility] Transportation: Wheel chair van Plan: Anticipate Margarita will be discharged to the [facility] tomorrow for STR. It is recommended she follow up with her community provider and continue per her discharge plan of care. She will transport via [facility] as recommended by PT. Referral was sent to [facility] for additional residential planning. CM will follow and continue to support discharge planning efforts. Social Determinants of Health Screening Social Determinants of health last assessed in clinic: 10/23/25 Will the Patient Participate in the Screening?: Declined to provide Do you worry about having a steady place to live?: no Problems where you live: no known problems In the past 12 months, have you had to go without electric, gas, oil or water in your home?: no Has lack of transportation kept you from medical appointments or from doing things needed for daily living?: no Has anyone in your life made you feel unsafe or unsupported?: no How hard is it for you to pay for the very basics like food, housing, medical care, and heating? Would you say it is:: Not hard at all Do you want help finding or keeping work or a job?: I do not need or want help If for any reason you need help with day-to-day activities such as bathing, preparing meals, shopping, managing finances, etc., do you get the help you need?: I don?t need any help How often do you feel lonely or isolated from those around you?: Never Do you speak a language other than Kazakh at home?: No Does the patient want assistance with any of the above?: No
[2025-10-26] MEDS: VENETOCLAX 50 MG 1 EACH PO (16:48)
[2025-10-26] MEDS: Mirtazapine 15 MG TAB PO (20:04)
[2025-10-26 20:11] VITALS: BP 122/64; PULSE 102; RESP 18; TEMP 36.6; O2SAT 92
[2025-10-27] MEDS: Levothyroxine 50 MCG TAB PO (06:34)
[2025-10-27 07:21] VITALS: BP 113/66; PULSE 92; RESP 16; TEMP 36.8; O2SAT 92
--- NOTE | 2025-10-27 07:58 | CMDISCH_ITS ---
Date of service: 10/27/25 Time of Service: 07:58 LACE Index Scoring Tool Questions: Length of Stay (in days): 4 - 6 Was the patient admitted via the E.D.?: Yes Comorbidities: Cerebrovascular Disease and Any Tumor E.D. Visits: 3 Answers: Total Score: 13 Risk of Readmission: High Risk Care Management Discharge Plan Reason for Hospitalization: pubic ramus fracture Discharge Plan: Margarita is being transferred to the [facility] for short term rehab today. She will f/u with her PCP, the facility provider and continue per her plan of care. Margarita will transport via [facility] wheelchair van. Patient/Family Education Needs: Review of discharge instructions, activity, limitations and discuss Ask me 3. Services Needed at Discharge: [facility] Facility SDOH Health Related Social Needs: Health related social needs education Health related social needs details n/a
--- NOTE | 2025-10-27 08:03 | DSE_ITS ---
Date of service: 10/27/25 Time of Service: 08:03 DS: Diagnosis Discharge Diagnosis (1) Fracture of left inferior pubic ramus: Status: Acute (2) Fall: Status: Acute (3) Chronic lymphoid leukemia: Status: Acute (4) Depression: Status: Chronic (5) Hypothyroidism: Status: Chronic (6) Hypertension: (7) Postural dizziness with presyncope: Status: Acute Discharge Plan Disposition Patient Disposition: Penitentiary Facility(SNF) Condition: Good Discharge Details Reason For Visit: Pubic Fracture Admit Date/Time: 10/23/25 10:31 Admit Provider: Alvaro Rodriguez Attending Provider: Alvaro Rodriguez Primary Care Provider: Madalyn Craven [facility] Course Hospital Course: Patient initially presented to the hospital after experiencing a fall the night prior to arrival that resulted in nondisplaced fractures of the left pubic rami. She was unable to ambulate on her own and worked with physical therapy while e was hospitalized. Additionally, the patient only required p.o. pain medication did not require any IV. She was able to work with physical therapy but was determined to benefit from subacute rehab. Patient remained stable during hospitalization and will be discharged to subacute rehab. Home Meds and New Rx's Prescriptions: New cyclobenzaprine 10 mg Tablet 5 mg PO HS PRN PRN (Reason: Muscle Spasm) Qty: 12 0RF oxycodone 5 mg Tablet 2.5 mg PO Q4H PRN PRNQty: 12 0RF Continued multivitamin [Daily Multiple] 1 EACH tablet 1 ea PO DAILY cholecalciferol (vitamin D3) [Vitamin D3] 400 unit Capsule 800 unit PO DAILY mirtazapine 15 mg Tablet 15 mg PO HS Qty: 30 0RF sertraline 100 MG tablet 100 mg PO DAILY Qty: 30 0RF levothyroxine 50 mcg tablet 50 mcg PO DAILY Qty: 30 0RF Venclexta 100 mg tablet 200 mg PO DAILY Discontinued metoprolol tartrate 25 mg tablet 25 mg PO DAILY Qty: 30 0RF Discharge Instructions Activity:: Activity as Tolerated Equipment/Supplies:: No Equipment Needed Diet:: As Tolerated Discharge Orders Discharge Orders: Discharge Order (Routine); Ordered 10/27/25 Ordered By: Jose Holland DS: Summary Time Spent with Patient providing and/or coordinating discharge services: Greater than 30 minutes Status at Discharge Functional status at discharge: independent ambulation Overall status at discharge: patient is back to baseline Mental Status: mental status grossly normal Speech and Movement: speech and movement normal Mood: congruent mood Affect: normal affect Quality:SDOH Health Related Social Needs: Health related social needs education Health related social needs details n/a Exam Narrative Exam Narrative: well appearing older female laying in bed in no acute distress, AOx4, heart RRR, lungs CTAB, abdomen soft, non-tender, non-distended Psych Mental Status: mental status grossly normal Speech and Movement: speech and movement normal Mood: congruent mood Affect: normal affect DS: Data Vitals/I&O Vitals and I&O: Vital Signs Temperature 98.2 F 10/27/25 07:21 Temperature Source Temporal Artery Scan 10/27/25 07:21 Pulse 92 H 10/27/25 07:21 Pulse Rhythm Regular 10/23/25 05:55 Pulse Strength Normal 10/23/25 05:55 Pulse 93 H 10/23/25 07:40 Respiratory Rate 16 10/27/25 07:21 Respiratory Effort Normal 10/23/25 15:36 Respiratory Depth Normal 10/23/25 15:36 Respiratory Pattern Normal 10/23/25 15:36 Blood Pressure 113/66 10/27/25 07:21 Blood Pressure Mean 81 10/27/25 07:21 Blood Pressure Position Supine 10/23/25 05:55 Pulse Oximetry 92 10/27/25 07:21 Oxygen Delivery Method Room Air 10/27/25 07:21 Oxygen Flow Rate 0 10/27/25 07:21 Pain Level 0 10/27/25 07:21 Intake & Output 10/26/25 10/27/25 10/27/25 17:59 05:59 17:59 Intake Total 240 / 240 Output Total 200 / 200 Balance 40 / 40 Weight 125 lb 3.561 oz Intake: Oral 240 / 240 Output: Emesis 200 / 200 Other: Urine Color Yellow Yellow Urine Appearance Clear Urine Odor Normal Normal Comment Had a 2 assist of changing Pt brief as a result of the Pt being incontinent of urine. Stool Size Moderate Small Stool Characteristics Soft Formed Brown Emesis Description Undigested Food Data Completed and Pending Pending Labs at Discharge: 10/23/25 10/23/25 10/23/25 06:30 07:40 11:00 WBC 8.56 RBC 3.86 L Hgb 13.2 Hct 38.6 MCV 100 H MCH 34.2 H MCHC 34.2 RDW 16.3 H Plt Count 104 L MPV 9.7 Immature Gran % 0.7 Neutrophils % 76.6 Lymphocytes % 10.0 Monocytes % 11.3 Eosinophils % 1.2 Basophils % 0.2 Nucleated RBC % 0.0 Absolute Neutrophils 6.55 Absolute Lymphocytes 0.86 L Absolute Monocytes 0.97 H Absolute Eosinophils 0.10 Absolute Basophils 0.02 VBG pH 7.39 VBG pCO2 39 L VBG pO2 21 VBG HCO3 24 VBG Total CO2 22 L VBG O2 Saturation 34 VBG Base Excess -1 VBG Lactate 1.9 Sodium 143 Potassium 4.2 Chloride 110 H Carbon Dioxide 22.6 Anion Gap 10.4 BUN 26 H Creatinine 0.87 Est GFR (CKD-EPI 2020) 63.72 Glucose 129 H Calcium 9.2 Magnesium 1.6 Total Bilirubin 0.90 AST 38 H ALT 22 Alkaline Phosphatase 74 Troponin I 10 8 8 NT-Pro-B Natriuret Pep 1424 H Total Protein 6.8 Albumin 4.2 PFSH All Active Problems (Updated 10/24/25 @ 11:11 by Alvaro Rodriguez) Postural dizziness with presyncope (Acute) Fracture of left superior pubic ramus (Acute) Mediastinal adenopathy (Acute) Fracture of left inferior pubic ramus (Acute) Hip pain (Acute) Fall (Acute) Facial fracture due to fall (Acute) Cerebral hemorrhage following injury (Acute) Pneumonia (Acute) Hypothyroidism (Chronic) Depression (Chronic) Rotator cuff tear arthropathy of right shoulder (Acute) Right rotator cuff tear (Acute) Hepatitis (Acute) Chronic lymphoid leukemia (Acute) Anemia (Acute) Fever and chills (Acute) Systolic murmur (Acute) Troponin level elevated (Acute) Moderate aortic stenosis (Chronic) Valve area 1.2 in 2017 Trimalleolar fracture of right ankle (Chronic 07/07/19) S/P ORIF: 07/07/2019 S/P Hardware removal: 01/10/2022 Hammer toe of second toe of right foot (Acute) S/P Fusion: 01/10/2022 Acquired hammer toe deformity of lesser toe of right foot (Acute) THIRD S/P Fusion: 01/10/2022 Painful orthopaedic hardware (Acute) Medical History Spleen anomaly On deep vein thrombosis (DVT) prophylaxis Moderate aortic regurgitation Hypertension CLL (chronic lymphocytic leukemia) allogeniec bone marrow transplant biopsy 2015 in remission Surgical History History of repair of hip fracture Colonoscopy - IV Sedation (10/16/16) Cholecystectomy Family History Father No problems noted. Other Colon cancer Social History Smoking/Tobacco Use Status: Never Smoking risk assessment performed?: Yes Alcohol Intake: never Drug use: Never Substance use type: does not use Housing: house Current gender identity: female Do you feel safe at home: Yes Do you feel safe in your relationship?: Yes Additional Social history: Lives with in [facility] in [place] Time Spent with Patient Time Spent with Patient: <45 minutes Time was spent: preparing to see the patient(eg.review tests), obtaining and/or reviewing separately otained hiistory, ordering medications,tests, procedures, referring, communicating with other health before and after school daycare worker, indepentently interpreting results, counseling the patient and care coordination
[2025-10-27] MEDS: Cholecalciferol (Vitamin D3) 400 UNIT TAB 800 UNIT PO (08:25)
[2025-10-27] MEDS: Multivitamin TAB 1 TAB PO (08:26)
[2025-10-27] MEDS: Enoxaparin 40 MG/0.4 ML SYR SC (08:26)
[2025-10-27] MEDS: Sertraline 100 MG TAB PO (08:26)
--- NOTE | 2025-10-27 13:27 | PTTR_ITS ---
PT Notes Visit Reasons: Pubic Fracture Inpatient Physical Therapy Treatment Note [facility] Date: 10/27/2025 PRECAUTIONS: Standard, WBAT, Fall, B Pubic FX SUBJECTIVE: Pt reported feeling well, and was able to get some sleep last night OBJECTIVE: ? PAIN: none in bed, 5/10 during ambulation VITALS: Monitored by nursing Therapeutic Activities ([id number][]): Direct one-on-one instruction in dynamic activities to improve functional performance. ? BED MOBILITY/TRANSFERS? Supine-sit EOB: Mod A of 2, to help with BLE, and with shifting hips closer to the EOB ? Sit-stand: Min A of 1, FWW? Stand-sit: Min A of 1 FWW ? Bed-Wheelchair: Pt able to initiate step turn w/FWW toward the right with Mod A of 1 Pt unable to unweight RLE to advance forward and to the right ? Provided skilled cues and instruction on performance and technique throughout. ? ASSESSMENT: Pt was able transfer to the EOB from supine easier this session compared to prior sessions. Pt was able to flex/abduct their LLE in supine. Pt continues to have intense pain with movements of RLE therefore increased assistance with her bed mobility. Pt attempted to perform a step turn to the right. However, pt was unable to unweight her RLE and advance to slide her RLE forward to perform the turn. PT proved verbal cueing to shift her weigh onto her left foot, to allow DPTS to manual slide her right foot forward. However, pt was unable to shift her weight. With moderate cueing and bringing the wheelchair closer pt was able to sit into the chair. PT provided pt education to let the staff at the [facility] know to have her turn towards the left to make it easier for the her to turn. This would allow her to keep her weight on her right foot, and move her left foot, which she is capable of. Pt agreed to understanding why she would perform this step turn to the left direction. Pt is being transferred to the [facility], and would continue to benefit from skilled physical therapy to help address pt mobility deficits. ?PLAN: 1-2x/day, 7 days/week x 1 week. Plan of care has been reviewed with the GRIEF COUNSELOR providing the service under Physical Therapy direction. Initiate Physical Therapy intervention for pain management as needed, strengthening, bed mobility, transfers, gait, balance training, and use of assistive device ?TREATMENT CODE/TIME: 00781/9:55AM-10:15AM DISCHARGE RECOMMENDATION: SNF Written by: Demario Dial DPTS Supervised by: Prema Pelaez PT
== END 2025-10-27 10:22 | disposition skilled nursing facility (03) | DRG 536 ==
LOC: ER 10:39 → MS 12:12
PROVIDERS: Student in an Organized Health Care Education/Training Program; Admitting Provider Family Medicine; Emergency Provider Emergency Medicine; PCP Family Medicine; Responsible Provider Family Medicine; Visit Provider Family Medicine
DX: S32.592A Other specified fracture of left pubis, initial encounter for closed fracture (principal); E03.9 Hypothyroidism, unspecified; F32.A Depression, unspecified; C91.10 Chronic lymphocytic leukemia of B-cell type not having achieved remission; I10 Essential (primary) hypertension; R42 Dizziness and giddiness; S32.512A Fracture of superior rim of left pubis, initial encounter for closed fracture; Z96.641 Presence of right artificial hip joint; S32.511A Fracture of superior rim of right pubis, initial encounter for closed fracture; Z94.81 Bone marrow transplant status; R29.6 Repeated falls; W01.190A Fall on same level from slipping, tripping and stumbling with subsequent striking against furniture, initial encounter; D69.6 Thrombocytopenia, unspecified; I35.0 Nonrheumatic aortic (valve) stenosis; R01.1 Cardiac murmur, unspecified; D64.9 Anemia, unspecified
CPT/HCPCS: 00123; 36415; 73552; 74177; 80053; 82805; 93005; 93306; 96365; 97162; 97530; 99222; 99285; J1650; 70450; 71260; 72125; 72170; 83605; 83735; 83880; 84484; 85025; 93010; 99223; 99232; 99233; 99239; J0131; J2405; J3490

== ENCOUNTER 2025-11-02 18:37 | Outpatient (REF) | payer MEDICARE, SELFPAY ==
[2025-11-02 19:51] LABS: Abs Immature Grans 0.03 10^3/uL (0.0-0.06); HCT 41.4 % (36.0-46.0); HGB 13.6 g/dL (11.2-15.7); Immature Grans % 0.7 %; MCH 34.3 pg (27.0-33.0); MCHC 32.9 % (32.0-36.0); MCV 104 fL (80-95); MPV 9.7 fL (8.0-11.0); Platelet Count 162 10^3/uL (130-400); RBC 3.97 10^6/uL (3.93-5.22); RDW 15.3 % (11.7-14.6); RDW-SD 59.5 fL; WBC 4.61 10^3/uL (4.4-10.8)
[2025-11-02 20:04] LABS: Magnesium 1.7 mg/dL (1.6-2.6); Vitamin D 25 Total 37 ng/mL (30-100)
[2025-11-02 20:05] LABS: ALT 50 U/L (10-49); AST 43 U/L (<34); Albumin 4.5 g/dL (3.2-5.0); Alkaline Phosphatase 142 U/L (46-116); Anion Gap 12.1 mmol/L (3-11); BUN 21 mg/dL (9-23); Bilirubin, Total 1.0 mg/dL (0.2-1.2); CO2 23.9 mmol/L (20.0-31.0); Calcium 9.3 mg/dL (8.3-10.6); Chloride 105 mmol/L (98-107); Ferritin 487 ng/mL (7-271); Glucose 138 mg/dL (74-106); Iron 76 ug/dL (50-170); Potassium 3.7 mmol/L (3.5-5.1); Sodium 141 mmol/L (136-145); TSH (W/Ref FT4) 7.90 uIU/mL (0.55-4.78); Total Iron Binding Capacity 303 ug/dL (250-425); Total Protein 7.0 g/dL (5.7-8.2); Transferrin Sat 25 % (15-50)
[2025-11-02 20:06] LABS: Folate 18.6 ng/mL (>5.38)
[2025-11-02 20:09] LABS: Vitamin B12 851 pg/mL (211-911)
[2025-11-02 20:14] LABS: Hemoglobin A1C 5.1 % (<5.7)
== END 2025-11-02 18:38 | disposition home or self-care (01) ==
LOC: LBN 18:37
PROVIDERS: PCP Family Medicine; Visit Provider Nurse Practitioner Gerontology
DX: I50.22 Chronic systolic (congestive) heart failure (principal); E11.9 Type 2 diabetes mellitus without complications; E55.9 Vitamin D deficiency, unspecified; E87.8 Other disorders of electrolyte and fluid balance, not elsewhere classified; D63.1 Anemia in chronic kidney disease; E61.1 Iron deficiency; E03.9 Hypothyroidism, unspecified; D51.0 Vitamin B12 deficiency anemia due to intrinsic factor deficiency
CPT/HCPCS: 80053; 82306; 82607; 82728; 82746; 83036; 83540; 83550; 83735; 83880; 84439; 84443; 85025